=== PATIENT | male | born 1960 | race Caucasian/White ===

== ENCOUNTER → 2016-09-21 | Outpatient (CLI) | payer OTHER ==
[~2016-09-21] MED LIST: ALLO100T PO; ASPEC81 PO; CALC1CAP36 PO; CALC500C70 PO; CEPH500C PO; CHOL100027 PO; CHOL20009 PO; CLON0.2T PO; CMD4 PO; CTP1CL PO; FLV1 PO; FRS/40 PO; HYDR100T12 PO; LCTL45 PO; LDDP5 TD; LISI-725 PO; LSX40 PO; LYR100 PO; METO100T14 PO; MRLP17X PO; MULT-506 PO; OMEG-27 PO; OXY/15 PO; OXYC-57 PO; OXYC20TA50 PO; PLN/10 PO; PREG100C PO; RXC5 PO; SPR25 PO; WARF-246 PO; WARF5TAB90 PO
--- NOTE | 2016-09-21 10:28 | DIAGNOSTIC IMAGING REPORT ---
MRI OF THE ABDOMEN WITHOUT IV CONTRAST CLINICAL HISTORY: Renal cell carcinoma. COMPARISON STUDY: Abdominal CT dated 04/16/2016 an 07/26/2014. Abdominal MRI dated 09/10/2014. TECHNIQUE: MRI of the abdomen is performed transverse T1 and T2-weighted sequences in the axial and coronal planes. IV contrast was not administered for this examination. The examination is suboptimal without IV contrast for the reported clinical history. FINDINGS: Lower chest: The heart is markedly enlarged. A small pericardial effusion is noted. No pleural effusion is identified. Significant atelectasis is seen at the left lung base. There is a 5 mm nodule the left lung base seen on axial image #4 of the FIESTA series. Liver: The unenhanced liver is cirrhotic in morphology and markedly heterogeneous in signal intensity. There is nodularity of the surface contour. No intrahepatic biliary ductal dilatation is seen. No hepatic cysts are identified. Gallbladder: Numerous gallstones are identified. Nonspecific gallbladder wall thickening is unchanged and may be related to cirrhosis. Spleen: The spleen is enlarged, measuring 17.8 cm in length. The spleen is homogeneous in signal intensity. A 3.2 cm cystic lesion in the spleen has modestly increased in size from the 09/10/2014 examination. Pancreas: Normal as visualized. Adrenal glands: There is nodularity and thickening of the adrenal glands. These appear to demonstrate drop in signal on the opposed phase images suggesting adenomas. Kidneys: The kidneys are enlarged and demonstrate cortical atrophy. The right kidney measures at least 18 cm in length, and the left kidney measures at least 16 cm in length. The kidneys are infiltrated by too numerous to count cysts, and the appearance is consistent with autosomal dominant polycystic kidney disease. There is no hydronephrosis. Again seen is an indeterminant 3.6 x 4.0 x 2.8 cm lesion in the lower pole of the left kidney. This is best seen on axial T2 fat-saturated image #23 of 39. This appears modestly decreased in size as compared to 09/10/2014 examination. Abdominal aorta: Normal in course and caliber. Bowel: Visualized portions of the small bowel and colon show no evidence of obstruction. Moderate colonic fecal retention is observed. Peritoneum: There is no abdominal ascites. Lymphadenopathy: There is no upper abdominal or mesenteric lymphadenopathy. Mildly enlarged left periaortic lymph nodes measure up to 10 mm in short axis. Skeletal structures: There is no evidence of destructive bony lesion. IMPRESSION: 1. The kidneys are enlarged and infiltrated by too numerous to count cysts. The appearance is consistent with autosomal dominant polycystic kidney disease. 2. Again seen is an indeterminant 4.0 cm lesion in the lower pole of the left kidney. This is incompletely characterized without IV contrast but is not consistent with a simple cyst. This could represent a complex cyst or possibly a solid renal neoplasm. This appears modestly decreased in size as compared to the 09/10/2014 examination. 3. A mildly enlarged left periaortic lymph node is again identified and indeterminant. If the left renal lesion represents neoplasm then this is concerning for emeterio disease. 4. Cirrhotic liver morphology. Splenomegaly indicates portal hypertension. 5. Cholelithiasis. Mild gallbladder wall thickening is similar to previous and likely related to cirrhosis. 6. Marked cardiomegaly. 7. A 5 mm nodule is noted at the left lung base. 8. Additional changes as above. Electronically signed by: Angel Gil M.D. 09/21/2016 10:26 AM Dictated Date/Time: 09/21/2016 10:03 AM
== END | disposition home or self-care (01) ==
LOC: C.MRI 09:29
PROVIDERS: ATTEND Urology
DX: C64.2 Malignant neoplasm of left kidney, except renal pelvis (principal); N28.1 Cyst of kidney, acquired; R59.0 Localized enlarged lymph nodes; K74.60 Unspecified cirrhosis of liver; R16.1 Splenomegaly, not elsewhere classified; K80.20 Calculus of gallbladder without cholecystitis without obstruction; I51.7 Cardiomegaly; R91.1 Solitary pulmonary nodule

== ENCOUNTER 2016-12-24 16:36 | Emergency (ER) | payer OTHER ==
[~2016-12-24] VITALS: Ht 185.4 cm; Wt 133.5 kg
[~2016-12-24 16:36] MED LIST changes: -ALLO100T PO; -CALC1CAP36 PO; -CALC500C70 PO; -CEPH500C PO; -CHOL20009 PO; -CMD4 PO; -CTP1CL PO; -FLV1 PO; -HYDR100T12 PO; -LCTL45 PO; -LDDP5 TD; -LSX40 PO; -LYR100 PO; -METO100T14 PO; -MRLP17X PO; -MULT-506 PO; -OXY/15 PO; -OXYC20TA50 PO; -PLN/10 PO; -PREG100C PO; -RXC5 PO; -SPR25 PO; -WARF5TAB90 PO
[2016-12-24 16:45] VITALS: TEMP 36.9; Ht 185.4 cm; Wt 133.5 kg
[2016-12-24] MEDS ORDERED: LYR100 PO (16:47)
[2016-12-24] MEDS ORDERED: WARF5TAB90 PO (18:51)
[2016-12-24] MEDS ORDERED: OXY/15 PO (18:51)
[2016-12-24 19:13] LABS: INR 2.7 (0.9-1.1); PROTHROMBIN TIME (PATIENT) 30.3 SECONDS (9.0-12.0)
[2016-12-24 19:38] LABS: CALCIUM 9.4 mg/dl (8.5-10.1); CREATININE 3.7 mg/dl (0.60-1.40)
--- NOTE | 2016-12-24 19:40 | DIAGNOSTIC IMAGING REPORT ---
LEFT LOWER EXTREMITY VENOUS DOPPLER CLINICAL HISTORY: Left lower extremity swelling. COMPARISON STUDY: Bilateral lower extremity venous Doppler October 08, 2014. TECHNIQUE: Sonography of the deep venous system of the left lower extremity was performed. Compression and augmentation were evaluated. FINDINGS: The common femoral, superficial femoral and popliteal veins were compressible. Augmentation was normal. Flow was shown within the deep calf vessels. IMPRESSION: No evidence of deep venous thrombus within the left lower extremity. Electronically signed by: Geremias Boss M.D. 12/24/2016 7:39 PM Dictated Date/Time: 12/24/2016 7:38 PM
[2016-12-24 19:43] LABS: POTASSIUM 4.2 mmol/L (3.5-5.1)
[2016-12-24 19:57] LABS: BASO % 0.3 %; BASO ABS # 0.03 K/uL (0-0.2); COMPLETE YES; EOS % 1.3 %; HEMATOCRIT 35.7 % (42-52); IG% 0.1 %; LYMPH % 13.4 %; LYMPH ABS # 1.16 K/uL (1.2-3.4); MEAN CELL VOLUME 93.5 fL (80-100); MEAN CORPUSCULAR HEMOGLOBIN 29.3 pg (25-34); MEAN CORPUSCULAR HGB CONC 31.4 g/dl (32-36); MEAN PLATELET VOLUME 10.3 fL (7.4-10.4); MONO % 8.3 %; NEUT % 76.6 %; PLATELET COUNT 118 K/uL (130-400); RED BLOOD COUNT 3.82 M/uL (4.7-6.1); WHITE BLOOD COUNT 8.68 K/uL (4.8-10.8)
--- NOTE | 2016-12-24 20:10 | DIAGNOSTIC IMAGING REPORT ---
LEFT FIRST TOE RADIOGRAPHS CLINICAL HISTORY: Ulcer. COMPARISON: Left foot radiographs March 08, 2014. FINDINGS: There is evidence for amputation of the first toe at the level the mid shaft of the proximal phalanx. There is subtle indistinctness of the cortex at the level of the amputation. There is no definite evidence for osteomyelitis. Apparent erosion of the distal phalanx of the left second toe is chronic. This was shown on prior exam. Soft tissue swelling of the left first toe is present. IMPRESSION: Status post amputation of the left first toe at the level the mid shaft of the proximal phalanx. Possible indistinctness of the cortex at the level of the amputation. This is probably chronic. No definite evidence for osteomyelitis although an MRI could be obtained. Soft tissue swelling of the left first toe. Electronically signed by: Geremias Boss M.D. 12/24/2016 8:09 PM Dictated Date/Time: 12/24/2016 8:04 PM
[2016-12-24] MEDS ORDERED: CEPH500C PO (20:59)
[2016-12-24] MEDS ORDERED: CEPHALEXIN MONOHYDRATE 250 MG CAP PO ONE (21:00)
[2016-12-24 21:20] VITALS: BP 136/73; PULSE 72; O2SAT 94
--- NOTE | 2016-12-25 00:04 | EMERGENCY ROOM VISIT NOTE ---
History Report prepared by Ja: Jennifer Avina Under the Supervision of: Dr. Billy Chaudhary D.O. 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 The patient states that his infection on his left toe started about 3 months ago with the appearance of an ulcer on the right big toe. The patient states that about 1 week ago the skin on the ulcer on his left foot peeled off. He states that he was worried that the same thing would happen to his right toe. The patient states that skin around his right toe ulcer was starting to get soft which is what occurred to his left toe. The patient states that he had part of his left big toe amputated in the past due to an infection. The patient states that he sees a map compiler regularly but has not seen them for the last 3 weeks. The patient states that he does not have a history of diabetes but states he does take Coumadin for atrial fibrillation. He states his INR was last tested to be 2.2 about 3 weeks ago. The patient states he does not have very good feeling on his legs or feet due to shots for a Hepatitis C infection he had in the past. He also states that due to the current infection on his toes that his left leg does have some increased swelling. The patient denies any recent shortness of breath, surrounding redness or streaking up his legs. The patient does state that he has a lump on his left knee which he states is tender to touch. 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 Patient denies redness or streaking up the legs. Review of Systems See above for pertinent positives & negatives. A total of 10 systems reviewed and were otherwise negative. Past Medical & Surgical Medical Problems: (1) ANTICOAGULANTS,LT,CURRENT USE (2) ATRIAL FIBRILLATION (3) Talley's cyst of knee (4) Chronic diastolic CHF (congestive heart failure) (5) CKD (chronic kidney disease) (6) Depression (7) DM type 2 (diabetes mellitus, type 2) (8) Edema (9) Fatty liver (10) GERD (gastroesophageal reflux disease) (11) Hepatitis C, chronic (12) History of alcohol abuse (13) History of DVT (deep vein thrombosis) (14) History of hematuria (15) HYPERLIPIDEMIA NEC/NOS (16) HYPERTENSION NOS (17) LVH (left ventricular hypertrophy) (18) Polycystic kidney disease (19) Renal mass, left (20) SOB (shortness of breath) (21) Status post amputation of toe of left foot Surgical Problems: (1) H/O colonoscopy (2) H/O endoscopy (3) H/O partial nephrectomy (4) Hx of appendectomy (5) pelvic fracture repair Family History Hypertension FATHER LUNG DISORDER FATHER Social History Smoking Status: Never Smoker Alcohol Use: none Drug Use: none Marital Status: single Housing Status: lives alone Occupation Status: disabled Current/Historical Medications Scheduled Allopurinol (Zyloprim), 100 MG PO BID Calcitriol (Calcitriol), 0.25 MCG PO DAILY Calcium/Vitamin D (Os-Delvis 500 Plus D), 1 TAB PO DAILY Cephalexin Monohydrate (Keflex), 500 MG PO TID Cholecalciferol (Vitamin D), 2,000 INTER.UNIT PO DAILY Clonidine Hcl (Catapres), 0.1 MG PO BID Felodipine (Felodipine ER), 10 MG PO DAILY Folic Acid (Folic Acid), 1 MG PO BID Furosemide (Furosemide), 40 MG PO BID Hydralazine Hcl (Apresoline), 100 MG PO BID Metoprolol Tartrate (Lopressor) (Lopressor), 100 MG PO BID Multivitamin (Multivitamin), 1 TAB PO DAILY Oxycodone Hcl (Oxycodone Hcl), 15 MG PO QID Pregabalin (Lyrica), 100 MG PO BID Warfarin Sodium (Coumadin), 5 MG PO Q2D Warfarin Sodium (Coumadin), 7.5 MG PO Q2D Scheduled PRN Spironolactone (Spironolactone), 50 MG PO QAM PRN for Fluid Retention/Edema Allergies Coded Allergies: Piperacillin (Verified Adverse Reaction, Severe, "makes me goofy", ) Tazobactam (Verified Adverse Reaction, Severe, "makes me goofy", 07/21/16) Physical Exam Vital Signs Date Time Temp Pulse Resp B/P Pulse Ox O2 Delivery O2 Flow Rate FiO2 12/24/16 21:20 72 16 136/73 94 12/24/16 18:35 78 15 145/72 93 Room Air 12/24/16 16:45 36.9 78 18 143/77 92 Room Air Physical Exam GENERAL: Sitting up in bed, alert, well appearing, well nourished, no distress, non-toxic EYE EXAM: normal conjunctiva OROPHARYNX: no exudate, no erythema, lips, buccal mucosa, and tongue normal and mucous membranes are moist NECK: supple, no nuchal rigidity, no adenopathy, non-tender LUNGS: Clear to auscultation. Normal chest wall mechanics HEART: no murmurs, S1 normal and S2 normal ABDOMEN: abdomen soft, non-tender, normo-active bowel sounds, no masses, no rebound or guarding. BACK: Back is symmetrical on inspection and there is no deformity, no midline tenderness, no CVA tenderness. SKIN: no rashes and no bruising UPPER EXTREMITIES: upper extremities are grossly normal. LOWER EXTREMITIES: Left lower extremity larger than right with faint pitting edema. Left first toe ulcer amputation of about an inch of the distal toe. Ulcer on dorsal aspect 2.5cm x 1 cm with no prevalent discharge. Layer of skin has been removed. Right lower extremity 0.5 cm x 1 cm ulcer on first toe, no surrounding erythema or induration. NEURO EXAM: Normal sensorium, cranial nerves II-XII intact, normal speech, no weakness of arms, no weakness of legs. Medical Decision & Procedures ER Provider Diagnostic Interpretation: Radiology results as stated below per my review and the radiologist's interpretation: US scan: Radiology provided the following report: LEFT LOWER EXTREMITY VENOUS DOPPLER CLINICAL HISTORY: Left lower extremity swelling. COMPARISON STUDY: Bilateral lower extremity venous Doppler October 08, 2014. TECHNIQUE: Sonography of the deep venous system of the left lower extremity was performed. Compression and augmentation were evaluated. FINDINGS: The common femoral, superficial femoral and popliteal veins were compressible. Augmentation was normal. Flow was shown within the deep calf vessels. IMPRESSION: No evidence of deep venous thrombus within the left lower extremity. Electronically signed by: Geremias Boss M.D. 12/24/2016 7:39 PM Dictated Date/Time: 12/24/2016 7:38 PM Radiology results as stated below per my review and the radiologist's interpretation: LEFT FIRST TOE RADIOGRAPHS CLINICAL HISTORY: Ulcer. COMPARISON: Left foot radiographs March 08, 2014. FINDINGS: There is evidence for amputation of the first toe at the level the mid shaft of the proximal phalanx. There is subtle indistinctness of the cortex at the level of the amputation. There is no definite evidence for osteomyelitis. Apparent erosion of the distal phalanx of the left second toe is chronic. This was shown on prior exam. Soft tissue swelling of the left first toe is present. IMPRESSION: Status post amputation of the left first toe at the level the mid shaft of the proximal phalanx. Possible indistinctness of the cortex at the level of the amputation. This is probably chronic. No definite evidence for osteomyelitis although an MRI could be obtained. Soft tissue swelling of the left first toe. Electronically signed by: Geremias Boss M.D. 12/24/2016 8:09 PM Dictated Date/Time: 12/24/2016 8:04 PM Laboratory Results 12/24/16 19:50 Red Blood Count 3.82, Mean Corpuscular Volume 93.5, Mean Corpuscular Hemoglobin 29.3, Mean Corpuscular Hemoglobin Concent 31.4, Mean Platelet Volume 10.3, Neutrophils (%) (Auto) 76.6, Lymphocytes (%) (Auto) 13.4, Monocytes (%) (Auto) 8.3, Eosinophils (%) (Auto) 1.3, Basophils (%) (Auto) 0.3, Neutrophils # (Auto) 6.65, Lymphocytes # (Auto) 1.16, Monocytes # (Auto) 0.72, Eosinophils # (Auto) 0.11, Basophils # (Auto) 0.03 12/24/16 18:45 Test 12/24/16 18:45 12/24/16 19:50 Prothrombin Time 30.3 SECONDS (9.0-12.0) Prothromb Time International Ratio 2.7 (0.9-1.1) Anion Gap 8.0 mmol/L (3-11) Est Creatinine Clear Calc Drug Dose 32.0 ml/min Estimated GFR () 20.0 Estimated GFR (Non- 17.2 BUN/Creatinine Ratio 14.0 (10-20) Calcium Level 9.4 mg/dl (8.5-10.1) White Blood Count 8.68 K/uL (4.8-10.8) Red Blood Count 3.82 M/uL (4.7-6.1) Hemoglobin 11.2 g/dL (14.0-18.0) Hematocrit 35.7 % (42-52) Mean Corpuscular Volume 93.5 fL (80-100) Mean Corpuscular Hemoglobin 29.3 pg (25-34) Mean Corpuscular Hemoglobin Concent 31.4 g/dl (32-36) Platelet Count 118 K/uL (130-400) Mean Platelet Volume 10.3 fL (7.4-10.4) Neutrophils (%) (Auto) 76.6 % Lymphocytes (%) (Auto) 13.4 % Monocytes (%) (Auto) 8.3 % Eosinophils (%) (Auto) 1.3 % Basophils (%) (Auto) 0.3 % Neutrophils # (Auto) 6.65 K/uL (1.4-6.5) Lymphocytes # (Auto) 1.16 K/uL (1.2-3.4) Monocytes # (Auto) 0.72 K/uL (0.11-0.59) Eosinophils # (Auto) 0.11 K/uL (0-0.5) Basophils # (Auto) 0.03 K/uL (0-0.2) RDW Standard Deviation 50.3 fL (36.4-46.3) RDW Coefficient of Variation 14.8 % (11.5-14.5) Immature Granulocyte % (Auto) 0.1 % Immature Granulocyte # (Auto) 0.01 K/uL (0.00-0.02) Laboratory results per my review. Medications Administered Medications (Trade) Dose Ordered Sig/Efrain Route Start Time Stop Time Status Last Admin Dose Admin Cephalexin Monohydrate (Keflex Cap) 500 mg NOW ONCE PO 12/24/16 21:00 12/24/16 21:01 DC 12/24/16 21:06 500 MG ED Course ED COURSE: Vital signs were reviewed and showed normal The patients medical record was reviewed The above diagnostic studies were performed and reviewed. ED treatments and interventions as stated above. 1815: The patient was evaluated in room A10. A complete history and physical examination was performed. 1910: I revaluated the patient and he was sleeping and resting comfortably. 2053: Upon reevaluation, the patient is resting comfortably.I discussed my findings with the patient and he understands and agrees with the treatment plan. The patient states that he would rather follow up with wound clinic in [place] than the [facility] wound clinic. I discussed this with the protective services case worker on getting in a follow up appointment with [place]'s wound clinic. The patient also states that his kidney function is always elevated to 3.5-3.7 recently. Based on the patients age, coexisting illnesses, exam and lab findings the decision to treat as an outpatient was made.The patient remained stable while under my care.The patient appeared well at the time of discharge. 2100: Ordered Keflex Cap 500 mg. Medical Decision Differential diagnosis includes etiologies such as cellulitis, abscess, MRSA infection, DVT, necrotizing fasciitis, dermatitis, drug eruption, as well as others were entertained. Patient is a 56-year-old male who presents the ER for to toe ulcers without any purulent discharge. Labs show no significant leukocytosis or anemia. BMP shows creatinine 3.7 and upon review his previous creatinines appear to fluctuate between 2.9-3.4. Patient does note that his creatinine recently due to his PCOS has been 2.5-3.7 pretty consistently. INR was therapeutic at 2.7. Duplex of the left lower extremity was negative. X-rays showed no obvious osteomyelitis. Recommended wound care but he preferred not to drive to our wound care but rather the one in [place]. Discussed with care management and they will attempt to set him up. I did place multiple Keflex instructed to follow up with PCP and wound care. Discussed with Pt concerning signs and symptoms to watch out for. Pt was instructed to follow up with their PCP and discussed with the patient their option to return to the ED at anytime for persistent or worsening symptoms. The appropriate anticipatory guidance and out- patient management, including indications for return to the emergency department , were explained at length to the patient and understood. Impression Primary Impression: Toe ulcer Additional Impressions: Chronic kidney disease Anemia Scribe Attestation The scribe's documentation has been prepared under my direction and personally reviewed by me in its entirety. I confirm that the note above accurately reflects all work, treatment, procedures, and medical decision making performed by me. Departure Information Dispostion Home / Self-Care Prescriptions Cephalexin Monohydrate (Keflex) 500 Mg Cap 500 MG PO TID for 10 Days, #30 CAP Prov: Billy Chaudhary, DO 12/24/16 Referrals Rene Azar III, CRNP (PCP) Forms HOME CARE DOCUMENTATION FORM, IMPORTANT VISIT INFORMATION, WORK / SCHOOL INSTRUCTIONS Patient Instructions [facility] Additional Instructions Please follow up with your primary care doctor with in the next 24 hours. Any worsening of your symptoms, please return to the ED immediately. This includes fevers, worsening the ulcer, dark/necrotic tissue present, purulent discharge, or any other concerning signs or symptoms from your standpoint. Please follow up with the wound clinic as set up by care management. Please take the antibiotics as prescribed. Your kidney function today was 3.7. Your INR was 2.7. Problem Qualifiers Primary Impression: Toe ulcer Laterality: unspecified laterality Non-pressure ulcer stage: limited to breakdown of skin Qualified Codes: L97.501 - Non-pressure chronic ulcer of other part of unspecified foot limited to breakdown of skin Additional Impressions: Chronic kidney disease Chronic kidney disease stage: unspecified stage Qualified Codes: N18.9 - Chronic kidney disease, unspecified Anemia Other causes of anemia: other cause, not classified
[2017-02-26] MEDS ORDERED: OXYC20TA50 PO (10:43)
[2017-02-26] MEDS ORDERED: MRLP17X PO (10:43)
[2017-02-26] MEDS ORDERED: LDDP5 TD (10:43)
[2017-02-26] MEDS ORDERED: RXC5 PO ×2 (11:08→20:21)
[2017-02-26] MEDS ORDERED: PREG100C PO (16:08)
[2017-04-27] MEDS ORDERED: CALC500C70 PO (07:05)
[2017-04-27] MEDS ORDERED: ALLO100T PO (07:29)
[2017-04-27] MEDS ORDERED: MULT-506 PO (11:30)
[2017-04-27] MEDS ORDERED: FLV1 PO (16:47)
[2017-04-27] MEDS ORDERED: METO100T14 PO (17:10)
[2017-05-03] MEDS ORDERED: RXC5 PO (16:31)
[2017-05-03] MEDS ORDERED: CMD4 PO (16:31)
[2017-05-03] MEDS ORDERED: LSX40 PO (16:31)
[2017-05-03] MEDS ORDERED: LCTL45 PO (16:31)
[2017-07-13] MEDS ORDERED: PREG100C PO (12:21)
[2017-07-13] MEDS ORDERED: MULT-513 PO (12:21)
[2017-07-13] MEDS ORDERED: CALC-51 PO (12:21)
[2017-07-13] MEDS ORDERED: ALLO100T PO (12:21)
[2017-07-13] MEDS ORDERED: CTP/1 PO (12:21)
[2017-07-13] MEDS ORDERED: CHOL100010 PO (12:21)
[2017-07-13] MEDS ORDERED: METO-596 PO (12:21)
[2017-07-13] MEDS ORDERED: OXYC20TA32 PO (12:21)
[2017-07-13] MEDS ORDERED: SENN-61 PO (12:21)
[2017-07-13] MEDS ORDERED: WARF5TAB7 PO (12:21)
[2017-07-13] MEDS ORDERED: FRS/40 PO (12:21)
[2017-07-13] MEDS ORDERED: CALC0.2510 PO (12:21)
[2017-07-13] MEDS ORDERED: FOLI1TAB7 PO (12:21)
== END 2016-12-24 21:22 | disposition home or self-care (01) ==
LOC: C.EDB 16:39 → C.EDA 21:22
DX: L97.519 Non-pressure chronic ulcer of other part of right foot with unspecified severity (principal); N18.9 Chronic kidney disease, unspecified; D64.9 Anemia, unspecified; E11.621 Type 2 diabetes mellitus with foot ulcer; I48.91 Unspecified atrial fibrillation; M71.20 Synovial cyst of popliteal space [Baker], unspecified knee; I50.9 Heart failure, unspecified; I12.9 Hypertensive chronic kidney disease with stage 1 through stage 4 chronic kidney disease, or unspecified chronic kidney disease; E11.22 Type 2 diabetes mellitus with diabetic chronic kidney disease; F32.9 Major depressive disorder, single episode, unspecified; K21.9 Gastro-esophageal reflux disease without esophagitis; B18.2 Chronic viral hepatitis C; E78.5 Hyperlipidemia, unspecified; Q61.3 Polycystic kidney, unspecified; I51.7 Cardiomegaly; F10.21 Alcohol dependence, in remission; N28.89 Other specified disorders of kidney and ureter; Z79.01 Long term (current) use of anticoagulants; Z89.422 Acquired absence of other left toe(s); Z86.718 Personal history of other venous thrombosis and embolism

== ENCOUNTER 2017-02-21 11:13 | Inpatient (IN) | payer OTHER ==
[~2017-02-21] VITALS: Ht 185.4 cm; Wt 127.2 kg
[~2017-02-21 11:13] MED LIST changes: -ASPEC81 PO; -CHOL100027 PO; -CLON0.2T PO; -FRS/40 PO; -LISI-725 PO; +LYR100 PO; -OMEG-27 PO; +OXY/15 PO; -OXYC-57 PO; -WARF-246 PO; +WARF5TAB90 PO
[2017-02-21] MEDS ORDERED: MoRPHine SULFATE 10 MG/ML CARP/VIAL IM STA (11:47)
[2017-02-21] MEDS ORDERED: FRS/40 PO (12:41)
--- NOTE | 2017-02-21 12:41 | DIAGNOSTIC IMAGING REPORT ---
LUMBAR SPINE CT CT DOSE: 4894.00 mGy.cm HISTORY: Pain lumbar radiculopathy, hx cancer TECHNIQUE: Multiaxial CT images of the lumbar spine were performed and reformatted in the sagittal and coronal plane without the use of contrast. COMPARISON: None. FINDINGS: Normal alignment of the vertebral bodies. Vertebral body stature is unremarkable. Moderate degenerative disc change L5-S1. Mild broad-based disc bulge L4-L5 and L5-S1. No major compromise of the spinal canal or neural foramina. Moderate narrowing of the neuroforamina on an osteophytic bases bilaterally at L5-S1. IMPRESSION: Mild degenerative change. Mild broad-based disc bulge L4-L5 and L5-S1. Electronically signed by: El Josue M.D. 02/21/2017 12:39 PM Dictated Date/Time: 02/21/2017 12:36 PM
[2017-02-21] MEDS ORDERED: OXYC20TA50 PO (12:43)
--- NOTE | 2017-02-21 12:52 | DIAGNOSTIC IMAGING REPORT ---
CT SCAN OF THE PELVIS WITHOUT IV CONTRAST CLINICAL HISTORY: Right leg pain and bruising. COMPARISON STUDY: Pelvic CT dated 04/16/2016. TECHNIQUE: CT scan of the bony pelvis is performed from the pelvic inlet to the proximal femora. Images are reviewed in the axial, sagittal, and coronal planes. IV contrast was not administered for this examination. FINDINGS: The skeletal structures are osteopenic. No fracture is identified in the hips or bony pelvis. Chronic deformity and widening at the pubic symphysis with postoperative change is similar to previous. No lytic or blastic lesions are seen. Lumbosacral spondylosis is partially imaged and there is degenerative change with vacuum phenomenon seen at the sacroiliac joints. There is a complex hyperdense collection identified within the right gluteus medius muscle which appears expanded. The collection measures approximately 10 x 9 x 6 cm as seen on axial image #134. The appearance is most consistent with intramuscular hematoma. No additional intramuscular hemorrhage is identified. There is no pelvic sidewall or inguinal lymphadenopathy. There is advanced atherosclerotic calcification of the distal abdominal aorta and iliac vessels. The kidneys appear enlarged and multicystic. A complex lesion is again seen in the lower pole of left kidney. There is likely adjacent postoperative change. Nonspecific perinephric stranding is observed. The visualized bowel loops are normal in caliber. Fecal retention is noted in the right colon. There is median lobe hypertrophy hypertrophy of the prostate gland. The bladder wall appears thickened and trabeculated suggesting chronic outlet obstruction. IMPRESSION: 1. No acute bony abnormality seen in the hips or pelvis. 2. A large intramuscular hematoma is seen within the right gluteus medius muscle. Clinical follow-up to resolution is recommended. 3. Enlarged multicystic kidneys are partially imaged. 4. Additional findings as above. Electronically signed by: Angel Gil M.D. 02/21/2017 12:51 PM Dictated Date/Time: 02/21/2017 12:39 PM
[2017-02-21 12:56] LABS: BASO % 0.4 %; BASO ABS # 0.03 K/uL (0-0.2); COMPLETE YES; EOS % 1.8 %; IG% 0.1 %; LYMPH ABS # 0.84 K/uL (1.2-3.4); MEAN CELL VOLUME 89.6 fL (80-100); MEAN CORPUSCULAR HEMOGLOBIN 28.6 pg (25-34); MEAN CORPUSCULAR HGB CONC 31.9 g/dl (32-36); MEAN PLATELET VOLUME 10.5 fL (7.4-10.4); NEUT % 76.7 %; PLATELET COUNT 140 K/uL (130-400); RED BLOOD COUNT 3.57 M/uL (4.7-6.1); WHITE BLOOD COUNT 7.61 K/uL (4.8-10.8)
[2017-02-21 13:14] LABS: BUN/CREATININE RATIO 18.5 (10-20); CALCIUM 9.5 mg/dl (8.5-10.1); CREATININE 3.4 mg/dl (0.60-1.40); POTASSIUM 3.5 mmol/L (3.5-5.1)
[2017-02-21 13:28] LABS: PROTHROMBIN TIME (PATIENT) > 100.0 SECONDS (9.0-12.0)
[2017-02-21 13:48] LABS: PARTIAL THROMBOPLASTIN RATIO > 11.0
[2017-02-21 13:49] LABS: INR > 8.0 (0.9-1.1)
[2017-02-21] MEDS ORDERED: PHYTONADIONE 5 MG TAB PO STA (14:03)
--- NOTE | 2017-02-21 15:00 | EMERGENCY ROOM VISIT NOTE ---
History First contact with patient: 11:26 Chief Complaint: LEG PAIN,LEG INJURY Stated Complaint: FOOT, LEG AND HIP PAIN History of Present Illness The patient is a 57 year old male who presents to the Emergency Room with complaints of pain radiating from the right buttock down the right leg. He states he has had intermittent pain for the past one week which worsened this morning. He states that after getting up to walk to the bathroom, his pain became constant and severe. He rates the current discomfort a 10/10. He denies any history of similar symptoms. The patient does have chronic pain in his feet due to neuropathy and in his knees and hips due to arthritis and takes oxycodone for the pain. He states that he took oxycodone this morning for relief of this pain with no relief. He denies any numbness or weakness in the leg. He denies any specific injury to the leg. He states that he has a history of polycystic kidney disease and hypertension. He also reports a history of atrial fibrillation and takes Coumadin. Review of Systems A complete 10 point review of systems was reviewed with the patient with pertinent positives and negatives as per history of present illness. All else were negative. Past Medical/Surgical History Medical Problems: (1) ANTICOAGULANTS,LT,CURRENT USE (2) ATRIAL FIBRILLATION (3) Talley's cyst of knee (4) Chronic diastolic CHF (congestive heart failure) (5) CKD (chronic kidney disease) (6) Depression (7) DM type 2 (diabetes mellitus, type 2) (8) Edema (9) Fatty liver (10) GERD (gastroesophageal reflux disease) (11) Hepatitis C, chronic (12) History of alcohol abuse (13) History of DVT (deep vein thrombosis) (14) History of hematuria (15) HYPERLIPIDEMIA NEC/NOS (16) HYPERTENSION NOS (17) LVH (left ventricular hypertrophy) (18) Polycystic kidney disease (19) Renal mass, left (20) SOB (shortness of breath) (21) Status post amputation of toe of left foot Surgical Problems: (1) H/O colonoscopy (2) H/O endoscopy (3) H/O partial nephrectomy (4) Hx of appendectomy (5) pelvic fracture repair Family History Hypertension FATHER LUNG DISORDER FATHER Social History Smoking Status: Never Smoker Alcohol Use: none Drug Use: none Marital Status: single Housing Status: lives alone Occupation Status: disabled Current/Historical Medications Scheduled Allopurinol (Zyloprim), 100 MG PO BID Calcitriol (Calcitriol), 0.25 MCG PO DAILY Calcium/Vitamin D (Os-Delvis 500 Plus D), 1 TAB PO DAILY Cholecalciferol (Vitamin D), 2,000 INTER.UNIT PO DAILY Clonidine Hcl (Catapres), 0.1 MG PO BID Felodipine (Felodipine ER), 10 MG PO QPM Folic Acid (Folic Acid), 1 MG PO BID Furosemide (Furosemide), 40 MG PO DAILY Furosemide (Lasix), 80 MG PO QPM Hydralazine Hcl (Apresoline), 100 MG PO BID Metoprolol Tartrate (Lopressor) (Lopressor), 100 MG PO BID Multivitamin (Multivitamin), 1 TAB PO DAILY Pregabalin (Lyrica), 100 MG PO BID Warfarin Sodium (Coumadin), 5 MG PO Q2D Warfarin Sodium (Coumadin), 7.5 MG PO Q2D Scheduled PRN Oxycodone Hcl (Oxycontin), 20 MG PO Q4 PRN for Pain Spironolactone (Spironolactone), 50 MG PO QAM PRN for Fluid Retention/Edema Allergies Coded Allergies: Piperacillin (Verified Adverse Reaction, Severe, "makes me goofy", 02/21/17 ) Tazobactam (Verified Adverse Reaction, Severe, "makes me goofy", 02/21/17) Physical Exam Vital Signs Date Time Temp Pulse Resp B/P (MAP) Pulse Ox O2 Delivery O2 Flow Rate FiO2 02/21/17 15:36 97 Room Air 02/21/17 14:21 66 18 129/64 97 Room Air 02/21/17 12:52 66 20 116/60 96 Room Air 02/21/17 11:39 66 18 108/57 98 Room Air 02/21/17 11:18 36.7 65 18 90/50 98 Room Air Physical Exam VITALS: Vitals are noted on the nurse's note and reviewed by myself. Vital signs stable. GENERAL: This is a 57-year-old male, in no acute distress, nondiaphoretic, well- developed well-nourished. HEART: Regular rate and rhythm, no murmurs gallops or rubs. LUNGS: Clear to auscultation bilaterally without wheezes, rales or rhonchi. No retractions or accessory muscle use. MUSCULOSKELETAL: There is a large area of ecchymosis over the right buttock and lateral right hip. There is tenderness to palpation over the buttock and hip. Dorsalis pedis pulses 2+ bilaterally. NEURO: Patient was alert and oriented to person place and time. Medical Decision & Procedures Laboratory Results 02/21/17 12:40 Red Blood Count 3.57, Mean Corpuscular Volume 89.6, Mean Corpuscular Hemoglobin 28.6, Mean Corpuscular Hemoglobin Concent 31.9, Mean Platelet Volume 10.5, Neutrophils (%) (Auto) 76.7, Lymphocytes (%) (Auto) 11.0, Monocytes (%) (Auto) 10.0, Eosinophils (%) (Auto) 1.8, Basophils (%) (Auto) 0.4, Neutrophils # (Auto ) 5.83, Lymphocytes # (Auto) 0.84, Monocytes # (Auto) 0.76, Eosinophils # (Auto ) 0.14, Basophils # (Auto) 0.03 02/21/17 12:40 Test 02/21/17 12:40 White Blood Count 7.61 K/uL (4.8-10.8) Red Blood Count 3.57 M/uL (4.7-6.1) Hemoglobin 10.2 g/dL (14.0-18.0) Hematocrit 32.0 % (42-52) Mean Corpuscular Volume 89.6 fL (80-100) Mean Corpuscular Hemoglobin 28.6 pg (25-34) Mean Corpuscular Hemoglobin Concent 31.9 g/dl (32-36) Platelet Count 140 K/uL (130-400) Mean Platelet Volume 10.5 fL (7.4-10.4) Neutrophils (%) (Auto) 76.7 % Lymphocytes (%) (Auto) 11.0 % Monocytes (%) (Auto) 10.0 % Eosinophils (%) (Auto) 1.8 % Basophils (%) (Auto) 0.4 % Neutrophils # (Auto) 5.83 K/uL (1.4-6.5) Lymphocytes # (Auto) 0.84 K/uL (1.2-3.4) Monocytes # (Auto) 0.76 K/uL (0.11-0.59) Eosinophils # (Auto) 0.14 K/uL (0-0.5) Basophils # (Auto) 0.03 K/uL (0-0.2) RDW Standard Deviation 49.8 fL (36.4-46.3) RDW Coefficient of Variation 15.3 % (11.5-14.5) Immature Granulocyte % (Auto) 0.1 % Immature Granulocyte # (Auto) 0.01 K/uL (0.00-0.02) Prothrombin Time > 100.0 SECONDS Prothromb Time International Ratio > 8.0 (0.9-1.1) Activated Partial Thromboplast Time > 300.0 SECONDS Partial Thromboplastin Ratio > 11.0 Anion Gap 12.0 mmol/L (3-11) Est Creatinine Clear Calc Drug Dose 33.5 ml/min Estimated GFR () 22.0 Estimated GFR (Non- 18.9 BUN/Creatinine Ratio 18.5 (10-20) Calcium Level 9.5 mg/dl (8.5-10.1) Medications Administered Medications (Trade) Dose Ordered Sig/Efrain Route Start Time Stop Time Status Last Admin Dose Admin Morphine Sulfate (MoRPHine SULFATE INJ) 6 mg NOW STAT IM 02/21/17 11:47 02/21/17 11:48 DC 02/21/17 11:58 6 MG Phytonadione (Mephyton Tab) 5 mg NOW STAT PO 02/21/17 14:03 02/21/17 14:04 DC 02/21/17 14:13 5 MG Acetaminophen (Tylenol Tab) 650 mg Q4H PRN PO 02/21/17 15:30 03/23/17 15:29 02/21/17 18:57 650 MG Hydromorphone HCl (Dilaudid Inj) 1 mg Q4H PRN IV 02/21/17 15:30 03/07/17 15:29 02/21/17 15:58 1 MG Oxycodone HCl (Roxicodone Immediate Rel Tab) 20 mg Q6H PRN PO 02/21/17 15:30 03/07/17 15:29 02/21/17 17:03 20 MG ED Course The patient was evaluated as above. Labs were drawn and IV access was obtained. Patient was medicated with 6 mg morphine IM. Patient was medicated with 5 mg vitamin K. Patient was reevaluated and findings were discussed. I initially had planned on discharging the patient, but he does not feel that he can safely be discharged home. He is concerned about walking, as he lives by himself. The patient will be admitted for further evaluation. [facility] They agreed to evaluate the patient for admission. Medical Decision Differential diagnosis includes sciatica, intramuscular hematoma, malignancy, infection, among others. The patient is a 57-year-old male who presents today complaining of right hip and leg pain. Patient has a large area of ecchymosis over the right buttock. A CT scan of the pelvis shows a large intramuscular hematoma. Patient's INR was found to be supratherapeutic at greater than 8. He was initially treated with oral vitamin K. I did feel that the patient could be discharged home with close follow-up, however the patient is uncomfortable with this as he lives by himself and does not feel that he will be able to walk around to take care of himself until this is improved. [facility] The patient was independently evaluated by Dr. Chaudhary, ED attending physician, who agreed with my assessment and treatment plan. Blood pressure screening: Patient was found to have normal blood pressure on screening and does not require follow-up. Medication reconciliation: I attest that I have personally reviewed the patient 's current medication list. Impression Primary Impression: Intramuscular hematoma Additional Impressions: Supratherapeutic INR Ambulatory dysfunction Departure Information Dispostion Admitted as an inpatient Condition GOOD Referrals Justen Everett D.O. (PCP) Patient Instructions My [facility] Health Problem Qualifiers
[2017-02-21] MEDS ORDERED: ONDANSETRON INJ 2 MG/ML 2 ML VIAL IV PRN (15:30)
[2017-02-21] MEDS ORDERED: POLYETHYLENE (MIRALAX) 17 GM PACK PO PRN (15:30)
[2017-02-21] MEDS ORDERED: SPIRONOLACTONE 25 MG TAB PO PRN (15:30)
[2017-02-21 15:36] VITALS: O2SAT 97; Ht 185.4 cm; Wt 127.2 kg
[2017-02-21] MEDS: HYDROmorphone INJ 1 MG/ML SYR IV PRN ×2 (15:58→20:52)
--- NOTE | 2017-02-21 16:12 | History and Physical ---
History & Physical Date & Time of Service: Feb 21, 2017 at 15:40 Chief Complaint: Foot, Leg And Hip Pain Primary Care Physician: Justen Everett D.O. History of Present Illness This is a 57 yo M with PMHx of afib on coumadin, HTN, hyperlipidemia, stage IV, diastolic CHF, polycystic kidney disease, RAVI, PVD, history of an STEMI in March 2016, vit D deficiency, chronic hepatitis C, renal carcinoma with mass of the left kidney who presents today with excruciating pain in the lower back and right buttocks which began this morning. He reports he normally has chronic pain in his lower back and neuropathy in both feet which is unchanged, he reports worsening ability to walk due to the pain. His Coumadin regimen is alternating 7.5 and 5 mg, last dose was yesterday. He previously was using Pegasys injections for chronic hep C. which he reports caused his neuropathy. He denies any radiating pain into the abdomen or into the groin. He typically walks without an any assistance but has been requiring a wheelchair due to his pain. The patient does take narcotics on a daily basis for lower back pain, but he is unable to provide details of his outpatient pain management regimen. Here in the ER patient was found to have an INR greater than 8. CT had the pelvis shows a large intramuscular hematoma within the right gluteus medius. And also with enlarged multicystic kidneys. Hemoglobin stable at 10.2. His creatinine is 3.4. Platelets are 140. Past Medical/Surgical History Medical Problems: (1) ANTICOAGULANTS,LT,CURRENT USE Status: Resolved (2) ATRIAL FIBRILLATION Permanent Comment: on coumadin Status: Chronic (3) Talley's cyst of knee Status: Chronic (4) Chronic diastolic CHF (congestive heart failure) Status: Chronic (5) CKD (chronic kidney disease) Permanent Comment: Stage III Status: Chronic (6) Depression Status: Chronic (7) DM type 2 (diabetes mellitus, type 2) Status: Chronic (8) Edema Status: Chronic (9) Fatty liver Status: Chronic (10) GERD (gastroesophageal reflux disease) Status: Chronic (11) Hepatitis C, chronic Status: Chronic (12) History of alcohol abuse Status: Chronic (13) History of DVT (deep vein thrombosis) Permanent Comment: R femoral vein 05/2014 Status: Chronic (14) History of hematuria Status: Chronic (15) HYPERLIPIDEMIA NEC/NOS Status: Chronic (16) HYPERTENSION NOS Status: Chronic (17) LVH (left ventricular hypertrophy) Status: Chronic (18) Polycystic kidney disease Status: Chronic (19) Renal mass, left Status: Chronic (20) Status post amputation of toe of left foot Permanent Comment: Left great and second toe Status: Chronic Surgical Problems: (1) H/O colonoscopy Status: Chronic (2) H/O endoscopy Status: Chronic (3) H/O partial nephrectomy Permanent Comment: 09/16/2015 NEPHRECTOMY PARTIAL performed by Ann-Marie Miller MD at [facility] Status: Chronic (4) Hx of appendectomy Status: Chronic (5) pelvic fracture repair Status: Chronic Family History Hypertension FATHER LUNG DISORDER FATHER Social History Smoking Status: Never Smoker Smokeless Tobacco Use: No Drug Use: none Marital Status: single Housing status: lives alone, lives with family Occupational Status: disabled Immunizations History of Influenza Vaccine: No History of Tetanus Vaccine?: Yes History of Pneumococcal: No History of Hepatitis B Vaccine: Yes Allergies Coded Allergies: Piperacillin (Verified Adverse Reaction, Severe, "makes me goofy", 02/21/17 ) Tazobactam (Verified Adverse Reaction, Severe, "makes me goofy", 02/21/17) Home Medications Scheduled Allopurinol (Zyloprim), 100 MG PO BID Calcitriol (Calcitriol), 0.25 MCG PO DAILY Calcium/Vitamin D (Os-Delvis 500 Plus D), 1 TAB PO DAILY Cholecalciferol (Vitamin D), 2,000 INTER.UNIT PO DAILY Clonidine Hcl (Catapres), 0.1 MG PO BID Felodipine (Felodipine ER), 10 MG PO QPM Folic Acid (Folic Acid), 1 MG PO BID Furosemide (Furosemide), 40 MG PO DAILY Furosemide (Lasix), 80 MG PO QPM Hydralazine Hcl (Apresoline), 100 MG PO BID Metoprolol Tartrate (Lopressor) (Lopressor), 100 MG PO BID Multivitamin (Multivitamin), 1 TAB PO DAILY Pregabalin (Lyrica), 100 MG PO BID Warfarin Sodium (Coumadin), 5 MG PO Q2D Warfarin Sodium (Coumadin), 7.5 MG PO Q2D Scheduled PRN Oxycodone Hcl (Oxycontin), 20 MG PO Q4 PRN for Pain Spironolactone (Spironolactone), 50 MG PO QAM PRN for Fluid Retention/Edema Review of Systems Constitutional: No fever, sweats or chills Eyes: No diplopia, no worsening or blurred vision ENT: normal hearing, no trouble swallowing Respiratory: No cough, sputum, dyspnea at rest or on exertion Cardiovascular: No chest pain, tightness or palpitations Abdomen: No pain, nausea, vomiting, diarrhea or constipation Back: Patient reports excruciating pain in the low back, right buttock Musculoskeletal: Denies calf pain, swelling Neurologic: + peripheral neuropathy in bilateral lower extremities, no balance problems or weakness Psychiatric: No anxiety or depression Skin: Bruising on the right buttocks and extending up the r flank, does not extend down the leg or around abdomen Physical Exam Vital Signs Date Time Temp Pulse Resp B/P (MAP) Pulse Ox O2 Delivery O2 Flow Rate FiO2 02/21/17 14:21 66 18 129/64 97 Room Air 02/21/17 12:52 66 20 116/60 96 Room Air 02/21/17 11:39 66 18 108/57 98 Room Air 02/21/17 11:18 36.7 65 18 90/50 98 Room Air General: awake, alert, + moderate distress, sitting up in wheelchair at bedside Head: Normocephalic, atraumatic ENT: PERRL, EOMI, no pharyngeal exudate, mucous membranes moist Chest: Clear to auscultation, on room air, no adventitious breath sounds Cardiac: Regular rate and rhythm, no murmur, no JVD, normal peripheral pulses, good capillary refill Abdominal: NABS x 4 quadrants, soft, nontender to palpation, no rebound, guarding or tenderness Back: Ecchymosis over the right flank area extending down to the right buttocks , overlying right hip area, does not extend past the midline, laterally, or down to the leg. Extremities: Normal inspection, 2+ pitting edema BLE, + erythema of BLE, nonblanching. calfs nontender to palpation Psych: Normal mood and affect Neuro: AAO x 3, strength intact bilaterally and related 5/5, no motor deficits, speech is clear, no peripheral sensory deficits. Diagnostics Laboratory Results Results Past 24 Hours Test 02/21/17 12:40 Range/Units White Blood Count 7.61 4.8-10.8 K/uL Red Blood Count 3.57 4.7-6.1 M/uL Hemoglobin 10.2 14.0-18.0 g/dL Hematocrit 32.0 42-52 % Mean Corpuscular Volume 89.6 80-100 fL Mean Corpuscular Hemoglobin 28.6 25-34 pg Mean Corpuscular Hemoglobin Concent 31.9 32-36 g/dl Platelet Count 140 130-400 K/uL Mean Platelet Volume 10.5 7.4-10.4 fL Neutrophils (%) (Auto) 76.7 % Lymphocytes (%) (Auto) 11.0 % Monocytes (%) (Auto) 10.0 % Eosinophils (%) (Auto) 1.8 % Basophils (%) (Auto) 0.4 % Neutrophils # (Auto) 5.83 1.4-6.5 K/uL Lymphocytes # (Auto) 0.84 1.2-3.4 K/uL Monocytes # (Auto) 0.76 0.11-0.59 K/uL Eosinophils # (Auto) 0.14 0-0.5 K/uL Basophils # (Auto) 0.03 0-0.2 K/uL RDW Standard Deviation 49.8 36.4-46.3 fL RDW Coefficient of Variation 15.3 11.5-14.5 % Immature Granulocyte % (Auto) 0.1 % Immature Granulocyte # (Auto) 0.01 0.00-0.02 K/uL Prothrombin Time > 100.0 9.0-12.0 SECONDS Prothromb Time International Ratio > 8.0 0.9-1.1 Activated Partial Thromboplast Time > 300.0 21.0-31.0 SECONDS Partial Thromboplastin Ratio > 11.0 Sodium Level 137 136-145 mmol/L Potassium Level 3.5 3.5-5.1 mmol/L Chloride Level 102 98-107 mmol/L Carbon Dioxide Level 23 21-32 mmol/L Anion Gap 12.0 3-11 mmol/L Blood Urea Nitrogen 63 7-18 mg/dl Creatinine 3.40 0.60-1.40 mg/dl Est Creatinine Clear Calc Drug Dose 33.5 ml/min Estimated GFR () 22.0 Estimated GFR (Non- 18.9 BUN/Creatinine Ratio 18.5 10-20 Random Glucose 125 70-99 mg/dl Calcium Level 9.5 8.5-10.1 mg/dl Diagnostic Radiology CT SCAN OF THE PELVIS WITHOUT IV CONTRAST CLINICAL HISTORY: Right leg pain and bruising. COMPARISON STUDY: Pelvic CT dated 04/16/2016. TECHNIQUE: CT scan of the bony pelvis is performed from the pelvic inlet to the proximal femora. Images are reviewed in the axial, sagittal, and coronal planes. IV contrast was not administered for this examination. FINDINGS: The skeletal structures are osteopenic. No fracture is identified in the hips or bony pelvis. Chronic deformity and widening at the pubic symphysis with postoperative change is similar to previous. No lytic or blastic lesions are seen. Lumbosacral spondylosis is partially imaged and there is degenerative change with vacuum phenomenon seen at the sacroiliac joints. There is a complex hyperdense collection identified within the right gluteus medius muscle which appears expanded. The collection measures approximately 10 x 9 x 6 cm as seen on axial image #134. The appearance is most consistent with intramuscular hematoma. No additional intramuscular hemorrhage is identified. There is no pelvic sidewall or inguinal lymphadenopathy. There is advanced atherosclerotic calcification of the distal abdominal aorta and iliac vessels. The kidneys appear enlarged and multicystic. A complex lesion is again seen in the lower pole of left kidney. There is likely adjacent postoperative change. Nonspecific perinephric stranding is observed. The visualized bowel loops are normal in caliber. Fecal retention is noted in the right colon. There is median lobe hypertrophy hypertrophy of the prostate gland. The bladder wall appears thickened and trabeculated suggesting chronic outlet obstruction. IMPRESSION: 1. No acute bony abnormality seen in the hips or pelvis. 2. A large intramuscular hematoma is seen within the right gluteus medius muscle. Clinical follow-up to resolution is recommended. 3. Enlarged multicystic kidneys are partially imaged. 4. Additional findings as above. Electronically signed by: Angel Gil M.D. 02/21/2017 12:51 PM Dictated Date/Time: 02/21/2017 12:39 PM The status of this report is Signed. LUMBAR SPINE CT CT DOSE: 4894.00 mGy.cm HISTORY: Pain lumbar radiculopathy, hx cancer TECHNIQUE: Multiaxial CT images of the lumbar spine were performed and reformatted in the sagittal and coronal plane without the use of contrast. COMPARISON: None. FINDINGS: Normal alignment of the vertebral bodies. Vertebral body stature is unremarkable. Moderate degenerative disc change L5-S1. Mild broad-based disc bulge L4-L5 and L5-S1. No major compromise of the spinal canal or neural foramina. Moderate narrowing of the neuroforamina on an osteophytic bases bilaterally at L5-S1. IMPRESSION: Mild degenerative change. Mild broad-based disc bulge L4-L5 and L5-S1. Electronically signed by: El Josue M.D. 02/21/2017 12:39 PM Dictated Date/Time: 02/21/2017 12:36 PM The status of this report is Signed. Impression Assessment and Plan This is a 57 yo M with PMHx of afib on coumadin, HTN, hyperlipidemia, stage IV, diastolic CHF, polycystic kidney disease, RAVI, PVD, history of an STEMI in March 2016, vit D deficiency, chronic hepatitis C, renal carcinoma with mass of the left kidney who presents today with excruciating pain in the lower back and right buttocks which began this morning. He reports he normally has chronic pain in his lower back and neuropathy in both feet which is unchanged, he reports worsening ability to walk due to the pain. Supratherapeutic INR with right gluteus medius hematoma - Patient received 5 mg by mouth vitamin K in the ER, will recheck INR in the morning with a.m. labs - INR = >8.0 - Hold Coumadin outpatient regimen of 7.5 and 5 mg alternating. - Hemoglobin currently stable at 10.2 - CT pelvis was reviewed showing hematoma - Analgesia with oxycodone 20 mg every 6 hours as outpatient regimen along with Dilaudid 1 mg Q4H for breakthrough pain Atrial fibrillation - Holding Coumadin - Follow daily INR - Follows with Dr. Calix as an outpatient, was last seen in the office on 12/27. Polycystic kidney disease CKG stage IV History of renal carcinoma status post resection - Creatinine equal to 3.4 currently around his baseline. - We'll hold nephrotoxins. - Follow morning PRP HTN - BP currently stable - Continue outpatient regimen including clonidine 0.1 g AQM, furosemide 80 mg QPM and 40 mg QAM, hydralazine 100 mg BID, metoprolol tartrate 100 mg BID, spironolactone 50 mg QAM, Chronic gout -Continue allopurinol 100 mg BID Hyperlipidemia - Will check lipid panel with morning labs Chronic back pain - Patient uses oxycodone 20 mg every 6 hours, last prescribed by Rene Azar MD, patient was looked up in the [place] drug monitoring [place]. This dosage was recently increased from 15 mg last month. DVT prophylaxis: Teds, SCDs cortical anticoagulation with hematoma supratherapeutic INR CODE STATUS: Full code Disposition patient from home, lives at home with you. Level of Care Med/Surg Resuscitation Status FULL RESUSCITATION VTE Prophylaxis VTE Risk Assessment Done? Y/N: Yes Risk Level: Very Low Given or contraindicated: T.ERejiDReji Stockings, SCD's Reviewed: Pt Seen/Exam by Me History Pt with ongoing pain control issues. States he has been taking his coumadin as directed, alternating 5/7.5mg dosing. Has had much decreased PO intake due to ambulation issues and parker is out of town with her grandchildren. Has not eaten much at all over the last several days. Denies trauma. No SOB or chest pain. Agree with HPI/ROS as noted. General Appearance: WD/WN, no apparent distress Eye Exam: bilateral eye normal inspection Respiratory: normal breath sounds, no respiratory distress Cardiovascular: normal peripheral pulses, regular rate, rhythm Gastrointestinal: non tender, soft Extremities: non-tender, no pedal edema Neurologic/Psychiatric: alert, oriented x 3 Skin Characteristics: warm/dry, other (bruising as noted) Assessment/Plan Agree with plan as outlined above R buttock hematoma with INR markedly elevated No other s/sx of bleeding Vit K 5mg PO and recheck in AM Pain control Cr is elevated at 3.4, but this appears to be baseline for pt Monitor
[2017-02-21 16:53] VITALS: BP 134/62; PULSE 65; TEMP 36.4; O2SAT 98
[2017-02-21] MEDS: OXYCODONE HCL IR 5 MG TAB (IMMEDIATE RELEASE) PO PRN (17:03)
[2017-02-21] MEDS ORDERED: HYDROmorphone INJ 1 MG/ML SYR IV SCH (18:00)
[2017-02-21] MEDS ORDERED: NURSING VERBAL MED ORDER ONE (18:00)
[2017-02-21] MEDS: ACETAMINOPHEN 325 MG TAB PO PRN (18:57)
[2017-02-21 20:43] VITALS: BP 160/77; PULSE 74
[2017-02-21] MEDS: METOPROLOL TARTRATE 100 MG TAB PO SCH (20:45)
[2017-02-21] MEDS: CLONIDINE HCL 0.1 MG TAB PO SCH (20:47)
[2017-02-21] MEDS: FUROSEMIDE 80 MG TAB PO SCH (20:47)
[2017-02-21] MEDS: FELODIPINE 5 MG TABCR PO SCH (20:48)
[2017-02-21] MEDS: ALLOPURINOL 100 MG TAB PO SCH (20:49)
[2017-02-21] MEDS: PREGABALIN 100 MG CAP PO SCH (20:51)
[2017-02-21 23:09] VITALS: BP 118/53; PULSE 62; TEMP 36.6; O2SAT 96
[2017-02-22] MEDS: OXYCODONE HCL IR 5 MG TAB (IMMEDIATE RELEASE) PO PRN ×4 (00:18→17:05)
[2017-02-22] MEDS: HYDROmorphone INJ 1 MG/ML SYR IV PRN (04:02)
[2017-02-22] MEDS: ACETAMINOPHEN 325 MG TAB PO PRN (04:35)
[2017-02-22 06:54] LABS: BASO % 0.3 %; BASO ABS # 0.02 K/uL (0-0.2); COMPLETE YES; EOS % 2.1 %; HEMATOCRIT 32.1 % (42-52); IG% 0.1 %; LYMPH % 10.4 %; MEAN CELL VOLUME 89.4 fL (80-100); MEAN CORPUSCULAR HGB CONC 30.2 g/dl (32-36); MEAN PLATELET VOLUME 10.9 fL (7.4-10.4); MONO % 12.2 %; NEUT % 74.9 %; PLATELET COUNT 159 K/uL (130-400); RED BLOOD COUNT 3.59 M/uL (4.7-6.1); WHITE BLOOD COUNT 7.72 K/uL (4.8-10.8)
[2017-02-22 07:16] LABS: PROTHROMBIN TIME (PATIENT) > 100.0 SECONDS (9.0-12.0)
[2017-02-22 07:33] LABS: BUN/CREATININE RATIO 18.5 (10-20); CREATININE 3.6 mg/dl (0.60-1.40); POTASSIUM 3.3 mmol/L (3.5-5.1)
[2017-02-22 07:47] LABS: INR > 8.0 (0.9-1.1)
[2017-02-22 08:00] VITALS: O2SAT 98
[2017-02-22 08:02] VITALS: BP 132/64; PULSE 69; TEMP 36.8; O2SAT 95
[2017-02-22] MEDS: FUROSEMIDE 40 MG TAB PO SCH (08:37)
[2017-02-22] MEDS: CALCITRIOL 0.25 MCG CAP PO SCH (08:37)
[2017-02-22] MEDS: PREGABALIN 100 MG CAP PO SCH ×2 (08:37→20:10)
[2017-02-22] MEDS: METOPROLOL TARTRATE 100 MG TAB PO SCH ×2 (08:38→20:12)
[2017-02-22] MEDS: CLONIDINE HCL 0.1 MG TAB PO SCH ×2 (08:38→20:10)
[2017-02-22] MEDS: MULTIVITAMIN TAB PO SCH (08:39)
[2017-02-22] MEDS: CALCIUM 600MG + VIT D 400 IU TAB PO SCH (08:39)
[2017-02-22] MEDS: ALLOPURINOL 100 MG TAB PO SCH ×2 (08:39→20:10)
[2017-02-22] MEDS: CHOLECALCIFEROL 1000 INTER.UNIT TAB PO SCH (08:40)
--- NOTE | 2017-02-22 08:45 | Clinical Documentation Query ---
CLINICAL DOCUMENTATION QUERY 57 year old male who presents to the Emergency Room with complaints of pain radiating from the right buttock down the right leg. Documentation includes, "R buttock hematoma with INR markedly elevated." A professional cyber intel planner cannot assume relationship between laboratory value and medications. In your clinical opinion is this patient being managed for: ( X ) Warfarin therapy induced right buttock hematoma treated with vitamin K and holding of Warfarin. ( ) Other explanation of clinical findings (Please Explain) ( ) Unable to determine (Please Define) ( ) Need to Discuss ( ) Not Agree The medical record reflects the following clinical findings, treatment, and risk factors. Clinical Indicators: As above. Pelvic CT showed a large intramuscular hematoma is seen within the right gluteus medius muscle. INR >8.0, Hgb 9.7, Hct 32.1, Treatment:PO Vitamin K, daily CBC's, Risk Factors: Warfarin therapy Please clarify and document your clinical opinion in the progress notes and discharge summary. Terms such as "probable", "suspected", "likely", "questionable", "possible", or "still to be ruled out" are acceptable. IF IN AGREEMENT, YOU MUST DOCUMENT ABOVE DIAGNOSTIC STATEMENT IN DAILY PROGRESS NOTES AND DISCHARGE SUMMARY. This document is not part of the patient's record. Thank You, Ge Duque, JARVIS [phone]
[2017-02-22] MEDS ORDERED: POTASSIUM CHLORIDE 10 MEQ TABCR PO STA (09:13)
[2017-02-22] MEDS: HYDROmorphone INJ 2 MG/ML SYR/VIAL IV PRN ×3 (10:16→22:52)
[2017-02-22] MEDS ORDERED: HYDROmorphone INJ 2 MG/ML SYR/VIAL IV PRN (11:30)
[2017-02-22 13:05] LABS: CALCIUM 9.4 mg/dl (8.5-10.1)
[2017-02-22 15:28] VITALS: BP 145/68; PULSE 74; TEMP 37.2; O2SAT 97
--- NOTE | 2017-02-22 16:35 | Progress Note ---
Subjective Date of Service: Feb 22, 2017. Subjective Pt evaluation today including: conversation w/ patient, physical exam, chart review, lab review, review of studies, review of inpatient medication list Pt reports buttocks pain worsening No nausea vomiting No hematuria, hematochezia Problem List Medical Problems: (1) Ambulatory dysfunction Status: Acute (2) Foot ulcer Status: Acute (3) Heart failure Status: Acute (4) Intramuscular hematoma Status: Acute (5) Non-ST elevation [place] (NSTEMI) Status: Acute (6) Renal failure (ARF), acute on chronic Status: Acute (7) Supratherapeutic INR Status: Acute Review of Systems Constitutional: No fever, No chills, No sweats, No weight loss, No weakness Eyes: No worsening of vision, No eye pain, No redness, No discharge Respiratory: No cough, No sputum, No wheezing, No shortness of breath, No dyspnea on exertion Cardiac: No chest pain, No orthopnea, No PND, No edema Abdomen: No pain, No nausea, No vomiting, No diarrhea, No constipation Musculoskeletal: No joint pain, No muscle pain Male : No dysuria, No urinary frequency, No incontinence, No slowing stream Neurologic: No memory loss, No paralysis, No weakness, No numbness/tingling Psychiatric: No depression symptoms, No anhedonism, No anxiety, No insomnia Objective Vital Signs Date Time Temp Pulse Resp B/P (MAP) Pulse Ox O2 Delivery O2 Flow Rate FiO2 02/22/17 15:28 37.2 74 18 145/68 (93) 97 Room Air 02/22/17 08:02 36.8 69 20 132/64 (86) 95 Room Air 02/22/17 08:00 98 Room Air 02/21/17 23:45 Room Air 02/21/17 23:09 36.6 62 18 118/53 (74) 96 Room Air 02/21/17 21:00 Room Air 02/21/17 20:43 74 160/77 (104) 02/21/17 16:53 36.4 65 18 134/62 (86) 98 Room Air 02/21/17 16:53 Room Air Physical Exam General Appearance: WD/WN, + mild distress Eyes: normal inspection, PERRL, EOMI, sclerae normal Neck: supple, no adenopathy, thyroid normal, no JVD Respiratory/Chest: chest non-tender, lungs clear, normal breath sounds, no respiratory distress Cardiovascular: regular rate, rhythm, no edema, no gallop, no JVD Abdomen: normal bowel sounds, non tender, soft, no organomegaly Neurologic/Psychiatric: alert, normal mood/affect, oriented x 3 Laboratory Results Last 24 Hours Test 02/22/17 06:16 White Blood Count 7.72 K/uL Red Blood Count 3.59 M/uL Hemoglobin 9.7 g/dL Hematocrit 32.1 % Mean Corpuscular Volume 89.4 fL Mean Corpuscular Hemoglobin 27.0 pg Mean Corpuscular Hemoglobin Concent 30.2 g/dl Platelet Count 159 K/uL Mean Platelet Volume 10.9 fL Neutrophils (%) (Auto) 74.9 % Lymphocytes (%) (Auto) 10.4 % Monocytes (%) (Auto) 12.2 % Eosinophils (%) (Auto) 2.1 % Basophils (%) (Auto) 0.3 % Neutrophils # (Auto) 5.79 K/uL Lymphocytes # (Auto) 0.80 K/uL Monocytes # (Auto) 0.94 K/uL Eosinophils # (Auto) 0.16 K/uL Basophils # (Auto) 0.02 K/uL RDW Standard Deviation 50.3 fL RDW Coefficient of Variation 15.4 % Immature Granulocyte % (Auto) 0.1 % Immature Granulocyte # (Auto) 0.01 K/uL Prothrombin Time > 100.0 SECONDS Prothromb Time International Ratio > 8.0 Sodium Level 137 mmol/L Potassium Level 3.3 mmol/L Chloride Level 101 mmol/L Carbon Dioxide Level 25 mmol/L Anion Gap 11.0 mmol/L Blood Urea Nitrogen 67 mg/dl Creatinine 3.60 mg/dl Est Creatinine Clear Calc Drug Dose 31.6 ml/min Estimated GFR () 20.5 Estimated GFR (Non- 17.7 BUN/Creatinine Ratio 18.5 Random Glucose 127 mg/dl Calcium Level 9.4 mg/dl Assessment and Plan This is a 57 yo M with PMHx of afib on coumadin, HTN, hyperlipidemia, stage IV, diastolic CHF, polycystic kidney disease, RAVI, PVD, history of an STEMI in March 2016, vit D deficiency, chronic hepatitis C, renal carcinoma with mass of the left kidney who presents with excruciating pain in the lower back and right buttocks Warfarin therapy induced right buttock hematoma treated with vitamin K and holding of Warfarin. Supratherapeutic INR with right gluteus medius hematoma, INR>8 - Patient received 5 mg by mouth vitamin K in the ER, repreat INR in AM still>8 - Hold Coumadin outpatient regimen of 7.5 and 5 mg alternating. - Hemoglobin currently stable - CT pelvis was reviewed showing hematoma - Changed analgesia with oxycodone 20 mg every 4 hours as outpatient regimen along with Dilaudid 2 mg Q4H for breakthrough pain Atrial fibrillation - Holding Coumadin, rate controlled - SUpratherapeutic INR - Follows with Dr. Calix as an outpatient, was last seen in the office on 12/27. Polycystic kidney disease CKG stage IV History of renal carcinoma status post resection - Creatinine equal to 3.4 currently around his baseline. - We'll hold nephrotoxins. - Follow morning PRP HTN - BP currently stable - Continue outpatient regimen including clonidine 0.1 g AQM, furosemide 80 mg QPM and 40 mg QAM, hydralazine 100 mg BID, metoprolol tartrate 100 mg BID, spironolactone 50 mg QAM, Chronic gout -Continue allopurinol 100 mg BID Hyperlipidemia - Will check lipid panel with morning labs Chronic back pain - Patient uses oxycodone 20 mg every 4 hours, last prescribed by Rene Azar MD, patient was looked up in the [place] drug monitoring portal. This dosage was recently increased from 15 mg last month. DVT prophylaxis: Teds, SCDs cortical anticoagulation with hematoma supratherapeutic INR CODE STATUS: Full code
[2017-02-22] MEDS: FUROSEMIDE 80 MG TAB PO SCH (17:01)
[2017-02-22 20:07] VITALS: BP 153/83
[2017-02-22 21:05] VITALS: BP 158/83
[2017-02-22] MEDS: FELODIPINE 5 MG TABCR PO SCH (21:06)
[2017-02-23] MEDS ORDERED: SODIUM CHLORIDE 0.65% NA SOLN 45 ML (OCEAN) ONE (00:49)
[2017-02-23] MEDS: OXYCODONE HCL IR 5 MG TAB (IMMEDIATE RELEASE) PO PRN ×4 (00:52→17:02)
[2017-02-23] MEDS ORDERED: COUGH DROP (SUGAR FREE) LOZ 24 LOZ/1 BOX ONE (00:54)
[2017-02-23] MEDS: HYDROmorphone INJ 2 MG/ML SYR/VIAL IV PRN ×5 (02:51→23:34)
[2017-02-23 06:46] LABS: BASO % 0.2 %; BASO ABS # 0.02 K/uL (0-0.2); COMPLETE YES; EOS % 0.3 %; HEMATOCRIT 30.1 % (42-52); IG% 0.2 %; LYMPH % 7.8 %; LYMPH ABS # 0.78 K/uL (1.2-3.4); MEAN CELL VOLUME 89.6 fL (80-100); MEAN CORPUSCULAR HGB CONC 31.2 g/dl (32-36); MEAN PLATELET VOLUME 11.1 fL (7.4-10.4); MONO % 9.6 %; NEUT % 81.9 %; PLATELET COUNT 147 K/uL (130-400); RED BLOOD COUNT 3.36 M/uL (4.7-6.1); WHITE BLOOD COUNT 10.01 K/uL (4.8-10.8)
[2017-02-23 06:57] VITALS: BP 160/67; PULSE 73; TEMP 37.2; O2SAT 97
[2017-02-23 07:02] LABS: PROTHROMBIN TIME (PATIENT) > 100.0 SECONDS (9.0-12.0)
[2017-02-23 07:09] LABS: INR > 8.0 (0.9-1.1)
[2017-02-23 07:11] LABS: BUN/CREATININE RATIO 18.5 (10-20); CALCIUM 9.4 mg/dl (8.5-10.1); CREATININE 3.6 mg/dl (0.60-1.40); POTASSIUM 3.5 mmol/L (3.5-5.1)
[2017-02-23] MEDS ORDERED: PHYTONADIONE 5 MG TAB PO STA (07:32)
[2017-02-23] MEDS: FUROSEMIDE 40 MG TAB PO SCH (07:34)
[2017-02-23] MEDS: MULTIVITAMIN TAB PO SCH (07:34)
[2017-02-23] MEDS: METOPROLOL TARTRATE 100 MG TAB PO SCH ×2 (07:34→20:06)
[2017-02-23] MEDS: ALLOPURINOL 100 MG TAB PO SCH ×2 (07:35→20:05)
[2017-02-23] MEDS: CALCITRIOL 0.25 MCG CAP PO SCH (07:35)
[2017-02-23] MEDS: CLONIDINE HCL 0.1 MG TAB PO SCH ×2 (07:35→20:05)
[2017-02-23] MEDS: CALCIUM 600MG + VIT D 400 IU TAB PO SCH (07:35)
[2017-02-23] MEDS: CHOLECALCIFEROL 1000 INTER.UNIT TAB PO SCH (07:36)
[2017-02-23] MEDS: PREGABALIN 100 MG CAP PO SCH ×2 (07:37→20:07)
[2017-02-23 08:00] VITALS: O2SAT 98
[2017-02-23] MEDS ORDERED: NURSING VERBAL MED ORDER ONE (10:45)
[2017-02-23] MEDS ORDERED: PHYTONADIONE 5 MG TAB PO ONE (11:00)
[2017-02-23 15:35] VITALS: BP 135/61; PULSE 74; TEMP 37.2; O2SAT 97
--- NOTE | 2017-02-23 16:53 | Progress Note ---
Subjective Date of Service: Feb 23, 2017. Subjective Pt evaluation today including: conversation w/ patient, physical exam, chart review, lab review, review of studies, review of inpatient medication list Pt resting comfortably in bed Reports worsening pain in lower back/buttocks area Spoke to mother on phone regarding hospital course as well Problem List Medical Problems: (1) Ambulatory dysfunction Status: Acute (2) Foot ulcer Status: Acute (3) Heart failure Status: Acute (4) Intramuscular hematoma Status: Acute (5) Non-ST elevation [place] (NSTEMI) Status: Acute (6) Renal failure (ARF), acute on chronic Status: Acute (7) Supratherapeutic INR Status: Acute Review of Systems Constitutional: No fever, No chills, No sweats, No weight loss, No weakness Eyes: No worsening of vision, No eye pain, No redness, No discharge Respiratory: No cough, No sputum, No wheezing, No shortness of breath, No dyspnea on exertion Cardiac: No chest pain, No orthopnea, No PND, No edema Abdomen: No pain, No nausea, No vomiting, No diarrhea, No constipation Musculoskeletal: + muscle pain, No joint pain, No swelling, No calf pain Male : No dysuria, No urinary frequency, No incontinence, No slowing stream Neurologic: No memory loss, No paralysis, No weakness, No numbness/tingling Psychiatric: No depression symptoms, No anhedonism, No anxiety, No insomnia Endo: No fatigue, No excessive thirst Skin: No rash, No itch Objective Vital Signs Date Time Temp Pulse Resp B/P (MAP) Pulse Ox O2 Delivery O2 Flow Rate FiO2 02/23/17 15:35 37.2 74 18 135/61 (85) 97 Nasal Cannula 2.0 02/23/17 08:00 98 Room Air 02/23/17 06:57 37.2 73 20 160/67 (98) 97 Room Air 02/23/17 00:00 Room Air 02/22/17 21:05 158/83 (108) 02/22/17 20:07 153/83 (106) Physical Exam General Appearance: WD/WN, + mild distress Eyes: normal inspection, PERRL, EOMI, sclerae normal ENT: normal ENT inspection, hearing grossly normal, TMs normal, pharynx normal Neck: supple, no adenopathy, thyroid normal, no JVD Respiratory/Chest: chest non-tender, lungs clear, normal breath sounds, no respiratory distress Cardiovascular: regular rate, rhythm, no edema, no gallop, no JVD Abdomen: normal bowel sounds, non tender, soft, no organomegaly Neurologic/Psychiatric: no motor/sensory deficits, alert, normal mood/affect, oriented x 3 Laboratory Results Last 24 Hours Test 02/23/17 06:10 White Blood Count 10.01 K/uL Red Blood Count 3.36 M/uL Hemoglobin 9.4 g/dL Hematocrit 30.1 % Mean Corpuscular Volume 89.6 fL Mean Corpuscular Hemoglobin 28.0 pg Mean Corpuscular Hemoglobin Concent 31.2 g/dl Platelet Count 147 K/uL Mean Platelet Volume 11.1 fL Neutrophils (%) (Auto) 81.9 % Lymphocytes (%) (Auto) 7.8 % Monocytes (%) (Auto) 9.6 % Eosinophils (%) (Auto) 0.3 % Basophils (%) (Auto) 0.2 % Neutrophils # (Auto) 8.20 K/uL Lymphocytes # (Auto) 0.78 K/uL Monocytes # (Auto) 0.96 K/uL Eosinophils # (Auto) 0.03 K/uL Basophils # (Auto) 0.02 K/uL RDW Standard Deviation 50.2 fL RDW Coefficient of Variation 15.5 % Immature Granulocyte % (Auto) 0.2 % Immature Granulocyte # (Auto) 0.02 K/uL Prothrombin Time > 100.0 SECONDS Prothromb Time International Ratio > 8.0 Sodium Level 135 mmol/L Potassium Level 3.5 mmol/L Chloride Level 100 mmol/L Carbon Dioxide Level 24 mmol/L Anion Gap 11.0 mmol/L Blood Urea Nitrogen 67 mg/dl Creatinine 3.60 mg/dl Est Creatinine Clear Calc Drug Dose 31.7 ml/min Estimated GFR () 20.5 Estimated GFR (Non- 17.7 BUN/Creatinine Ratio 18.5 Random Glucose 107 mg/dl Calcium Level 9.4 mg/dl Assessment and Plan This is a 57 yo M with PMHx of afib on coumadin, HTN, hyperlipidemia, stage IV, diastolic CHF, polycystic kidney disease, RAVI, PVD, history of an STEMI in March 2016, vit D deficiency, chronic hepatitis C, renal carcinoma with mass of the left kidney who presents with excruciating pain in the lower back and right buttocks Warfarin therapy induced right buttock hematoma treated with vitamin K and holding of Warfarin. Supratherapeutic INR with right gluteus medius hematoma, INR>8 on 02/23 - Patient received 5 mg by mouth vitamin K in the ER - Administered coumadin 10mg dose on 02/23, repeat INR in AM - Hold Coumadin outpatient regimen of 7.5 and 5 mg alternating. - Hemoglobin currently stable - CT pelvis was reviewed showing hematoma - Changed analgesia with oxycodone 20 mg every 4 hrs as outpatient regimen along with Dilaudid 2 mg Q3hr for breakthrough pain Atrial fibrillation stable - Holding Coumadin, rate controlled - Supratherapeutic INR>8 on 02/23 - Follows with Dr. Calix as an outpatient, was last seen in the office on 12/27. Polycystic kidney disease CKG stage IV History of renal carcinoma status post resection - Creatinine equal to 3.4 currently around his baseline. - We'll hold nephrotoxins. - Follow morning PRP HTN - BP currently stable - Continue outpatient regimen including clonidine 0.1 g AQM, furosemide 80 mg QPM and 40 mg QAM, hydralazine 100 mg BID, metoprolol tartrate 100 mg BID, spironolactone 50 mg QAM, Chronic gout -Continue allopurinol 100 mg BID Hyperlipidemia - Will check lipid panel with morning labs Chronic back pain - Patient uses oxycodone 20 mg every 4 hours, last prescribed by Rene Azar MD, patient was looked up in the [place] drug monitoring portal. This dosage was recently increased from 15 mg last month. DVT prophylaxis: Teds, SCDs cortical anticoagulation with hematoma supratherapeutic INR CODE STATUS: Full code
[2017-02-23] MEDS: FUROSEMIDE 80 MG TAB PO SCH (17:01)
[2017-02-23 20:04] VITALS: BP 147/65; PULSE 75
[2017-02-23] MEDS: FELODIPINE 5 MG TABCR PO SCH (20:41)
[2017-02-23 23:54] VITALS: BP 147/67; PULSE 72; TEMP 36.8; O2SAT 98
[2017-02-24] MEDS: OXYCODONE HCL IR 5 MG TAB (IMMEDIATE RELEASE) PO PRN ×5 (01:00→23:57)
[2017-02-24] MEDS: HYDROmorphone INJ 2 MG/ML SYR/VIAL IV PRN ×4 (05:09→19:58)
[2017-02-24 07:21] LABS: BASO % 0.4 %; BASO ABS # 0.04 K/uL (0-0.2); COMPLETE YES; EOS % 1.6 %; HEMATOCRIT 29.1 % (42-52); IG% 0.4 %; LYMPH % 10.9 %; LYMPH ABS # 1.12 K/uL (1.2-3.4); MEAN CELL VOLUME 90.4 fL (80-100); MEAN CORPUSCULAR HEMOGLOBIN 28.9 pg (25-34); MEAN PLATELET VOLUME 10.8 fL (7.4-10.4); NEUT % 74.7 %; PLATELET COUNT 158 K/uL (130-400); RED BLOOD COUNT 3.22 M/uL (4.7-6.1); WHITE BLOOD COUNT 10.29 K/uL (4.8-10.8)
[2017-02-24 07:31] LABS: INR 3.4 (0.9-1.1); PROTHROMBIN TIME (PATIENT) 38.1 SECONDS (9.0-12.0)
[2017-02-24 07:48] VITALS: BP 139/64; PULSE 83; TEMP 36.8; O2SAT 96
[2017-02-24] MEDS: FUROSEMIDE 40 MG TAB PO SCH (07:50)
[2017-02-24] MEDS: MULTIVITAMIN TAB PO SCH (07:51)
[2017-02-24] MEDS: CHOLECALCIFEROL 1000 INTER.UNIT TAB PO SCH (07:51)
[2017-02-24] MEDS: CALCIUM 600MG + VIT D 400 IU TAB PO SCH (07:51)
[2017-02-24] MEDS: CALCITRIOL 0.25 MCG CAP PO SCH (07:51)
[2017-02-24] MEDS: ALLOPURINOL 100 MG TAB PO SCH ×2 (07:52→20:01)
[2017-02-24] MEDS: METOPROLOL TARTRATE 100 MG TAB PO SCH ×2 (07:52→20:01)
[2017-02-24] MEDS: CLONIDINE HCL 0.1 MG TAB PO SCH ×2 (07:52→20:01)
[2017-02-24] MEDS: PREGABALIN 100 MG CAP PO SCH ×2 (07:55→19:57)
[2017-02-24] MEDS ORDERED: KETOROLAC TROMETHAMINE 30 MG/ML VIAL IV PRN (10:15)
[2017-02-24] MEDS ORDERED: LIDODERM (LIDOCAINE) PATCH 5% TD ONE (11:00)
[2017-02-24 15:22] VITALS: BP 131/65; PULSE 69; TEMP 36.7; O2SAT 96
--- NOTE | 2017-02-24 15:45 | Progress Note ---
Subjective Date of Service: Feb 24, 2017. Subjective Pt evaluation today including: conversation w/ patient, physical exam, chart review, lab review, review of studies, review of inpatient medication list Pt reports pain in buttocks and down leg worsened No nausea or vomiting Reports no bleeding Problem List Medical Problems: (1) Ambulatory dysfunction Status: Acute (2) Foot ulcer Status: Acute (3) Heart failure Status: Acute (4) Intramuscular hematoma Status: Acute (5) Non-ST elevation [place] (NSTEMI) Status: Acute (6) Renal failure (ARF), acute on chronic Status: Acute (7) Supratherapeutic INR Status: Acute Review of Systems Constitutional: No fever, No chills, No sweats, No weakness Eyes: No worsening of vision, No eye pain, No redness, No discharge ENT: No hearing loss, No unusual epistaxis, No nasal symptoms, No sore throat Respiratory: No cough, No sputum, No wheezing, No shortness of breath, No dyspnea on exertion Cardiac: No chest pain, No orthopnea, No PND, No edema, No claudication Abdomen: No pain, No nausea, No vomiting, No diarrhea, No constipation Musculoskeletal: + joint pain, + muscle pain, No swelling, No calf pain Male : No dysuria, No urinary frequency, No incontinence, No nocturia more than once/night Neurologic: No memory loss, No paralysis, No weakness, No numbness/tingling Psychiatric: No depression symptoms, No anhedonism, No anxiety, No insomnia Objective Vital Signs Date Time Temp Pulse Resp B/P (MAP) Pulse Ox O2 Delivery O2 Flow Rate FiO2 02/24/17 15:22 36.7 69 16 131/65 (87) 96 Room Air 02/24/17 07:50 Nasal Cannula 2.0 02/24/17 07:48 36.8 83 18 139/64 (89) 96 Nasal Cannula 2.0 02/24/17 00:00 Room Air 02/23/17 23:54 36.8 72 18 147/67 (93) 98 Nasal Cannula 2.0 02/23/17 20:04 75 147/65 (92) 02/23/17 16:00 Nasal Cannula 2.0 02/23/17 15:35 37.2 74 18 135/61 (85) 97 Nasal Cannula 2.0 Physical Exam General Appearance: WD/WN, no apparent distress Eyes: normal inspection, PERRL, EOMI, sclerae normal Neck: supple, no adenopathy, thyroid normal, no JVD Respiratory/Chest: chest non-tender, lungs clear, normal breath sounds, no respiratory distress Cardiovascular: regular rate, rhythm, no edema, no gallop, no JVD Abdomen: normal bowel sounds, non tender, soft, no organomegaly Extremities: normal inspection, no calf tenderness, + pertinent finding ( tenderness over buttocks and down right leg ) Neurologic/Psychiatric: no motor/sensory deficits, alert, normal mood/affect, oriented x 3 Skin: warm/dry, no rash Lymphatic: no adenopathy Laboratory Results Last 24 Hours Test 02/24/17 07:01 White Blood Count 10.29 K/uL Red Blood Count 3.22 M/uL Hemoglobin 9.3 g/dL Hematocrit 29.1 % Mean Corpuscular Volume 90.4 fL Mean Corpuscular Hemoglobin 28.9 pg Mean Corpuscular Hemoglobin Concent 32.0 g/dl Platelet Count 158 K/uL Mean Platelet Volume 10.8 fL Neutrophils (%) (Auto) 74.7 % Lymphocytes (%) (Auto) 10.9 % Monocytes (%) (Auto) 12.0 % Eosinophils (%) (Auto) 1.6 % Basophils (%) (Auto) 0.4 % Neutrophils # (Auto) 7.70 K/uL Lymphocytes # (Auto) 1.12 K/uL Monocytes # (Auto) 1.23 K/uL Eosinophils # (Auto) 0.16 K/uL Basophils # (Auto) 0.04 K/uL RDW Standard Deviation 51.1 fL RDW Coefficient of Variation 15.6 % Immature Granulocyte % (Auto) 0.4 % Immature Granulocyte # (Auto) 0.04 K/uL Prothrombin Time 38.1 SECONDS Prothromb Time International Ratio 3.4 Assessment and Plan This is a 57 yo M with PMHx of afib on coumadin, HTN, hyperlipidemia, stage IV, diastolic CHF, polycystic kidney disease, RAVI, PVD, history of an STEMI in March 2016, vit D deficiency, chronic hepatitis C, renal carcinoma with mass of the left kidney who presents with excruciating pain in the lower back and right buttocks Warfarin therapy induced right buttock hematoma treated with vitamin K and holding of Warfarin. Supratherapeutic INR with right gluteus medius hematoma, INR>8 on 6/28 - Patient received 5 mg by mouth vitamin K in the ER - Administered coumadin 10mg dose on 02/23, repeat INR in AM - INR 02/24 3.4, continue to hold couadin - Added toradol 30 mg IV q 6 hrs PRN pain in addition to lidoderm patch 5% apply daily and oxycodone 20 mg every 4 hrs as outpatient regimen along with Dilaudid 2 mg Q3hr for breakthrough pain - Hemoglobin currently stable - CT pelvis was reviewed showing hematoma Atrial fibrillation stable - Holding coumadin, rate controlled - Supratherapeutic INR>8 on 02/23, now 3.4 - Follows with Dr. Calix as an outpatient, was last seen in the office on 12/27. Polycystic kidney disease CKG stage IV History of renal carcinoma status post resection - Creatinine currently around his baseline. - We'll hold nephrotoxins. - Follow morning PRP HTN - BP currently stable - Continue outpatient regimen including clonidine 0.1 g AQM, furosemide 80 mg QPM and 40 mg QAM, hydralazine 100 mg BID, metoprolol tartrate 100 mg BID, spironolactone 50 mg QAM, Chronic gout -Continue allopurinol 100 mg BID Hyperlipidemia - Will check lipid panel with morning labs Chronic back pain - Patient uses oxycodone 20 mg every 4 hours, last prescribed by Rene Azar MD, patient was looked up in the [place] drug monitoring portal. This dosage was recently increased from 15 mg last month. DVT prophylaxis: Teds, SCDs cortical anticoagulation with hematoma supratherapeutic INR CODE STATUS: Full code
[2017-02-24] MEDS: FUROSEMIDE 80 MG TAB PO SCH (16:45)
[2017-02-24 19:52] VITALS: BP 155/78; PULSE 87
[2017-02-24 20:53] VITALS: BP 157/71
[2017-02-24] MEDS: FELODIPINE 5 MG TABCR PO SCH (20:54)
[2017-02-25] VITALS (7 sets, daily range): BP systolic 136–189; BP diastolic 70–84; PULSE 80–92; TEMP 36.4–37.3; O2SAT 93–99
[2017-02-25] MEDS: OXYCODONE HCL IR 5 MG TAB (IMMEDIATE RELEASE) PO PRN ×5 (05:35→21:45)
[2017-02-25] MEDS: LIDODERM (LIDOCAINE) PATCH 5% TD SCH (07:34)
[2017-02-25] MEDS: PREGABALIN 100 MG CAP PO SCH ×2 (07:37→20:47)
[2017-02-25] MEDS: METOPROLOL TARTRATE 100 MG TAB PO SCH ×2 (08:47→20:39)
[2017-02-25] MEDS: CHOLECALCIFEROL 1000 INTER.UNIT TAB PO SCH (08:48)
[2017-02-25] MEDS: MULTIVITAMIN TAB PO SCH (08:48)
[2017-02-25] MEDS: CALCITRIOL 0.25 MCG CAP PO SCH (08:48)
[2017-02-25] MEDS: CALCIUM 600MG + VIT D 400 IU TAB PO SCH (08:49)
[2017-02-25] MEDS: CLONIDINE HCL 0.1 MG TAB PO SCH ×2 (08:49→20:38)
[2017-02-25] MEDS: FUROSEMIDE 40 MG TAB PO SCH (08:49)
[2017-02-25] MEDS: ALLOPURINOL 100 MG TAB PO SCH ×2 (08:49→20:40)
[2017-02-25 10:26] LABS: INR 1.5 (0.9-1.1); PROTHROMBIN TIME (PATIENT) 16.4 SECONDS (9.0-12.0)
--- NOTE | 2017-02-25 12:18 | Progress Note ---
Subjective Date of Service: Feb 25, 2017. Subjective Pt evaluation today including: conversation w/ patient, physical exam, chart review, lab review, review of studies, review of inpatient medication list States lidoderm helps with pain relief Resting in mild distress, has chronic pain OK with DC to [facility] tomorrow Problem List Medical Problems: (1) Ambulatory dysfunction Status: Acute (2) Foot ulcer Status: Acute (3) Heart failure Status: Acute (4) Intramuscular hematoma Status: Acute (5) Non-ST elevation [place] (NSTEMI) Status: Acute (6) Renal failure (ARF), acute on chronic Status: Acute (7) Supratherapeutic INR Status: Acute Review of Systems Constitutional: No fever, No chills, No sweats, No weight loss Eyes: No worsening of vision, No eye pain, No redness, No discharge Respiratory: No cough, No sputum, No wheezing, No shortness of breath, No dyspnea on exertion Cardiac: No chest pain, No orthopnea, No PND, No edema, No claudication Abdomen: No pain, No nausea, No vomiting, No diarrhea, No constipation Musculoskeletal: + joint pain, + muscle pain, No swelling, No calf pain Male : No dysuria, No urinary frequency, No incontinence Neurologic: No memory loss, No paralysis, No weakness, No numbness/tingling Psychiatric: No depression symptoms, No anhedonism, No anxiety, No insomnia Skin: No rash, No itch Objective Vital Signs Date Time Temp Pulse Resp B/P (MAP) Pulse Ox O2 Delivery O2 Flow Rate FiO2 02/25/17 09:45 Nasal Cannula 2.0 02/25/17 09:35 36.4 89 22 136/75 (95) 94 Room Air 02/25/17 07:12 36.5 88 18 189/84 (119) 98 Room Air 02/25/17 00:08 37.1 84 18 152/82 (105) 95 Room Air 02/25/17 00:00 95 Room Air 2.0 Nasal Cannula 02/24/17 20:53 157/71 (99) 02/24/17 19:52 87 155/78 (103) 02/24/17 16:00 Room Air 02/24/17 15:22 36.7 69 16 131/65 (87) 96 Room Air Physical Exam General Appearance: WD/WN, + mild distress ENT: normal ENT inspection, hearing grossly normal, TMs normal, pharynx normal Neck: supple, no adenopathy, thyroid normal, no JVD Respiratory/Chest: chest non-tender, lungs clear, normal breath sounds, no respiratory distress Cardiovascular: regular rate, rhythm, no edema, no gallop, no JVD Abdomen: normal bowel sounds, non tender, soft, no organomegaly Extremities: normal range of motion, non-tender, normal inspection, no pedal edema Neurologic/Psychiatric: no motor/sensory deficits, alert, normal mood/affect, oriented x 3 Laboratory Results Last 24 Hours Test 02/25/17 07:34 02/25/17 10:04 Bedside Glucose 127 mg/dl Prothrombin Time 16.4 SECONDS Prothromb Time International Ratio 1.5 Assessment and Plan This is a 57 yo M with PMHx of afib on coumadin, HTN, hyperlipidemia, stage IV, diastolic CHF, polycystic kidney disease, RAVI, PVD, history of an STEMI in March 2016, vit D deficiency, chronic hepatitis C, renal carcinoma with mass of the left kidney who presents with excruciating pain in the lower back and right buttocks Warfarin therapy induced right buttock hematoma treated with vitamin K and holding of Warfarin. Supratherapeutic INR with right gluteus medius hematoma, INR>8 on 02/23 - Patient received 5 mg by mouth vitamin K in the ER - Administered vitamin K 10mg dose on 02/23 - INR 3.4-->1.4 on 02/25, continue to hold coumadin - Added toradol 30 mg IV q 6 hrs PRN pain in addition to lidoderm patch 5% apply daily and oxycodone 20 mg every 4 hrs as outpatient regimen along with Dilaudid 2 mg Q3hr for breakthrough pain -DC to [facility] on 02/25, will need follow up with PCP for continuation of coumadin once hematoma resolves - Hemoglobin currently stable at 9.3, no need for surgical evacuation - CT pelvis was reviewed showing hematoma Atrial fibrillation stable - Holding coumadin, rate controlled - Supratherapeutic INR>8 on 02/23, now 1.4 - Follows with Dr. Calix as an outpatient, was last seen in the office on 12/27. Polycystic kidney disease CKG stage IV History of renal carcinoma status post resection - Creatinine currently around his baseline. - We'll hold nephrotoxins. - Follow morning PRP HTN - BP currently stable - Continue outpatient regimen including clonidine 0.1 g AQM, furosemide 80 mg QPM and 40 mg QAM, hydralazine 100 mg BID, metoprolol tartrate 100 mg BID, spironolactone 50 mg QAM, Chronic gout -Continue allopurinol 100 mg BID Hyperlipidemia - Will check lipid panel with morning labs Chronic back pain - Patient uses oxycodone 20 mg every 4 hours, last prescribed by Rene Azar MD, patient was looked up in the [place] drug monitoring portal. This dosage was recently increased from 15 mg last month. DVT prophylaxis: Teds, SCDs cortical anticoagulation with hematoma supratherapeutic INR CODE STATUS: Full code
[2017-02-25] MEDS: FUROSEMIDE 80 MG TAB PO SCH (16:48)
[2017-02-25] MEDS ORDERED: NURSING VERBAL MED ORDER ONE (17:15)
[2017-02-25] MEDS ORDERED: BISACODYL 5 MG TABEC PO PRN (17:30)
[2017-02-25] MEDS ORDERED: SENNA 8.6 MG TAB PO ONE (17:30)
[2017-02-25] MEDS ORDERED: SENNA 8.6 MG TAB PO PRN (17:30)
[2017-02-25] MEDS ORDERED: BISACODYL 5 MG TABEC PO ONE (17:30)
[2017-02-25] MEDS: FELODIPINE 5 MG TABCR PO SCH (20:39)
[2017-02-26] MEDS: OXYCODONE HCL IR 5 MG TAB (IMMEDIATE RELEASE) PO PRN ×3 (01:58→11:18)
[2017-02-26] MEDS ORDERED: MILK AND MOLASSES ENEMA PR ONE (07:30)
[2017-02-26 07:34] VITALS: BP 139/61; PULSE 76; TEMP 37; O2SAT 96
[2017-02-26 08:38] LABS: BASO % 0.3 %; BASO ABS # 0.02 K/uL (0-0.2); COMPLETE YES; HEMATOCRIT 29.3 % (42-52); IG% 0.5 %; LYMPH % 12.9 %; MEAN CORPUSCULAR HEMOGLOBIN 27.6 pg (25-34); MEAN CORPUSCULAR HGB CONC 31.4 g/dl (32-36); MEAN PLATELET VOLUME 10.4 fL (7.4-10.4); MONO % 9.1 %; NEUT % 76.2 %; PLATELET COUNT 177 K/uL (130-400); RED BLOOD COUNT 3.33 M/uL (4.7-6.1); WHITE BLOOD COUNT 7.78 K/uL (4.8-10.8)
[2017-02-26 08:58] LABS: BUN/CREATININE RATIO 24.5 (10-20); CALCIUM 9.6 mg/dl (8.5-10.1); CREATININE 3.7 mg/dl (0.60-1.40); POTASSIUM 3.5 mmol/L (3.5-5.1)
[2017-02-26] MEDS: LIDODERM (LIDOCAINE) PATCH 5% TD SCH (09:35)
[2017-02-26] MEDS: CALCIUM 600MG + VIT D 400 IU TAB PO SCH (09:35)
[2017-02-26] MEDS: MULTIVITAMIN TAB PO SCH (09:35)
[2017-02-26] MEDS: CHOLECALCIFEROL 1000 INTER.UNIT TAB PO SCH (09:36)
[2017-02-26] MEDS: FUROSEMIDE 40 MG TAB PO SCH (09:36)
[2017-02-26] MEDS: ALLOPURINOL 100 MG TAB PO SCH (09:37)
[2017-02-26] MEDS: CALCITRIOL 0.25 MCG CAP PO SCH (09:37)
[2017-02-26] MEDS: CLONIDINE HCL 0.1 MG TAB PO SCH (09:38)
[2017-02-26] MEDS: METOPROLOL TARTRATE 100 MG TAB PO SCH (09:38)
[2017-02-26] MEDS: PREGABALIN 100 MG CAP PO SCH (09:45)
[2017-02-26] MEDS ORDERED: OXYC20TA50 PO (10:43)
[2017-02-26] MEDS ORDERED: MRLP17X PO (10:43)
[2017-02-26] MEDS ORDERED: LDDP5 TD (10:43)
--- NOTE | 2017-02-26 10:46 | Discharge Instructions ---
Discharge Instructions Date of Service Feb 26, 2017. Admission Reason for Admission: Intramuscular Hematoma, Supratherapeutic Inr Discharge Discharge Diagnosis / Problem: Hematoma, suprtherapeutic INR Discharge Goals Goal(s): Decrease discomfort, Improve function, Increase independence, Improve disease control, Diagnostic testing, Therapeutic intervention Activity Recommendations Activity Limitations: resume your previous activity Exercise/Sports Limitations: none Shower/Bathe: no limitations . Instructions / Follow-Up Instructions / Follow-Up Patient to be discharged to [facility] Please continue to hold coumadin Will need repeat CT abd/pelvis in 1-2 weeks to reassess hematoma Can resume coumadin once hematoma resolves Prescriptions sent to [facility] for lidocaine patch and oxycontin, please take as directed If worsening pain, swelling, fevers, or chill please report to ER Current Hospital Diet Patient's current hospital diet: AHA Diet (Heart Healthy) Discharge Diet Recommended Diet: AHA Diet (Heart Healthy) Pending Studies Studies pending at discharge: no Medical Emergencies . Who to Call and When: Medical Emergencies: If at any time you feel your situation is an emergency, please call 911 immediately. . Non-Emergent Contact Non-Emergency issues call your: Primary Care Provider Call Non-Emergent contact if: your pain is worsening . . "Provider Documentation" section prepared by Osvaldo Alvarez. . VTE Core Measure Inpt VTE Proph given/why not?: Vicki Salazar, SCD's
[2017-02-26] MEDS ORDERED: RXC5 PO ×2 (11:08→20:21)
--- NOTE | 2017-02-26 12:59 | Discharge Summary ---
Discharge Summary Date of Service Feb 26, 2017. Discharge Summary Admission Date: Feb 21, 2017 at 15:40 Discharge Date: Feb 26, 2017 Discharge Disposition: Rehab ([facility]) Principal Diagnosis: Hematoma, supratherapeutic INR Immunizations: Have You Had Influenza Vaccine: No History of Tetanus Vaccine?: Yes History of Pneumococcal: No History of Hepatitis B Vaccine: Yes Medication Reconciliation New Medications: Lidocaine (Lidocaine) 1 Patch Tdsy 1 PATCH TD QAM for 30 Days, #30 PATCH Oxycodone HCl (Oxycodone HCl) 5 Mg Tab 20 MG PO Q4H PRN for Pain, #30 TAB Polyethylene (Miralax) 17 Gm Pow 17 GM PO DAILY PRN for Constipation, #30 CAP Continued Medications: Allopurinol (Zyloprim) 100 Mg Tab 100 MG PO BID, TAB Calcitriol (Calcitriol) 0.25 Mcg Cap 0.25 MCG PO DAILY Calcium/Vitamin D (Os-Delvis 500 Plus D) Tab 1 TAB PO DAILY, TAB Cholecalciferol (Vitamin D) 2,000 Unit Tab 2000 INTER.UNIT PO DAILY Clonidine Hcl (Catapres) 0.1 Mg Tab 0.1 MG PO BID Felodipine (Felodipine ER) 10 Mg Tabcr 10 MG PO QPM Folic Acid (Folic Acid) 1 Mg Tab 1 MG PO BID Furosemide (Furosemide) 40 Mg Tab 40 MG PO DAILY Furosemide (Lasix) 40 Mg Tab 80 MG PO QPM, TAB Hydralazine Hcl (Apresoline) 100 Mg Tab 100 MG PO BID Metoprolol Tartrate (Lopressor) (Lopressor) 100 Mg Tab 100 MG PO BID, TAB Multivitamin (Multivitamin) Tab 1 TAB PO DAILY, TAB Pregabalin (Lyrica) 100 Mg Cap 100 MG PO BID Spironolactone (Spironolactone) 25 Mg Tab 50 MG PO QAM PRN for Fluid Retention/Edema Discontinued Medications: Warfarin Sodium (Coumadin) 5 Mg Tab 5 MG PO Q2D, TAB TAKE 5 MG EVERY OTHER DAY OR OTHERWISE DIRECTED TO TAKE BY ANTICOAGULATION CLINIC/MD Warfarin Sodium (Coumadin) 5 Mg Tab 7.5 MG PO Q2D, TAB TAKE 7.5 MG EVERY OTHER DAY OR OTHERWISE DIRECTED TO TAKE BY ANTICOAGULATION CLINIC/MD Discharge Exam Review of Systems: Constitutional: No fever, No weight loss, No weakness ENT: No hearing loss, No unusual epistaxis, No nasal symptoms, No sore throat, No tinnitus Respiratory: No cough, No sputum, No wheezing, No shortness of breath, No dyspnea on exertion Cardiovascular: No chest pain, No orthopnea, No PND, No edema Abdomen: No pain, No nausea, No vomiting, No diarrhea Musculoskeletal: + joint pain, + muscle pain, No swelling, No calf pain Genitourinary - Male: No hematuria, No dysuria, No urinary frequency, No urinary urgency Neurologic: No memory loss, No paralysis, No weakness, No numbness/tingling Psychiatric: No depression symptoms, No anhedonism, No anxiety, No insomnia Physical Exam: General Appearance: WD/WN, no apparent distress Eyes: normal inspection, PERRL, EOMI, sclerae normal ENT: normal ENT inspection, hearing grossly normal, TMs normal, pharynx normal Neck: supple, no adenopathy, thyroid normal, no JVD Respiratory/Chest: chest non-tender, lungs clear, normal breath sounds, no respiratory distress Cardiovascular: regular rate, rhythm, no edema, no gallop, no JVD Abdomen / GI: normal bowel sounds, non tender, soft, no organomegaly Neurologic/Psychiatric: alert, normal mood/affect, normal reflexes, oriented x 3 Skin: normal color, warm/dry, no rash Lymphatic: no adenopathy Hospital Course This is a 57 yo M with PMHx of afib on coumadin, HTN, hyperlipidemia, stage IV, diastolic CHF, polycystic kidney disease, RAVI, PVD, history of an STEMI in March 2016, vit D deficiency, chronic hepatitis C, renal carcinoma with mass of the left kidney who presents with excruciating pain in the lower back and right buttocks Warfarin therapy induced right buttock hematoma treated with vitamin K and holding of Warfarin. Supratherapeutic INR with right gluteus medius hematoma, INR>8 on 02/23 - Patient received 5 mg by mouth vitamin K in the ER - Administered vitamin K 10mg dose on 02/23 - INR 3.4-->1.4 on 02/25, continue to hold coumadin - Added toradol 30 mg IV q 6 hrs PRN pain in addition to lidoderm patch 5% apply daily and oxycodone 20 mg every 4 hrs as outpatient regimen along with Dilaudid 2 mg Q3hr for breakthrough pain -Pt recently filled script for oxycodone in january, so will not provide script on discharge -DC to [facility] on 02/26, will need follow up with PCP for continuation of coumadin once hematoma resolves - Hemoglobin currently stable at 9.2, no need for surgical evacuation - CT pelvis was reviewed showing hematoma Atrial fibrillation stable - Holding coumadin, rate controlled - Supratherapeutic INR>8 on 02/23, now 1.4 on 02/25 - Follows with Dr. Calix as an outpatient, was last seen in the office on 12/27. Polycystic kidney disease CKG stage IV History of renal carcinoma status post resection - Creatinine currently around his baseline. - We'll hold nephrotoxins. - Follow morning PRP HTN - BP currently stable - Continue outpatient regimen including clonidine 0.1 g AQM, furosemide 80 mg QPM and 40 mg QAM, hydralazine 100 mg BID, metoprolol tartrate 100 mg BID, spironolactone 50 mg QAM, Chronic gout -Continue allopurinol 100 mg BID Hyperlipidemia - Will check lipid panel with morning labs Chronic back pain - Patient uses oxycodone 20 mg every 4 hours, last prescribed by Rene Azar MD, patient was looked up in the [place] drug monitoring portal. This dosage was recently increased from 15 mg last month. DVT prophylaxis: Teds, SCDs cortical anticoagulation with hematoma supratherapeutic INR CODE STATUS: Full code Total Time Spent: Greater than 30 minutes This includes examination of the patient, discharge planning, medication reconciliation, and communication with other providers. Discharge Instructions Please refer to the electronic Patient Visit Report (Discharge Instructions) for additional information. Additional Copies To Justen Everett D.O.
[2017-02-26 13:32] VITALS: BP 140/68; PULSE 80; TEMP 36.8; O2SAT 95
[2017-02-26] MEDS ORDERED: PREG100C PO (16:08)
[2017-04-27] MEDS ORDERED: CALC500C70 PO (07:05)
[2017-04-27] MEDS ORDERED: ALLO100T PO (07:29)
[2017-04-27] MEDS ORDERED: MULT-506 PO (11:30)
[2017-04-27] MEDS ORDERED: FLV1 PO (16:47)
[2017-04-27] MEDS ORDERED: METO100T14 PO (17:10)
[2017-05-03] MEDS ORDERED: CMD4 PO (16:31)
[2017-05-03] MEDS ORDERED: LCTL45 PO (16:31)
[2017-05-03] MEDS ORDERED: RXC5 PO (16:31)
[2017-05-03] MEDS ORDERED: LSX40 PO (16:31)
== END 2017-02-26 14:49 | DRG 813 ==
LOC: C.EDB 11:15 → C.MS4W 15:40 → ENRESERV 15:58
PROVIDERS: ADMIT Family Medicine; ATTEND Hospitalist
DX: D68.32 Hemorrhagic disorder due to extrinsic circulating anticoagulants (principal); N18.4 Chronic kidney disease, stage 4 (severe); I50.30 Unspecified diastolic (congestive) heart failure; I13.0 Hypertensive heart and chronic kidney disease with heart failure and stage 1 through stage 4 chronic kidney disease, or unspecified chronic kidney disease; Q61.3 Polycystic kidney, unspecified; M79.81 Nontraumatic hematoma of soft tissue; I48.91 Unspecified atrial fibrillation; E11.22 Type 2 diabetes mellitus with diabetic chronic kidney disease; K21.9 Gastro-esophageal reflux disease without esophagitis; E78.5 Hyperlipidemia, unspecified; I25.2 Old myocardial infarction; M10.9 Gout, unspecified; Z79.01 Long term (current) use of anticoagulants; Z79.899 Other long term (current) drug therapy; T45.515A Adverse effect of anticoagulants, initial encounter

== ENCOUNTER → 2017-04-11 | Outpatient (CLI) | payer OTHER ==
[~2017-04-11] MED LIST changes: +ALLO100T PO; +CALC1CAP36 PO; +CALC500C70 PO; +CHOL20009 PO; +CMD4 PO; +CTP1CL PO; +FLV1 PO; +FRS/40 PO; +HYDR100T12 PO; +LCTL45 PO; +LDDP5 TD; +LSX40 PO; -LYR100 PO; +METO100T14 PO; +MRLP17X PO; +MULT-506 PO; -OXY/15 PO; +PLN/10 PO; +PREG100C PO; +RXC5 PO; +SPR25 PO; -WARF5TAB90 PO
--- NOTE | 2017-04-11 13:19 | DIAGNOSTIC IMAGING REPORT ---
PELVIS NO IV/ORAL CONT (CT) CLINICAL HISTORY: HEMATOMA trauma TECHNIQUE: Transaxial acquisition. Multi axial reformatted images. COMPARISON STUDY: 02/21/2017 FINDINGS: Considerable improvement in the appearance of the posterior gluteal musculature. Moderate residual edema of the right gluteal musculature compared to the left. This, however is considerably improved as compared to the prior study. The intramuscular hematoma shown considerable decrease in volume with only mild residual edematous change. Findings of a multicystic/polycystic kidneys with several nonobstructing calcifications are again noted. Moderate bladder wall thickening and trabeculation. Stable postoperative changes to the symphysis pubis and pubic rings. Degenerative change of the sacroiliac joints as well as lumbar spine all of which are stable. Bowel pattern is nonobstructive. IMPRESSION: 1. Considerable improvement of the right gluteal hematoma with minimal residual edematous change of the associated musculature. 2. No major residual component specifically of the hematoma is present. 3. No new or additional findings. 4. Chronic degenerative and postoperative changes to the bony structures are stable. 5. Multicystic/polycystic kidneys with several nonobstructing calcifications unchanged. The above report was generated using voice recognition software. It may contain grammatical, syntax or spelling errors. Electronically signed by: El Josue M.D. 04/11/2017 1:18 PM Dictated Date/Time: 04/11/2017 1:11 PM
== END | disposition home or self-care (01) ==
LOC: C.CTS 12:20
PROVIDERS: ATTEND Family Medicine
DX: M79.81 Nontraumatic hematoma of soft tissue (principal); Q61.3 Polycystic kidney, unspecified; N20.0 Calculus of kidney

== ENCOUNTER 2017-04-27 17:43 | Inpatient (IN) | payer OTHER ==
[~2017-04-27] VITALS: Ht 185.4 cm; Wt 119.6 kg
[~2017-04-27 17:43] MED LIST changes: -CALC1CAP36 PO; -CHOL20009 PO; -CMD4 PO; -CTP1CL PO; -HYDR100T12 PO; -LCTL45 PO; -LSX40 PO; -PLN/10 PO; -SPR25 PO
[2017-04-27] MEDS ORDERED: CTP1CL PO (18:51)
[2017-04-27] MEDS ORDERED: CALC1CAP36 PO (18:51)
[2017-04-27] MEDS ORDERED: CHOL20009 PO (18:51)
[2017-04-27] MEDS ORDERED: HYDR100T12 PO (18:51)
[2017-04-27] MEDS ORDERED: SPR25 PO (18:51)
[2017-04-27] MEDS ORDERED: LSX40 PO (18:51)
[2017-04-27] MEDS ORDERED: PLN/10 PO (18:51)
--- NOTE | 2017-04-27 19:25 | EMERGENCY ROOM VISIT NOTE ---
History First contact with patient: 19:13 Chief Complaint: DIZZY Stated Complaint: DIZZY, SHAKY Nursing Triage Summary: Pt reports, "I've had the shakes, memory disorder, disoriented, dizzy and trouble breathing. I feel like I'm not in control of myself. I always have pain , but there isn't anything different." Sx began 1.5 wks ago, worsening. Denies n/v/d. History of Present Illness The patient is a 57 year old male who presents to the Emergency Room with complaints of progressively worse shaking in hands, dizziness, memory not right , just doesn't feel normal. PCP can't see till next Tuesday so came to the Emergency room. 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 He has several other co-morbidities as listed below. He was recently hospitalized from Feb 21 - February 26 for supratherapeutic INR and hematoma. Since that time he has been doing well until 1.5 weeks previous he has had slow progressive decline in his mental status. He denies any fever, chills, vision loss, one sided weakness or loss of sensation. Review of Systems Constitutional: No fever, No chills Respiratory: No cough, No sputum, No wheezing, No shortness of breath Cardiovascular: + edema, No chest pain Abdomen: No pain, No nausea, No vomiting, No diarrhea, No constipation, No GI bleeding Genitourinary - Male: No hematuria, No dysuria, No urinary frequency, No urinary urgency Neurologic: + memory loss Integumentary: No rash, No itch Past Medical/Surgical History Medical Problems: (1) Anemia (2) ANTICOAGULANTS,LT,CURRENT USE (3) ATRIAL FIBRILLATION (4) Talley's cyst of knee (5) Chronic diastolic CHF (congestive heart failure) (6) CKD (chronic kidney disease) (7) Depression (8) DM type 2 (diabetes mellitus, type 2) (9) Edema (10) Fatty liver (11) GERD (gastroesophageal reflux disease) (12) Hepatitis C, chronic (13) History of alcohol abuse (14) History of DVT (deep vein thrombosis) (15) History of hematuria (16) HYPERLIPIDEMIA NEC/NOS (17) HYPERTENSION NOS (18) LVH (left ventricular hypertrophy) (19) Obstructive sleep apnea (20) Polycystic kidney disease (21) Renal mass, left (22) SOB (shortness of breath) (23) Status post amputation of toe of left foot (24) Toe ulcer Surgical Problems: (1) H/O colonoscopy (2) H/O endoscopy (3) H/O partial nephrectomy (4) Hx of appendectomy (5) pelvic fracture repair Family History Hypertension FATHER LUNG DISORDER FATHER Social History Smoking Status: Never Smoker Alcohol Use: none Drug Use: none Marital Status: single Housing Status: lives alone Occupation Status: disabled Current/Historical Medications Scheduled Allopurinol (Zyloprim), 100 MG PO BID Calcitriol (Calcitriol), 0.25 MCG PO DAILY Calcium/Vitamin D (Os-Delvis 500 Plus D), 1 TAB PO DAILY Cholecalciferol (Vitamin D), 2,000 INTER.UNIT PO DAILY Clonidine Hcl (Catapres), 0.1 MG PO BID Felodipine (Felodipine ER), 10 MG PO QPM Folic Acid (Folic Acid), 1 MG PO BID Furosemide (Furosemide), 40 MG PO QPM Furosemide (Lasix), 80 MG PO QAM Hydralazine Hcl (Apresoline), 100 MG PO BID Metoprolol Tartrate (Lopressor) (Lopressor), 100 MG PO BID Multivitamin (Multivitamin), 1 TAB PO DAILY Pregabalin (Lyrica), 1 CAP PO BID Scheduled PRN Oxycodone HCl (Oxycodone HCl), 20 MG PO Q8H PRN for Pain Spironolactone (Spironolactone), 25 MG PO QAM PRN for Fluid Retention/Edema Physical Exam Vital Signs Date Time Temp Pulse Resp B/P (MAP) Pulse Ox O2 Delivery O2 Flow Rate FiO2 04/27/17 21:31 120/83 04/27/17 21:30 61 13 04/27/17 21:00 62 14 95 04/27/17 20:31 127/67 04/27/17 20:30 66 18 94 04/27/17 20:27 67 04/27/17 20:23 70 15 136/65 93 Room Air 04/27/17 17:49 36.5 82 18 144/65 94 Room Air Physical Exam General Appearance: no apparent distress, + obese Head: normocephalic, atraumatic Eyes: normal inspection, PERRL, EOMI (bilateral nystagmus), + pertinent finding (bilateral nsytagmus) ENT: normal ENT inspection, hearing grossly normal, pharynx normal Neck: supple, trachea midline Respiratory/Chest: chest non-tender, no respiratory distress, no accessory muscle use, + crackles (bibasal crackles) Cardiovascular: no murmur, + irregularly irregular Abdomen / GI: normal bowel sounds, non tender, soft Back: no CVA tenderness Extremities: no calf tenderness, normal capillary refill, no pedal edema Neurologic/Psych: inclusion manager II-XII nml as tested, no motor/sensory deficits, alert (but appears confused), oriented x 3, + pertinent finding (asterixis and postural tremor noted) Medical Decision & Procedures ER Provider Diagnostic Interpretation: CHEST ONE VIEW PORTABLE CLINICAL HISTORY: 57 years-old Male presenting with altered mental state. TECHNIQUE: Portable upright AP view of the chest was obtained. COMPARISON: 04/21/2016. FINDINGS: Persistent enlargement of cardiac silhouette. Enlargement of main pulmonary artery. Atherosclerosis of the aortic arch. Prominence of pulmonary vasculature not significantly changed from prior. Lungs and pleural spaces clear. Osseous structures normal. Upper abdomen normal. IMPRESSION: 1. Cardiomegaly. Pulmonary vascular prominence suggest volume overload. No avis pulmonary edema. This is not significantly changed since the prior exam. Electronically signed by: Scottie Judge M.D. 04/27/2017 7:57 PM Dictated Date/Time: 04/27/2017 7:56 PM HEAD WITHOUT CONTRAST (CT) CLINICAL HISTORY: 57 years-old Male presenting with altered mental state. TECHNIQUE: Multidetector CT imaging of the head was performed without the use of intravenous contrast. IV contrast: None. A dose lowering technique was used consistent with the principles of ALARA (as low as reasonably achievable). COMPARISON: 10/04/2014. CT DOSE (mGy.cm): The estimated cumulative dose is 537.48 mGy.cm. FINDINGS: Labor Relations Officer topogram: Unremarkable. Ventricles and sulci normal in size. Brain parenchyma normal in appearance with preserved barrios-white differentiation. No mass effect or midline shift. No hemorrhage or acute territorial infarct. No extra-axial fluid collection. Paranasal sinuses and mastoid air cells clear. Calvarium intact. IMPRESSION: 1. No acute intracranial pathology. Electronically signed by: Scottie Judge M.D. 04/27/2017 10:20 PM Dictated Date/Time: 04/27/2017 10:19 PM Laboratory Results 04/27/17 20:41 Red Blood Count 3.50, Mean Corpuscular Volume 93.7, Mean Corpuscular Hemoglobin 28.0, Mean Corpuscular Hemoglobin Concent 29.9, Mean Platelet Volume 12.3, Neutrophils (%) (Auto) 78.1, Lymphocytes (%) (Auto) 12.6, Monocytes (%) (Auto) 6.3, Eosinophils (%) (Auto) 2.3, Basophils (%) (Auto) 0.5, Neutrophils # (Auto) 4.69, Lymphocytes # (Auto) 0.76, Monocytes # (Auto) 0.38, Eosinophils # (Auto) 0.14, Basophils # (Auto) 0.03 04/27/17 20:41 Test 04/27/17 20:41 04/27/17 20:42 04/27/17 21:50 White Blood Count 6.01 K/uL (4.8-10.8) Red Blood Count 3.50 M/uL (4.7-6.1) Hemoglobin 9.8 g/dL (14.0-18.0) Hematocrit 32.8 % (42-52) Mean Corpuscular Volume 93.7 fL (80-100) Mean Corpuscular Hemoglobin 28.0 pg (25-34) Mean Corpuscular Hemoglobin Concent 29.9 g/dl (32-36) Platelet Count 122 K/uL (130-400) Mean Platelet Volume 12.3 fL (7.4-10.4) Neutrophils (%) (Auto) 78.1 % Lymphocytes (%) (Auto) 12.6 % Monocytes (%) (Auto) 6.3 % Eosinophils (%) (Auto) 2.3 % Basophils (%) (Auto) 0.5 % Neutrophils # (Auto) 4.69 K/uL (1.4-6.5) Lymphocytes # (Auto) 0.76 K/uL (1.2-3.4) Monocytes # (Auto) 0.38 K/uL (0.11-0.59) Eosinophils # (Auto) 0.14 K/uL (0-0.5) Basophils # (Auto) 0.03 K/uL (0-0.2) RDW Standard Deviation 54.2 fL (36.4-46.3) RDW Coefficient of Variation 16.0 % (11.5-14.5) Immature Granulocyte % (Auto) 0.2 % Immature Granulocyte # (Auto) 0.01 K/uL (0.00-0.02) Platelet Estimate DECREASED Anion Gap 10.0 mmol/L (3-11) Est Creatinine Clear Calc Drug Dose 15.2 ml/min Estimated GFR () 8.6 Estimated GFR (Non- 7.4 BUN/Creatinine Ratio 12.6 (10-20) Calcium Level 9.6 mg/dl (8.5-10.1) Magnesium Level 2.4 mg/dl (1.8-2.4) Total Bilirubin 0.7 mg/dl (0.2-1) Direct Bilirubin 0.4 mg/dl (0-0.2) Aspartate Amino Transf (AST/SGOT) 13 U/L (15-37) Alanine Aminotransferase (ALT/SGPT) 19 U/L (12-78) Alkaline Phosphatase 67 U/L (45-117) Ammonia 36.0 umol/L (11-32) Total Protein 7.7 gm/dl (6.4-8.2) Albumin 3.4 gm/dl (3.4-5.0) Prothrombin Time 15.0 SECONDS (9.0-12.0) Prothromb Time International Ratio 1.4 (0.9-1.1) Activated Partial Thromboplast Time 46.3 SECONDS (21.0-31.0) Partial Thromboplastin Ratio 1.8 Urine Color YELLOW Urine Appearance CLEAR (CLEAR) Urine pH 5.0 (4.5-7.5) Urine Specific [place] 1.017 (1.000-1.030) Urine Protein NEG (NEG) Urine Glucose (UA) NEG (NEG) Urine Ketones NEG (NEG) Urine Occult Blood NEG (NEG) Urine Nitrite NEG (NEG) Urine Bilirubin NEG (NEG) Urine Urobilinogen NEG (NEG) Urine Leukocyte Esterase NEG (NEG) Urine WBC (Auto) 1-5 /hpf (0-5) Urine RBC (Auto) 0-4 /hpf (0-4) Urine Hyaline Casts (Auto) 1-5 /lpf (0-5) Urine Epithelial Cells (Auto) 0-5 /lpf (0-5) Urine Bacteria (Auto) NEG (NEG) Urine Opiates Screen POS (NEG) Urine Methadone, Qualitative NEG (NEG) Urine Barbiturates NEG (NEG) Urine Phencyclidine (PCP) Level NEG (NEG) Ur Amphetamine/Methamphetamine NEG (NEG) MDMA (Ecstasy) Screen NEG (NEG) Urine Benzodiazepines Screen NEG (NEG) Urine Cocaine Metabolite NEG (NEG) Urine Marijuana (THC) NEG (NEG) ECG Indication: altered mental status Rhythm: atrial fibrillation ED Course 19:15 History and physical was performed by myself 19:52 Patient was discussed with Dr Saeed who separately performed history and examination 21:55 Patient was reassessed. Mentioned fall [address] head stat ordered. Medical Decision Prior records/ancillary studies reviewed and summarized above. Nursing notes reviewed. Additional history obtained from patient. The patient's history was concerning for altered mental status. Differential diagnosis: Etiologies such as metabolic, infection, hypoglycemia, electrolyte abnormalities , cardiac sources, intracerebral event, toxicologic, neurologic, as well as others were entertained. Physical examination: As above. Asterixis. Patient was generally confused. ER treatment provided: IV Lock IVF were not given due to concerns for fluid overload Diagnostics interpretation by me: ECG: Atrial fibrillation 65 bpm, no ischemic change The labs revealed elevated BUN although it appears stable from his last result before the onset of these symptoms 1 month ago. His Cr has significant increased at 7.4 from his previous 3.7. His potassium and bicarb are within normal limits therefore no urgent dialysis is warranted. Imaging studies: CXR shows stable pulmonary edema, CT head - no acute intracranial pathology Given the above diagnostic work-up and treatment, this episode appears to be consistent with CORNELIO and metabolic encephalopathy. I am concerned his persistently raised urea +/- opiate use with CORNELIO is responsible for his generalized encephalopathy. Further treatment will be required. Consultation: A consultation was placed with the [facility] hospitalist. The case was discussed and diagnostics were reviewed with Dr Mcneal. The patient was evaluated in the ER for further treatment. Medication Reconcilliation Current Medication List: was personally reviewed by me Consults Time Called: 21:45 Consulting Physician: Dr Mcneal ([facility] Hospitalist) Returned Call: 21:45 Impression Primary Impression: Metabolic encephalopathy Additional Impression: CORNELIO (acute kidney injury) Departure Information Dispostion Being Evaluated By Hospitalist Condition FAIR Referrals Justen Everett D.O. (PCP) Patient Instructions My [facility] Resident Tracking Resident Involvement: Resident Care Provided Care Provided: Adult ED Problem Qualifiers
--- NOTE | 2017-04-27 19:58 | DIAGNOSTIC IMAGING REPORT ---
CHEST ONE VIEW PORTABLE CLINICAL HISTORY: 57 years-old Male presenting with altered mental state. TECHNIQUE: Portable upright AP view of the chest was obtained. COMPARISON: 04/21/2016. FINDINGS: Persistent enlargement of cardiac silhouette. Enlargement of main pulmonary artery. Atherosclerosis of the aortic arch. Prominence of pulmonary vasculature not significantly changed from prior. Lungs and pleural spaces clear. Osseous structures normal. Upper abdomen normal. IMPRESSION: 1. Cardiomegaly. Pulmonary vascular prominence suggest volume overload. No avis pulmonary edema. This is not significantly changed since the prior exam. Electronically signed by: Scottie Judge M.D. 04/27/2017 7:57 PM Dictated Date/Time: 04/27/2017 7:56 PM
[2017-04-27 21:21] LABS: BASO % 0.5 %; BASO ABS # 0.03 K/uL (0-0.2); COMPLETE YES; EOS % 2.3 %; HEMATOCRIT 32.8 % (42-52); IG% 0.2 %; LYMPH % 12.6 %; LYMPH ABS # 0.76 K/uL (1.2-3.4); MEAN CELL VOLUME 93.7 fL (80-100); MEAN CORPUSCULAR HGB CONC 29.9 g/dl (32-36); MEAN PLATELET VOLUME 12.3 fL (7.4-10.4); MONO % 6.3 %; NEUT % 78.1 %; PLATELET COUNT 122 K/uL (130-400); PLT ESTIMATE DECREASED; WHITE BLOOD COUNT 6.01 K/uL (4.8-10.8)
[2017-04-27 21:31] LABS: BUN/CREATININE RATIO 12.6 (10-20); CALCIUM 9.6 mg/dl (8.5-10.1); CREATININE 7.4 mg/dl (0.60-1.40)
[2017-04-27 22:07] LABS: URINE APPEARANCE CLEAR (CLEAR); URINE BILIRUBIN NEG (NEG); URINE COLOR YELLOW; URINE EPITHELIAL CELL AUTO 0-5 /lpf (0-5); URINE NITRITE NEG (NEG); URINE SPECIFIC GRAVITY 1.017 (1.000-1.030); UROBILINOGEN NEG (NEG); ZZUR CULT IF INDIC CLEAN CATCH NO
[2017-04-27 22:08] LABS: MANUAL MICROSCOPIC REQUIRED? NO; REVIEW REQ? NO
--- NOTE | 2017-04-27 22:22 | DIAGNOSTIC IMAGING REPORT ---
HEAD WITHOUT CONTRAST (CT) CLINICAL HISTORY: 57 years-old Male presenting with altered mental state. TECHNIQUE: Multidetector CT imaging of the head was performed without the use of intravenous contrast. IV contrast: None. A dose lowering technique was used consistent with the principles of ALARA (as low as reasonably achievable). COMPARISON: 10/04/2014. CT DOSE (mGy.cm): The estimated cumulative dose is 537.48 mGy.cm. FINDINGS: Director Of Oncology topogram: Unremarkable. Ventricles and sulci normal in size. Brain parenchyma normal in appearance with preserved barrios-white differentiation. No mass effect or midline shift. No hemorrhage or acute territorial infarct. No extra-axial fluid collection. Paranasal sinuses and mastoid air cells clear. Calvarium intact. IMPRESSION: 1. No acute intracranial pathology. Electronically signed by: Scottie Judge M.D. 04/27/2017 10:20 PM Dictated Date/Time: 04/27/2017 10:19 PM
[2017-04-27 22:35] LABS: BENZODIAZEPINE, URINE NEG (NEG); COCAINE,URINE NEG (NEG); PHENCYCLIDINE, URINE NEG (NEG)
[2017-04-27 22:45] LABS: INR 1.4 (0.9-1.1); PARTIAL THROMBOPLASTIN RATIO 1.8
[2017-04-27 23:12] LABS: MAGNESIUM 2.4 mg/dl (1.8-2.4)
[2017-04-27] MEDS ORDERED: ACETAMINOPHEN 325 MG TAB PO PRN (23:15)
[2017-04-27] MEDS ORDERED: ONDANSETRON INJ 2 MG/ML 2 ML VIAL IV PRN (23:15)
--- NOTE | 2017-04-27 23:18 | EMERGENCY ROOM VISIT NOTE ---
History Report prepared by Ja: Pedro Luis Coleman Under the Supervision of: Dr. Braulio Pink D.O. First contact with patient: 19:13 Chief Complaint: DIZZY Stated Complaint: DIZZY, SHAKY Nursing Triage Summary: Pt reports, "I've had the shakes, memory disorder, disoriented, dizzy and trouble breathing. I feel like I'm not in control of myself. I always have pain , but there isn't anything different." Sx began 1.5 wks ago, worsening. Denies n/v/d. History of Present Illness The patient is a 57 year old male who presents to the Emergency Room with complaints of weakness that began 1.5 weeks ago. At this time, the patient began to experiencing shaking in his bilateral hands. He also states that he has been dizzy and disoriented. He has also had a vision disruption which he describes as being "not right." He denies any chest pain, shortness of breath, abdominal pain, nausea, vomiting, or diarrhea. He notes that he has a memory disorder as well. The patient current denies any abnormal pain. He has a past medical history of atrial fibrillation, HTN, HLD, CKD stage 3, diastolic CHF, polycystic kidney disease, a past STEMI, sleep apnea, cured Hep C , and a previous renal cell carcinoma. Source of History: patient Onset: 1.5 weeks ago Position: other (global) Symptom Intensity: moderate Quality: other (Weakness) Timing: worsening Associated Symptoms: No chest pain, No SOB, No nausea, No vomiting, No abdominal pain, No diarrhea Note: He is experiencing dizziness, disorientation, and shaking to the bilateral hands. He notes vision disruption. Review of Systems See HPI for pertinent positives & negatives. A total of 10 systems reviewed and were otherwise negative. Past Medical & Surgical Medical Problems: (1) Acute on chronic renal failure (2) Anemia (3) ANTICOAGULANTS,LT,CURRENT USE (4) ATRIAL FIBRILLATION (5) Talley's cyst of knee (6) Chronic diastolic CHF (congestive heart failure) (7) CKD (chronic kidney disease) (8) Depression (9) DM type 2 (diabetes mellitus, type 2) (10) Edema (11) Fatty liver (12) GERD (gastroesophageal reflux disease) (13) Hepatitis C, chronic (14) History of alcohol abuse (15) History of DVT (deep vein thrombosis) (16) History of hematuria (17) HYPERLIPIDEMIA NEC/NOS (18) HYPERTENSION NOS (19) LVH (left ventricular hypertrophy) (20) Obstructive sleep apnea (21) Polycystic kidney disease (22) Renal mass, left (23) SOB (shortness of breath) (24) Status post amputation of toe of left foot (25) Toe ulcer Surgical Problems: (1) H/O colonoscopy (2) H/O endoscopy (3) H/O partial nephrectomy (4) Hx of appendectomy (5) pelvic fracture repair Family History Hypertension FATHER LUNG DISORDER FATHER Social History Smoking Status: Never Smoker Alcohol Use: none Drug Use: none Marital Status: single Housing Status: lives alone Occupation Status: disabled Current/Historical Medications Scheduled Allopurinol (Zyloprim), 100 MG PO BID Calcitriol (Calcitriol), 0.25 MCG PO DAILY Calcium/Vitamin D (Os-Delvis 500 Plus D), 1 TAB PO DAILY Cholecalciferol (Vitamin D), 2,000 INTER.UNIT PO DAILY Clonidine Hcl (Catapres), 0.1 MG PO BID Felodipine (Felodipine ER), 10 MG PO QPM Folic Acid (Folic Acid), 1 MG PO BID Furosemide (Furosemide), 40 MG PO QPM Furosemide (Lasix), 80 MG PO QAM Hydralazine Hcl (Apresoline), 100 MG PO BID Metoprolol Tartrate (Lopressor) (Lopressor), 100 MG PO BID Multivitamin (Multivitamin), 1 TAB PO DAILY Pregabalin (Lyrica), 1 CAP PO BID Scheduled PRN Oxycodone HCl (Oxycodone HCl), 20 MG PO Q8H PRN for Pain Spironolactone (Spironolactone), 25 MG PO QAM PRN for Fluid Retention/Edema Allergies Coded Allergies: Piperacillin (Verified Adverse Reaction, Severe, "makes me goofy", 02/21/17 ) Tazobactam (Verified Adverse Reaction, Severe, "makes me goofy", 02/21/17) Physical Exam Vital Signs Date Time Temp Pulse Resp B/P (MAP) Pulse Ox O2 Delivery O2 Flow Rate FiO2 04/27/17 21:31 120/83 04/27/17 21:30 61 13 04/27/17 21:00 62 14 95 04/27/17 20:31 127/67 04/27/17 20:30 66 18 94 04/27/17 20:27 67 04/27/17 20:23 70 15 136/65 93 Room Air 04/27/17 17:49 36.5 82 18 144/65 94 Room Air Physical Exam CONSTITUTIONAL/VITAL SIGNS: Reviewed / noted above. GENERAL: Non-toxic in appearance. INTEGUMENTARY: Warm, dry, and [place]. HEAD: Normocephalic. EYES: without scleral icterus or trauma. ENT/OROPHARYNX: clear and moist. LYMPHADENOPATHY/NECK: Is supple without lymphadenopathy or meningismus. RESPIRATORY: Lungs clear and equal. CARDIOVASCULAR: Regular rate and rhythm. GI/ABDOMEN: Soft and nontender. No organomegaly or pulsatile mass. No rebound or guarding. Normal bowel sounds. EXTREMITIES: Warm and well perfused. BACK: No CVA tenderness. NEUROLOGICAL: Intact without focal deficits. PSYCHIATRIC: normal affect. MUSCULOSKELETAL: Normally developed with good muscle tone. Medical Decision & Procedures ER Provider Diagnostic Interpretation: Radiology results as stated below per my review and radiologist interpretation: CHEST ONE VIEW PORTABLE CLINICAL HISTORY: 57 years-old Male presenting with altered mental state. TECHNIQUE: Portable upright AP view of the chest was obtained. COMPARISON: 04/21/2016. FINDINGS: Persistent enlargement of cardiac silhouette. Enlargement of main pulmonary artery. Atherosclerosis of the aortic arch. Prominence of pulmonary vasculature not significantly changed from prior. Lungs and pleural spaces clear. Osseous structures normal. Upper abdomen normal. IMPRESSION: 1. Cardiomegaly. Pulmonary vascular prominence suggest volume overload. No avis pulmonary edema. This is not significantly changed since the prior exam. Electronically signed by: Scottie Judge M.D. 04/27/2017 7:57 PM Dictated Date/Time: 04/27/2017 7:56 PM HEAD WITHOUT CONTRAST (CT) CLINICAL HISTORY: 57 years-old Male presenting with altered mental state. TECHNIQUE: Multidetector CT imaging of the head was performed without the use of intravenous contrast. IV contrast: None. A dose lowering technique was used consistent with the principles of ALARA (as low as reasonably achievable). COMPARISON: 10/04/2014. CT DOSE (mGy.cm): The estimated cumulative dose is 537.48 mGy.cm. FINDINGS: Cotton Inspector topogram: Unremarkable. Ventricles and sulci normal in size. Brain parenchyma normal in appearance with preserved barrios-white differentiation. No mass effect or midline shift. No hemorrhage or acute territorial infarct. No extra-axial fluid collection. Paranasal sinuses and mastoid air cells clear. Calvarium intact. IMPRESSION: 1. No acute intracranial pathology. Electronically signed by: Scottie Judge M.D. 04/27/2017 10:20 PM Dictated Date/Time: 04/27/2017 10:19 PM Laboratory Results 04/27/17 20:41 Red Blood Count 3.50, Mean Corpuscular Volume 93.7, Mean Corpuscular Hemoglobin 28.0, Mean Corpuscular Hemoglobin Concent 29.9, Mean Platelet Volume 12.3, Neutrophils (%) (Auto) 78.1, Lymphocytes (%) (Auto) 12.6, Monocytes (%) (Auto) 6.3, Eosinophils (%) (Auto) 2.3, Basophils (%) (Auto) 0.5, Neutrophils # (Auto) 4.69, Lymphocytes # (Auto) 0.76, Monocytes # (Auto) 0.38, Eosinophils # (Auto) 0.14, Basophils # (Auto) 0.03 04/27/17 20:41 Test 04/27/17 20:41 04/27/17 20:42 04/27/17 21:50 White Blood Count 6.01 K/uL (4.8-10.8) Red Blood Count 3.50 M/uL (4.7-6.1) Hemoglobin 9.8 g/dL (14.0-18.0) Hematocrit 32.8 % (42-52) Mean Corpuscular Volume 93.7 fL (80-100) Mean Corpuscular Hemoglobin 28.0 pg (25-34) Mean Corpuscular Hemoglobin Concent 29.9 g/dl (32-36) Platelet Count 122 K/uL (130-400) Mean Platelet Volume 12.3 fL (7.4-10.4) Neutrophils (%) (Auto) 78.1 % Lymphocytes (%) (Auto) 12.6 % Monocytes (%) (Auto) 6.3 % Eosinophils (%) (Auto) 2.3 % Basophils (%) (Auto) 0.5 % Neutrophils # (Auto) 4.69 K/uL (1.4-6.5) Lymphocytes # (Auto) 0.76 K/uL (1.2-3.4) Monocytes # (Auto) 0.38 K/uL (0.11-0.59) Eosinophils # (Auto) 0.14 K/uL (0-0.5) Basophils # (Auto) 0.03 K/uL (0-0.2) RDW Standard Deviation 54.2 fL (36.4-46.3) RDW Coefficient of Variation 16.0 % (11.5-14.5) Immature Granulocyte % (Auto) 0.2 % Immature Granulocyte # (Auto) 0.01 K/uL (0.00-0.02) Platelet Estimate DECREASED Anion Gap 10.0 mmol/L (3-11) Est Creatinine Clear Calc Drug Dose 15.2 ml/min Estimated GFR () 8.6 Estimated GFR (Non- 7.4 BUN/Creatinine Ratio 12.6 (10-20) Calcium Level 9.6 mg/dl (8.5-10.1) Magnesium Level 2.4 mg/dl (1.8-2.4) Total Bilirubin 0.7 mg/dl (0.2-1) Direct Bilirubin 0.4 mg/dl (0-0.2) Aspartate Amino Transf (AST/SGOT) 13 U/L (15-37) Alanine Aminotransferase (ALT/SGPT) 19 U/L (12-78) Alkaline Phosphatase 67 U/L (45-117) Ammonia 36.0 umol/L (11-32) Total Protein 7.7 gm/dl (6.4-8.2) Albumin 3.4 gm/dl (3.4-5.0) Prothrombin Time 15.0 SECONDS (9.0-12.0) Prothromb Time International Ratio 1.4 (0.9-1.1) Activated Partial Thromboplast Time 46.3 SECONDS (21.0-31.0) Partial Thromboplastin Ratio 1.8 Urine Color YELLOW Urine Appearance CLEAR (CLEAR) Urine pH 5.0 (4.5-7.5) Urine Specific [place] 1.017 (1.000-1.030) Urine Protein NEG (NEG) Urine Glucose (UA) NEG (NEG) Urine Ketones NEG (NEG) Urine Occult Blood NEG (NEG) Urine Nitrite NEG (NEG) Urine Bilirubin NEG (NEG) Urine Urobilinogen NEG (NEG) Urine Leukocyte Esterase NEG (NEG) Urine WBC (Auto) 1-5 /hpf (0-5) Urine RBC (Auto) 0-4 /hpf (0-4) Urine Hyaline Casts (Auto) 1-5 /lpf (0-5) Urine Epithelial Cells (Auto) 0-5 /lpf (0-5) Urine Bacteria (Auto) NEG (NEG) Urine Opiates Screen POS (NEG) Urine Methadone, Qualitative NEG (NEG) Urine Barbiturates NEG (NEG) Urine Phencyclidine (PCP) Level NEG (NEG) Ur Amphetamine/Methamphetamine NEG (NEG) MDMA (Ecstasy) Screen NEG (NEG) Urine Benzodiazepines Screen NEG (NEG) Urine Cocaine Metabolite NEG (NEG) Urine Marijuana (THC) NEG (NEG) Laboratory results as stated above per my review. ECG Indication: weakness Rate (beats per minute): 65 Rhythm: atrial fibrillation Findings: no acute ischemic change, no ectopy ED Course 1912: Previous medical records were reviewed. The patient was evaluated in room B9. A complete history and physical examination was performed. 2309: On reevaluation, the patient is resting. I discussed the results and findings with him. He verbalized agreement of the treatment plan. I spoke with Dr. Pires of the [place] [facility]. The patient will be evaluated for further management and care. Medical Decision Differential includes acute coronary syndrome, myocardial infarction, CVA, TIA, anemia, infection, pneumonia, UTI, pyelonephritis, poor nutrition, dehydration, electrolyte disturbance,hypoglycemia. This is a 57-year-old male who presents to the ED with a chief complaint of increased weakness, shakiness and visual changes. This patient was seen in conjunction with the resident. The patient's physical exam was relatively benign other than some tremors. Blood work revealed uremia and worsening acute renal failure. Tox screen is positive for opiates. CAT scan of the head was negative for acute disease. Chest x-ray reveals some pulmonary fluid overload. The patient will be seen by the hospitalist service for further inpatient evaluation and care. Medication Reconcilliation Current Medication List: was personally reviewed by me Blood Pressure Screening Patient's blood pressure: Normal blood pressure Blood pressure disposition: Did not require urgent referral Consults Time Called: [id number] Consulting Physician: Dr. Pires - [facility] [place] Returned Call: [phone] Discussed the patient's case. The patient will be evaluated for further treatment and disposition. Impression Primary Impression: Acute on chronic renal failure Additional Impressions: CORNELIO (acute kidney injury) Uremia Scribe Attestation The scribe's documentation has been prepared under my direction and personally reviewed by me in its entirety. I confirm that the note above accurately reflects all work, treatment, procedures, and medical decision making performed by me. Departure Information Dispostion Being Evaluated By Hospitalist Referrals Justen Everett D.O. (PCP) Patient Instructions My [facility] Problem Qualifiers
--- NOTE | 2017-04-27 23:43 | History and Physical ---
History & Physical Date & Time of Service: Apr 27, 2017 at 23:42 Chief Complaint: Dizzy, Shaky Primary Care Physician: Justen Everett D.O. History of Present Illness Source: patient, spouse 57-year-old male with a past medical history of atrial fibrillation, hypertension, chronic kidney disease, renal cell cancer status post partial left sided nephrectomy, chronic hepatitis C, peripheral vascular disease, obstructive sleep apnea presented to the ER with complaints of worsening shaking of his hands and jerking which started about 2 weeks ago. States that his symptoms were bad enough that he could not hold anything without dropping it. There was also concern of some periods of confusion and progressive decline in his mental status. He however answers questions appropriately. Denies any fevers or chills, nausea or vomiting, abdominal pain or diarrhea. Denies any headaches, motor weakness, loss of sensation, blurry vision. He was recently admitted from February 21 through February 26 for supra therapeutic INR and hematoma in his left buttock. Patient stated that he had a fall about 2 weeks ago. Past Medical/Surgical History Medical Problems: (1) Anemia Status: Chronic (2) ATRIAL FIBRILLATION Permanent Comment: stopped warfarin secondary to large hematoma January 2017 Status: Chronic (3) Talley's cyst of knee Status: Chronic (4) Chronic diastolic CHF (congestive heart failure) Status: Chronic (5) CKD (chronic kidney disease) Permanent Comment: Stage IV Status: Chronic (6) Depression Status: Chronic (7) DM type 2 (diabetes mellitus, type 2) Permanent Comment: diet controlled Status: Chronic (8) Edema Status: Chronic (9) Fatty liver Status: Chronic (10) GERD (gastroesophageal reflux disease) Status: Chronic (11) Hepatitis C, chronic Permanent Comment: treated in 2006 with ribavirin and Pegasys Status: Chronic (12) History of alcohol abuse Status: Chronic (13) History of DVT (deep vein thrombosis) Permanent Comment: R femoral vein 05/2014 Status: Chronic (14) History of hematuria Status: Chronic (15) HYPERLIPIDEMIA NEC/NOS Status: Chronic (16) HYPERTENSION NOS Status: Chronic (17) LVH (left ventricular hypertrophy) Status: Chronic (18) Polycystic kidney disease Status: Chronic (19) Renal mass, left Permanent Comment: 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 Status: Chronic (20) Status post amputation of toe of left foot Permanent Comment: Left great and second toe Status: Chronic (21) Toe ulcer Status: Chronic Surgical Problems: (1) H/O colonoscopy Status: Chronic (2) H/O endoscopy Status: Chronic (3) H/O partial nephrectomy Permanent Comment: 09/16/2015 NEPHRECTOMY PARTIAL performed by Ann-Marie Miller MD at OR [facility] [place] Status: Chronic (4) Hx of appendectomy Status: Chronic (5) pelvic fracture repair Status: Chronic Family History Hypertension FATHER LUNG DISORDER FATHER Social History Smoking Status: Never Smoker Drug Use: none Marital Status: single Housing status: lives alone, lives with family Occupational Status: disabled Immunizations History of Influenza Vaccine: No History of Tetanus Vaccine?: Yes History of Pneumococcal: No History of Hepatitis B Vaccine: Yes Allergies Coded Allergies: Piperacillin (Verified Adverse Reaction, Severe, "makes me goofy", 02/21/17 ) Tazobactam (Verified Adverse Reaction, Severe, "makes me goofy", 02/21/17) Home Medications Scheduled Allopurinol (Zyloprim), 100 MG PO BID Calcitriol (Calcitriol), 0.25 MCG PO DAILY Calcium/Vitamin D (Os-Delvis 500 Plus D), 1 TAB PO DAILY Cholecalciferol (Vitamin D), 2,000 INTER.UNIT PO DAILY Clonidine Hcl (Catapres), 0.1 MG PO BID Felodipine (Felodipine ER), 10 MG PO QPM Folic Acid (Folic Acid), 1 MG PO BID Furosemide (Furosemide), 40 MG PO QPM Furosemide (Lasix), 80 MG PO QAM Hydralazine Hcl (Apresoline), 100 MG PO BID Metoprolol Tartrate (Lopressor) (Lopressor), 100 MG PO BID Multivitamin (Multivitamin), 1 TAB PO DAILY Pregabalin (Lyrica), 1 CAP PO BID Scheduled PRN Oxycodone HCl (Oxycodone HCl), 20 MG PO Q8H PRN for Pain Spironolactone (Spironolactone), 25 MG PO QAM PRN for Fluid Retention/Edema Review of Systems Constitutional: No fever, No chills Eyes: No worsening of vision ENT: No hearing loss Respiratory: No cough, No sputum, No shortness of breath Cardiovascular: No chest pain Abdomen: No pain, No nausea, No vomiting Musculoskeletal: No joint pain Genitourinary - Male: No hematuria, No dysuria Neurologic: + problem reported (shaking, jerks), No memory loss Endocrine: No fatigue Hematologic / Lymphatic: No abnormal bleeding/bruising Physical Exam Vital Signs Date Time Temp Pulse Resp B/P (MAP) Pulse Ox O2 Delivery O2 Flow Rate FiO2 04/27/17 21:31 120/83 04/27/17 21:30 61 13 04/27/17 21:00 62 14 95 04/27/17 20:31 127/67 04/27/17 20:30 66 18 94 04/27/17 20:27 67 04/27/17 20:23 70 15 136/65 93 Room Air 04/27/17 17:49 36.5 82 18 144/65 94 Room Air General Appearance: WD/WN, no apparent distress Head: normocephalic Eyes: normal inspection ENT: normal ENT inspection, hearing grossly normal Neck: supple Respiratory/Chest: chest non-tender, + crackles (at bases) Cardiovascular: + irregularly irregular Abdomen/GI: normal bowel sounds, non tender, soft Back: normal range of motion Extremities/Musculoskelatal: + pedal edema, + pertinent finding (ulcer at ball of great toe on left foot , partial amputation of 1st and 2nd toes and a scabbed over wound right great toe) Neurologic/Psych: 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 II-XII nml as tested, alert (with periods of confusion), oriented x 3, + pertinent finding (asterixis and tremor) Skin: no rash Diagnostics Laboratory Results Results Past 24 Hours Test 04/27/17 20:41 04/27/17 20:42 04/27/17 21:50 Range/Units White Blood Count 6.01 4.8-10.8 K/uL Red Blood Count 3.50 4.7-6.1 M/uL Hemoglobin 9.8 14.0-18.0 g/dL Hematocrit 32.8 42-52 % Mean Corpuscular Volume 93.7 80-100 fL Mean Corpuscular Hemoglobin 28.0 25-34 pg Mean Corpuscular Hemoglobin Concent 29.9 32-36 g/dl Platelet Count 122 130-400 K/uL Mean Platelet Volume 12.3 7.4-10.4 fL Neutrophils (%) (Auto) 78.1 % Lymphocytes (%) (Auto) 12.6 % Monocytes (%) (Auto) 6.3 % Eosinophils (%) (Auto) 2.3 % Basophils (%) (Auto) 0.5 % Neutrophils # (Auto) 4.69 1.4-6.5 K/uL Lymphocytes # (Auto) 0.76 1.2-3.4 K/uL Monocytes # (Auto) 0.38 0.11-0.59 K/uL Eosinophils # (Auto) 0.14 0-0.5 K/uL Basophils # (Auto) 0.03 0-0.2 K/uL RDW Standard Deviation 54.2 36.4-46.3 fL RDW Coefficient of Variation 16.0 11.5-14.5 % Immature Granulocyte % (Auto) 0.2 % Immature Granulocyte # (Auto) 0.01 0.00-0.02 K/uL Platelet Estimate DECREASED Sodium Level 140 136-145 mmol/L Potassium Level 4.0 3.5-5.1 mmol/L Chloride Level 106 98-107 mmol/L Carbon Dioxide Level 24 21-32 mmol/L Anion Gap 10.0 3-11 mmol/L Blood Urea Nitrogen 93 7-18 mg/dl Creatinine 7.40 0.60-1.40 mg/dl Est Creatinine Clear Calc Drug Dose 15.2 ml/min Estimated GFR () 8.6 Estimated GFR (Non- 7.4 BUN/Creatinine Ratio 12.6 10-20 Random Glucose 102 70-99 mg/dl Calcium Level 9.6 8.5-10.1 mg/dl Magnesium Level 2.4 1.8-2.4 mg/dl Total Bilirubin 0.7 0.2-1 mg/dl Direct Bilirubin 0.4 0-0.2 mg/dl Aspartate Amino Transf (AST/SGOT) 13 15-37 U/L Alanine Aminotransferase (ALT/SGPT) 19 12-78 U/L Alkaline Phosphatase 67 45-117 U/L Ammonia 36.0 11-32 umol/L Total Protein 7.7 6.4-8.2 gm/dl Albumin 3.4 3.4-5.0 gm/dl Prothrombin Time 15.0 9.0-12.0 SECONDS Prothromb Time International Ratio 1.4 0.9-1.1 Activated Partial Thromboplast Time 46.3 21.0-31.0 SECONDS Partial Thromboplastin Ratio 1.8 Urine Color YELLOW Urine Appearance CLEAR CLEAR Urine pH 5.0 4.5-7.5 Urine Specific Bowie 1.017 1.000-1.030 Urine Protein NEG NEG Urine Glucose (UA) NEG NEG Urine Ketones NEG NEG Urine Occult Blood NEG NEG Urine Nitrite NEG NEG Urine Bilirubin NEG NEG Urine Urobilinogen NEG NEG Urine Leukocyte Esterase NEG NEG Urine WBC (Auto) 1-5 0-5 /hpf Urine RBC (Auto) 0-4 0-4 /hpf Urine Hyaline Casts (Auto) 1-5 0-5 /lpf Urine Epithelial Cells (Auto) 0-5 0-5 /lpf Urine Bacteria (Auto) NEG NEG Urine Opiates Screen POS NEG Urine Methadone, Qualitative NEG NEG Urine Barbiturates NEG NEG Urine Phencyclidine (PCP) Level NEG NEG Ur Amphetamine/Methamphetamine NEG NEG MDMA (Ecstasy) Screen NEG NEG Urine Benzodiazepines Screen NEG NEG Urine Cocaine Metabolite NEG NEG Urine Marijuana (THC) NEG NEG Diagnostic Radiology CHEST ONE VIEW PORTABLE CLINICAL HISTORY: 57 years-old Male presenting with altered mental state. TECHNIQUE: Portable upright AP view of the chest was obtained. COMPARISON: 04/21/2016. FINDINGS: Persistent enlargement of cardiac silhouette. Enlargement of main pulmonary artery. Atherosclerosis of the aortic arch. Prominence of pulmonary vasculature not significantly changed from prior. Lungs and pleural spaces clear. Osseous structures normal. Upper abdomen normal. IMPRESSION: 1. Cardiomegaly. Pulmonary vascular prominence suggest volume overload. No avis pulmonary edema. This is not significantly changed since the prior exam. Electronically signed by: Scottie Judge M.D. 04/27/2017 7:57 PM Dictated Date/Time: 04/27/2017 7:56 PM HEAD WITHOUT CONTRAST (CT) CLINICAL HISTORY: 57 years-old Male presenting with altered mental state. TECHNIQUE: Multidetector CT imaging of the head was performed without the use of intravenous contrast. IV contrast: None. A dose lowering technique was used consistent with the principles of ALARA (as low as reasonably achievable). COMPARISON: 10/04/2014. CT DOSE (mGy.cm): The estimated cumulative dose is 537.48 mGy.cm. FINDINGS: Senior Genetic Counselor topogram: Unremarkable. Ventricles and sulci normal in size. Brain parenchyma normal in appearance with preserved barrios-white differentiation. No mass effect or midline shift. No hemorrhage or acute territorial infarct. No extra-axial fluid collection. Paranasal sinuses and mastoid air cells clear. Calvarium intact. IMPRESSION: 1. No acute intracranial pathology. Electronically signed by: Scottie Judge M.D. 04/27/2017 10:20 PM Impression Assessment and Plan 57-year-old male with a past medical history of atrial fibrillation, hypertension, autosomal dominant polycystic kidney disease, chronic kidney disease, renal cell cancer status post partial left sided nephrectomy, chronic hepatitis C, peripheral vascular disease, obstructive sleep apnea presented to the ER with complaints of worsening shaking of his hands and jerking which started about 2 weeks ago. Metabolic encephalopathy - Likely secondary to uremia versus hepatic encephalopathy( the ammonia is a 36 , history of cirrhosis) - Head CT was negative for any acute bleeding - Ammonia at 36, Monitor ammonia level - UA negative - Urine drug screen positive for opiates - Hold medications which are likely to exacerbate encephalopathy - ? HD tomorrow Acute on chronic kidney injury: -Creatinine at 7.4, creatinine in February was 3.7 - Gentle hydration as chest x-ray appears to be congestive - Nephrology consult- fistula in place - History of partial nephrectomy of left kidney secondary to renal cell cancer- consider imaging to rule out ureteric compression Atrial fibrillation: -Rate control with metoprolol - Patient was earlier on anticoagulation with Coumadin which does not appear in his current medication list. The patient insists that he continues to use Coumadin every day but his is not sure, INR today is 1.4, will need to verify with PCPs office. Hypertension: - Continue hydralazine, clonidine, felodipine - Spironolactone currently held Chronic bilateral lower extremity swelling: - Uses Lasix at home which is currently being held - Last echo in 2016. EF of 55 to 60% Chronic peripheral neuropathy: - Secondary to Pegasys for hep C - Lyrica currently held due to metabolic encephalopathy Cirrhosis /Chronic hep C: - Treated with Pegasys ADPCKD/Left sided renal cell cancer: Status post partial nephrectomy -Likely stable Bilateral foot ulcers: - Wound care consult Anemia: Appears to be chronic - Hemoglobin at 9.8 DVT prophylaxis: SCDs Full code Disposition: Admitted to telemetry Resident Physician Supervision Note: I was present with Dr. Macias during the history and exam. I discussed the case with the resident and agree with the findings and plan as documented in the note. Any exceptions or clarifications are listed here: 57 y/o M Hx CHF, AF, PKD with CKD - presenting with upper ext tremors - initial labs reveal acute on chronic RF OE AAO x 3 S1,2 R CTAB Nt - firm - BS+ B/L asterixis present Multiple shalllow foot wounds P: This pt will likely need to commence dialysis - we will provide IVF and consult nephrology Uremia is likely cause of his asterixis although cirrhosis is reported in chart We will consult wound care Cont B simón for rate control - did not tolerate anticoagulation Reg CHF - he is slightly overloaded - willl hold Lasix pending renal eval Documented By: Cesar Pires - Level of Care Telemetry Resuscitation Status FULL RESUSCITATION VTE Prophylaxis VTE Risk Assessment Done? Y/N: Yes Risk Level: Moderate Given or contraindicated: SCD's Resident Tracking Resident Involvement: Resident Care Provided Care Provided: Adult Hospital Medicine
[2017-04-28] VITALS (12 sets, daily range): BP systolic 125–149; BP diastolic 61–75; PULSE 66–99; TEMP 36.5–37; O2SAT 94–99; Ht 185.4 cm; Wt 119.6 kg
[2017-04-28 00:43] LABS: PHOSPHORUS 8.2 mg/dl (2.5-4.9)
[2017-04-28 06:15] LABS: BASO % 0.8 %; BASO ABS # 0.04 K/uL (0-0.2); COMPLETE YES; EOS % 3.7 %; HEMATOCRIT 30.8 % (42-52); IG% 0.4 %; LYMPH % 21.6 %; LYMPH ABS # 1.12 K/uL (1.2-3.4); MEAN CELL VOLUME 92.2 fL (80-100); MEAN CORPUSCULAR HEMOGLOBIN 28.4 pg (25-34); MEAN CORPUSCULAR HGB CONC 30.8 g/dl (32-36); MEAN PLATELET VOLUME 11.5 fL (7.4-10.4); MONO % 8.7 %; NEUT % 64.8 %; PLATELET COUNT 111 K/uL (130-400); RED BLOOD COUNT 3.34 M/uL (4.7-6.1); WHITE BLOOD COUNT 5.18 K/uL (4.8-10.8)
[2017-04-28 07:05] LABS: ALB/GLOB RATIO 0.8 (0.9-2); BUN/CREATININE RATIO 12.9 (10-20); CALCIUM 8.6 mg/dl (8.5-10.1); CREATININE 7.4 mg/dl (0.60-1.40); MAGNESIUM 2.4 mg/dl (1.8-2.4); POTASSIUM 3.7 mmol/L (3.5-5.1)
[2017-04-28] MEDS: MULTIVITAMIN TAB PO SCH (09:35)
[2017-04-28] MEDS: METOPROLOL TARTRATE 100 MG TAB PO SCH ×2 (09:35→21:31)
[2017-04-28] MEDS: CLONIDINE HCL 0.1 MG TAB PO SCH ×2 (09:36→21:30)
[2017-04-28 11:18] LABS: FERRITIN 112.7 ng/ml (8.0-388.0)
[2017-04-28 11:49] LABS: HEPATITIS B AB NEG
--- NOTE | 2017-04-28 12:07 | Nephrology Consultation ---
Nephrology Consultation Date & Providers Date of Consultation: Apr 28, 2017. Primary Care Provider: Justen Everett D.O. Referring Provider: Reason for Consultation Evaluation and management for end-stage renal disease. History of Present Illness Raul is a 57-year-old gentlemen with past medical history significant for hypertension, history of diastolic dysfunction, stage 5 CKD is secondary to polycystic kidney disease admitted to the hospital with acute kidney injury with history of advanced chronic kidney disease. Nephrology consult was requested for further management of avg end-stage renal disease and evaluation for need for hemodialysis. Electronic medical records including labs and imaging are reviewed in detail during patient's visit. Keshawn has stage 4/5 chronic kidney disease secondary to polycystic kidney disease , he has been following with Dr. Coy in [place] however according to Dr. Rich johnson patient has been pretty noncompliant, he was seen last time in December and he was scheduled to be seen in February / March but he did not go for follow- up. His baseline creatinine has been staying from 3-4 over last few months. No history of proteinuria or hematuria. Has history of left partial nephrectomy in 2015 for renal cell carcinoma, he is to follow up with [facility] with initially did the nephrectomy however he told me that he recently switched to [facility] and he has an upcoming appointment with Urology. He had a right radiocephalic AV fistula placed in August 2015 which is currently matured and ready to be used. He has been having generalized weakness, occasional dizziness and lightheadedness and shaking of his bilateral upper extremity over last 2-3 weeks which has been worsening and reached to the point when he was not able to hold anything without dropping and presented to the emergency room for further evaluation yesterday. On admission his creatinine was 7.4 which remained stable this morning. His electrolyte is acceptable. He reports normal p.o. intake and urine output. He has been on Lasix 80 in a.m. and 40 in the afternoon. Denies chronic NSAID use. Lasix was on hold since admission. His blood pressure has been stable he has been non-oliguric. He has well-formed preserved ejection fraction but moderate concentric LVH. Has history of AFib, on anticoagulation with Coumadin. no history of coronary artery disease or diabetes. Patient denies any family history of chronic kidney disease or end- stage renal disease Currently he denies any shortness of breath or chest pain however overall feels poorly. Allergies Coded Allergies: Piperacillin (Verified Adverse Reaction, Severe, "makes me goofy", 02/21/17 ) Tazobactam (Verified Adverse Reaction, Severe, "makes me goofy", 02/21/17) Inpatient Medications Current Inpatient Medications Medications (Trade) Dose Ordered Sig/Efrain Route Start Time Stop Time Status Last Admin Dose Admin Acetaminophen (Tylenol Tab) 650 mg Q4H PRN PO 04/27/17 23:15 05/27/17 23:14 Al Hydrox/Mg Hydrox/Simethicone (Maalox Max Susp) 15 ml Q4H PRN PO 04/27/17 23:15 05/27/17 23:14 Ondansetron HCl (Zofran Inj) 4 mg Q6H PRN IV 04/27/17 23:15 05/27/17 23:14 Clonidine HCl (Catapres Tab) 0.1 mg BID PO 04/28/17 09:00 05/28/17 08:59 04/28/17 09:36 0.1 MG Hydralazine HCl (Apresoline Tab) 100 mg BID PO 04/28/17 09:00 05/28/17 08:59 04/28/17 09:35 100 MG Metoprolol Tartrate (Lopressor Tab) 100 mg BID PO 04/28/17 09:00 05/28/17 08:59 04/28/17 09:35 100 MG Multivitamins (Multivitamin Tab) 1 tab DAILY PO 04/28/17 09:00 05/28/17 08:59 04/28/17 09:35 1 TAB Felodipine (Plendil Tabcr) 10 mg QPM PO 04/28/17 21:00 05/28/17 20:59 Calcium Carbonate (Tums Chew Tab) 500 mg AC PO 04/28/17 11:00 05/28/17 10:59 Iron Sucrose 200 mg/Syringe 10 ml @ 0 mls/min UD IV 04/28/17 11:45 05/28/17 11:44 UNV Epoetin Luis Daniel (Procrit Inj) 10,000 units UD IV 04/28/17 11:45 05/28/17 11:44 UNV Family History Hypertension FATHER LUNG DISORDER FATHER Social History Smoking Status: Never Smoker Drug Use: none Marital Status: single Housing Status: lives alone, lives with family Occupation: disabled Review of Systems A complete review of systems was performed. Pertinent positives are noted above. All other systems are negative. Physical Exam Date Time Temp Pulse Resp B/P (MAP) Pulse Ox O2 Delivery O2 Flow Rate FiO2 04/28/17 08:00 94 Room Air 04/28/17 07:28 36.5 69 18 145/73 (97) 96 2.0 04/28/17 04:37 37.0 66 16 134/68 (90) 95 2.0 04/28/17 04:00 94 Room Air 04/28/17 01:06 36.5 69 20 137/72 94 Room Air 04/28/17 00:47 63 15 120/74 94 04/28/17 00:19 68 04/28/17 00:01 139/76 04/27/17 23:47 129/60 04/27/17 21:36 64 12 95 04/27/17 21:31 120/83 04/27/17 21:30 61 13 04/27/17 21:00 62 14 95 04/27/17 20:31 127/67 04/27/17 20:30 66 18 94 04/27/17 20:27 67 04/27/17 20:23 70 15 136/65 93 Room Air 04/27/17 17:49 36.5 82 18 144/65 94 Room Air GENERAL: middle aged male, AAA x 3, not in any distress. HEENT: Atraumatic, normocephalic. NECK: Supple, no JVD, no carotid bruit appreciated. ENT: No sinus tenderness MOUTH and THROAT: Moist oral mucosa, no oral ulcer or pharyngeal erythema RESPIRATORY: Normal breathing efforts, no accessory muscle use, clear to auscultation bilaterally, no wheezes or rales. CARDIOVASCULAR: S1, S2 normal, rate controlled, rhythm irregular. ABDOMEN: Soft, nontender, positive bowel sound. MUSCULOSKELETAL: No CVA tenderness. No joint swelling, erythema or tenderness. Normal range of motion. SKIN: No skin rash EXTREMITY: 2 + B/L lower extremity edema, right radiocephalic AV fistula with good thrill and bruit. NEURO: No gross focal neurological deficit, speech fluent. PSYCHIATRY: Normal mood and judgment Laboratory Results Last 24 Hours Test 04/27/17 20:41 04/27/17 20:42 8/30/17 21:50 04/28/17 05:54 White Blood Count 6.01 K/uL 5.18 K/uL Red Blood Count 3.50 M/uL 3.34 M/uL Hemoglobin 9.8 g/dL 9.5 g/dL Hematocrit 32.8 % 30.8 % Mean Corpuscular Volume 93.7 fL 92.2 fL Mean Corpuscular Hemoglobin 28.0 pg 28.4 pg Mean Corpuscular Hemoglobin Concent 29.9 g/dl 30.8 g/dl Platelet Count 122 K/uL 111 K/uL Mean Platelet Volume 12.3 fL 11.5 fL Neutrophils (%) (Auto) 78.1 % 64.8 % Lymphocytes (%) (Auto) 12.6 % 21.6 % Monocytes (%) (Auto) 6.3 % 8.7 % Eosinophils (%) (Auto) 2.3 % 3.7 % Basophils (%) (Auto) 0.5 % 0.8 % Neutrophils # (Auto) 4.69 K/uL 3.36 K/uL Lymphocytes # (Auto) 0.76 K/uL 1.12 K/uL Monocytes # (Auto) 0.38 K/uL 0.45 K/uL Eosinophils # (Auto) 0.14 K/uL 0.19 K/uL Basophils # (Auto) 0.03 K/uL 0.04 K/uL RDW Standard Deviation 54.2 fL 54.3 fL RDW Coefficient of Variation 16.0 % 16.1 % Immature Granulocyte % (Auto) 0.2 % 0.4 % Immature Granulocyte # (Auto) 0.01 K/uL 0.02 K/uL Platelet Estimate DECREASED Sodium Level 140 mmol/L 139 mmol/L Potassium Level 4.0 mmol/L 3.7 mmol/L Chloride Level 106 mmol/L 106 mmol/L Carbon Dioxide Level 24 mmol/L 25 mmol/L Anion Gap 10.0 mmol/L 8.0 mmol/L Blood Urea Nitrogen 93 mg/dl 96 mg/dl Creatinine 7.40 mg/dl 7.40 mg/dl Est Creatinine Clear Calc Drug Dose 15.2 ml/min 15.3 ml/min Estimated GFR () 8.6 8.6 Estimated GFR (Non- 7.4 7.4 BUN/Creatinine Ratio 12.6 12.9 Random Glucose 102 mg/dl 104 mg/dl Calcium Level 9.6 mg/dl 8.6 mg/dl Phosphorus Level 8.2 mg/dl Magnesium Level 2.4 mg/dl 2.4 mg/dl Total Bilirubin 0.7 mg/dl 0.7 mg/dl Direct Bilirubin 0.4 mg/dl Aspartate Amino Transf (AST/SGOT) 13 U/L 9 U/L Alanine Aminotransferase (ALT/SGPT) 19 U/L 18 U/L Alkaline Phosphatase 67 U/L 59 U/L Ammonia 36.0 umol/L Total Protein 7.7 gm/dl 7.3 gm/dl Albumin 3.4 gm/dl 3.2 gm/dl Prothrombin Time 15.0 SECONDS Prothromb Time International Ratio 1.4 Activated Partial Thromboplast Time 46.3 SECONDS Partial Thromboplastin Ratio 1.8 Urine Color YELLOW Urine Appearance CLEAR Urine pH 5.0 Urine Specific [place] 1.017 Urine Protein NEG Urine Glucose (UA) NEG Urine Ketones NEG Urine Occult Blood NEG Urine Nitrite NEG Urine Bilirubin NEG Urine Urobilinogen NEG Urine Leukocyte Esterase NEG Urine WBC (Auto) 1-5 /hpf Urine RBC (Auto) 0-4 /hpf Urine Hyaline Casts (Auto) 1-5 /lpf Urine Epithelial Cells (Auto) 0-5 /lpf Urine Bacteria (Auto) NEG Urine Opiates Screen POS Urine Methadone, Qualitative NEG Urine Barbiturates NEG Urine Phencyclidine (PCP) Level NEG Ur Amphetamine/Methamphetamine NEG MDMA (Ecstasy) Screen NEG Urine Benzodiazepines Screen NEG Urine Cocaine Metabolite NEG Urine Marijuana (THC) NEG Globulin 4.1 gm/dl Albumin/Globulin Ratio 0.8 Test 04/28/17 05:58 04/28/17 07:46 04/28/17 09:55 04/28/17 10:34 Ammonia 59.0 umol/L Bedside Glucose 80 mg/dl Iron Level 48 mcg/dl Total Iron Binding Capacity 290 mcg/dl Transferrin 216 mg/dl Transferrin % Saturation 16 % Ferritin 112.7 ng/ml 25-Hydroxy Vitamin D Total 36.0 ng/ml Impression (1) ESRD needing dialysis (2) Secondary hyperparathyroidism of renal origin (3) Hypertension (4) Edema (5) Anemia (6) Metabolic encephalopathy Keshawn has ESRD secondary to polycystic kidney disease, he has been following with Dr. Coy in [place]. His baseline creatinine has been staying from 3- 4 but seems to be worsening over last few months. On admission cr was 7.4 which remain stable. No history of proteinuria or hematuria. Has anemia with mild iron deficiency, hyperphosphatemia and secondary hyperparathyroidism. He has chronic lower extremity edema requiring high dose of diuretics and baseline. Has history of left partial nephrectomy in 2016 for renal cell carcinoma, he is to follow up with [facility] with initially did the nephrectomy however recently switched to [facility] and he has an upcoming appointment with Urology. He had a right radiocephalic AV fistula placed in August 2015 which is currently matured and ready to be used. He presented to the emergency room yesterday with 2 weeks history of generalized weakness, occasional dizziness, lightheadedness and shaking of his bilateral upper extremity. His blood pressure remain acceptable. Past medical history significant for hypertension, AFib, diastolic dysfunction. Recommendations --currently there is no emergency need for dialysis, however discussed in detail with the patient that he most likely reached end stage renal disease and will need to be started on dialysis. Patient wanted a 2nd opinion and discussed with Dr. Ferrell over telephone as per patient request and Dr. Deal also strongly recommended to start patient on dialysis -- will plan on starting on dialysis tomorrow for 1 hour with low blood flow and minimum UF and then 2nd treatment on Tuesday -- consult social service to schedule for outpatient dialysis at [place] [facility] with Dr. Coy --start on Venofer and Epogen 03516 units IV --Tums 1 tablet with each meal as phosphate binder, calcitriol 0.5 mcg 3 times weekly with dialysis -- hold Lyrica for now and then consider starting on lower dose in next few days Thank you for allowing me to participate in your patient's care. It was a pleasure to see Raul This chart was completed utilizing [employer] Speech and voice recognition software. Grammatical errors, random word insertions, pronoun errors and incomplete sentences are occasional consequences of this system. Any questions or concerns about the content, text or information contained within the body of this dictation should be addressed directly to the physician for clarification.
[2017-04-28] MEDS ORDERED: LACTULOSE SYRUP 30 GM/45 ML UDP PO ONE (12:16)
[2017-04-28] MEDS: CALCIUM CARBONATE 500 MG CHEWABLE PO SCH ×2 (13:00→16:04)
[2017-04-28 13:53] LABS: ESTIMATED AVERAGE GLUCOSE 117 mg/dl; HA1C FLAG Normal (Normal)
--- NOTE | 2017-04-28 15:04 | Gastrointestinal Consultation ---
Gastrointestinal Consultation Date of Consultation: Apr 28, 2017 History of Present Illness Patient is a 57 year old male whom I'm asked to see for a clinical diagnosis cirrhosis. He is a 57-year-old gentleman, with history of polycystic for kidney disease, renal cell carcinoma status post partial nephrectomy, who apparently had hep C was treated in either [facility]/or [facility] in 2006. He apparently had been an alcohol user but has not drank any alcohol in the last 4- 5 years. He tells me he's apparently never underwent a liver biopsy or been told that he has chronic liver disease. He does have imaging dated back to at least 2014 that showed a cirrhotic morphology of his liver., However he denies any evidence of decompensating features such as GI bleeding or acute onset of ascites however he does have a protuberant abdomen. He's had no recent imaging here, and review of his labs does show a low platelet level consistent or suspicious for cirrhosis. He was admitted and brought to the hospital for persistent shaking at rest, and found to be in worsening renal failure and was admitted for further care. He does have a history of polycystic kidney disease and has been CK D stage IV as an outpatient following with nephrology in the [facility]. He has had no imaging of his abdomen on this admission. Past Medical/Surgical History Medical Problems: (1) CORNELIO (acute kidney injury) Status: Acute (2) Ambulatory dysfunction Status: Acute (3) Foot ulcer Status: Acute (4) Heart failure Status: Acute (5) Intramuscular hematoma Status: Acute (6) Metabolic encephalopathy Status: Acute (7) Non-ST elevation TN (NSTEMI) Status: Acute (8) Renal failure (ARF), acute on chronic Status: Acute (9) Renal mass, left Permanent Comment: 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 Status: Chronic (10) Supratherapeutic INR Status: Acute (11) Uremia Status: Acute Family History Hypertension FATHER LUNG DISORDER FATHER Social History Smoking Status: Never Smoker Alcohol Use: none Drug Use: none Marital Status: single Housing Status: lives alone Occupation Status: disabled Allergies Coded Allergies: Piperacillin (Verified Adverse Reaction, Severe, "makes me goofy", 02/21/17 ) Tazobactam (Verified Adverse Reaction, Severe, "makes me goofy", 02/21/17) Current Medications Home Meds and Scripts Medications Dose Route/Sig Max Daily Dose Days Date Category Oxycodone HCl 5 Mg Tab 20 Mg PO Q8H PRN 02/26/17 Rx Lyrica (Pregabalin) 100 Mg Cap 1 Cap PO BID 30 02/26/17 Rx Lasix (Furosemide) 40 Mg Tab 80 Mg PO QAM 02/21/17 Reported Felodipine ER (Felodipine) 10 Mg Tabcr 10 Mg PO QPM 12/24/16 Reported Vitamin D (Cholecalciferol) 2,000 Unit Tab 2,000 Inter.unit PO DAILY 12/24/16 Reported Catapres (Clonidine Hcl) 0.1 Mg Tab 0.1 Mg PO BID 12/24/16 Reported Spironolactone 25 Mg Tab 25 Mg PO QAM PRN 12/24/16 Reported Apresoline (Hydralazine Hcl) 100 Mg Tab 100 Mg PO BID 12/24/16 Reported Calcitriol 0.25 Mcg Cap 0.25 Mcg PO DAILY 12/24/16 Reported Furosemide 40 Mg Tab 40 Mg PO QPM 12/24/16 Reported Os-Delvis 500 Plus D (Calcium/Vitamin D) Tab 1 Tab PO DAILY 07/21/16 Reported Lopressor (Metoprolol Tartrate) 100 Mg Tab 100 Mg PO BID 04/16/16 Reported Multivitamin (Multivitamins) Tab 1 Tab PO DAILY 01/21/15 Reported Folic Acid 1 Mg Tab 1 Mg PO BID 07/26/14 Reported Zyloprim (Allopurinol) 100 Mg Tab 100 Mg PO BID 10/23/12 Reported Review of Systems Constitutional: + see HPI, No fever, No chills, No sweats, No weight loss, No weakness, No fatigue, No problem reported Eyes: No see HPI, No worsening of vision, No eye pain, No redness, No discharge , No diplopia, No problem reported ENT: No see HPI, No hearing loss, No unusual epistaxis, No nasal symptoms, No sore throat, No tinnitus, No dental problems, No trouble swallowing, No pain on swallowing, No problem reported Respiratory: No see HPI, No cough, No sputum, No wheezing, No shortness of breath, No dyspnea on exertion, No dyspnea at rest, No hemoptysis, No problem reported Cardiac: No see HPI, No chest pain, No orthopnea, No PND, No edema, No claudication, No palpitations, No problem reported Abdomen: No see HPI, No pain, No nausea, No vomiting, No diarrhea, No constipation, No GI bleeding, No dysphagia, No odynophagia, No acolic stools, No jaundice, No dark urine, No problem reported Musculoskeletal: No see HPI, No joint pain, No muscle pain, No swelling, No calf pain, No problem reported Physical Exam Date Time Temp Pulse Resp B/P (MAP) Pulse Ox O2 Delivery O2 Flow Rate FiO2 04/28/17 12:06 37.0 69 18 146/66 (92) 96 2.0 04/28/17 12:00 94 Room Air 04/28/17 08:00 94 Room Air 04/28/17 07:28 36.5 69 18 145/73 (97) 96 2.0 04/28/17 04:37 37.0 66 16 134/68 (90) 95 2.0 04/28/17 04:00 94 Room Air 04/28/17 01:06 36.5 69 20 137/72 94 Room Air 04/28/17 00:47 63 15 120/74 94 04/28/17 00:19 68 04/28/17 00:01 139/76 04/27/17 23:47 129/60 04/27/17 21:36 64 12 95 04/27/17 21:31 120/83 04/27/17 21:30 61 13 04/27/17 21:00 62 14 95 04/27/17 20:31 127/67 04/27/17 20:30 66 18 94 04/27/17 20:27 67 04/27/17 20:23 70 15 136/65 93 Room Air 04/27/17 17:49 36.5 82 18 144/65 94 Room Air General Appearance: + obese Neck: supple, no adenopathy Respiratory/Chest: chest non-tender, lungs clear Cardiovascular: + systolic murmur Abdomen: normal bowel sounds, non tender, soft, + pertinent finding ( protbuerant ) Extremities: + pertinent finding (3+ edema) Neurologic/Psych: boiler erector II-XII nml as tested, + pertinent finding (Resting tremor , no asterixis) Laboratory Results Last 24 Hours Test 04/27/17 20:41 04/27/17 20:42 04/27/17 21:50 8/31/17 05:54 White Blood Count 6.01 K/uL 5.18 K/uL Red Blood Count 3.50 M/uL 3.34 M/uL Hemoglobin 9.8 g/dL 9.5 g/dL Hematocrit 32.8 % 30.8 % Mean Corpuscular Volume 93.7 fL 92.2 fL Mean Corpuscular Hemoglobin 28.0 pg 28.4 pg Mean Corpuscular Hemoglobin Concent 29.9 g/dl 30.8 g/dl Platelet Count 122 K/uL 111 K/uL Mean Platelet Volume 12.3 fL 11.5 fL Neutrophils (%) (Auto) 78.1 % 64.8 % Lymphocytes (%) (Auto) 12.6 % 21.6 % Monocytes (%) (Auto) 6.3 % 8.7 % Eosinophils (%) (Auto) 2.3 % 3.7 % Basophils (%) (Auto) 0.5 % 0.8 % Neutrophils # (Auto) 4.69 K/uL 3.36 K/uL Lymphocytes # (Auto) 0.76 K/uL 1.12 K/uL Monocytes # (Auto) 0.38 K/uL 0.45 K/uL Eosinophils # (Auto) 0.14 K/uL 0.19 K/uL Basophils # (Auto) 0.03 K/uL 0.04 K/uL RDW Standard Deviation 54.2 fL 54.3 fL RDW Coefficient of Variation 16.0 % 16.1 % Immature Granulocyte % (Auto) 0.2 % 0.4 % Immature Granulocyte # (Auto) 0.01 K/uL 0.02 K/uL Platelet Estimate DECREASED Sodium Level 140 mmol/L 139 mmol/L Potassium Level 4.0 mmol/L 3.7 mmol/L Chloride Level 106 mmol/L 106 mmol/L Carbon Dioxide Level 24 mmol/L 25 mmol/L Anion Gap 10.0 mmol/L 8.0 mmol/L Blood Urea Nitrogen 93 mg/dl 96 mg/dl Creatinine 7.40 mg/dl 7.40 mg/dl Est Creatinine Clear Calc Drug Dose 15.2 ml/min 15.3 ml/min Estimated GFR () 8.6 8.6 Estimated GFR (Non- 7.4 7.4 BUN/Creatinine Ratio 12.6 12.9 Random Glucose 102 mg/dl 104 mg/dl Calcium Level 9.6 mg/dl 8.6 mg/dl Phosphorus Level 8.2 mg/dl Magnesium Level 2.4 mg/dl 2.4 mg/dl Total Bilirubin 0.7 mg/dl 0.7 mg/dl Direct Bilirubin 0.4 mg/dl Aspartate Amino Transf (AST/SGOT) 13 U/L 9 U/L Alanine Aminotransferase (ALT/SGPT) 19 U/L 18 U/L Alkaline Phosphatase 67 U/L 59 U/L Ammonia 36.0 umol/L Total Protein 7.7 gm/dl 7.3 gm/dl Albumin 3.4 gm/dl 3.2 gm/dl Prothrombin Time 15.0 SECONDS Prothromb Time International Ratio 1.4 Activated Partial Thromboplast Time 46.3 SECONDS Partial Thromboplastin Ratio 1.8 Urine Color YELLOW Urine Appearance CLEAR Urine pH 5.0 Urine Specific [place] 1.017 Urine Protein NEG Urine Glucose (UA) NEG Urine Ketones NEG Urine Occult Blood NEG Urine Nitrite NEG Urine Bilirubin NEG Urine Urobilinogen NEG Urine Leukocyte Esterase NEG Urine WBC (Auto) 1-5 /hpf Urine RBC (Auto) 0-4 /hpf Urine Hyaline Casts (Auto) 1-5 /lpf Urine Epithelial Cells (Auto) 0-5 /lpf Urine Bacteria (Auto) NEG Urine Opiates Screen POS Urine Methadone, Qualitative NEG Urine Barbiturates NEG Urine Phencyclidine (PCP) Level NEG Ur Amphetamine/Methamphetamine NEG MDMA (Ecstasy) Screen NEG Urine Benzodiazepines Screen NEG Urine Cocaine Metabolite NEG Urine Marijuana (THC) NEG Globulin 4.1 gm/dl Albumin/Globulin Ratio 0.8 Test 04/28/17 05:58 04/28/17 07:46 04/28/17 10:34 04/28/17 11:48 Ammonia 59.0 umol/L Bedside Glucose 80 mg/dl 249 mg/dl Iron Level 48 mcg/dl Total Iron Binding Capacity 290 mcg/dl Transferrin 216 mg/dl Transferrin % Saturation 16 % Ferritin 112.7 ng/ml 25-Hydroxy Vitamin D Total 36.0 ng/ml Hepatitis B Surface Antigen NEG Hepatitis B Surface Antibody NEG Test 04/28/17 12:49 Estimated Average Glucose 117 mg/dl Hemoglobin A1c 5.7 % Parathyroid Hormone (Intact) 219.1 pg/mL Impression Patient is a 57 year old male with chronic medical conditions such a chronic kidney disease, likely clinical cirrhosis. Plan No overt obvious decompensated features at this time. He does have a high meld based upon his chronic kidney disease because bilirubin 0.4, and his albumin was actually 3.2. INR is mildly elevated but here there is some question about his recent Coumadin use. Recommendations 1. Right upper quadrant ultrasound 2. Aspiration of ascites for evaluation if present on US 3. Hep C viral load 4. Can start some lactulose at 30 mg TID to see if helps with tremors, but during my interview does not exhibit avis hepatic encephalopathy.
[2017-04-28] MEDS ORDERED: DEXTROSE 50% 50 ML SYR IV PRN (17:30)
[2017-04-28] MEDS ORDERED: GLUCAGON FOR INJ 1 MG VIAL SQ PRN (17:30)
[2017-04-28] MEDS ORDERED: GLUCOSE 40% GEL 15 GM TUBE PO PRN (17:30)
[2017-04-28] MEDS ORDERED: GLUCOSE 10 TABS/TUBE PO PRN (17:30)
[2017-04-28] MEDS ORDERED: NURSING VERBAL MED ORDER ONE (18:45)
[2017-04-28] MEDS ORDERED: INSULIN ASPART 100 UNITS/ML 3 ML PEN SC ONE (19:00)
[2017-04-28] MEDS: INSULIN ASPART 100 UNITS/ML 3 ML PEN SC SCH (21:00)
--- NOTE | 2017-04-28 21:10 | Family Medicine Progress Note ---
Progress Note Date of Service Apr 28, 2017. Subjective Pt evaluation today including: conversation w/ patient, physical exam, chart review, lab review Pain: Denied PO Intake: regular Voiding: no voiding problems This morning Mr. Ramirez reports continued shaking of hands and jerking. He also reported periods of confusion described as trouble remembering. He denied having any cp, sob, abd pn, n/v/d/c. He also revealed that he has been taking Coumadin 5mg every day and his last dose was yesterday. He is aware of his concerning previous colonoscopy in 2012 and the need to follow up with a repeat colonoscopy soon. Constitutional: No fever Respiratory: No shortness of breath Cardiovascular: No chest pain Abdomen: No nausea, No vomiting, No diarrhea, No constipation Male : No dysuria Medications Current Inpatient Medications Medications (Trade) Dose Ordered Sig/Efrain Route Start Time Stop Time Status Last Admin Dose Admin Acetaminophen (Tylenol Tab) 650 mg Q4H PRN PO 04/27/17 23:15 05/27/17 23:14 Al Hydrox/Mg Hydrox/Simethicone (Maalox Max Susp) 15 ml Q4H PRN PO 04/27/17 23:15 05/27/17 23:14 Ondansetron HCl (Zofran Inj) 4 mg Q6H PRN IV 04/27/17 23:15 05/27/17 23:14 Clonidine HCl (Catapres Tab) 0.1 mg BID PO 04/28/17 09:00 05/28/17 08:59 04/28/17 09:36 0.1 MG Hydralazine HCl (Apresoline Tab) 100 mg BID PO 04/28/17 09:00 05/28/17 08:59 04/28/17 09:35 100 MG Metoprolol Tartrate (Lopressor Tab) 100 mg BID PO 04/28/17 09:00 05/28/17 08:59 04/28/17 09:35 100 MG Multivitamins (Multivitamin Tab) 1 tab DAILY PO 04/28/17 09:00 05/28/17 08:59 04/28/17 09:35 1 TAB Felodipine (Plendil Tabcr) 10 mg QPM PO 04/28/17 21:00 05/28/17 20:59 Calcium Carbonate (Tums Chew Tab) 500 mg AC PO 04/28/17 11:00 05/28/17 10:59 04/28/17 13:00 500 MG Iron Sucrose 200 mg/Syringe 10 ml @ 0 mls/min Q2D@1000 IV 04/29/17 10:00 05/07/17 10:01 Epoetin Luis Daniel (Procrit Inj) 10,000 units MoWeFr@1000 IV 04/29/17 10:00 05/29/17 09:59 Calcitriol (Rocaltrol Cap) 0.5 mcg MoWeFr@0900 PO 04/29/17 09:00 05/29/17 08:59 Lactulose (Chronulac Syrup) 30 gm BID PO 04/28/17 21:00 05/28/17 20:59 Insulin Aspart (novoLOG ASPART) SLIDING SCALE If C... ACHS SC 04/28/17 21:00 05/28/17 20:59 Glucose (Glucose 40% Gel) 15-30 GRAMS 15 GRAMS... UD PRN PO 04/28/17 17:30 05/28/17 17:29 Glucose (Glucose Chew Tab) 4-8 Tablets 4 Tabl... UD PRN PO 04/28/17 17:30 05/28/17 17:29 Dextrose (Dextrose 50% 50ML Syringe) 25-50ML OF 50% DW IV FOR... UD PRN IV 04/28/17 17:30 05/28/17 17:29 Glucagon (Glucagon Inj) 1 mg UD PRN SQ 04/28/17 17:30 05/28/17 17:29 Objective Vital Signs Date Time Temp Pulse Resp B/P (MAP) Pulse Ox O2 Delivery O2 Flow Rate FiO2 04/28/17 19:36 36.7 76 16 141/75 (97) 94 Nasal Cannula 2.0 04/28/17 16:20 Nasal Cannula 2.0 04/28/17 15:56 36.8 67 18 127/69 (88) 99 2.0 04/28/17 12:06 37.0 69 18 146/66 (92) 96 2.0 04/28/17 12:00 94 Room Air 04/28/17 08:00 94 Room Air 04/28/17 07:28 36.5 69 18 145/73 (97) 96 2.0 04/28/17 04:37 37.0 66 16 134/68 (90) 95 2.0 04/28/17 04:00 94 Room Air 04/28/17 01:06 36.5 69 20 137/72 94 Room Air 04/28/17 00:47 63 15 120/74 94 04/28/17 00:19 68 04/28/17 00:01 139/76 04/27/17 23:47 129/60 04/27/17 21:36 64 12 95 04/27/17 21:31 120/83 04/27/17 21:30 61 13 Physical Exam General Appearance: no apparent distress Eyes: normal inspection Respiratory/Chest: lungs clear, normal breath sounds, no respiratory distress Cardiovascular: + irregularly irregular, + pertinent finding (telemetry: Afib rate: 60s-70s this AM, 48 at one point ) Abdomen: normal bowel sounds, non tender, soft Extremities: + pedal edema (2+), + pertinent finding (ulcer ball of L 1st digit , amputated tip of L 1st and 2nd digits, scab R great toe) Neurologic/Psychiatric: alert, oriented x 3 Skin: + pertinent finding (ulcers L 1st great toe and scab R 1st digit) Laboratory Results 04/28/17 05:54 Red Blood Count 3.34, Mean Corpuscular Volume 92.2, Mean Corpuscular Hemoglobin 28.4, Mean Corpuscular Hemoglobin Concent 30.8, Mean Platelet Volume 11.5, Neutrophils (%) (Auto) 64.8, Lymphocytes (%) (Auto) 21.6, Monocytes (%) (Auto) 8.7, Eosinophils (%) (Auto) 3.7, Basophils (%) (Auto) 0.8, Neutrophils # (Auto) 3.36, Lymphocytes # (Auto) 1.12, Monocytes # (Auto) 0.45, Eosinophils # (Auto) 0.19, Basophils # (Auto) 0.04 04/28/17 05:54 Test 04/27/17 21:50 04/28/17 05:54 04/28/17 05:58 04/28/17 10:34 Urine Color YELLOW Urine Appearance CLEAR (CLEAR) Urine pH 5.0 (4.5-7.5) Urine Specific [place] 1.017 (1.000-1.030) Urine Protein NEG (NEG) Urine Glucose (UA) NEG (NEG) Urine Ketones NEG (NEG) Urine Occult Blood NEG (NEG) Urine Nitrite NEG (NEG) Urine Bilirubin NEG (NEG) Urine Urobilinogen NEG (NEG) Urine Leukocyte Esterase NEG (NEG) Urine WBC (Auto) 1-5 /hpf (0-5) Urine RBC (Auto) 0-4 /hpf (0-4) Urine Hyaline Casts (Auto) 1-5 /lpf (0-5) Urine Epithelial Cells (Auto) 0-5 /lpf (0-5) Urine Bacteria (Auto) NEG (NEG) Urine Opiates Screen POS (NEG) Urine Methadone, Qualitative NEG (NEG) Urine Barbiturates NEG (NEG) Urine Phencyclidine (PCP) Level NEG (NEG) Ur Amphetamine/Methamphetamine NEG (NEG) MDMA (Ecstasy) Screen NEG (NEG) Urine Benzodiazepines Screen NEG (NEG) Urine Cocaine Metabolite NEG (NEG) Urine Marijuana (THC) NEG (NEG) White Blood Count 5.18 K/uL (4.8-10.8) Red Blood Count 3.34 M/uL (4.7-6.1) Hemoglobin 9.5 g/dL (14.0-18.0) Hematocrit 30.8 % (42-52) Mean Corpuscular Volume 92.2 fL (80-100) Mean Corpuscular Hemoglobin 28.4 pg (25-34) Mean Corpuscular Hemoglobin Concent 30.8 g/dl (32-36) Platelet Count 111 K/uL (130-400) Mean Platelet Volume 11.5 fL (7.4-10.4) Neutrophils (%) (Auto) 64.8 % Lymphocytes (%) (Auto) 21.6 % Monocytes (%) (Auto) 8.7 % Eosinophils (%) (Auto) 3.7 % Basophils (%) (Auto) 0.8 % Neutrophils # (Auto) 3.36 K/uL (1.4-6.5) Lymphocytes # (Auto) 1.12 K/uL (1.2-3.4) Monocytes # (Auto) 0.45 K/uL (0.11-0.59) Eosinophils # (Auto) 0.19 K/uL (0-0.5) Basophils # (Auto) 0.04 K/uL (0-0.2) RDW Standard Deviation 54.3 fL (36.4-46.3) RDW Coefficient of Variation 16.1 % (11.5-14.5) Immature Granulocyte % (Auto) 0.4 % Immature Granulocyte # (Auto) 0.02 K/uL (0.00-0.02) Anion Gap 8.0 mmol/L (3-11) Est Creatinine Clear Calc Drug Dose 15.3 ml/min Estimated GFR () 8.6 Estimated GFR (Non- 7.4 BUN/Creatinine Ratio 12.9 (10-20) Calcium Level 8.6 mg/dl (8.5-10.1) Magnesium Level 2.4 mg/dl (1.8-2.4) Total Bilirubin 0.7 mg/dl (0.2-1) Aspartate Amino Transf (AST/SGOT) 9 U/L (15-37) Alanine Aminotransferase (ALT/SGPT) 18 U/L (12-78) Alkaline Phosphatase 59 U/L (45-117) Total Protein 7.3 gm/dl (6.4-8.2) Albumin 3.2 gm/dl (3.4-5.0) Globulin 4.1 gm/dl (2.5-4.0) Albumin/Globulin Ratio 0.8 (0.9-2) Ammonia 59.0 umol/L (11-32) Iron Level 48 mcg/dl (35-175) Total Iron Binding Capacity 290 mcg/dl (250-450) Transferrin 216 mg/dl (200-360) Transferrin % Saturation 16 % (20-50) Ferritin 112.7 ng/ml (8.0-388.0) 25-Hydroxy Vitamin D Total 36.0 ng/ml (30-100) Hepatitis B Surface Antigen NEG (NEG) Hepatitis B Surface Antibody NEG Test 04/28/17 12:49 04/28/17 15:34 04/28/17 19:28 Estimated Average Glucose 117 mg/dl Hemoglobin A1c 5.7 % (4.5-5.6) Parathyroid Hormone (Intact) 219.1 pg/mL (11.1-79.5) Bedside Glucose 118 mg/dl (70-99) Assessment and Plan 57-year-old male with history of atrial fibrillation, diastolic CHF, hypertension, peripheral vascular disease, autosomal dominant polycystic kidney disease, chronic kidney disease, renal cell cancer s/p partial left sided nephrectomy, chronic hepatitis C, cirrhosis, obstructive sleep apnea, anemia, depression, diabetes mellitus type 2, GERD, hx of DVT, presented to the ER with complaints of worsening shaking of his hands and jerking which started about 2 weeks ago and increased confusion (trouble with memory). Metabolic encephalopathy Possibly secondary to both uremia and hepatic encephalopathy (history of cirrhosis) with elevated ammonia. - Ammonia 36 (04/27) --> 59 this AM - Head CT - neg for any acute bleeding - UA negative - Urine drug screen positive for opiates - Monitor ammonia level - Holding medications likely to exacerbate encephalopathy Acute on chronic kidney injury History of partial nephrectomy of left kidney secondary to renal cell cancer and autosomal dominant polycystic kidney disease. Has ESRD secondary to polycystic kidney disease, followed by Dr. Coy in [place]. Baseline Cr 3- 4 but worsening over last few months. No history of proteinuria or hematuria. Anemia with mild iron deficiency, hyperphosphatemia. Had a right radiocephalic AV fistula placed in August 2015, currently matured and ready to be used. Most likely reached end stage renal disease and will need to be started on dialysis. Patient wanted a 2nd opinion, talked to Dr. Coy over the phone who also strongly recommended dialysis. Dialysis 9 for 1 hour with low blood flow and minimum UF. 2nd treatment on Tuesday. Consulted social service to schedule for outpatient dialysis at [place] [facility] with Dr. Coy - Creatinine at 7.4 today, in February 3.7 - Gentle hydration as chest x-ray appears to be congestive - Nephrology consult- fistula in place - HD scheduled for tomorrow and sat - Outpatient dialysis at [place] [facility] unit with Dr. Coy - start on Venofer and Epogen 97482 units IV - Tums 1 tablet with each meal as phosphate binder, calcitriol 0.5 mcg 3 times weekly with dialysis - hold Lyrica for now and then consider starting on lower dose in next few days - Check Hep B status - Renal artery duplex - Au in place to avoid post obstructive renal failure Cirrhosis /Chronic hep C/Splenomegaly Per GI, no overt decompensated features or avis hepatic encephalopathy as of ; high meld based on chronic kidney disease but bilirubin 0.4, and albumin 3.2. INR mildly elevated but questionable recent Coumadin use. Start lactulose at 30 mg TID to see if helps with tremors. - Treated with Pegasys - Ammonia 59 - Lactulose 30mg PO BID - Meld score = 23, 19.6% 3 month mortality - Abdominal US, RUQ - look for ascites - Aspirate ascites if present on US - Hep C viral load check - GI consult Atrial fibrillation Patient reports taking 5mg of Coumadin which we will hold for now given hematoma and possible coagulopathy. - Rate control with metoprolol - Hold coumadin - coagulopathy possible given liver function and hematoma - INR today 1.4 Hypertension - Continue hydralazine, clonidine, felodipine - Hold Spironolactone Diastolic CHF, Chronic bilateral lower extremity swelling - Hold Lasix - Last Echo in 2016 - EF of 55 to 60% Chronic peripheral neuropathy - Secondary to Pegasys for hep C - Hold Lyrica ADPCKD/Left sided renal cell cancer Status post partial nephrectomy -Likely stable -Renal consult Bilateral foot ulcers - Wound care consult Anemia: Appears to be chronic - Hemoglobin at 9.5 DVT prophylaxis SCDs Full code Disposition: Admitted to telemetry Resident Involvement: Resident Care Provided Care Provided: Adult Hospital Medicine Reviewed: Pt Seen/Exam by Me History Resident Physician Supervision Note: I interviewed and examined the patient. Discussed with Dr. Kowalski and agree with findings and plan as documented in the note. Any exceptions or clarifications are listed here: Patient eating lunch and feeling okay. Still having tremor or twitching in his upper body and hands. Is reluctant to start dialysis but says he will if he has to. I discussed the case with nephrology today. Patient states he was never told that he had cirrhosis. He does admit to a 20 pound weight gain in the last 2 weeks and has noticed increased abdominal girth as well as leg swelling. His ammonia levels increased this morning but he did just have a bowel movement. Vitals reviewed, telemetry with A. fib in the 60s to 70s with a drop to the 40s overnight. 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 -Nephrology to start dialysis tomorrow-discussed with patient -Start lactulose and follow ammonia levels -Appreciate GI consult for cirrhosis and future management -Check renal duplex ultrasound -Check abdominal ultrasound for ascites and performed thoracentesis if present -Hypervolemia to be managed with dialysis -Holding Coumadin for now due to possible coagulopathy from cirrhosis, will restart if possible -Follow LFTs and platelets and INR-also was off Coumadin recently for a large gluteal hematoma and excessive anticoagulation -Check hemoglobin A1c and follow glucose Documented By: Lorraine Sandhu
[2017-04-28] MEDS: LACTULOSE SYRUP 30 GM/45 ML UDP PO SCH (21:32)
[2017-04-28] MEDS: FELODIPINE 5 MG TABCR PO SCH (21:32)
[2017-04-28 22:51] LABS: BASO % 0.5 %; BASO ABS # 0.03 K/uL (0-0.2); COMPLETE YES; EOS % 3.6 %; HEMATOCRIT 33.1 % (42-52); IG% 0.2 %; LYMPH % 12.4 %; LYMPH ABS # 0.68 K/uL (1.2-3.4); MEAN CELL VOLUME 93.2 fL (80-100); MEAN CORPUSCULAR HEMOGLOBIN 28.7 pg (25-34); MEAN CORPUSCULAR HGB CONC 30.8 g/dl (32-36); MEAN PLATELET VOLUME 12.2 fL (7.4-10.4); MONO % 7.8 %; NEUT % 75.5 %; PLATELET COUNT 123 K/uL (130-400); PLT ESTIMATE DECREASED; RED BLOOD COUNT 3.55 M/uL (4.7-6.1); VACUOLIZATION OCCASIONAL
--- NOTE | 2017-04-28 23:44 | DIAGNOSTIC IMAGING REPORT ---
ABDOMEN LIMITED (US), ASCITES-ABDOMEN LIMITED HISTORY: 57 years-old Male Clinical cirrhosis, evaluate liver for HCC and ascites COMPARISON: CT abdomen and pelvis 04/16/2016 TECHNIQUE: Multiple real-time sonographic images of the abdominal right upper quadrant were obtained assessing grayscale appearance and color flow. Ultrasound assessing for ascites was also obtained within all quadrants of the abdomen. FINDINGS: Pancreas is partially scared by bowel gas. Imaged portions of the pancreas are unremarkable. Coarsened echogenicity of the liver is noted with cirrhosis liver disease morphology. No focal hepatic mass lesions are identified. Distended sludge and stone filled gallbladder is noted with wall and upper limits of normal, 0.3 cm. No pericholecystic fluid collections. A positive sonographic Figueroa's sign was not reported. Common bile duct is mildly dilated, 0.7 cm without focal obstructing stone identified. Large polycystic right kidney is noted. No ascites is seen within the abdomen. IMPRESSION: 1. Cirrhotic liver disease without evidence of ascites. 2. Distended stone and sludge filled gallbladder with gallbladder wall measuring within the upper limits of normal at 0.3 cm. Correlate clinically to exclude developing acute cholecystitis. 3. Polycystic kidney disease The above report was generated using voice recognition software. It may contain grammatical, syntax or spelling errors. Electronically signed by: Dany Nunn M.D. 04/28/2017 11:43 PM Dictated Date/Time: 04/28/2017 11:38 PM
--- NOTE | 2017-04-28 23:51 | DIAGNOSTIC IMAGING REPORT ---
DUPLEX RENAL ARTERY HISTORY: 57 years-old Male acute renal failure, h/o PCKD COMPARISON: CT abdomen and pelvis 10/09/2014 TECHNIQUE: Multiple real-time sonographic images of the kidneys were obtained assessing grayscale appearance, color and spectral flow analysis FINDINGS: Right kidney measures up to 19.7 cm in length. Polycystic kidney disease noted. Resistive index measures 0.6. The highest velocity measured at 95 cm/s. Phasic and patent renal vein noted. Left kidney measures up to 17.8 cm in length. Polycystic kidney disease redemonstrated. Resistive index measured at 0.7. The highest velocity is measured at 88 cm/s. Phasic and patent renal vein noted. IMPRESSION: 1. Polycystic kidney disease with resistive index on the left at 0.7, upper limits of normal likely secondary to the background medical renal disease. 2. No elevated peak systolic velocities are identified. The above report was generated using voice recognition software. It may contain grammatical, syntax or spelling errors. Electronically signed by: Dany Nunn M.D. 04/28/2017 11:49 PM Dictated Date/Time: 04/28/2017 11:44 PM
[2017-04-29] VITALS (16 sets, daily range): BP systolic 115–146; BP diastolic 62–78; PULSE 55–83; TEMP 36.7–37.2; O2SAT 94–100
[2017-04-29 07:47] LABS: INR 1.5 (0.9-1.1); PROTHROMBIN TIME (PATIENT) 15.8 SECONDS (9.0-12.0)
[2017-04-29 08:01] LABS: HEMATOCRIT 30.2 % (42-52); MEAN CELL VOLUME 92.1 fL (80-100); MEAN CORPUSCULAR HEMOGLOBIN 28.7 pg (25-34); MEAN CORPUSCULAR HGB CONC 31.1 g/dl (32-36); MEAN PLATELET VOLUME 12.1 fL (7.4-10.4); PLATELET COUNT 99 K/uL (130-400); RED BLOOD COUNT 3.28 M/uL (4.7-6.1); WHITE BLOOD COUNT 4.39 K/uL (4.8-10.8)
[2017-04-29 08:10] LABS: ALB/GLOB RATIO 0.8 (0.9-2); CALCIUM 9.3 mg/dl (8.5-10.1); CREATININE 6.7 mg/dl (0.60-1.40); POTASSIUM 3.9 mmol/L (3.5-5.1)
[2017-04-29] MEDS: INSULIN ASPART 100 UNITS/ML 3 ML PEN SC SCH ×4 (08:29→20:36)
[2017-04-29 08:33] LABS: BASO % 0.5 %; BASO ABS # 0.02 K/uL (0-0.2); COMPLETE YES; GIANT PLATELETS 1+; LYMPH % 18.9 %; LYMPH ABS # 0.83 K/uL (1.2-3.4); MONO % 7.1 %; NEUT % 70.5 %
[2017-04-29] MEDS: CALCIUM CARBONATE 500 MG CHEWABLE PO SCH ×3 (09:40→18:26)
[2017-04-29] MEDS: CALCITRIOL 0.25 MCG CAP PO SCH (09:40)
[2017-04-29] MEDS: CLONIDINE HCL 0.1 MG TAB PO SCH ×2 (09:41→20:32)
[2017-04-29] MEDS: LACTULOSE SYRUP 30 GM/45 ML UDP PO SCH ×2 (09:41→20:32)
[2017-04-29] MEDS: METOPROLOL TARTRATE 100 MG TAB PO SCH ×2 (09:41→20:32)
[2017-04-29] MEDS: MULTIVITAMIN TAB PO SCH (09:42)
[2017-04-29] MEDS ORDERED: IRON SUCROSE INJ 200 MG in SYRINGE 0 ML IV SCH (10:00)
--- NOTE | 2017-04-29 10:14 | Family Medicine Progress Note ---
Progress Note Date of Service Apr 29, 2017. Subjective Pt evaluation today including: conversation w/ patient, physical exam, chart review, lab review Pain: denies pain PO Intake: tolerating PO Voiding: no voiding problems This AM Mr. Ramirez reports feeling better in regards to shaking and confusion/ dizziness. He denies any cp, sob, GANT/Dizziness, n/v, d/c. Constitutional: No fever Respiratory: No shortness of breath Cardiovascular: No chest pain Abdomen: No pain, No nausea, No vomiting, No diarrhea, No constipation Male : No dysuria Neurologic: + problem reported (shaking, tremor, confusion) Medications Current Inpatient Medications Medications (Trade) Dose Ordered Sig/Efrain Route Start Time Stop Time Status Last Admin Dose Admin Acetaminophen (Tylenol Tab) 650 mg Q4H PRN PO 04/27/17 23:15 05/27/17 23:14 Al Hydrox/Mg Hydrox/Simethicone (Maalox Max Susp) 15 ml Q4H PRN PO 04/27/17 23:15 05/27/17 23:14 Ondansetron HCl (Zofran Inj) 4 mg Q6H PRN IV 04/27/17 23:15 05/27/17 23:14 Clonidine HCl (Catapres Tab) 0.1 mg BID PO 04/28/17 09:00 05/28/17 08:59 04/29/17 09:41 0.1 MG Hydralazine HCl (Apresoline Tab) 100 mg BID PO 04/28/17 09:00 05/28/17 08:59 04/29/17 09:40 100 MG Metoprolol Tartrate (Lopressor Tab) 100 mg BID PO 04/28/17 09:00 05/28/17 08:59 04/29/17 09:41 100 MG Multivitamins (Multivitamin Tab) 1 tab DAILY PO 04/28/17 09:00 05/28/17 08:59 04/29/17 09:42 1 TAB Felodipine (Plendil Tabcr) 10 mg QPM PO 04/28/17 21:00 05/28/17 20:59 04/28/17 21:32 10 MG Calcium Carbonate (Tums Chew Tab) 500 mg AC PO 04/28/17 11:00 05/28/17 10:59 04/29/17 09:40 500 MG Iron Sucrose 200 mg/Syringe 10 ml @ 0 mls/min Q2D@1000 IV 04/29/17 10:00 05/07/17 10:01 Epoetin Luis Daniel (Procrit Inj) 10,000 units MoWeFr@1000 IV 04/29/17 10:00 05/29/17 09:59 Calcitriol (Rocaltrol Cap) 0.5 mcg MoWeFr@0900 PO 04/29/17 09:00 05/29/17 08:59 04/29/17 09:40 0.5 MCG Lactulose (Chronulac Syrup) 30 gm BID PO 04/28/17 21:00 05/28/17 20:59 04/29/17 09:41 30 GM Insulin Aspart (novoLOG ASPART) SLIDING SCALE If C... ACHS SC 04/28/17 21:00 05/28/17 20:59 Glucose (Glucose 40% Gel) 15-30 GRAMS 15 GRAMS... UD PRN PO 04/28/17 17:30 05/28/17 17:29 Glucose (Glucose Chew Tab) 4-8 Tablets 4 Tabl... UD PRN PO 04/28/17 17:30 05/28/17 17:29 Dextrose (Dextrose 50% 50ML Syringe) 25-50ML OF 50% DW IV FOR... UD PRN IV 04/28/17 17:30 05/28/17 17:29 Glucagon (Glucagon Inj) 1 mg UD PRN SQ 04/28/17 17:30 05/28/17 17:29 Objective Vital Signs Date Time Temp Pulse Resp B/P (MAP) Pulse Ox O2 Delivery O2 Flow Rate FiO2 04/29/17 08:40 95 Room Air 04/29/17 07:35 37.2 74 18 128/62 (84) 99 3.0 04/29/17 04:44 36.8 68 16 115/64 (81) 94 2.0 04/29/17 04:00 95 Room Air 04/29/17 00:00 95 Room Air 04/28/17 23:31 36.9 69 16 125/61 (82) 97 Room Air 04/28/17 21:27 99 149/74 (99) 04/28/17 20:00 95 Room Air 04/28/17 19:36 36.7 76 16 141/75 (97) 94 Nasal Cannula 2.0 04/28/17 16:20 Nasal Cannula 2.0 04/28/17 15:56 36.8 67 18 127/69 (88) 99 2.0 04/28/17 12:06 37.0 69 18 146/66 (92) 96 2.0 04/28/17 12:00 94 Room Air Physical Exam General Appearance: no apparent distress Eyes: normal inspection Respiratory/Chest: lungs clear, normal breath sounds, no respiratory distress Cardiovascular: + irregularly irregular Abdomen: normal bowel sounds, non tender, soft Extremities: non-tender, + pedal edema (2+), + pertinent finding (renal - fistula intact R wrist) Neurologic/Psychiatric: + pertinent finding (tremor and twiching of hands and upper body) Skin: + pertinent finding (venous stasis skin changes - b/l LE, ulcer L 1st digit toe ball, amputated head of 1st and 2nd L digits, scab - 1st digit R - wrapped by wound care and not allowing to visualize) Laboratory Results 04/29/17 07:23 Red Blood Count 3.28, Mean Corpuscular Volume 92.1, Mean Corpuscular Hemoglobin 28.7, Mean Corpuscular Hemoglobin Concent 31.1, Mean Platelet Volume 12.1, Neutrophils (%) (Auto) 70.5, Lymphocytes (%) (Auto) 18.9, Monocytes (%) (Auto) 7.1, Eosinophils (%) (Auto) 3.0, Basophils (%) (Auto) 0.5, Neutrophils # (Auto) 3.10, Lymphocytes # (Auto) 0.83, Monocytes # (Auto) 0.31, Eosinophils # (Auto) 0.13, Basophils # (Auto) 0.02 04/29/17 07:23 Test 04/28/17 10:34 04/28/17 12:49 04/28/17 15:34 04/28/17 22:12 Iron Level 48 mcg/dl (35-175) Total Iron Binding Capacity 290 mcg/dl (250-450) Transferrin 216 mg/dl (200-360) Transferrin % Saturation 16 % (20-50) Ferritin 112.7 ng/ml (8.0-388.0) 25-Hydroxy Vitamin D Total 36.0 ng/ml (30-100) Hepatitis B Surface Antigen NEG (NEG) Hepatitis B Surface Antibody NEG Hepatitis B Core Total Antibody NON-REACTIVE (NON-REACTIVE) Estimated Average Glucose 117 mg/dl Hemoglobin A1c 5.7 % (4.5-5.6) Parathyroid Hormone (Intact) 219.1 pg/mL (11.1-79.5) Toxic Vacuolation OCCASIONAL Platelet Estimate DECREASED Test 04/29/17 07:23 04/29/17 07:30 White Blood Count 4.39 K/uL (4.8-10.8) Red Blood Count 3.28 M/uL (4.7-6.1) Hemoglobin 9.4 g/dL (14.0-18.0) Hematocrit 30.2 % (42-52) Mean Corpuscular Volume 92.1 fL (80-100) Mean Corpuscular Hemoglobin 28.7 pg (25-34) Mean Corpuscular Hemoglobin Concent 31.1 g/dl (32-36) Platelet Count 99 K/uL (130-400) Mean Platelet Volume 12.1 fL (7.4-10.4) Neutrophils (%) (Auto) 70.5 % Lymphocytes (%) (Auto) 18.9 % Monocytes (%) (Auto) 7.1 % Eosinophils (%) (Auto) 3.0 % Basophils (%) (Auto) 0.5 % Neutrophils # (Auto) 3.10 K/uL (1.4-6.5) Lymphocytes # (Auto) 0.83 K/uL (1.2-3.4) Monocytes # (Auto) 0.31 K/uL (0.11-0.59) Eosinophils # (Auto) 0.13 K/uL (0-0.5) Basophils # (Auto) 0.02 K/uL (0-0.2) RDW Standard Deviation 53.9 fL (36.4-46.3) RDW Coefficient of Variation 15.9 % (11.5-14.5) Immature Granulocyte % (Auto) 0.0 % Immature Granulocyte # (Auto) 0.00 K/uL (0.00-0.02) Giant Platelets 1+ Prothrombin Time 15.8 SECONDS (9.0-12.0) Prothromb Time International Ratio 1.5 (0.9-1.1) Anion Gap 8.0 mmol/L (3-11) Est Creatinine Clear Calc Drug Dose 16.8 ml/min Estimated GFR () 9.7 Estimated GFR (Non- 8.3 BUN/Creatinine Ratio 14.0 (10-20) Calcium Level 9.3 mg/dl (8.5-10.1) Total Bilirubin 0.5 mg/dl (0.2-1) Aspartate Amino Transf (AST/SGOT) 10 U/L (15-37) Alanine Aminotransferase (ALT/SGPT) 16 U/L (12-78) Alkaline Phosphatase 52 U/L (45-117) Ammonia 59.0 umol/L (11-32) Total Protein 7.0 gm/dl (6.4-8.2) Albumin 3.1 gm/dl (3.4-5.0) Globulin 3.9 gm/dl (2.5-4.0) Albumin/Globulin Ratio 0.8 (0.9-2) Bedside Glucose 83 mg/dl (70-99) Assessment and Plan 57-year-old male with history of atrial fibrillation, diastolic CHF, hypertension, peripheral vascular disease, autosomal dominant polycystic kidney disease, chronic kidney disease, renal cell cancer s/p partial left sided nephrectomy, chronic hepatitis C, cirrhosis, obstructive sleep apnea, anemia, depression, diabetes mellitus type 2, GERD, hx of DVT, presented to the ER with complaints of worsening shaking of his hands and jerking which started about 2 weeks ago and increased confusion (trouble with memory). Metabolic encephalopathy Secondary to uremia vs hepatic encephalopathy (history of cirrhosis). Per GI, despite elevated ammonia at 59, no evidence of ascites or decompensated cirrhosis thus encephalopathy likely from uremia caused by CKD. - Ammonia 36, and 59 (04/27) --> 59 this AM - Head CT - neg for any acute bleeding - UA negative - Urine drug screen positive for opiates - Monitor ammonia level - Holding medications likely to exacerbate encephalopathy Acute on chronic kidney injury stage 4-5 History of partial nephrectomy of left kidney secondary to renal cell cancer and autosomal dominant polycystic kidney disease. Urology consulted given lack of follow up despite nephrectomy and concerning findings on Aug 2016 abdominal MRI but did not see the need for acute follow up inpatient. Urology will follow up outpatient in 2 months. Has ESRD secondary to polycystic kidney disease, followed by Dr. Coy in [place]. Baseline Cr 3-4 but worsening over last few months. No history of proteinuria or hematuria. Anemia with mild iron deficiency, hyperphosphatemia. Had a right radiocephalic AV fistula placed in August 2015, currently matured and ready to be used. Most likely reached end stage renal disease and will need to be started on dialysis. Patient wanted a 2nd opinion, talked to Dr. Coy over the phone who also strongly recommended dialysis. Dialysis 04/29 for 1 hour with low blood flow and minimum UF. 2nd treatment on Tuesday. Consulted social service to schedule for outpatient dialysis at [facility] with Dr. Coy - Creatinine at 7.4 --> 6.7 this AM. In February 28. - Nephrology consult- fistula in place - Hep B antibody and antigen neg, core antibody non-reactive - Renal artery duplex - PCOS (L resistive index 0.7 upper limit of normal, otherwise no elevated peak systolic velocities) - HD scheduled for tomorrow and sat - Continue Venofer and Epogen 02771 units IV - Continue Tums 1 tablet with each meal as phosphate binder - Calcitriol 0.5 mcg 3 times weekly with dialysis - hold Lyrica for now and then consider starting on lower dose in next few days - Outpatient dialysis at [facility] with Dr. Coy Cirrhosis /Chronic hep C/Splenomegaly Per GI, no ascites, overt decompensated features or avis hepatic encephalopathy as of 04/28; high meld based on chronic kidney disease but bilirubin 0.4, and albumin 3.2. INR mildly elevated but questionable recent Coumadin use. Start lactulose at 30 mg TID to see if helps with tremors. Abdominal US consistent with cirrhosis, no ascites, and distended gallbladder with sludge and stone, wall relatively thick 0.3cm. Given lack of symptoms and lab abnormalities GI not concerned about acute cholecystitis as of 04/29 and did not recommend HIDA, or ERCP. - Treated with Pegasys 2006 - Ammonia 59 - Lactulose 30mg PO BID (titrate as needed based on BMs) - Meld score = 24, 19.6% 3 month mortality - Abdominal US - cirrhosis no ascite, gallbladder distended with sludge and stone, wall relatively thick 0.3cm - Hep C viral load check - pending - GI consulted Atrial fibrillation Patient reports taking 5mg of Coumadin which we will hold for now given hematoma and possible coagulopathy. - Rate control with metoprolol - Hold coumadin - coagulopathy possible given liver function and hematoma - INR today 1.5 Hypertension - Continue hydralazine, clonidine, felodipine - Hold Spironolactone possibly d/c Diastolic CHF, Chronic bilateral lower extremity swelling, CAD s/p CO 2016 - Resume Lasix per nephrology - Last Echo in 2015 - EF of 55 to 60% Pre-diabetes with elevated BSs - Sliding scale Novolog - Goal: 140-180; CF: 25; CHO 1:20 Opioid withdrawal - On oxycodone 20mg Q8H at home for chronic pain - Ordered Oxycodone 5mg PO Q4H PRN as needed for pain/withdrawal symptoms - Monitor for signs of opioid withdrawal Chronic peripheral neuropathy - Secondary to Pegasys for hep C - Hold Lyrica - can resume on a small dose in a few days ADPCKD/Left sided renal cell cancer Status post partial nephrectomy -Likely stable -Renal consult Bilateral foot ulcers - Wound care consult Anemia: Appears to be chronic - Iron studies: decreased transferrin sat 16, transferrin 216. TIBC 290 and Iron 48 - Hemoglobin at 9.4 DVT prophylaxis SCDs Full code Disposition: pending clinical improvement Social Work: referral to outpatient dialysis at [facility] with Dr. Coy Resident Involvement: Resident Care Provided Care Provided: Adult [facility]
--- NOTE | 2017-04-29 10:31 | Gastroenterology Progress Note ---
Progress Note Date of Service: Apr 29, 2017 Subjective Pt evaluation today including: conversation w/ patient, physical exam, chart review, lab review, review of inpatient medication list Pt sitting up in bed, currently discussing care w Supervisor [employer] (Dr. Grewal). He is feeling well, no complaints. Yesterday u/s showed cirrhotic liver, no ascites. LFTs normal, HCV RNA pending. Review of Systems Constitutional: No fever, No chills Respiratory: No shortness of breath Cardiac: No chest pain Abdomen: No pain, No nausea, No vomiting Medications Current Inpatient Medications Medications (Trade) Dose Ordered Sig/Efrain Route Start Time Stop Time Status Last Admin Dose Admin Acetaminophen (Tylenol Tab) 650 mg Q4H PRN PO 04/27/17 23:15 05/27/17 23:14 Al Hydrox/Mg Hydrox/Simethicone (Maalox Max Susp) 15 ml Q4H PRN PO 04/27/17 23:15 05/27/17 23:14 Ondansetron HCl (Zofran Inj) 4 mg Q6H PRN IV 04/27/17 23:15 05/27/17 23:14 Clonidine HCl (Catapres Tab) 0.1 mg BID PO 04/28/17 09:00 05/28/17 08:59 04/29/17 09:41 0.1 MG Hydralazine HCl (Apresoline Tab) 100 mg BID PO 04/28/17 09:00 05/28/17 08:59 04/29/17 09:40 100 MG Metoprolol Tartrate (Lopressor Tab) 100 mg BID PO 04/28/17 09:00 05/28/17 08:59 04/29/17 09:41 100 MG Multivitamins (Multivitamin Tab) 1 tab DAILY PO 04/28/17 09:00 05/28/17 08:59 04/29/17 09:42 1 TAB Felodipine (Plendil Tabcr) 10 mg QPM PO 04/28/17 21:00 05/28/17 20:59 04/28/17 21:32 10 MG Calcium Carbonate (Tums Chew Tab) 500 mg AC PO 04/28/17 11:00 05/28/17 10:59 04/29/17 09:40 500 MG Iron Sucrose 200 mg/Syringe 10 ml @ 0 mls/min Q2D@1000 IV 04/29/17 10:00 05/07/17 10:01 Epoetin Luis Daniel (Procrit Inj) 10,000 units MoWeFr@1000 IV 04/29/17 10:00 05/29/17 09:59 Calcitriol (Rocaltrol Cap) 0.5 mcg MoWeFr@0900 PO 04/29/17 09:00 05/29/17 08:59 04/29/17 09:40 0.5 MCG Lactulose (Chronulac Syrup) 30 gm BID PO 04/28/17 21:00 05/28/17 20:59 04/29/17 09:41 30 GM Insulin Aspart (novoLOG ASPART) SLIDING SCALE If C... ACHS SC 04/28/17 21:00 05/28/17 20:59 Glucose (Glucose 40% Gel) 15-30 GRAMS 15 GRAMS... UD PRN PO 04/28/17 17:30 05/28/17 17:29 Glucose (Glucose Chew Tab) 4-8 Tablets 4 Tabl... UD PRN PO 04/28/17 17:30 05/28/17 17:29 Dextrose (Dextrose 50% 50ML Syringe) 25-50ML OF 50% DW IV FOR... UD PRN IV 04/28/17 17:30 05/28/17 17:29 Glucagon (Glucagon Inj) 1 mg UD PRN SQ 04/28/17 17:30 05/28/17 17:29 Objective Vital Signs Date Time Temp Pulse Resp B/P (MAP) Pulse Ox O2 Delivery O2 Flow Rate FiO2 04/29/17 08:40 95 Room Air 04/29/17 07:35 37.2 74 18 128/62 (84) 99 3.0 04/29/17 04:44 36.8 68 16 115/64 (81) 94 2.0 04/29/17 04:00 95 Room Air 04/29/17 00:00 95 Room Air 04/28/17 23:31 36.9 69 16 125/61 (82) 97 Room Air 04/28/17 21:27 99 149/74 (99) 04/28/17 20:00 95 Room Air 04/28/17 19:36 36.7 76 16 141/75 (97) 94 Nasal Cannula 2.0 04/28/17 16:20 Nasal Cannula 2.0 04/28/17 15:56 36.8 67 18 127/69 (88) 99 2.0 04/28/17 12:06 37.0 69 18 146/66 (92) 96 2.0 04/28/17 12:00 94 Room Air Physical Exam General Appearance: WD/WN, no apparent distress Eyes: EOMI Neck: supple, no JVD, trachea midline Respiratory/Chest: no respiratory distress, no accessory muscle use Abdomen: non tender, soft Neurologic/Psych: alert, normal mood/affect, oriented x 3 Skin: normal color, no jaundice, no rash Laboratory Results Last 24 Hours Test 04/28/17 10:34 04/28/17 11:48 04/28/17 12:49 04/28/17 15:34 Iron Level 48 mcg/dl Total Iron Binding Capacity 290 mcg/dl Transferrin 216 mg/dl Transferrin % Saturation 16 % Ferritin 112.7 ng/ml 25-Hydroxy Vitamin D Total 36.0 ng/ml Hepatitis B Surface Antigen NEG Hepatitis B Surface Antibody NEG Hepatitis B Core Total Antibody NON-REACTIVE Bedside Glucose 249 mg/dl Estimated Average Glucose 117 mg/dl Hemoglobin A1c 5.7 % Parathyroid Hormone (Intact) 219.1 pg/mL Test 04/28/17 16:36 04/28/17 19:28 04/28/17 22:12 04/29/17 07:23 Bedside Glucose 327 mg/dl 118 mg/dl White Blood Count 5.50 K/uL 4.39 K/uL Red Blood Count 3.55 M/uL 3.28 M/uL Hemoglobin 10.2 g/dL 9.4 g/dL Hematocrit 33.1 % 30.2 % Mean Corpuscular Volume 93.2 fL 92.1 fL Mean Corpuscular Hemoglobin 28.7 pg 28.7 pg Mean Corpuscular Hemoglobin Concent 30.8 g/dl 31.1 g/dl Platelet Count 123 K/uL 99 K/uL Mean Platelet Volume 12.2 fL 12.1 fL Neutrophils (%) (Auto) 75.5 % 70.5 % Lymphocytes (%) (Auto) 12.4 % 18.9 % Monocytes (%) (Auto) 7.8 % 7.1 % Eosinophils (%) (Auto) 3.6 % 3.0 % Basophils (%) (Auto) 0.5 % 0.5 % Neutrophils # (Auto) 4.15 K/uL 3.10 K/uL Lymphocytes # (Auto) 0.68 K/uL 0.83 K/uL Monocytes # (Auto) 0.43 K/uL 0.31 K/uL Eosinophils # (Auto) 0.20 K/uL 0.13 K/uL Basophils # (Auto) 0.03 K/uL 0.02 K/uL RDW Standard Deviation 55.2 fL 53.9 fL RDW Coefficient of Variation 15.9 % 15.9 % Immature Granulocyte % (Auto) 0.2 % 0.0 % Immature Granulocyte # (Auto) 0.01 K/uL 0.00 K/uL Toxic Vacuolation OCCASIONAL Platelet Estimate DECREASED Giant Platelets 1+ Prothrombin Time 15.8 SECONDS Prothromb Time International Ratio 1.5 Sodium Level 140 mmol/L Potassium Level 3.9 mmol/L Chloride Level 105 mmol/L Carbon Dioxide Level 27 mmol/L Anion Gap 8.0 mmol/L Blood Urea Nitrogen 95 mg/dl Creatinine 6.70 mg/dl Est Creatinine Clear Calc Drug Dose 16.8 ml/min Estimated GFR () 9.7 Estimated GFR (Non- 8.3 BUN/Creatinine Ratio 14.0 Random Glucose 93 mg/dl Calcium Level 9.3 mg/dl Total Bilirubin 0.5 mg/dl Aspartate Amino Transf (AST/SGOT) 10 U/L Alanine Aminotransferase (ALT/SGPT) 16 U/L Alkaline Phosphatase 52 U/L Ammonia 59.0 umol/L Total Protein 7.0 gm/dl Albumin 3.1 gm/dl Globulin 3.9 gm/dl Albumin/Globulin Ratio 0.8 Test 04/29/17 07:30 Bedside Glucose 83 mg/dl Assessment and Plan Patient is a 57 year old male with chronic medical conditions such a chronic kidney disease, polycystic kidney disease, likely clinical cirrhosis. Hx of Hep C treated in 2006. MELD 24 but driven by Cr. Will start HD today. No s/s of decompensated cirrhosis. RUQ u/s no ascites, NH3 mildly elevated 59 but no signs of hepatic encephalopathy, or asterixis. Likely has uremic tremors. - Continue Lactulose 30g TID. - Agree w HD start today - F/U HCV viral load. - Will sign off; upon his DC will help arrange GI f/u. I have seen, examined, and agree with the plan as outlined above by Ms. Phyllis Galo, [employer]. -No signs of decompensation-clinically no ascites, does not have encephalopathy on exam. LFTs are normal. -Viral load of Hep C pending -Outpatient follow up
--- NOTE | 2017-04-29 11:33 | Medical Student: [facility] ---
Med Student Progress Note Date of Service Apr 29, 2017. Subjective Pt evaluation today including: conversation w/ patient, chart review, lab review, review of studies, review of inpatient medication list Voiding: no voiding problems, no incontinence Patient states he feels better than yesterday. He is still experiencing the twitching/jerking sensations, but he rates their intensity 5 of 10 with 10 being the worst he has experienced over the last several weeks. He did use oxygen overnight but denies SOB, states it was more related to the stuffiness of the room. Denies SOB, new pain/change in numbness/tingling, NV Discussed recommendation for dialysis today - patient states he would like to know his lab values prior to agreeing for today Review of Systems Eyes: No problem reported ENT: No problem reported Respiratory: No shortness of breath, No problem reported Cardiac: No chest pain, No problem reported Abdomen: No pain, No nausea, No vomiting, No diarrhea, No constipation Musculoskeletal: No problem reported Male : No problem reported Neurologic: No problem reported Objective Vital Signs Date Time Temp Pulse Resp B/P (MAP) Pulse Ox O2 Delivery O2 Flow Rate FiO2 04/29/17 07:35 37.2 74 18 128/62 (84) 99 3.0 04/29/17 04:44 36.8 68 16 115/64 (81) 94 2.0 04/29/17 04:00 95 Room Air 04/29/17 00:00 95 Room Air 04/28/17 23:31 36.9 69 16 125/61 (82) 97 Room Air 04/28/17 21:27 99 149/74 (99) 04/28/17 20:00 95 Room Air 04/28/17 19:36 36.7 76 16 141/75 (97) 94 Nasal Cannula 2.0 04/28/17 16:20 Nasal Cannula 2.0 04/28/17 15:56 36.8 67 18 127/69 (88) 99 2.0 04/28/17 12:06 37.0 69 18 146/66 (92) 96 2.0 04/28/17 12:00 94 Room Air Physical Exam General Appearance: WD/WN, no apparent distress Respiratory/Chest: chest non-tender, lungs clear, normal breath sounds, no respiratory distress, no accessory muscle use Cardiovascular: no gallop, no JVD, no murmur, + irregularly irregular Neurologic/Psychiatric: alert, oriented x 3 Skin: normal color, warm/dry, no rash Comments: Exam truncated at patient's request Laboratory Results Last 24 Hours Test 04/28/17 10:34 04/28/17 11:48 04/28/17 12:49 04/28/17 15:34 Iron Level 48 mcg/dl Total Iron Binding Capacity 290 mcg/dl Transferrin 216 mg/dl Transferrin % Saturation 16 % Ferritin 112.7 ng/ml 25-Hydroxy Vitamin D Total 36.0 ng/ml Hepatitis B Surface Antigen NEG Hepatitis B Surface Antibody NEG Bedside Glucose 249 mg/dl Estimated Average Glucose 117 mg/dl Hemoglobin A1c 5.7 % Parathyroid Hormone (Intact) 219.1 pg/mL Test 04/28/17 16:36 04/28/17 19:28 04/28/17 22:12 04/29/17 07:23 Bedside Glucose 327 mg/dl 118 mg/dl White Blood Count 5.50 K/uL 4.39 K/uL Red Blood Count 3.55 M/uL 3.28 M/uL Hemoglobin 10.2 g/dL 9.4 g/dL Hematocrit 33.1 % 30.2 % Mean Corpuscular Volume 93.2 fL 92.1 fL Mean Corpuscular Hemoglobin 28.7 pg 28.7 pg Mean Corpuscular Hemoglobin Concent 30.8 g/dl 31.1 g/dl Platelet Count 123 K/uL 99 K/uL Mean Platelet Volume 12.2 fL 12.1 fL Neutrophils (%) (Auto) 75.5 % Lymphocytes (%) (Auto) 12.4 % Monocytes (%) (Auto) 7.8 % Eosinophils (%) (Auto) 3.6 % Basophils (%) (Auto) 0.5 % Neutrophils # (Auto) 4.15 K/uL Lymphocytes # (Auto) 0.68 K/uL Monocytes # (Auto) 0.43 K/uL Eosinophils # (Auto) 0.20 K/uL Basophils # (Auto) 0.03 K/uL RDW Standard Deviation 55.2 fL 53.9 fL RDW Coefficient of Variation 15.9 % 15.9 % Immature Granulocyte % (Auto) 0.2 % Immature Granulocyte # (Auto) 0.01 K/uL Toxic Vacuolation OCCASIONAL Platelet Estimate DECREASED Prothrombin Time 15.8 SECONDS Prothromb Time International Ratio 1.5 Sodium Level 140 mmol/L Potassium Level 3.9 mmol/L Chloride Level 105 mmol/L Carbon Dioxide Level 27 mmol/L Anion Gap 8.0 mmol/L Blood Urea Nitrogen 95 mg/dl Creatinine 6.70 mg/dl Est Creatinine Clear Calc Drug Dose 16.8 ml/min Estimated GFR () 9.7 Estimated GFR (Non- 8.3 BUN/Creatinine Ratio 14.0 Random Glucose 93 mg/dl Calcium Level 9.3 mg/dl Total Bilirubin 0.5 mg/dl Aspartate Amino Transf (AST/SGOT) 10 U/L Alanine Aminotransferase (ALT/SGPT) 16 U/L Alkaline Phosphatase 52 U/L Ammonia 59.0 umol/L Total Protein 7.0 gm/dl Albumin 3.1 gm/dl Globulin 3.9 gm/dl Albumin/Globulin Ratio 0.8 Test 04/29/17 07:30 Bedside Glucose 83 mg/dl Medications Current Inpatient Medications Medications (Trade) Dose Ordered Sig/Efrain Route Start Time Stop Time Status Last Admin Dose Admin Acetaminophen (Tylenol Tab) 650 mg Q4H PRN PO 04/27/17 23:15 05/27/17 23:14 Al Hydrox/Mg Hydrox/Simethicone (Maalox Max Susp) 15 ml Q4H PRN PO 04/27/17 23:15 05/27/17 23:14 Ondansetron HCl (Zofran Inj) 4 mg Q6H PRN IV 04/27/17 23:15 05/27/17 23:14 Clonidine HCl (Catapres Tab) 0.1 mg BID PO 04/28/17 09:00 05/28/17 08:59 04/28/17 21:30 0.1 MG Hydralazine HCl (Apresoline Tab) 100 mg BID PO 04/28/17 09:00 05/28/17 08:59 04/28/17 21:31 100 MG Metoprolol Tartrate (Lopressor Tab) 100 mg BID PO 04/28/17 09:00 05/28/17 08:59 04/28/17 21:31 100 MG Multivitamins (Multivitamin Tab) 1 tab DAILY PO 04/28/17 09:00 05/28/17 08:59 04/28/17 09:35 1 TAB Felodipine (Plendil Tabcr) 10 mg QPM PO 04/28/17 21:00 05/28/17 20:59 04/28/17 21:32 10 MG Calcium Carbonate (Tums Chew Tab) 500 mg AC PO 04/28/17 11:00 05/28/17 10:59 04/28/17 13:00 500 MG Iron Sucrose 200 mg/Syringe 10 ml @ 0 mls/min Q2D@1000 IV 04/29/17 10:00 05/07/17 10:01 Epoetin Luis Daniel (Procrit Inj) 10,000 units MoWeFr@1000 IV 04/29/17 10:00 05/29/17 09:59 Calcitriol (Rocaltrol Cap) 0.5 mcg MoWeFr@0900 PO 04/29/17 09:00 05/29/17 08:59 Lactulose (Chronulac Syrup) 30 gm BID PO 04/28/17 21:00 05/28/17 20:59 04/28/17 21:32 30 GM Insulin Aspart (novoLOG ASPART) SLIDING SCALE If C... ACHS SC 04/28/17 21:00 05/28/17 20:59 Glucose (Glucose 40% Gel) 15-30 GRAMS 15 GRAMS... UD PRN PO 04/28/17 17:30 05/28/17 17:29 Glucose (Glucose Chew Tab) 4-8 Tablets 4 Tabl... UD PRN PO 04/28/17 17:30 05/28/17 17:29 Dextrose (Dextrose 50% 50ML Syringe) 25-50ML OF 50% DW IV FOR... UD PRN IV 04/28/17 17:30 05/28/17 17:29 Glucagon (Glucagon Inj) 1 mg UD PRN SQ 04/28/17 17:30 05/28/17 17:29 Assessment and Plan Assessment and Plan: Metabolic encephalopathy: Ammonia 59 * Secondary to uremia vs hepatic encephalopathy (history of cirrhosis). * GI consult - no evidence of ascites or decompensated * Head CT neg for any acute bleeding, UA negative * Continue to monitor ammonia level * Holding medications likely to exacerbate encephalopathy Acute on chronic kidney injury History of partial nephrectomy of left kidney secondary to renal cell cancer and autosomal dominant polycystic kidney disease. Has ESRD secondary to polycystic kidney disease, followed by Dr. Coy in [place]. Baseline Cr 3- 4 but worsening over last few months. No history of proteinuria or hematuria. Anemia with mild iron deficiency, hyperphosphatemia. Had a right radiocephalic AV fistula placed in August 2015, currently matured and ready to be used. Most likely reached end stage renal disease and will need to be started on dialysis. Patient wanted a 2nd opinion, talked to Dr. Coy over the phone who also strongly recommended dialysis. Dialysis 9/ for 1 hour with low blood flow and minimum UF. 2nd treatment on Tuesday. Consulted social service to schedule for outpatient dialysis at [place] [facility] with Dr. Coy - Creatinine at 7.4 today, in February 28.7 - Gentle hydration as chest x-ray appears to be congestive - Nephrology consult- fistula in place - HD scheduled for tomorrow and sat - Outpatient dialysis at [place] [facility] unit with Dr. Coy - start on Venofer and Epogen 60666 units IV - Tums 1 tablet with each meal as phosphate binder, calcitriol 0.5 mcg 3 times weekly with dialysis - hold Lyrica for now and then consider starting on lower dose in next few days - Check Hep B status - Renal artery duplex - Au in place to avoid post obstructive renal failure Cirrhosis /Chronic hep C/Splenomegaly Per GI, no overt decompensated features or avis hepatic encephalopathy as of ; high meld based on chronic kidney disease but bilirubin 0.4, and albumin 3.2. INR mildly elevated but questionable recent Coumadin use. Start lactulose at 30 mg TID to see if helps with tremors. - Treated with Pegasys - Ammonia 59 - Lactulose 30mg PO BID - Meld score = 23, 19.6% 3 month mortality - Abdominal US, RUQ - look for ascites - Aspirate ascites if present on US - Hep C viral load check - GI consult Atrial fibrillation Patient reports taking 5mg of Coumadin which we will hold for now given hematoma and possible coagulopathy. - Rate control with metoprolol - Hold coumadin - coagulopathy possible given liver function and hematoma - INR today 1.4 Hypertension - Continue hydralazine, clonidine, felodipine - Hold Spironolactone Diastolic CHF, Chronic bilateral lower extremity swelling - Hold Lasix - Last Echo in 2015 - EF of 55 to 60% Chronic peripheral neuropathy - Secondary to Pegasys for hep C - Hold Lyrica ADPCKD/Left sided renal cell cancer Status post partial nephrectomy -Likely stable -Renal consult Bilateral foot ulcers - Wound care consult Anemia: Appears to be chronic - Hemoglobin at 9.5 DVT prophylaxis SCDs
--- NOTE | 2017-04-29 12:10 | Nephrology Progress Note ---
Nephrology Progress Note Date of Service Apr 29, 2017. Chief Complaint F/U for end-stage renal disease. Saira Carter was seen and examined in his room this am. He denies any symptoms but continues to have some shaking in his hands. BP stable. Renal function stable without much improvement, electrolyte stable. Review of Systems A complete review of systems was performed. Pertinent positives are noted above. All other systems are negative. Vital Signs Last 8 Hrs Date Time Temp Pulse Resp B/P (MAP) Pulse Ox O2 Delivery O2 Flow Rate FiO2 04/29/17 08:40 95 Room Air 04/29/17 07:35 37.2 74 18 128/62 (84) 99 3.0 04/29/17 04:44 36.8 68 16 115/64 (81) 94 2.0 Last Recorded Weight Weight (Kilograms): 123.700 Family History Hypertension FATHER LUNG DISORDER FATHER Social History Smoking Status: Never smoker Drug Use: none Marital Status: single Housing Status: lives alone, lives with family Occupation: disabled Laboratory Results Past 24 Hours 04/28/17 22:12 Red Blood Count 3.55, Mean Corpuscular Volume 93.2, Mean Corpuscular Hemoglobin 28.7, Mean Corpuscular Hemoglobin Concent 30.8, Mean Platelet Volume 12.2, Neutrophils (%) (Auto) 75.5, Lymphocytes (%) (Auto) 12.4, Monocytes (%) (Auto) 7.8, Eosinophils (%) (Auto) 3.6, Basophils (%) (Auto) 0.5, Neutrophils # (Auto) 4.15, Lymphocytes # (Auto) 0.68, Monocytes # (Auto) 0.43, Eosinophils # (Auto) 0.20, Basophils # (Auto) 0.03 04/29/17 07:23 Red Blood Count 3.28, Mean Corpuscular Volume 92.1, Mean Corpuscular Hemoglobin 28.7, Mean Corpuscular Hemoglobin Concent 31.1, Mean Platelet Volume 12.1, Neutrophils (%) (Auto) 70.5, Lymphocytes (%) (Auto) 18.9, Monocytes (%) (Auto) 7.1, Eosinophils (%) (Auto) 3.0, Basophils (%) (Auto) 0.5, Neutrophils # (Auto) 3.10, Lymphocytes # (Auto) 0.83, Monocytes # (Auto) 0.31, Eosinophils # (Auto) 0.13, Basophils # (Auto) 0.02 04/29/17 07:23 Test 04/28/17 12:49 04/28/17 15:34 04/28/17 16:36 04/28/17 19:28 Estimated Average Glucose 117 mg/dl Hemoglobin A1c 5.7 % (4.5-5.6) Parathyroid Hormone (Intact) 219.1 pg/mL (11.1-79.5) Bedside Glucose 327 mg/dl (70-99) 118 mg/dl (70-99) Test 04/28/17 22:12 04/29/17 07:23 04/29/17 07:30 04/29/17 11:55 White Blood Count 5.50 K/uL (4.8-10.8) 4.39 K/uL (4.8-10.8) Red Blood Count 3.55 M/uL (4.7-6.1) 3.28 M/uL (4.7-6.1) Hemoglobin 10.2 g/dL (14.0-18.0) 9.4 g/dL (14.0-18.0) Hematocrit 33.1 % (42-52) 30.2 % (42-52) Mean Corpuscular Volume 93.2 fL (80-100) 92.1 fL (80-100) Mean Corpuscular Hemoglobin 28.7 pg (25-34) 28.7 pg (25-34) Mean Corpuscular Hemoglobin Concent 30.8 g/dl (32-36) 31.1 g/dl (32-36) Platelet Count 123 K/uL (130-400) 99 K/uL (130-400) Mean Platelet Volume 12.2 fL (7.4-10.4) 12.1 fL (7.4-10.4) Neutrophils (%) (Auto) 75.5 % 70.5 % Lymphocytes (%) (Auto) 12.4 % 18.9 % Monocytes (%) (Auto) 7.8 % 7.1 % Eosinophils (%) (Auto) 3.6 % 3.0 % Basophils (%) (Auto) 0.5 % 0.5 % Neutrophils # (Auto) 4.15 K/uL (1.4-6.5) 3.10 K/uL (1.4-6.5) Lymphocytes # (Auto) 0.68 K/uL (1.2-3.4) 0.83 K/uL (1.2-3.4) Monocytes # (Auto) 0.43 K/uL (0.11-0.59) 0.31 K/uL (0.11-0.59) Eosinophils # (Auto) 0.20 K/uL (0-0.5) 0.13 K/uL (0-0.5) Basophils # (Auto) 0.03 K/uL (0-0.2) 0.02 K/uL (0-0.2) RDW Standard Deviation 55.2 fL (36.4-46.3) 53.9 fL (36.4-46.3) RDW Coefficient of Variation 15.9 % (11.5-14.5) 15.9 % (11.5-14.5) Immature Granulocyte % (Auto) 0.2 % 0.0 % Immature Granulocyte # (Auto) 0.01 K/uL (0.00-0.02) 0.00 K/uL (0.00-0.02) Toxic Vacuolation OCCASIONAL Platelet Estimate DECREASED Giant Platelets 1+ Prothrombin Time 15.8 SECONDS (9.0-12.0) Prothromb Time International Ratio 1.5 (0.9-1.1) Anion Gap 8.0 mmol/L (3-11) Est Creatinine Clear Calc Drug Dose 16.8 ml/min Estimated GFR () 9.7 Estimated GFR (Non- 8.3 BUN/Creatinine Ratio 14.0 (10-20) Calcium Level 9.3 mg/dl (8.5-10.1) Total Bilirubin 0.5 mg/dl (0.2-1) Aspartate Amino Transf (AST/SGOT) 10 U/L (15-37) Alanine Aminotransferase (ALT/SGPT) 16 U/L (12-78) Alkaline Phosphatase 52 U/L (45-117) Ammonia 59.0 umol/L (11-32) Total Protein 7.0 gm/dl (6.4-8.2) Albumin 3.1 gm/dl (3.4-5.0) Globulin 3.9 gm/dl (2.5-4.0) Albumin/Globulin Ratio 0.8 (0.9-2) Bedside Glucose 83 mg/dl (70-99) 123 mg/dl (70-99) Allergies Coded Allergies: Piperacillin (Verified Adverse Reaction, Severe, "makes me goofy", 02/21/17 ) Tazobactam (Verified Adverse Reaction, Severe, "makes me goofy", 02/21/17) Medications Current Inpatient Medications Medications (Trade) Dose Ordered Sig/Efrain Route Start Time Stop Time Status Last Admin Dose Admin Acetaminophen (Tylenol Tab) 650 mg Q4H PRN PO 04/27/17 23:15 05/27/17 23:14 Al Hydrox/Mg Hydrox/Simethicone (Maalox Max Susp) 15 ml Q4H PRN PO 04/27/17 23:15 05/27/17 23:14 Ondansetron HCl (Zofran Inj) 4 mg Q6H PRN IV 04/27/17 23:15 05/27/17 23:14 Clonidine HCl (Catapres Tab) 0.1 mg BID PO 04/28/17 09:00 05/28/17 08:59 04/29/17 09:41 0.1 MG Hydralazine HCl (Apresoline Tab) 100 mg BID PO 04/28/17 09:00 05/28/17 08:59 04/29/17 09:40 100 MG Metoprolol Tartrate (Lopressor Tab) 100 mg BID PO 04/28/17 09:00 05/28/17 08:59 04/29/17 09:41 100 MG Multivitamins (Multivitamin Tab) 1 tab DAILY PO 04/28/17 09:00 05/28/17 08:59 04/29/17 09:42 1 TAB Felodipine (Plendil Tabcr) 10 mg QPM PO 04/28/17 21:00 05/28/17 20:59 04/28/17 21:32 10 MG Calcium Carbonate (Tums Chew Tab) 500 mg AC PO 04/28/17 11:00 05/28/17 10:59 04/29/17 09:40 500 MG Iron Sucrose 200 mg/Syringe 10 ml @ 0 mls/min Q2D@1000 IV 04/29/17 10:00 05/07/17 10:01 Epoetin Luis Daniel (Procrit Inj) 10,000 units MoWeFr@1000 IV 04/29/17 10:00 05/29/17 09:59 Calcitriol (Rocaltrol Cap) 0.5 mcg MoWeFr@0900 PO 04/29/17 09:00 05/29/17 08:59 04/29/17 09:40 0.5 MCG Lactulose (Chronulac Syrup) 30 gm BID PO 04/28/17 21:00 05/28/17 20:59 04/29/17 09:41 30 GM Insulin Aspart (novoLOG ASPART) SLIDING SCALE If C... ACHS SC 04/28/17 21:00 05/28/17 20:59 Glucose (Glucose 40% Gel) 15-30 GRAMS 15 GRAMS... UD PRN PO 04/28/17 17:30 05/28/17 17:29 Glucose (Glucose Chew Tab) 4-8 Tablets 4 Tabl... UD PRN PO 04/28/17 17:30 05/28/17 17:29 Dextrose (Dextrose 50% 50ML Syringe) 25-50ML OF 50% DW IV FOR... UD PRN IV 04/28/17 17:30 05/28/17 17:29 Glucagon (Glucagon Inj) 1 mg UD PRN SQ 04/28/17 17:30 05/28/17 17:29 Oxycodone HCl (Oxycontin Tab) 5 mg Q4H PRN PO 04/29/17 12:00 05/13/17 11:59 UNV Impression (1) ESRD needing dialysis (2) Secondary hyperparathyroidism of renal origin (3) Hypertension (4) Edema (5) Anemia (6) Metabolic encephalopathy Keshawn has ESRD secondary to polycystic kidney disease, he has been following with Dr. Coy in [place]. His baseline creatinine has been staying from 3- 4 but seems to be worsening over last few months. On admission cr was 7.4 which remain stable. No history of proteinuria or hematuria. Has anemia with mild iron deficiency, hyperphosphatemia and secondary hyperparathyroidism. He has chronic lower extremity edema requiring high dose of diuretics and baseline. Has history of left partial nephrectomy in 2016 for renal cell carcinoma, he is to follow up with [facility] with initially did the nephrectomy however recently switched to [facility] and he has an upcoming appointment with Urology. Has questionable left renal mass which needs f/u He had a right radiocephalic AV fistula placed in August 2015 which is currently matured and ready to be used. He presented to the emergency room yesterday 2 weeks history of generalized weakness, occasional dizziness, lightheadedness and shaking of his bilateral upper extremity. His blood pressure remain acceptable. Past medical history significant for hypertension, AFib, diastolic dysfunction, Hep C unclear Rx status. Evaluated by GI and plan to f/u as out pt. No ascites on USG. Discussed in detail with the patient that he most likely reached end stage renal disease and will need to be started on dialysis. Patient wanted a 2nd opinion and discussed with Dr. Ferrell over telephone as per patient request and Dr. Deal also strongly recommended to start patient on dialysis. Social service consulted for IHD at [place]. Recommendations --first dialysis today for 1 hour with low blood flow and minimum UF and then 2nd treatment on Tuesday --social service to schedule for outpatient dialysis at [place] [facility] with Dr. Coy --continue on on Venofer and Epogen [id number] units IV --Tums 1 tablet with each meal as phosphate binder, calcitriol 0.5 mcg 3 times weekly with dialysis -- hold Lyrica for now and then consider starting on lower dose in next few days Will follow This chart was completed utilizing [employer] Speech and voice recognition software. Grammatical errors, random word insertions, pronoun errors and incomplete sentences are occasional consequences of this system. Any questions or concerns about the content, text or information contained within the body of this dictation should be addressed directly to the physician for clarification.
--- NOTE | 2017-04-29 12:56 | Clinical Documentation Query ---
CLINICAL DOCUMENTATION QUERY 57-year-old male with a past medical history of atrial fibrillation, hypertension, chronic kidney disease, renal cell cancer status post partial left sided nephrectomy, chronic hepatitis C, peripheral vascular disease, obstructive sleep apnea presented to the ER with complaints of worsening shaking of his hands and jerking which started about 2 weeks ago. In your clinical opinion is this patient being managed for: () Hepatorenal syndrome in the setting of Hepatitis C and ESRD; treated with lactulose and HD ( ) Not Agree (x) Other explanation of clinical findings (Please Explain) Patient has autosomal dominant polycystic disease with chronic kidney disease in addition to cirrhosis from Hep C. Kidney disease is independent of cirrhosis and it does not seem that cirrhosis has caused the uremia. ( ) Unable to determine (Please Define) ( ) Need to Discuss The medical record reflects the following clinical findings, treatment, and risk factors. Clinical Indicators: ESRD, ascites, cirrhosis/ chronic hep C, fatigue, elevated creat, ammonia levels Treatment: dialysis, lactulose syrup, nephrology/GI consults Risk Factors: malignant neoplasm left kidney, ESRD, as above Please clarify and document your clinical opinion in the progress notes and discharge summary. Terms such as "probable", "suspected", "likely", "questionable", "possible", or "still to be ruled out" are acceptable. IF IN AGREEMENT, YOU MUST DOCUMENT ABOVE DIAGNOSTIC STATEMENT IN DAILY PROGRESS NOTES AND DISCHARGE SUMMARY. This document is not part of the patient's record. Hepatorenal syndrome (HRS) is the development of renal failure (oliguria in the absence of proteinuria) in patients with advanced chronic liver disease and, occasionally, fulminant hepatitis, who have portal hypertension and ascites. Estimates indicate that at least 40% of patients with cirrhosis and ascites will develop HRS during the natural history of their disease. In HRS, the histological appearance of the kidneys is normal, and the kidneys often resume normal function following liver transplantation. Most individuals with cirrhosis who develop hepatorenal syndrome (HRS) have nonspecific symptoms, such as fatigue, malaise, or dysgeusia. Development of HRS is usually noticed when patients observe decreased urine output and when lab values show a decline in renal function. Thank You, Lupe Wilkerson RN [phone]
[2017-04-29] MEDS: FUROSEMIDE 40 MG TAB PO SCH (18:18)
[2017-04-29] MEDS: EPOETIN ALFA 10,000 UNITS/ML VIAL IV SCH (18:26)
[2017-04-29] MEDS ORDERED: WARFARIN SOD 2.5 MG TAB PO ONE (19:45)
[2017-04-29] MEDS: FELODIPINE 5 MG TABCR PO SCH (20:33)
[2017-04-30] VITALS (20 sets, daily range): BP systolic 118–147; BP diastolic 54–80; PULSE 61–71; TEMP 36.4–37.1; O2SAT 95–98
[2017-04-30 06:11] LABS: HEMATOCRIT 31.4 % (42-52); MEAN CELL VOLUME 92.4 fL (80-100); MEAN CORPUSCULAR HEMOGLOBIN 29.1 pg (25-34); MEAN CORPUSCULAR HGB CONC 31.5 g/dl (32-36); MEAN PLATELET VOLUME 12.4 fL (7.4-10.4); PLATELET COUNT 99 K/uL (130-400); WHITE BLOOD COUNT 4.97 K/uL (4.8-10.8)
[2017-04-30 06:19] LABS: INR 1.5 (0.9-1.1); PROTHROMBIN TIME (PATIENT) 16.3 SECONDS (9.0-12.0)
[2017-04-30] MEDS: CALCIUM CARBONATE 500 MG CHEWABLE PO SCH ×3 (06:29→16:46)
[2017-04-30] MEDS: INSULIN ASPART 100 UNITS/ML 3 ML PEN SC SCH ×4 (06:30→20:36)
[2017-04-30 06:52] LABS: ALB/GLOB RATIO 0.8 (0.9-2); CALCIUM 9.4 mg/dl (8.5-10.1); CREATININE 5.5 mg/dl (0.60-1.40); MAGNESIUM 2.2 mg/dl (1.8-2.4); PHOSPHORUS 5.5 mg/dl (2.5-4.9); POTASSIUM 3.8 mmol/L (3.5-5.1)
[2017-04-30 06:55] LABS: BASO % 0.8 %; BASO ABS # 0.04 K/uL (0-0.2); COMPLETE YES; EOS % 2.8 %; LYMPH % 16.9 %; LYMPH ABS # 0.84 K/uL (1.2-3.4); MONO % 9.7 %; NEUT % 69.8 %
[2017-04-30] MEDS: FUROSEMIDE 40 MG TAB PO SCH ×3 (08:50→16:47)
[2017-04-30] MEDS: CLONIDINE HCL 0.1 MG TAB PO SCH ×3 (08:50→20:35)
[2017-04-30] MEDS: LACTULOSE SYRUP 30 GM/45 ML UDP PO SCH ×2 (08:51→20:36)
[2017-04-30] MEDS: METOPROLOL TARTRATE 100 MG TAB PO SCH ×3 (08:51→20:36)
[2017-04-30] MEDS: MULTIVITAMIN TAB PO SCH (08:51)
--- NOTE | 2017-04-30 11:59 | Dialysis Progress Note ---
Hemodialysis Note Date of Service Apr 30, 2017. Chief Complaint ESRD requiring HD Subjective Mr. Ramirez was seen & examined during HD this morning. This is his second HD treatment. AVF has strong thrill & bruit but was difficult for administrative staff supervisor to access. HD administrative staff supervisor only able to obtain Qb 200 - 250 cc/min. Mr. Ramirez reports that his weakness and UE tremors are improved. He lives in [facility] and is trying to decide whether he will dialyze as an outpatient at the [facility] or [facility] dialysis unit Review of Systems Constitutional: No fever Cardiovascular: No chest pain Respiratory: No dyspnea at rest Abdomen: No pain, No nausea, No vomiting Extremities: No leg edema A complete review of systems was performed. Pertinent positives are noted above. All other systems are negative. Vital Signs Last 8 Hrs Date Time Temp Pulse Resp B/P (MAP) Pulse Ox O2 Delivery O2 Flow Rate FiO2 04/30/17 11:30 66 126/67 04/30/17 11:15 67 125/69 04/30/17 11:00 70 137/74 04/30/17 10:45 65 130/65 04/30/17 10:30 66 133/68 04/30/17 10:15 63 147/69 04/30/17 09:59 71 133/78 04/30/17 07:21 37.0 69 20 121/62 (81) 96 04/30/17 04:34 37.1 61 18 144/76 (98) 95 Room Air 04/30/17 04:30 Room Air Last Recorded Weight Weight (Kilograms): 123.100 Physical Exam General Appearance: no apparent distress Head: normocephalic Eyes: PERRL, EOMI Neck: no adenopathy Respiratory/Chest: lungs clear Cardiovascular: regular rate, rhythm Abdomen/GI: normal bowel sounds, non tender, soft Extremities/Musculoskelatal: no calf tenderness, no pedal edema Neurologic/Psych: alert, oriented x 3 Social History Smoking Status: Never smoker Drug Use: none Marital Status: single Housing Status: lives alone, lives with family Occupation: disabled Laboratory Results Past 24 Hours 04/30/17 05:45 Red Blood Count 3.40, Mean Corpuscular Volume 92.4, Mean Corpuscular Hemoglobin 29.1, Mean Corpuscular Hemoglobin Concent 31.5, Mean Platelet Volume 12.4, Neutrophils (%) (Auto) 69.8, Lymphocytes (%) (Auto) 16.9, Monocytes (%) (Auto) 9.7, Eosinophils (%) (Auto) 2.8, Basophils (%) (Auto) 0.8, Neutrophils # (Auto) 3.47, Lymphocytes # (Auto) 0.84, Monocytes # (Auto) 0.48, Eosinophils # (Auto) 0.14, Basophils # (Auto) 0.04 04/30/17 05:45 Test 04/29/17 11:55 04/29/17 16:46 04/29/17 18:10 04/29/17 20:08 Bedside Glucose 123 mg/dl (70-99) 128 mg/dl (70-99) 128 mg/dl (70-99) 269 mg/dl (70-99) Test 04/30/17 05:45 04/30/17 07:45 White Blood Count 4.97 K/uL (4.8-10.8) Red Blood Count 3.40 M/uL (4.7-6.1) Hemoglobin 9.9 g/dL (14.0-18.0) Hematocrit 31.4 % (42-52) Mean Corpuscular Volume 92.4 fL (80-100) Mean Corpuscular Hemoglobin 29.1 pg (25-34) Mean Corpuscular Hemoglobin Concent 31.5 g/dl (32-36) Platelet Count 99 K/uL (130-400) Mean Platelet Volume 12.4 fL (7.4-10.4) Neutrophils (%) (Auto) 69.8 % Lymphocytes (%) (Auto) 16.9 % Monocytes (%) (Auto) 9.7 % Eosinophils (%) (Auto) 2.8 % Basophils (%) (Auto) 0.8 % Neutrophils # (Auto) 3.47 K/uL (1.4-6.5) Lymphocytes # (Auto) 0.84 K/uL (1.2-3.4) Monocytes # (Auto) 0.48 K/uL (0.11-0.59) Eosinophils # (Auto) 0.14 K/uL (0-0.5) Basophils # (Auto) 0.04 K/uL (0-0.2) RDW Standard Deviation 54.4 fL (36.4-46.3) RDW Coefficient of Variation 15.9 % (11.5-14.5) Immature Granulocyte % (Auto) 0.0 % Immature Granulocyte # (Auto) 0.00 K/uL (0.00-0.02) Prothrombin Time 16.3 SECONDS (9.0-12.0) Prothromb Time International Ratio 1.5 (0.9-1.1) Anion Gap 9.0 mmol/L (3-11) Est Creatinine Clear Calc Drug Dose 20.4 ml/min Estimated GFR () 12.3 Estimated GFR (Non- 10.6 BUN/Creatinine Ratio 14.0 (10-20) Calcium Level 9.4 mg/dl (8.5-10.1) Phosphorus Level 5.5 mg/dl (2.5-4.9) Magnesium Level 2.2 mg/dl (1.8-2.4) Total Bilirubin 0.6 mg/dl (0.2-1) Direct Bilirubin 0.3 mg/dl (0-0.2) Aspartate Amino Transf (AST/SGOT) 13 U/L (15-37) Alanine Aminotransferase (ALT/SGPT) 17 U/L (12-78) Alkaline Phosphatase 56 U/L (45-117) Ammonia 42.0 umol/L (11-32) Total Protein 7.2 gm/dl (6.4-8.2) Albumin 3.2 gm/dl (3.4-5.0) Globulin 4.0 gm/dl (2.5-4.0) Albumin/Globulin Ratio 0.8 (0.9-2) Bedside Glucose 93 mg/dl (70-99) Allergies Coded Allergies: Piperacillin (Verified Adverse Reaction, Severe, "makes me goofy", 02/21/17 ) Tazobactam (Verified Adverse Reaction, Severe, "makes me goofy", 02/21/17) Medications Current Inpatient Medications Medications (Trade) Dose Ordered Sig/Efrain Route Start Time Stop Time Status Last Admin Dose Admin Acetaminophen (Tylenol Tab) 650 mg Q4H PRN PO 04/27/17 23:15 05/27/17 23:14 Al Hydrox/Mg Hydrox/Simethicone (Maalox Max Susp) 15 ml Q4H PRN PO 04/27/17 23:15 05/27/17 23:14 Ondansetron HCl (Zofran Inj) 4 mg Q6H PRN IV 04/27/17 23:15 05/27/17 23:14 Clonidine HCl (Catapres Tab) 0.1 mg BID PO 04/28/17 09:00 05/28/17 08:59 04/29/17 20:32 0.1 MG Hydralazine HCl (Apresoline Tab) 100 mg BID PO 04/28/17 09:00 05/28/17 08:59 04/29/17 20:32 100 MG Metoprolol Tartrate (Lopressor Tab) 100 mg BID PO 04/28/17 09:00 05/28/17 08:59 04/29/17 20:32 100 MG Multivitamins (Multivitamin Tab) 1 tab DAILY PO 04/28/17 09:00 05/28/17 08:59 04/30/17 08:51 1 TAB Felodipine (Plendil Tabcr) 10 mg QPM PO 04/28/17 21:00 05/28/17 20:59 04/29/17 20:33 10 MG Calcium Carbonate (Tums Chew Tab) 500 mg AC PO 04/28/17 11:00 05/28/17 10:59 04/30/17 06:29 500 MG Iron Sucrose 200 mg/Syringe 10 ml @ 0 mls/min Q2D@1000 IV 04/29/17 10:00 05/07/17 10:01 Epoetin Luis Daniel (Procrit Inj) 10,000 units MoWeFr@1000 IV 04/29/17 10:00 05/29/17 09:59 Calcitriol (Rocaltrol Cap) 0.5 mcg MoWeFr@0900 PO 04/29/17 09:00 05/29/17 08:59 04/29/17 09:40 0.5 MCG Lactulose (Chronulac Syrup) 30 gm BID PO 04/28/17 21:00 05/28/17 20:59 04/29/17 20:32 30 GM Insulin Aspart (novoLOG ASPART) SLIDING SCALE If C... ACHS SC 04/28/17 21:00 05/28/17 20:59 04/29/17 20:36 4 UNITS Glucose (Glucose 40% Gel) 15-30 GRAMS 15 GRAMS... UD PRN PO 04/28/17 17:30 05/28/17 17:29 Glucose (Glucose Chew Tab) 4-8 Tablets 4 Tabl... UD PRN PO 04/28/17 17:30 05/28/17 17:29 Dextrose (Dextrose 50% 50ML Syringe) 25-50ML OF 50% DW IV FOR... 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 He has been cared for by Dr. Coy in [place], [place]. AVF was created 09/13. His baseline creatinine had risen from 4.0 to 7.4 on admission. He presented to the emergency room yesterday 2 weeks history of generalized weakness, occasional dizziness, lightheadedness and shaking of his bilateral upper extremity. He has anemia with mild iron deficiency, hyperphosphatemia and secondary hyperparathyroidism. Mr. Ramirez required left partial nephrectomy 2015 for RCCA. Imaging has revealed a left renal lesion. He is to follow up with [facility] following discharge from the hospital Past medical history significant for hypertension, AFib, diastolic dysfunction, Hep C unclear Rx status. Evaluated by GI and plan to f/u as out pt. No ascites on USG. Recommendations END STAGE RENAL DISEASE: -- 2nd run HD today. -- Patient is medically stable on HD at this time. No change to current HD prescription -- central services tech is setting up outpatient HD [place] [facility] [place]/ Dr. Spencer -- HD administrative staff supervisor has had difficulty accessing AVF. Will order doppler to assess for stenosis or branch vessels ANEMIA: -- Continue IV iron and IVÁN w/ HD -- Monitor H&H ID: -- Await results of Hep C testing
--- NOTE | 2017-04-30 13:29 | Family Medicine Progress Note ---
Progress Note Date of Service Apr 30, 2017. Subjective Pt evaluation today including: conversation w/ patient, physical exam, chart review, lab review Pain: 5/10 neuropathic pain reported PO Intake: Tolerating PO intake Voiding: no voiding problems Mr. Ramirez reports that he feels much better after his first session of HD yesterday. He denies any more tremors or trouble with his memory. He states that his neuropathic pain is approximately a 5/10 in severity, but that he is able to cope with this pain. Generally, his pain is controlled to a 3/10 with the 20mg of oxycodone. He denies any abdominal pain, chest pain, shortness of breath, or headaches. Constitutional: No fever, No chills, No sweats Respiratory: No cough, No sputum, No wheezing, No shortness of breath Cardiovascular: + edema, No chest pain Abdomen: No pain, No nausea, No vomiting, No diarrhea All Other Systems: Reviewed and Negative Medications Current Inpatient Medications Medications (Trade) Dose Ordered Sig/Efrain Route Start Time Stop Time Status Last Admin Dose Admin Acetaminophen (Tylenol Tab) 650 mg Q4H PRN PO 04/27/17 23:15 05/27/17 23:14 Al Hydrox/Mg Hydrox/Simethicone (Maalox Max Susp) 15 ml Q4H PRN PO 04/27/17 23:15 05/27/17 23:14 Ondansetron HCl (Zofran Inj) 4 mg Q6H PRN IV 04/27/17 23:15 05/27/17 23:14 Clonidine HCl (Catapres Tab) 0.1 mg BID PO 04/28/17 09:00 05/28/17 08:59 04/30/17 13:02 0.1 MG Hydralazine HCl (Apresoline Tab) 100 mg BID PO 04/28/17 09:00 05/28/17 08:59 04/30/17 13:02 100 MG Metoprolol Tartrate (Lopressor Tab) 100 mg BID PO 04/28/17 09:00 05/28/17 08:59 04/30/17 13:03 100 MG Multivitamins (Multivitamin Tab) 1 tab DAILY PO 04/28/17 09:00 05/28/17 08:59 04/30/17 08:51 1 TAB Felodipine (Plendil Tabcr) 10 mg QPM PO 04/28/17 21:00 05/28/17 20:59 04/29/17 20:33 10 MG Calcium Carbonate (Tums Chew Tab) 500 mg AC PO 04/28/17 11:00 05/28/17 10:59 04/30/17 06:29 500 MG Iron Sucrose 200 mg/Syringe 10 ml @ 0 mls/min Q2D@1000 IV 04/29/17 10:00 05/07/17 10:01 Epoetin Luis Daniel (Procrit Inj) 10,000 units MoWeFr@1000 IV 04/29/17 10:00 05/29/17 09:59 Calcitriol (Rocaltrol Cap) 0.5 mcg MoWeFr@0900 PO 04/29/17 09:00 05/29/17 08:59 04/29/17 09:40 0.5 MCG Lactulose (Chronulac Syrup) 30 gm BID PO 04/28/17 21:00 05/28/17 20:59 04/29/17 20:32 30 GM Insulin Aspart (novoLOG ASPART) SLIDING SCALE If C... ACHS SC 04/28/17 21:00 05/28/17 20:59 04/29/17 20:36 4 UNITS Glucose (Glucose 40% Gel) 15-30 GRAMS 15 GRAMS... UD PRN PO 04/28/17 17:30 05/28/17 17:29 Glucose (Glucose Chew Tab) 4-8 Tablets 4 Tabl... UD PRN PO 04/28/17 17:30 05/28/17 17:29 Dextrose (Dextrose 50% 50ML Syringe) 25-50ML OF 50% DW IV FOR... UD PRN IV 04/28/17 17:30 05/28/17 17:29 Glucagon (Glucagon Inj) 1 mg UD PRN SQ 04/28/17 17:30 05/28/17 17:29 Oxycodone HCl (Roxicodone Immediate Rel Tab) 5 mg Q4H PRN PO 04/29/17 12:00 05/13/17 11:59 Furosemide (Lasix Tab) 40 mg BID17 PO 04/29/17 17:00 05/29/17 16:59 04/30/17 13:02 40 MG Warfarin Sodium (Coumadin Tab) 2.5 mg DAILY@16 PO 04/30/17 16:00 05/30/17 15:59 Objective Vital Signs Date Time Temp Pulse Resp B/P (MAP) Pulse Ox O2 Delivery O2 Flow Rate FiO2 04/30/17 12:59 36.5 67 20 140/66 (90) 95 Room Air 04/30/17 12:20 36.8 62 131/74 (93) 04/30/17 11:45 61 125/66 04/30/17 11:30 66 126/67 04/30/17 11:15 67 125/69 04/30/17 11:00 70 137/74 04/30/17 10:45 65 130/65 04/30/17 10:30 66 133/68 04/30/17 10:15 63 147/69 04/30/17 09:59 71 133/78 04/30/17 08:00 96 Nasal Cannula 2.0 04/30/17 07:21 37.0 69 20 121/62 (81) 96 04/30/17 04:34 37.1 61 18 144/76 (98) 95 Room Air 04/30/17 04:30 Room Air 04/30/17 00:00 Room Air 04/29/17 23:03 37.0 55 18 135/66 (89) 100 Room Air 04/29/17 20:00 Room Air 04/29/17 19:14 36.9 63 18 146/75 (98) 97 Room Air 04/29/17 17:55 36.8 66 138/72 (94) 04/29/17 17:15 68 134/72 04/29/17 17:00 66 146/78 04/29/17 16:45 74 137/70 04/29/17 16:30 76 144/72 04/29/17 15:54 36.7 74 117/72 (87) 04/29/17 15:50 Room Air 04/29/17 15:33 36.7 79 18 142/76 (98) 97 Room Air Physical Exam General Appearance: WD/WN, no apparent distress Respiratory/Chest: chest non-tender, lungs clear, normal breath sounds, no respiratory distress, no accessory muscle use Cardiovascular: no gallop, no JVD, no murmur, + irregularly irregular Abdomen: normal bowel sounds, non tender, soft Extremities: no calf tenderness, + pertinent finding (2+ pitting edema bilaterally, venous stasis changes of lower limbs bilaterally, both feet bandaged) Skin: + pertinent finding (radiocephalic fistula with bandage on top) Laboratory Results 04/30/17 05:45 Red Blood Count 3.40, Mean Corpuscular Volume 92.4, Mean Corpuscular Hemoglobin 29.1, Mean Corpuscular Hemoglobin Concent 31.5, Mean Platelet Volume 12.4, Neutrophils (%) (Auto) 69.8, Lymphocytes (%) (Auto) 16.9, Monocytes (%) (Auto) 9.7, Eosinophils (%) (Auto) 2.8, Basophils (%) (Auto) 0.8, Neutrophils # (Auto) 3.47, Lymphocytes # (Auto) 0.84, Monocytes # (Auto) 0.48, Eosinophils # (Auto) 0.14, Basophils # (Auto) 0.04 04/30/17 05:45 Test 04/30/17 05:45 04/30/17 07:45 White Blood Count 4.97 K/uL (4.8-10.8) Red Blood Count 3.40 M/uL (4.7-6.1) Hemoglobin 9.9 g/dL (14.0-18.0) Hematocrit 31.4 % (42-52) Mean Corpuscular Volume 92.4 fL (80-100) Mean Corpuscular Hemoglobin 29.1 pg (25-34) Mean Corpuscular Hemoglobin Concent 31.5 g/dl (32-36) Platelet Count 99 K/uL (130-400) Mean Platelet Volume 12.4 fL (7.4-10.4) Neutrophils (%) (Auto) 69.8 % Lymphocytes (%) (Auto) 16.9 % Monocytes (%) (Auto) 9.7 % Eosinophils (%) (Auto) 2.8 % Basophils (%) (Auto) 0.8 % Neutrophils # (Auto) 3.47 K/uL (1.4-6.5) Lymphocytes # (Auto) 0.84 K/uL (1.2-3.4) Monocytes # (Auto) 0.48 K/uL (0.11-0.59) Eosinophils # (Auto) 0.14 K/uL (0-0.5) Basophils # (Auto) 0.04 K/uL (0-0.2) RDW Standard Deviation 54.4 fL (36.4-46.3) RDW Coefficient of Variation 15.9 % (11.5-14.5) Immature Granulocyte % (Auto) 0.0 % Immature Granulocyte # (Auto) 0.00 K/uL (0.00-0.02) Prothrombin Time 16.3 SECONDS (9.0-12.0) Prothromb Time International Ratio 1.5 (0.9-1.1) Anion Gap 9.0 mmol/L (3-11) Est Creatinine Clear Calc Drug Dose 20.4 ml/min Estimated GFR () 12.3 Estimated GFR (Non- 10.6 BUN/Creatinine Ratio 14.0 (10-20) Calcium Level 9.4 mg/dl (8.5-10.1) Phosphorus Level 5.5 mg/dl (2.5-4.9) Magnesium Level 2.2 mg/dl (1.8-2.4) Total Bilirubin 0.6 mg/dl (0.2-1) Direct Bilirubin 0.3 mg/dl (0-0.2) Aspartate Amino Transf (AST/SGOT) 13 U/L (15-37) Alanine Aminotransferase (ALT/SGPT) 17 U/L (12-78) Alkaline Phosphatase 56 U/L (45-117) Ammonia 42.0 umol/L (11-32) Total Protein 7.2 gm/dl (6.4-8.2) Albumin 3.2 gm/dl (3.4-5.0) Globulin 4.0 gm/dl (2.5-4.0) Albumin/Globulin Ratio 0.8 (0.9-2) Bedside Glucose 93 mg/dl (70-99) Assessment and Plan 57-year-old male with history of atrial fibrillation, diastolic CHF, hypertension, PVD, 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 - Ammonia 42, decreased from 59 yesterday, will continue to monitor - BUN 77, decreased from 95 yesterday - Head CT - neg for any acute bleeding - UA negative - Holding medications likely to exacerbate encephalopathy Acute on chronic kidney injury stage 4-5 History of partial nephrectomy of left kidney secondary to renal cell cancer and autosomal dominant polycystic kidney disease. MRI Aug 2016 showed a mass on left kidney & retroperitoneal lymphadenopathy - he did not f/u with urology regarding these findings. Urology will follow up outpatient in 2 months. Has ESRD secondary to polycystic kidney disease, followed by Dr. Coy in [place]. Baseline Cr 3-4 but worsening over last few months. Had a right radiocephalic AV fistula placed in August 2015. - Dialysis 04/29 for 1 hour with low blood flow and minimum UF. 2nd treatment today - 2hrs. - difficulty obtaining access w/fistula -> scheduled for doppler to assess - Social service will schedule outpatient dialysis at [place] dialysis unit with Dr. Coy - Creatinine decreased to 5.5 from 6.7 - Nephrology will continue to follow - Continue Venofer and Epogen 91398 units IV - Continue Tums 1 tablet with each meal as phosphate binder - Calcitriol 0.5 mcg 3 times weekly with dialysis Cirrhosis /Chronic hep C/Splenomegaly - Treated with Pegasys 2006, unsure of resolution of HepC infection, awaiting HCV viral load - Ammonia 42 - Lactulose 30mg PO BID - although he has refused the last dose - Meld score = 24, 19.6% 3 month mortality - Abdominal US - cirrhosis, no ascites, gallbladder distended with sludge and stone, wall relatively thick 0.3cm - GI did not recommend HIDA/ERCP given asymptomatic and normal LFTs - GI signed off and will f/u in the outpatient setting Atrial fibrillation - running in 60s with rate controlled a-fib w/occasional PVCs - coumadin restarted - 2.5mg daily - INR today 1.5 Hypertension - Continue hydralazine, clonidine, felodipine - d/c held Spironolactone Diastolic CHF, Chronic bilateral lower extremity swelling, CAD s/p NV 2015 - Continue 40mg BID of Lasix - peripheral edema remains 2+ today, will likely resolve as HD continues to remove excess fluid - Last Echo in 2015 - EF of 55 to 60% Pre-diabetes with elevated BSs - Sliding scale Novolog - Goal: 140-180; CF: 25; CHO 1:20 - HbA1c 5.7 Opioid dependence - On oxycodone 20mg Q8H at home for chronic pain - Ordered Oxycodone 5mg PO Q4H PRN as needed for pain/withdrawal symptoms - Monitor for signs of opioid withdrawal Chronic peripheral neuropathy - Secondary to Pegasys for hep C - Hold Lyrica - states that this never improved his symptoms at home - states that he is able to manage with his 5/10 peripheral neuropathy pain ADPCKD/Left sided renal cell cancer Status post partial nephrectomy - New left sided renal mass - likely stable. Had previously missed his f/u urology appts regarding this - will f/u upon d/c Bilateral foot ulcers - Wound care continuing to follow Anemia - Appears to be chronic - Hemoglobin at 9.9 - increased from 9.4 yesterday, will monitor H&H - Continue Venofer and Epogen 61903 units IV DVT prophylaxis - on warfarin 2.5mg daily Full code Disposition: pending arrangement of outpatient dialysis, likely d/c home within the next couple of days Social Work: referral to outpatient dialysis at [place] dialysis unit with Dr. Coy Resident Tracking Resident Involvement: Resident Care Provided Care Provided: Adult Hospital Medicine Reviewed: Pt Seen/Exam by Me History Resident Physician Supervision Note: I interviewed and examined the patient. Discussed with Dr. Becker and agree with findings and plan as documented in the note. Any exceptions or clarifications are listed here: Feeling better overall. Tolerating HD but low flow in AVF today, pending US. Discussed case with Nephrology today Vitals reviewed, telemetry with Bela simpson in the 60s Obese, alert awake, oriented No acute distress Irregularly irregular, no murmurs gallops rubs Lungs clear to auscultation bilaterally Abdomen morbidly obese positive bowel sounds, soft, nontender Extremities 2+ pitting edema bilaterally Neuro-no further tremor 57-year-old female with complex medical history to include cirrhosis, previous hepatitis C treated with Pegasys, peripheral arterial disease, CKD stage 4-5, hypertension, paroxysmal atrial fibrillation, diabetes mellitus type 2, polycystic kidney disease with renal cell carcinoma and left partial nephrectomy , GERD, CAD status post NV in 2016, history of DVT, here with acute metabolic encephalopathy and tremor versus asterixis from hepatic encephalopathy and uremia as well as acute kidney injury on chronic kidney disease stage 4-5. -Nephrology started dialysis and tolerating--> check Doppler right wrist AVF in the AM -continue binders -Continue lactulose -Appreciate GI consult for cirrhosis and future management-follow up as an outpatient -Hypervolemia to be managed with dialysis -continue Coumadin -Follow LFTs and platelets and INR -Hemoglobin A1c is in the prediabetes range-will perform Accu-Cheks and sliding scale insulin Documented By: Lorraine Sandhu
[2017-04-30 14:42] LABS: COD UR NEGATIVE NG/ML (CUTOFF=50); HYDROCOD UR NEGATIVE NG/ML (CUTOFF=50); HYDROMOR UR NEGATIVE NG/ML (CUTOFF=50); MORPHINE UR NEGATIVE NG/ML (CUTOFF=50); NORHYDROCODONE CONF UR NEGATIVE NG/ML (CUTOFF=50); OXYMORPH UR 438 NG/ML (CUTOFF=50)
[2017-04-30] MEDS ORDERED: WARFARIN SOD 2.5 MG TAB PO SCH (16:00)
[2017-04-30] MEDS: FELODIPINE 5 MG TABCR PO SCH (20:35)
[2017-04-30] MEDS: ALUMINUM/MAGNESIUM/SIMETH (MAALOX MAX) 30 ML UDC PO PRN (23:00)
[2017-05-01] VITALS (10 sets, daily range): BP systolic 120–154; BP diastolic 64–72; PULSE 62–72; TEMP 36.5–37; O2SAT 94–98
[2017-05-01] MEDS: CALCIUM CARBONATE 500 MG CHEWABLE PO SCH ×3 (06:03→16:46)
[2017-05-01] MEDS: INSULIN ASPART 100 UNITS/ML 3 ML PEN SC SCH ×4 (06:30→21:00)
[2017-05-01 06:39] LABS: HEMATOCRIT 31.7 % (42-52); MEAN CELL VOLUME 92.2 fL (80-100); MEAN CORPUSCULAR HEMOGLOBIN 29.4 pg (25-34); MEAN CORPUSCULAR HGB CONC 31.9 g/dl (32-36); MEAN PLATELET VOLUME 12.5 fL (7.4-10.4); PLATELET COUNT 91 K/uL (130-400); RED BLOOD COUNT 3.44 M/uL (4.7-6.1); WHITE BLOOD COUNT 5.34 K/uL (4.8-10.8)
[2017-05-01 06:43] LABS: INR 1.4 (0.9-1.1); PROTHROMBIN TIME (PATIENT) 14.9 SECONDS (9.0-12.0)
[2017-05-01 07:32] LABS: CALCIUM 9.4 mg/dl (8.5-10.1); POTASSIUM 3.8 mmol/L (3.5-5.1)
[2017-05-01] MEDS: LACTULOSE SYRUP 30 GM/45 ML UDP PO SCH ×2 (08:34→23:35)
[2017-05-01] MEDS: CLONIDINE HCL 0.1 MG TAB PO SCH ×2 (08:34→21:01)
[2017-05-01] MEDS: METOPROLOL TARTRATE 100 MG TAB PO SCH ×2 (08:35→21:02)
[2017-05-01] MEDS: FUROSEMIDE 40 MG TAB PO SCH ×2 (08:35→16:44)
[2017-05-01] MEDS: MULTIVITAMIN TAB PO SCH (08:36)
--- NOTE | 2017-05-01 10:16 | Nephrology Progress Note ---
Nephrology Progress Note Date of Service May 01, 2017. Chief Complaint ESRD requiring HD Subjective Mr. Ramirez was seen & examined in his hospital room this morning. He was dialyzed yesterday for 2 hours. Dialysis was complicated by difficult needle placement in AVF. HD staffing program manager could only obtain a Qb of 155 cc/min. Mr. Ramirez is awaiting AVF doppler to assess for stenosis or accessory draining veins. Review of Systems Constitutional: No fever Cardiovascular: No chest pain Respiratory: No dyspnea at rest Abdomen: No pain, No nausea, No vomiting Extremities: No leg edema A complete review of systems was performed. Pertinent positives are noted above. All other systems are negative. Vital Signs Last 8 Hrs Date Time Temp Pulse Resp B/P (MAP) Pulse Ox O2 Delivery O2 Flow Rate FiO2 05/01/17 07:39 36.9 68 16 138/67 (90) 97 Room Air 05/01/17 04:00 36.9 69 20 123/68 (86) 96 Room Air 05/01/17 04:00 98 Room Air 2.0 Last Recorded Weight Weight (Kilograms): 121.400 Physical Exam General Appearance: no apparent distress Head: normocephalic, atraumatic Eyes: PERRL, EOMI Neck: no adenopathy Respiratory/Chest: lungs clear, no respiratory distress Cardiovascular: regular rate, rhythm Abdomen/GI: normal bowel sounds, non tender, soft Extremities/Musculoskelatal: no pedal edema, + pertinent finding (AVF + bruit) Neurologic/Psych: alert, oriented x 3 Family History Hypertension FATHER LUNG DISORDER FATHER Social History Smoking Status: Never smoker Drug Use: none Marital Status: single Housing Status: lives alone, lives with family Occupation: disabled Laboratory Results Past 24 Hours 05/01/17 06:24 05/01/17 06:24 Test 05/01/17 06:24 Red Blood Count 3.44 M/uL (4.7-6.1) Mean Corpuscular Volume 92.2 fL (80-100) Mean Corpuscular Hemoglobin 29.4 pg (25-34) Mean Corpuscular Hemoglobin Concent 31.9 g/dl (32-36) RDW Standard Deviation 53.7 fL (36.4-46.3) RDW Coefficient of Variation 15.9 % (11.5-14.5) Mean Platelet Volume 12.5 fL (7.4-10.4) Prothrombin Time 14.9 SECONDS (9.0-12.0) Prothromb Time International Ratio 1.4 (0.9-1.1) Anion Gap 9.0 mmol/L (3-11) Est Creatinine Clear Calc Drug Dose 22.2 ml/min Estimated GFR () 13.8 Estimated GFR (Non- 11.9 BUN/Creatinine Ratio 13.0 (10-20) Calcium Level 9.4 mg/dl (8.5-10.1) Ammonia 33.0 umol/L (11-32) Allergies Coded Allergies: Piperacillin (Verified Adverse Reaction, Severe, "makes me goofy", 02/21/17 ) Tazobactam (Verified Adverse Reaction, Severe, "makes me goofy", 02/21/17) Medications Current Inpatient Medications Medications (Trade) Dose Ordered Sig/Efrain Route Start Time Stop Time Status Last Admin Dose Admin Acetaminophen (Tylenol Tab) 650 mg Q4H PRN PO 04/27/17 23:15 05/27/17 23:14 Al Hydrox/Mg Hydrox/Simethicone (Maalox Max Susp) 15 ml Q4H PRN PO 04/27/17 23:15 05/27/17 23:14 04/30/17 23:00 15 ML Ondansetron HCl (Zofran Inj) 4 mg Q6H PRN IV 04/27/17 23:15 05/27/17 23:14 Clonidine HCl (Catapres Tab) 0.1 mg BID PO 04/28/17 09:00 05/28/17 08:59 05/01/17 08:34 0.1 MG Hydralazine HCl (Apresoline Tab) 100 mg BID PO 04/28/17 09:00 05/28/17 08:59 05/01/17 08:33 100 MG Metoprolol Tartrate (Lopressor Tab) 100 mg BID PO 04/28/17 09:00 05/28/17 08:59 05/01/17 08:35 100 MG Multivitamins (Multivitamin Tab) 1 tab DAILY PO 04/28/17 09:00 05/28/17 08:59 05/01/17 08:36 1 TAB Felodipine (Plendil Tabcr) 10 mg QPM PO 04/28/17 21:00 05/28/17 20:59 04/30/17 20:35 10 MG Calcium Carbonate (Tums Chew Tab) 500 mg AC PO 04/28/17 11:00 05/28/17 10:59 05/01/17 06:03 500 MG Iron Sucrose 200 mg/Syringe 10 ml @ 0 mls/min Q2D@1000 IV 04/29/17 10:00 Future Hold Epoetin Luis Daniel (Procrit Inj) 10,000 units MoWeFr@1000 IV 04/29/17 10:00 05/29/17 09:59 Calcitriol (Rocaltrol Cap) 0.5 mcg MoWeFr@0900 PO 04/29/17 09:00 05/29/17 08:59 04/29/17 09:40 0.5 MCG Lactulose (Chronulac Syrup) 30 gm BID PO 04/28/17 21:00 05/28/17 20:59 05/01/17 08:34 30 GM Insulin Aspart (novoLOG ASPART) SLIDING SCALE If C... ACHS SC 04/28/17 21:00 05/28/17 20:59 04/29/17 20:36 4 UNITS Glucose (Glucose 40% Gel) 15-30 GRAMS 15 GRAMS... UD PRN PO 04/28/17 17:30 05/28/17 17:29 Glucose (Glucose Chew Tab) 4-8 Tablets 4 Tabl... UD PRN PO 04/28/17 17:30 05/28/17 17:29 Dextrose (Dextrose 50% 50ML Syringe) 25-50ML OF 50% DW IV FOR... 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 He has been cared for by Dr. Coy in [place], [place]. AVF was created 09/13. His baseline creatinine had risen from 4.0 to 7.4 on admission. He presented to the emergency room yesterday 2 weeks history of generalized weakness, occasional dizziness, lightheadedness and shaking of his bilateral upper extremity. He has anemia with mild iron deficiency, hyperphosphatemia and secondary hyperparathyroidism. Mr. Ramirez required left partial nephrectomy 2015 for RCCA. Imaging has revealed a left renal lesion. He is to follow up with [facility] following discharge from the hospital Past medical history significant for hypertension, AFib, diastolic dysfunction, Hep C unclear Rx status. Evaluated by GI and plan to f/u as out pt. No ascites on USG. Recommendations END STAGE RENAL DISEASE: -- Patient completed his second dialysis treatment yesterday. Volume status and electrolyte balance are acceptable. No acute indication for HD today -- HD staffing program manager has had difficulty accessing AVF. Awaiting doppler to assess for stenosis or branch vessels -- deputy sheriff court services is setting up outpatient HD at [facility] w/ Dr. Spencer ANEMIA: -- Continue IV iron and IVÁN w/ HD -- Monitor H&H ID: -- Await results of Hep C testing (pending 05/01/17 am) OTHER: -- Consider wound care evaluation of L 1st toe
[2017-05-01] MEDS: IRON SUCROSE INJ 200 MG in SODIUM CHLORIDE 0.9% 100ML IV SCH (11:32)
[2017-05-01] MEDS ORDERED: NURSING VERBAL MED ORDER ONE (11:45)
[2017-05-01] MEDS ORDERED: LACTULOSE SYRUP 10 GM/15 ML BTL 473 ML PO ONE (12:00)
--- NOTE | 2017-05-01 12:59 | DIAGNOSTIC IMAGING REPORT ---
DUPLEX HEMODIALYSIS ACCESS CLINICAL HISTORY: Evaluate for accessory draining veins from AVF. Difficult access. COMPARISON STUDY: None. TECHNIQUE: Grayscale and color and duplex Doppler sonography of the right upper extremity AV fistula was performed. FINDINGS: The right upper extremity AV fistula was patent. Note was made of an elevated peak systolic velocity of 571 cm/s within the fistula. No adjacent hematoma was identified. Adjacent soft tissues were normal. IMPRESSION: Patent right upper extremity AV fistula. Focal elevated velocity of 571 cm/s within the fistula. This is not definitive but raises the possibility of an outflow stenosis. Electronically signed by: Geremias Boss M.D. 05/01/2017 12:58 PM Dictated Date/Time: 05/01/2017 12:51 PM
--- NOTE | 2017-05-01 16:23 | Family Medicine Progress Note ---
Progress Note Date of Service May 01, 2017. Subjective Pt evaluation today including: conversation w/ patient, physical exam, chart review, lab review, review of inpatient medication list Pain: 5/10 neuropathic pain reported PO Intake: Tolerating PO intake Voiding: no voiding problems Mr. Ramirez reports that he feels ok, but slightly tired as he did not sleep well last night. He denies tremors, rhinorrhea, abdo cramps, palpitations, chest pain , SOB or headaches. He states that his neuropathic pain fluctuates from a 3/10 to 7/10 but that he does not want to take the 5mg of oxycodone as he believes only the 20mg will help. Constitutional: No fever, No chills, No sweats Respiratory: No cough, No sputum, No wheezing, No shortness of breath Cardiovascular: + edema, No chest pain Abdomen: No pain, No nausea, No vomiting, No diarrhea, No constipation All Other Systems: Reviewed and Negative Medications Current Inpatient Medications Medications (Trade) Dose Ordered Sig/Efrain Route Start Time Stop Time Status Last Admin Dose Admin Acetaminophen (Tylenol Tab) 650 mg Q4H PRN PO 04/27/17 23:15 05/27/17 23:14 Al Hydrox/Mg Hydrox/Simethicone (Maalox Max Susp) 15 ml Q4H PRN PO 04/27/17 23:15 05/27/17 23:14 04/30/17 23:00 15 ML Ondansetron HCl (Zofran Inj) 4 mg Q6H PRN IV 04/27/17 23:15 05/27/17 23:14 Clonidine HCl (Catapres Tab) 0.1 mg BID PO 04/28/17 09:00 05/28/17 08:59 05/01/17 08:34 0.1 MG Hydralazine HCl (Apresoline Tab) 100 mg BID PO 04/28/17 09:00 05/28/17 08:59 05/01/17 08:33 100 MG Metoprolol Tartrate (Lopressor Tab) 100 mg BID PO 04/28/17 09:00 05/28/17 08:59 05/01/17 08:35 100 MG Multivitamins (Multivitamin Tab) 1 tab DAILY PO 04/28/17 09:00 05/28/17 08:59 05/01/17 08:36 1 TAB Felodipine (Plendil Tabcr) 10 mg QPM PO 04/28/17 21:00 05/28/17 20:59 04/30/17 20:35 10 MG Calcium Carbonate (Tums Chew Tab) 500 mg AC PO 04/28/17 11:00 05/28/17 10:59 05/01/17 11:32 500 MG Epoetin Luis Daniel (Procrit Inj) 10,000 units MoWeFr@1000 IV 04/29/17 10:00 05/29/17 09:59 Calcitriol (Rocaltrol Cap) 0.5 mcg MoWeFr@0900 PO 04/29/17 09:00 05/29/17 08:59 04/29/17 09:40 0.5 MCG Lactulose (Chronulac Syrup) 30 gm BID PO 04/28/17 21:00 05/28/17 20:59 05/01/17 08:34 30 GM Insulin Aspart (novoLOG ASPART) SLIDING SCALE If C... ACHS SC 04/28/17 21:00 05/28/17 20:59 04/29/17 20:36 4 UNITS Glucose (Glucose 40% Gel) 15-30 GRAMS 15 GRAMS... UD PRN PO 04/28/17 17:30 05/28/17 17:29 Glucose (Glucose Chew Tab) 4-8 Tablets 4 Tabl... UD PRN PO 04/28/17 17:30 05/28/17 17:29 Dextrose (Dextrose 50% 50ML Syringe) 25-50ML OF 50% DW IV FOR... UD PRN IV 04/28/17 17:30 05/28/17 17:29 Glucagon (Glucagon Inj) 1 mg UD PRN SQ 04/28/17 17:30 05/28/17 17:29 Oxycodone HCl (Roxicodone Immediate Rel Tab) 5 mg Q4H PRN PO 04/29/17 12:00 05/13/17 11:59 Furosemide (Lasix Tab) 40 mg BID17 PO 04/29/17 17:00 05/29/17 16:59 05/01/17 08:35 40 MG Iron Sucrose 200 mg/Sodium Chloride 110 ml @ 220 mls/hr DAILY@1100 IV 05/01/17 11:00 05/05/17 11:29 9/3/17 11:32 220 MLS/HR Warfarin Sodium (Coumadin Tab) 4 mg DAILY@16 PO 05/01/17 16:00 05/30/17 15:59 Objective Vital Signs Date Time Temp Pulse Resp B/P (MAP) Pulse Ox O2 Delivery O2 Flow Rate FiO2 05/01/17 15:36 36.7 62 14 129/64 (85) 96 Room Air 05/01/17 12:00 97 Room Air 05/01/17 11:29 37.0 72 16 137/72 (93) 97 Room Air 05/01/17 08:00 97 Room Air 05/01/17 07:39 36.9 68 16 138/67 (90) 97 Room Air 05/01/17 04:00 36.9 69 20 123/68 (86) 96 Room Air 05/01/17 04:00 98 Room Air 2.0 05/01/17 00:00 98 Room Air 2.0 04/30/17 23:05 36.4 66 16 134/54 (80) 97 Room Air 04/30/17 20:34 67 142/70 (94) 04/30/17 20:00 Room Air 04/30/17 19:41 36.6 64 18 143/76 (98) 97 Room Air Physical Exam General Appearance: WD/WN, no apparent distress Respiratory/Chest: chest non-tender, lungs clear, normal breath sounds, no respiratory distress, no accessory muscle use Cardiovascular: no gallop, no JVD, no murmur, + irregularly irregular, + pertinent finding (1+ pitting edema) Abdomen: normal bowel sounds, non tender, soft, no organomegaly, no pulsatile mass Extremities: + pertinent finding (bandage over fistula on right arm) Neurologic/Psychiatric: alert, normal mood/affect, oriented x 3 Skin: + pertinent finding (venous stasis changes over lower limbs bilaterally, feet bandaged by wound care) Laboratory Results Last 24 Hours Test 05/01/17 06:24 05/01/17 11:48 White Blood Count 5.34 K/uL Red Blood Count 3.44 M/uL Hemoglobin 10.1 g/dL Hematocrit 31.7 % Mean Corpuscular Volume 92.2 fL Mean Corpuscular Hemoglobin 29.4 pg Mean Corpuscular Hemoglobin Concent 31.9 g/dl RDW Standard Deviation 53.7 fL RDW Coefficient of Variation 15.9 % Platelet Count 91 K/uL Mean Platelet Volume 12.5 fL Prothrombin Time 14.9 SECONDS Prothromb Time International Ratio 1.4 Sodium Level 141 mmol/L Potassium Level 3.8 mmol/L Chloride Level 107 mmol/L Carbon Dioxide Level 25 mmol/L Anion Gap 9.0 mmol/L Blood Urea Nitrogen 66 mg/dl Creatinine 5.00 mg/dl Est Creatinine Clear Calc Drug Dose 22.2 ml/min Estimated GFR () 13.8 Estimated GFR (Non- 11.9 BUN/Creatinine Ratio 13.0 Random Glucose 84 mg/dl Calcium Level 9.4 mg/dl Ammonia 33.0 umol/L Bedside Glucose 140 mg/dl Assessment and Plan 57-year-old male with history of atrial fibrillation, diastolic CHF, hypertension, PVD, 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 - Ammonia decreased to 33 - can stop monitoring as it is almost normal - BUN 66, decreased from 77 yesterday - Head CT - neg for any acute bleeding - UA negative - Holding medications likely to exacerbate encephalopathy Acute on chronic kidney injury stage 4-5 History of partial nephrectomy of left kidney secondary to renal cell cancer and autosomal dominant polycystic kidney disease. MRI Aug 2016 showed a mass on left kidney & retroperitoneal lymphadenopathy - he did not f/u with urology regarding these findings. Urology will follow up outpatient in 2 months. Has ESRD secondary to polycystic kidney disease, followed by Dr. oCy in [place]. Baseline Cr 3-4 but worsening over last few months. Had a right radiocephalic AV fistula placed in August 2015. - Dialysis 04/29 for 1 hour with low blood flow and minimum UF. 2nd treatment 04/30 - 2hrs. - difficulty obtaining access w/fistula -> doppler showed focal elevated velocity of 571 cm/s within the fistula suggestive of an outflow stenosis - Dr. Boggs aware - will consult vas surgery tomorrow for Tuesday & hold off dialysis until Tuesday - Social service will schedule outpatient dialysis at [facility] with Dr. Coy - Creatinine decreased to 5 from 5.5 - Continue Venofer and Epogen 87054 units IV - Continue Tums 1 tablet with each meal as phosphate binder - Calcitriol 0.5 mcg 3 times weekly with dialysis Cirrhosis /Chronic hep C/Splenomegaly - Treated with Pegasys 2006, unsure of resolution of HepC infection, awaiting HCV viral load - Ammonia 33 - Lactulose can be d/c unless he requests it to help with BMs - Meld score = 24, 19.6% 3 month mortality - Abdominal US - cirrhosis, no ascites, gallbladder distended with sludge and stone, wall relatively thick 0.3cm - GI did not recommend HIDA/ERCP given asymptomatic and normal LFTs - GI signed off and will f/u in the outpatient setting Atrial fibrillation - running in 60-70s with rate controlled a-fib w/occasional PVCs - INR today 1.4 - subtherapeutic - will increase warfarin to 4mg daily and recheck INR in 2-3 days Hypertension - Continue hydralazine, clonidine, felodipine Diastolic CHF, Chronic bilateral lower extremity swelling, CAD s/p WI 2015 - Continue 40mg BID of Lasix - peripheral edema improving - 1+ today - Last Echo in 2015 - EF of 55 to 60% Pre-diabetes with elevated BSs - Sliding scale Novolog w/accu checks - Goal: 140-180; CF: 25; CHO 1:20 - HbA1c 5.7 Opioid dependence - On oxycodone 20mg Q8H at home for chronic pain - Oxycodone 5mg PO Q4H PRN as needed for pain/withdrawal symptoms - pt aware but has not requested as yet - Monitor for signs of opioid withdrawal Chronic peripheral neuropathy - Secondary to Pegasys for hep C - Hold Lyrica - states that this never improved his symptoms at home - states that he is able to manage with his peripheral neuropathy pain ADPCKD/Left sided renal cell cancer Status post partial nephrectomy - New left sided renal mass - likely stable. Had previously missed his f/u urology appts regarding this - will f/u upon d/c Bilateral foot ulcers - Wound care continuing to follow Chronic Anemia - Hemoglobin at 10.1 - increased from 9.9 yesterday, will monitor H&H - Continue Venofer and Epogen 90391 units IV DVT prophylaxis - on warfarin 4mg daily Full code Disposition: pending vascular surgery assessment & arrangement of outpatient dialysis Social Work: referral to outpatient dialysis at [facility] with Dr. Coy Resident Tracking Resident Involvement: Resident Care Provided Care Provided: Adult [facility] Medicine Reviewed: Pt Seen/Exam by Me History Resident Physician Supervision Note: I interviewed and examined the patient. Discussed with Dr. Becker and agree with findings and plan as documented in the note. Any exceptions or clarifications are listed here: Had cramping in right arm but reports [employer] checked his BP in his right arm above his AVF just before this happened. Otherwise having a lot of gas but no BM today. Feeling better overall. AVF US with possible outflow stenosis-discussed with pt and Nephrology Vitals reviewed, telemetry with A. fib in the 60s Obese, alert awake, oriented No acute distress Irregularly irregular, no murmurs gallops rubs Lungs clear to auscultation bilaterally Abdomen morbidly obese positive bowel sounds, soft, nontender Extremities 1+ pitting edema bilaterally which is improving, right wrist with AVF palpated with thrill Neuro-no further tremor 57-year-old female with complex medical history to include cirrhosis, previous hepatitis C treated with Pegasys, peripheral arterial disease, CKD stage 4-5, hypertension, paroxysmal atrial fibrillation, diabetes mellitus type 2, polycystic kidney disease with renal cell carcinoma and left partial nephrectomy , GERD, CAD status post WI in 2016, history of DVT, here with acute metabolic encephalopathy and tremor versus asterixis from hepatic encephalopathy and uremia as well as acute kidney injury on chronic kidney disease stage 4-5. Overall much improved clinically since starting HD -Appreciate Nephrology management of HD -Nephro will place Vascular consult for Tuesday for AVF outflow stenosis to see if needs intervention -continue binders -Continue lactulose -Appreciate GI consult for cirrhosis and future management-follow up as an outpatient -Hypervolemia to be managed with dialysis -continue Coumadin and increase dose, follow INR daily -Hemoglobin A1c is in the prediabetes range-pt does not want further Accu-Cheks and sliding scale insulin-will dc Documented By: Lorraine Sandhu
[2017-05-01] MEDS: WARFARIN SOD 4 MG TAB PO SCH (16:45)
[2017-05-01] MEDS: FELODIPINE 5 MG TABCR PO SCH (21:01)
[2017-05-02] VITALS (8 sets, daily range): BP systolic 126–146; BP diastolic 56–72; PULSE 52–82; TEMP 36.6–37; O2SAT 95–97
[2017-05-02] MEDS: CALCIUM CARBONATE 500 MG CHEWABLE PO SCH ×3 (06:18→16:40)
[2017-05-02 07:49] LABS: HEMATOCRIT 34.8 % (42-52); PLATELET COUNT 108 K/uL (130-400); RED BLOOD COUNT 3.74 M/uL (4.7-6.1); WHITE BLOOD COUNT 5.09 K/uL (4.8-10.8)
[2017-05-02] MEDS: INSULIN ASPART 100 UNITS/ML 3 ML PEN SC SCH ×4 (07:58→21:00)
[2017-05-02] MEDS: METOPROLOL TARTRATE 100 MG TAB PO SCH ×2 (08:00→21:09)
[2017-05-02] MEDS: MULTIVITAMIN TAB PO SCH (08:00)
[2017-05-02] MEDS: CALCITRIOL 0.25 MCG CAP PO SCH (08:01)
[2017-05-02] MEDS: CLONIDINE HCL 0.1 MG TAB PO SCH ×2 (08:01→21:09)
[2017-05-02] MEDS: LACTULOSE SYRUP 30 GM/45 ML UDP PO SCH ×2 (08:09→21:09)
[2017-05-02 08:26] LABS: BUN/CREATININE RATIO 13.8 (10-20); CALCIUM 9.7 mg/dl (8.5-10.1); CREATININE 4.8 mg/dl (0.60-1.40); PHOSPHORUS 4.7 mg/dl (2.5-4.9); POTASSIUM 3.5 mmol/L (3.5-5.1)
[2017-05-02] MEDS: FUROSEMIDE 40 MG TAB PO SCH ×2 (08:56→16:41)
[2017-05-02 09:26] LABS: HEPATITIS C VIRAL RNA BY PCR <15 NOT DETECTED IU/ML (<15); HEPATITIS C VIRAL RNA(LOG) PCR <1.18 NOT DETECTED LOG IU/ML (<1.18)
[2017-05-02 10:00] LABS: INR 1.4 (0.9-1.1); PROTHROMBIN TIME (PATIENT) 15.5 SECONDS (9.0-12.0)
[2017-05-02] MEDS: EPOETIN ALFA 10,000 UNITS/ML VIAL IV SCH (10:00)
--- NOTE | 2017-05-02 10:48 | Nephrology Progress Note ---
Nephrology Progress Note Date of Service May 02, 2017. Chief Complaint ESRD requiring HD Subjective Mr. Ramirez was seen & examined in his hospital room this morning. He reports that his weakness and upper extremity tremors have improved. He has had cramping in his right arm from use of the AVF. Doppler shows outflow stenosis. Review of Systems Constitutional: No fever Cardiovascular: No chest pain Respiratory: No dyspnea at rest Abdomen: No pain, No nausea, No vomiting Extremities: No leg edema A complete review of systems was performed. Pertinent positives are noted above. All other systems are negative. Vital Signs Last 8 Hrs Date Time Temp Pulse Resp B/P (MAP) Pulse Ox O2 Delivery O2 Flow Rate FiO2 05/02/17 07:52 97 Room Air 05/02/17 07:02 37.0 72 18 132/69 (90) 95 Room Air 05/02/17 04:00 Room Air 05/02/17 04:00 36.8 82 20 136/56 (82) 97 Room Air Last Recorded Weight Weight (Kilograms): 121.100 Physical Exam General Appearance: no apparent distress Head: normocephalic, atraumatic Eyes: PERRL, EOMI Neck: no adenopathy Respiratory/Chest: lungs clear, no respiratory distress Cardiovascular: regular rate, rhythm, no murmur Abdomen/GI: normal bowel sounds, non tender, soft Extremities/Musculoskelatal: no calf tenderness, no pedal edema Neurologic/Psych: alert, oriented x 3 Family History Hypertension FATHER LUNG DISORDER FATHER Social History Smoking Status: Never smoker Drug Use: none Marital Status: single Housing Status: lives alone, lives with family Occupation: disabled Laboratory Results Past 24 Hours 05/02/17 07:28 05/02/17 07:28 Test 05/01/17 11:48 05/01/17 16:48 05/01/17 20:07 05/02/17 07:28 Bedside Glucose 140 mg/dl (70-99) 104 mg/dl (70-99) 95 mg/dl (70-99) Red Blood Count 3.74 M/uL (4.7-6.1) Mean Corpuscular Volume 93.0 fL (80-100) Mean Corpuscular Hemoglobin 27.0 pg (25-34) Mean Corpuscular Hemoglobin Concent 29.0 g/dl (32-36) RDW Standard Deviation 53.8 fL (36.4-46.3) RDW Coefficient of Variation 15.7 % (11.5-14.5) Mean Platelet Volume 13.0 fL (7.4-10.4) Anion Gap 8.0 mmol/L (3-11) Est Creatinine Clear Calc Drug Dose 23.1 ml/min Estimated GFR () 14.5 Estimated GFR (Non- 12.5 BUN/Creatinine Ratio 13.8 (10-20) Calcium Level 9.7 mg/dl (8.5-10.1) Phosphorus Level 4.7 mg/dl (2.5-4.9) Test 05/02/17 09:33 Prothrombin Time 15.5 SECONDS (9.0-12.0) Prothromb Time International Ratio 1.4 (0.9-1.1) Ammonia 28.0 umol/L (11-32) Allergies Coded Allergies: Piperacillin (Verified Adverse Reaction, Severe, "makes me goofy", 02/21/17 ) Tazobactam (Verified Adverse Reaction, Severe, "makes me goofy", 02/21/17) Medications Current Inpatient Medications Medications (Trade) Dose Ordered Sig/Efrain Route Start Time Stop Time Status Last Admin Dose Admin Acetaminophen (Tylenol Tab) 650 mg Q4H PRN PO 04/27/17 23:15 05/27/17 23:14 Al Hydrox/Mg Hydrox/Simethicone (Maalox Max Susp) 15 ml Q4H PRN PO 04/27/17 23:15 05/27/17 23:14 04/30/17 23:00 15 ML Ondansetron HCl (Zofran Inj) 4 mg Q6H PRN IV 04/27/17 23:15 05/27/17 23:14 Clonidine HCl (Catapres Tab) 0.1 mg BID PO 04/28/17 09:00 05/28/17 08:59 05/02/17 08:01 0.1 MG Hydralazine HCl (Apresoline Tab) 100 mg BID PO 04/28/17 09:00 05/28/17 08:59 05/02/17 08:02 100 MG Metoprolol Tartrate (Lopressor Tab) 100 mg BID PO 04/28/17 09:00 05/28/17 08:59 05/02/17 08:00 100 MG Multivitamins (Multivitamin Tab) 1 tab DAILY PO 04/28/17 09:00 05/28/17 08:59 05/02/17 08:00 1 TAB Felodipine (Plendil Tabcr) 10 mg QPM PO 04/28/17 21:00 05/28/17 20:59 05/01/17 21:01 10 MG Calcium Carbonate (Tums Chew Tab) 500 mg AC PO 04/28/17 11:00 05/28/17 10:59 05/02/17 06:18 500 MG Epoetin Luis Daniel (Procrit Inj) 10,000 units MoWeFr@1000 IV 04/29/17 10:00 05/29/17 09:59 Calcitriol (Rocaltrol Cap) 0.5 mcg MoWeFr@0900 PO 04/29/17 09:00 05/29/17 08:59 05/02/17 08:01 0.5 MCG Lactulose (Chronulac Syrup) 30 gm BID PO 04/28/17 21:00 05/28/17 20:59 05/01/17 08:34 30 GM Insulin Aspart (novoLOG ASPART) SLIDING SCALE If C... ACHS SC 04/28/17 21:00 05/28/17 20:59 04/29/17 20:36 4 UNITS Glucose (Glucose 40% Gel) 15-30 GRAMS 15 GRAMS... UD PRN PO 04/28/17 17:30 05/28/17 17:29 Glucose (Glucose Chew Tab) 4-8 Tablets 4 Tabl... UD PRN PO 04/28/17 17:30 05/28/17 17:29 Dextrose (Dextrose 50% 50ML Syringe) 25-50ML OF 50% DW IV FOR... UD PRN IV 04/28/17 17:30 05/28/17 17:29 Glucagon (Glucagon Inj) 1 mg UD PRN SQ 04/28/17 17:30 05/28/17 17:29 Oxycodone HCl (Roxicodone Immediate Rel Tab) 5 mg Q4H PRN PO 04/29/17 12:00 05/13/17 11:59 Furosemide (Lasix Tab) 40 mg BID17 PO 04/29/17 17:00 05/29/17 16:59 05/02/17 08:56 40 MG Iron Sucrose 200 mg/Sodium Chloride 110 ml @ 220 mls/hr DAILY@1100 IV 05/01/17 11:00 05/05/17 11:29 05/01/17 11:32 220 MLS/HR Warfarin Sodium (Coumadin Tab) 4 mg DAILY@16 PO 05/01/17 16:00 05/30/17 15:59 05/01/17 16:45 4 MG Impression (1) ESRD needing dialysis (2) Secondary hyperparathyroidism of renal origin (3) Hypertension (4) Edema (5) Anemia (6) Metabolic encephalopathy 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 He has been cared for by Dr. Coy in [place], [place]. AVF was created 09/13. His baseline creatinine had risen from 4.0 to 7.4 on admission. He presented to the emergency room yesterday 2 weeks history of generalized weakness, occasional dizziness, lightheadedness and shaking of his bilateral upper extremity. He has anemia with mild iron deficiency, hyperphosphatemia and secondary hyperparathyroidism. Mr. Ramirez required left partial nephrectomy 2015 for RCCA. Imaging has revealed a left renal lesion. He is to follow up with [facility]rology following discharge from the hospital Past medical history significant for hypertension, AFib, diastolic dysfunction, Hep C testing was negative. Recommendations END STAGE RENAL DISEASE: -- AVF has been difficult to access. Doppler shows outflow stenosis -- I have spoken w/ Vascular Surgery this am. Will keep patient NPO after MN for fistulagram in am -- Volume status & electrolyte balance are currently acceptable. Will schedule HD following fistulagram tomorrow -- marketing services vice president is setting up outpatient HD at [facility] w/ Dr. Spencer RENAL CELL CA: -- Patient has h/o L partial nephrectomy 2015 due to RCCA. He will require outpatient evaluation w/ [facility] following discharge from the hospital ANEMIA: -- Continue IV iron and IVÁN w/ HD -- Monitor H&H GI: -- Patient has h/o cirrhosis and treated Hepatitis C -- Abdominal US confirmed cirrhotic liver. No hepatocellular CA reported -- Hepatitis C serologies were negative this hospitalization -- Patient will require GI follow up following discharge from the hospital OTHER: -- Consider wound care evaluation of L 1st toe
[2017-05-02] MEDS: IRON SUCROSE INJ 200 MG in SODIUM CHLORIDE 0.9% 100ML IV SCH (12:39)
[2017-05-02] MEDS: WARFARIN SOD 4 MG TAB PO SCH (16:40)
[2017-05-02] MEDS: OXYCODONE HCL IR 5 MG TAB (IMMEDIATE RELEASE) PO PRN ×2 (18:27→23:51)
--- NOTE | 2017-05-02 18:37 | Family Medicine Progress Note ---
Progress Note Date of Service May 02, 2017. Subjective Pt evaluation today including: conversation w/ patient, physical exam, chart review, lab review Pain: R arm cramping PO Intake: tolerating Voiding: no voiding problems This AM Mr. Ramirez reports improvement in jerking and shaking of hands/upper body. He reports cramping in R arm where fistula located. Otherwise denied abd pn, n/v, sob, cp, GANT/dizziness, calf pain. Constitutional: No fever Respiratory: No shortness of breath Cardiovascular: No chest pain Abdomen: + diarrhea, No pain, No nausea, No vomiting Male : No dysuria Neurologic: No problem reported Medications Current Inpatient Medications Medications (Trade) Dose Ordered Sig/Efrain Route Start Time Stop Time Status Last Admin Dose Admin Acetaminophen (Tylenol Tab) 650 mg Q4H PRN PO 04/27/17 23:15 05/27/17 23:14 Al Hydrox/Mg Hydrox/Simethicone (Maalox Max Susp) 15 ml Q4H PRN PO 04/27/17 23:15 05/27/17 23:14 04/30/17 23:00 15 ML Ondansetron HCl (Zofran Inj) 4 mg Q6H PRN IV 04/27/17 23:15 05/27/17 23:14 Clonidine HCl (Catapres Tab) 0.1 mg BID PO 04/28/17 09:00 05/28/17 08:59 05/02/17 08:01 0.1 MG Hydralazine HCl (Apresoline Tab) 100 mg BID PO 04/28/17 09:00 05/28/17 08:59 05/02/17 08:02 100 MG Metoprolol Tartrate (Lopressor Tab) 100 mg BID PO 04/28/17 09:00 05/28/17 08:59 05/02/17 08:00 100 MG Multivitamins (Multivitamin Tab) 1 tab DAILY PO 04/28/17 09:00 05/28/17 08:59 05/02/17 08:00 1 TAB Felodipine (Plendil Tabcr) 10 mg QPM PO 04/28/17 21:00 05/28/17 20:59 05/01/17 21:01 10 MG Calcium Carbonate (Tums Chew Tab) 500 mg AC PO 04/28/17 11:00 05/28/17 10:59 05/02/17 16:40 500 MG Epoetin Luis Daniel (Procrit Inj) 10,000 units MoWeFr@1000 IV 04/29/17 10:00 05/29/17 09:59 Calcitriol (Rocaltrol Cap) 0.5 mcg MoWeFr@0900 PO 04/29/17 09:00 05/29/17 08:59 05/02/17 08:01 0.5 MCG Lactulose (Chronulac Syrup) 30 gm BID PO 04/28/17 21:00 05/28/17 20:59 05/01/17 08:34 30 GM Insulin Aspart (novoLOG ASPART) SLIDING SCALE If C... ACHS SC 04/28/17 21:00 05/28/17 20:59 04/29/17 20:36 4 UNITS Glucose (Glucose 40% Gel) 15-30 GRAMS 15 GRAMS... UD PRN PO 04/28/17 17:30 05/28/17 17:29 Glucose (Glucose Chew Tab) 4-8 Tablets 4 Tabl... UD PRN PO 04/28/17 17:30 05/28/17 17:29 Dextrose (Dextrose 50% 50ML Syringe) 25-50ML OF 50% DW IV FOR... UD PRN IV 04/28/17 17:30 05/28/17 17:29 Glucagon (Glucagon Inj) 1 mg UD PRN SQ 04/28/17 17:30 05/28/17 17:29 Oxycodone HCl (Roxicodone Immediate Rel Tab) 5 mg Q4H PRN PO 04/29/17 12:00 05/13/17 11:59 05/02/17 18:27 5 MG Furosemide (Lasix Tab) 40 mg BID17 PO 04/29/17 17:00 05/29/17 16:59 05/02/17 16:41 40 MG Iron Sucrose 200 mg/Sodium Chloride 110 ml @ 220 mls/hr DAILY@1100 IV 05/01/17 11:00 05/05/17 11:29 05/02/17 12:39 220 MLS/HR Warfarin Sodium (Coumadin Tab) 4 mg DAILY@16 PO 05/01/17 16:00 05/30/17 15:59 05/02/17 16:40 4 MG Heparin Sodium (Porcine) (No Heparin In Dialysis) 1 ea ONE ONCE N/A 05/03/17 11:00 05/03/17 11:01 Epoetin Luis Daniel 7000 units/Syringe 0.35 ml @ 1 mls/min TODAY@1000 IV. 05/03/17 10:00 05/03/17 16:00 Objective Vital Signs Date Time Temp Pulse Resp B/P (MAP) Pulse Ox O2 Delivery O2 Flow Rate FiO2 05/02/17 16:42 36.8 65 18 135/70 (91) 97 Room Air 05/02/17 12:00 97 Room Air 05/02/17 07:52 97 Room Air 05/02/17 07:02 37.0 72 18 132/69 (90) 95 Room Air 05/02/17 04:00 Room Air 05/02/17 04:00 36.8 82 20 136/56 (82) 97 Room Air 05/02/17 00:00 Room Air 05/02/17 00:00 36.6 52 20 126/63 (84) 97 Room Air 05/01/17 20:57 62 154/70 (98) 05/01/17 20:00 Room Air 05/01/17 19:14 36.5 63 16 120/72 (88) 94 Physical Exam General Appearance: no apparent distress Eyes: normal inspection, sclerae normal Respiratory/Chest: lungs clear, normal breath sounds, no respiratory distress Cardiovascular: + irregularly irregular Abdomen: normal bowel sounds, non tender, soft Extremities: non-tender, + pedal edema (2+ L, 1+ R) Neurologic/Psychiatric: alert, oriented x 3 Laboratory Results 05/02/17 07:28 05/02/17 07:28 Test 05/01/17 20:07 05/02/17 07:28 05/02/17 09:33 Bedside Glucose 95 mg/dl (70-99) Red Blood Count 3.74 M/uL (4.7-6.1) Mean Corpuscular Volume 93.0 fL (80-100) Mean Corpuscular Hemoglobin 27.0 pg (25-34) Mean Corpuscular Hemoglobin Concent 29.0 g/dl (32-36) RDW Standard Deviation 53.8 fL (36.4-46.3) RDW Coefficient of Variation 15.7 % (11.5-14.5) Mean Platelet Volume 13.0 fL (7.4-10.4) Anion Gap 8.0 mmol/L (3-11) Est Creatinine Clear Calc Drug Dose 23.1 ml/min Estimated GFR () 14.5 Estimated GFR (Non- 12.5 BUN/Creatinine Ratio 13.8 (10-20) Calcium Level 9.7 mg/dl (8.5-10.1) Phosphorus Level 4.7 mg/dl (2.5-4.9) Prothrombin Time 15.5 SECONDS (9.0-12.0) Prothromb Time International Ratio 1.4 (0.9-1.1) Ammonia 28.0 umol/L (11-32) Assessment and Plan 57-year-old male with history of atrial fibrillation, diastolic CHF, hypertension, PVD, 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 This AM reports improvement in shakiness/jerky movements s/p HD sessions. Metabolic encephalopathy Likely secondary to uremia caused by CKD - Ammonia decreased to 28 - can stop monitoring - BUN 66, decreased from 77 04/30 - Head CT - neg for any acute bleeding - UA negative - Holding medications likely to exacerbate encephalopathy Acute on chronic kidney injury stage 4-5 History of partial nephrectomy of left kidney secondary to renal cell cancer and autosomal dominant polycystic kidney disease. MRI Aug 2016 showed a mass on left kidney & retroperitoneal lymphadenopathy - he did not f/u with urology regarding these findings. Urology will follow up outpatient in 2 months. Has ESRD secondary to polycystic kidney disease, followed by Dr. Coy in [place]. Baseline Cr 3-4 but worsening over last few months. Had a right radiocephalic AV fistula placed in August 2015. - Dialysis / for 1 hour with low blood flow and minimum UF. 2nd treatment / - 2hrs. - difficulty obtaining access w/fistula -> doppler showed focal elevated velocity of 571 cm/s within the fistula suggestive of an outflow stenosis - Dr. Boggs consulted [facility] surgery, NPO after midnight for fistulogram tomorrow with Vascular - HD after fistulogram tomorrow, electrolyte balance currently acceptable per renal - Social service scheduled outpatient dialysis at [facility] with Dr. Coy on tuesdays, and saturdays - Creatinine decreased to 4.8 today from 5 yesterday - Continue Venofer and Epogen 22906 units IV - Continue Tums 1 tablet with each meal as phosphate binder - Calcitriol 0.5 mcg 3 times weekly with dialysis Cirrhosis /Chronic hep C/Splenomegaly - Treated with Pegasys 2006, HCV serology neg - Ammonia 28 today - Lactulose dced for diarrhea, provide if needing help with BMs - Meld score = 24, 19.6% 3 month mortality - Abdominal US - cirrhosis, no ascites, gallbladder distended with sludge and stone, wall relatively thick 0.3cm - GI did not recommend HIDA/ERCP given asymptomatic and normal LFTs - GI signed off and will f/u in the outpatient setting Atrial fibrillation - running in 50-70s rate controlled a-fib w/occasional PVCs - Rate controlled with metoprolol - INR today 1.4 - subtherapeutic - continue warfarin 4mg daily and recheck INR tomorrow Hypertension - Continue hydralazine, clonidine, felodipine - Hold spironolactone Diastolic CHF, Chronic bilateral lower extremity swelling, CAD s/p [place] 2015 - Continue 40mg BID of Lasix - peripheral edema improving - 1+ today R, 2 + L without calf pain - Last Echo in 2015 - EF of 55 to 60% Pre-diabetes with elevated BSs - Stopped blood glucose checks given normal BG levels - HbA1c 5.7 Opioid dependence - On oxycodone 20mg Q8H at home for chronic pain - Oxycodone 5mg PO Q4H PRN as needed for pain/withdrawal symptoms - pt aware but has not requested as yet - Monitor for signs of opioid withdrawal Chronic peripheral neuropathy - Secondary to Pegasys for hep C - Hold Lyrica - states that this never improved his symptoms at home - states that he is able to manage with his peripheral neuropathy pain ADPCKD/Left sided renal cell cancer Status post partial nephrectomy - New left sided renal mass - likely stable. Had previously missed his f/u urology appts regarding this - will f/u upon d/c Bilateral foot ulcers - Wound care continuing to follow Chronic Anemia - Hemoglobin at 10.1 - stable - Continue Venofer and Epogen 21373 units IV DVT prophylaxis - on warfarin 4mg daily Full code Disposition: pending vascular surgery assessment and HD tomorrow Social Work: completed - referral to outpatient dialysis at [facility] with Dr. Coy Resident Physician Supervision Note: I interviewed and examined the patient. Discussed with Dr. Kowalski and agree with findings and plan as documented in the note. Any exceptions or clarifications are listed here: None Documented By: Billy Lucio feeling ok just tired. hopes to go home tomorrow. all other ROS otherwise negative except for as above vitals noted nad breathing unlabored no pallor or icterus ESRD - AMS appears to have been predominantly uremia related. improved. ongoing HD. fistulagram tomorrow, HD tomorrow. hopefully home late tomorrow then Resident Involvement: Resident Care Provided Care Provided: Adult Hospital Medicine
[2017-05-02] MEDS: ALUMINUM/MAGNESIUM/SIMETH (MAALOX MAX) 30 ML UDC PO PRN (18:38)
[2017-05-02] MEDS: FELODIPINE 5 MG TABCR PO SCH (21:09)
[2017-05-03] VITALS (14 sets, daily range): BP systolic 121–152; BP diastolic 56–80; PULSE 54–64; TEMP 36.6–36.9; O2SAT 90–98
[2017-05-03] MEDS: OXYCODONE HCL IR 5 MG TAB (IMMEDIATE RELEASE) PO PRN (03:59)
[2017-05-03] MEDS: CALCIUM CARBONATE 500 MG CHEWABLE PO SCH ×3 (06:35→17:24)
[2017-05-03 06:54] LABS: INR 1.7 (0.9-1.1); PROTHROMBIN TIME (PATIENT) 18.8 SECONDS (9.0-12.0)
[2017-05-03 07:30] LABS: BUN/CREATININE RATIO 14.3 (10-20); CALCIUM 9.6 mg/dl (8.5-10.1); CREATININE 5.1 mg/dl (0.60-1.40); POTASSIUM 3.6 mmol/L (3.5-5.1)
[2017-05-03] MEDS: INSULIN ASPART 100 UNITS/ML 3 ML PEN SC SCH ×3 (07:53→16:30)
[2017-05-03] MEDS ORDERED: CLINDAMYCIN 600 MG/54 ML D5W IV ONE ×2 (08:00→10:25)
[2017-05-03] MEDS: LACTULOSE SYRUP 30 GM/45 ML UDP PO SCH (08:30)
[2017-05-03] MEDS: FUROSEMIDE 40 MG TAB PO SCH ×2 (09:00→17:23)
--- NOTE | 2017-05-03 09:18 | Surgery Consultation ---
Consultation Date of Service May 03, 2017. (Jennifer Chin, JO-ANN) Chief Complaint malfunctioning R wrist AVF (Jennifer Chin, JO-ANN) History of Present Illness The patient is a 57 year old male with hx of renal ca s/p L partial nephrectomy , HTN, ESRD on HD, seen in consultation today for malfunctioning R wrist AVF. Pt underwent R wrist AVF creation in 06/2016, but did not require HD until recently. Per HD staff, it has been difficult to cannulate and has flow vol of only 150cc/sec, with elevated venous pressures. US indicates venous stenosis. Pt admits malaise and small wound to R toes. Denies GANT, fever, chills, chest pain, SOB, abd pain, N/V, rest pain, claudication, other complaints. (Jennifer Chin, JO-ANN) Vitals Vital Signs Past 12 Hours Date Time Temp Pulse Resp B/P (MAP) Pulse Ox O2 Delivery O2 Flow Rate FiO2 05/03/17 08:20 97 Room Air 05/03/17 07:16 36.9 64 17 132/66 (88) 90 05/03/17 00:00 Room Air (Jennifer Chin, JUAN JOSEC) Allergies Coded Allergies: Piperacillin (Verified Adverse Reaction, Severe, "makes me goofy", 02/21/17 ) Tazobactam (Verified Adverse Reaction, Severe, "makes me goofy", 02/21/17) Home Medications Scheduled Allopurinol (Zyloprim), 100 MG PO BID Calcitriol (Calcitriol), 0.25 MCG PO DAILY Calcium/Vitamin D (Os-Delvis 500 Plus D), 1 TAB PO DAILY Cholecalciferol (Vitamin D), 2,000 INTER.UNIT PO DAILY Clonidine Hcl (Catapres), 0.1 MG PO BID Felodipine (Felodipine ER), 10 MG PO QPM Folic Acid (Folic Acid), 1 MG PO BID Furosemide (Furosemide), 40 MG PO QPM Furosemide (Lasix), 80 MG PO QAM Hydralazine Hcl (Apresoline), 100 MG PO BID Metoprolol Tartrate (Lopressor) (Lopressor), 100 MG PO BID Multivitamin (Multivitamin), 1 TAB PO DAILY Pregabalin (Lyrica), 1 CAP PO BID Scheduled PRN Oxycodone HCl (Oxycodone HCl), 20 MG PO Q8H PRN for Pain Spironolactone (Spironolactone), 25 MG PO QAM PRN for Fluid Retention/Edema Problem List Medical Problems: (1) Acute on chronic renal failure (2) Anemia (3) ANTICOAGULANTS,LT,CURRENT USE (4) ATRIAL FIBRILLATION (5) Talley's cyst of knee (6) Chronic diastolic CHF (congestive heart failure) (7) CKD (chronic kidney disease) (8) Depression (9) DM type 2 (diabetes mellitus, type 2) (10) Edema (11) ESRD needing dialysis (12) Fatty liver (13) GERD (gastroesophageal reflux disease) (14) Hepatitis C, chronic (15) History of alcohol abuse (16) History of DVT (deep vein thrombosis) (17) History of hematuria (18) HYPERLIPIDEMIA NEC/NOS (19) Hypertension (20) HYPERTENSION NOS (21) LVH (left ventricular hypertrophy) (22) Obstructive sleep apnea (23) Polycystic kidney disease (24) Renal mass, left (25) Secondary hyperparathyroidism of renal origin (26) SOB (shortness of breath) (27) Status post amputation of toe of left foot (28) Toe ulcer Surgical Problems: (1) H/O colonoscopy (2) H/O endoscopy (3) H/O partial nephrectomy (4) Hx of appendectomy (5) pelvic fracture repair (Jennifer Chin PA-C) Surgical / Medical History Hx Cardiac Surgery: No Hx Cancer Surgery: Yes ( 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) Hx Thoracic Surgery: No Hx Orthopedic: No Hx Urinary Tract Surgery: No HX Other Surgery: No Past Medical/Surgical History: Hypertension, Kidney Disease, Liver Disease (Jennifer Chin PA-C) Family History Hypertension FATHER LUNG DISORDER FATHER (Jennifer Chin PA-C) Hypertension FATHER LUNG DISORDER FATHER (Gorge Hines M.D.) Social History Smoking Status: Never Smoker Hx Tobacco Use In Past Year?: Yes Hx Alcohol Use - Type & Amnt: No Hx Substance Use -Type & Amnt: No (Jennifer Chin, JUAN JOSEC) Review of Systems Constitutional: + malaise, No chills, No fever Skin: No change in color Eyes: No visual changes ENMT: No sore throat Respiratory: No cough, No hemoptysis, No short of breath Cardiovascular: No chest pain, No palpitations, No edema, No intermittent claudication Gastrointestinal: No abdominal pain, No vomiting, No anorexia Neurologic: No dizziness, No headache, No numbness, No tingling (Jennifer Chin, PA-C) Physical Exam Constitutional: General Apperance: well-nourished, well-developed, obese Level of Distress: NAD, chronically ill Psychiatric: Mental Status: active & alert, normal mood, normal affect Orientation: oriented except where noted, to time, to place, to person Memory: recent memory normal, remote memory normal Head: normocephalic, atraumatic Eyes: EOM: EOMI ENMT: normal ENT inspection, hearing grossly normal Neck: supple, trachea midline Lungs: Respiratory effort: no dyspnea Auscultation: no rales/crackles, no rhonchi Cardiovascular: Apical Impulse: not displaced Heart Auscultation: RRR, no rubs, no gallops Peripheral Pulses: Pulses: full and equal, in all extremities except if noted Bruits: none appreciated Carotid Pulse: normal on the left, normal on the right Brachial Pulses: normal on the left, normal on the right Radial Pulse: normal on the left, normal on the right, pertinent finding (R wrist AVF with excellent thrill/bruit to upper arm) Femoral Pulse: normal on the left, normal on the right Abdomen: Bowel Sounds: normal Inspection & Palpation: soft, non-distended Musculoskeletal: normal strength (5/5 throughout), normal tone Extremities: Upper Right: no cyanosis, no edema, no varicosities Upper Left: no cyanosis, no edema, no varicosities Lower Right: no cyanosis, no varicosities, edema, ulcers (dressing r toe) Lower Left: no cyanosis, no varicosities, edema, pertinent finding (L 1st and 2nd toe partial amputation) Neurologic: Cranial Nerves: grossly intact Sensation: grossly intact (Jennifer Chin, PA-C) Assessment and Plan ASSESSMENT and PLAN: ESRD on HD Malfunctioning AVF Pt for fistulagram with intervention by Dr Hines later this AM. Procedure, risks, benefits and alternatives discussed with pt, he expresses understanding and agreement. (Jennifer Chin, PA-C) Patient was seen, examined, and chart reviewed. Agree with exam and treatment plan of the Vascular PA. Patient with stenosis of his fistula. Will do fistulogram with possible intervention today I have discussed the risks options and benefits of the procedure with the patient. The patient understands the risks options and benefits and agrees to the procedure. (Gorge Hines M.D.)
--- NOTE | 2017-05-03 09:22 | Nephrology Progress Note ---
Nephrology Progress Note Date of Service May 03, 2017. Chief Complaint ESRD Subjective No acute events overnight. Tee was seen this morning while vascular surgery was at the bedside. He denies any pain. He had no questions or concerns this morning. Review of Systems A complete review of systems was performed. Pertinent positives are noted above. All other systems are negative. Vital Signs Last 8 Hrs Date Time Temp Pulse Resp B/P (MAP) Pulse Ox O2 Delivery O2 Flow Rate FiO2 05/03/17 08:20 97 Room Air 05/03/17 07:16 36.9 64 17 132/66 (88) 90 Last Recorded Weight Weight (Kilograms): 120.300 Physical Exam General Appearance: WD/WN, no apparent distress Head: normocephalic, atraumatic Eyes: normal inspection, sclerae normal ENT: normal ENT inspection, pharynx normal Neck: supple, + JVD Respiratory/Chest: lungs clear, no respiratory distress, no accessory muscle use Cardiovascular: regular rate, rhythm, + systolic murmur Abdomen/GI: non tender, soft Extremities/Musculoskelatal: normal inspection, + pedal edema Neurologic/Psych: alert, oriented x 3 Family History Hypertension FATHER LUNG DISORDER FATHER Social History Smoking Status: Never smoker Drug Use: none Marital Status: single Housing Status: lives alone, lives with family Occupation: disabled Laboratory Results Past 24 Hours 05/03/17 06:17 Test 05/02/17 09:33 05/03/17 06:17 Prothrombin Time 15.5 SECONDS (9.0-12.0) 18.8 SECONDS (9.0-12.0) Prothromb Time International Ratio 1.4 (0.9-1.1) 1.7 (0.9-1.1) Ammonia 28.0 umol/L (11-32) Anion Gap 8.0 mmol/L (3-11) Est Creatinine Clear Calc Drug Dose 21.7 ml/min Estimated GFR () 13.4 Estimated GFR (Non- 11.6 BUN/Creatinine Ratio 14.3 (10-20) Calcium Level 9.6 mg/dl (8.5-10.1) Allergies Coded Allergies: Piperacillin (Verified Adverse Reaction, Severe, "makes me goofy", 02/21/17 ) Tazobactam (Verified Adverse Reaction, Severe, "makes me goofy", 02/21/17) Medications Current Inpatient Medications Medications (Trade) Dose Ordered Sig/Efrain Route Start Time Stop Time Status Last Admin Dose Admin Acetaminophen (Tylenol Tab) 650 mg Q4H PRN PO 04/27/17 23:15 05/27/17 23:14 Al Hydrox/Mg Hydrox/Simethicone (Maalox Max Susp) 15 ml Q4H PRN PO 04/27/17 23:15 05/27/17 23:14 05/02/17 18:38 15 ML Ondansetron HCl (Zofran Inj) 4 mg Q6H PRN IV 04/27/17 23:15 05/27/17 23:14 Clonidine HCl (Catapres Tab) 0.1 mg BID PO 04/28/17 09:00 05/28/17 08:59 05/02/17 21:09 0.1 MG Hydralazine HCl (Apresoline Tab) 100 mg BID PO 04/28/17 09:00 05/28/17 08:59 05/02/17 21:09 100 MG Metoprolol Tartrate (Lopressor Tab) 100 mg BID PO 04/28/17 09:00 05/28/17 08:59 05/02/17 21:09 100 MG Multivitamins (Multivitamin Tab) 1 tab DAILY PO 04/28/17 09:00 05/28/17 08:59 05/02/17 08:00 1 TAB Felodipine (Plendil Tabcr) 10 mg QPM PO 04/28/17 21:00 05/28/17 20:59 05/02/17 21:09 10 MG Calcium Carbonate (Tums Chew Tab) 500 mg AC PO 04/28/17 11:00 05/28/17 10:59 05/03/17 06:35 500 MG Calcitriol (Rocaltrol Cap) 0.5 mcg MoWeFr@0900 PO 04/29/17 09:00 05/29/17 08:59 05/02/17 08:01 0.5 MCG Lactulose (Chronulac Syrup) 30 gm BID PO 04/28/17 21:00 05/28/17 20:59 05/02/17 21:09 30 GM Insulin Aspart (novoLOG ASPART) SLIDING SCALE If C... ACHS SC 04/28/17 21:00 05/28/17 20:59 04/29/17 20:36 4 UNITS Glucose (Glucose 40% Gel) 15-30 GRAMS 15 GRAMS... UD PRN PO 04/28/17 17:30 05/28/17 17:29 Glucose (Glucose Chew Tab) 4-8 Tablets 4 Tabl... UD PRN PO 04/28/17 17:30 05/28/17 17:29 Dextrose (Dextrose 50% 50ML Syringe) 25-50ML OF 50% DW IV FOR... UD PRN IV 04/28/17 17:30 05/28/17 17:29 Glucagon (Glucagon Inj) 1 mg UD PRN SQ 04/28/17 17:30 05/28/17 17:29 Oxycodone HCl (Roxicodone Immediate Rel Tab) 5 mg Q4H PRN PO 04/29/17 12:00 05/13/17 11:59 05/03/17 03:59 5 MG Furosemide (Lasix Tab) 40 mg BID17 PO 04/29/17 17:00 05/29/17 16:59 05/02/17 16:41 40 MG Iron Sucrose 200 mg/Sodium Chloride 110 ml @ 220 mls/hr DAILY@1100 IV 05/01/17 11:00 05/05/17 11:29 05/02/17 12:39 220 MLS/HR Warfarin Sodium (Coumadin Tab) 4 mg DAILY@16 PO 05/01/17 16:00 05/30/17 15:59 05/02/17 16:40 4 MG Heparin Sodium (Porcine) (No Heparin In Dialysis) 1 ea ONE ONCE N/A 05/03/17 11:00 05/03/17 11:01 Epoetin Luis Daniel 7000 units/Syringe 0.35 ml @ 1 mls/min TODAY@1000 IV. 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 He has been cared for by Dr. Coy in [place]. AVF was created 09/13. His baseline creatinine had risen from 4.0 to 7.4 on admission. He presented to [facility] with 2 weeks of generalized weakness , occasional dizziness, lightheadedness and shaking of his bilateral upper extremity. He completed his first hemodialysis treatment on April 30 and the second treatment on May 01. Hemodialysis was complicated by poor blood flow and high venous pressure. He has anemia with mild iron deficiency, hyperphosphatemia and secondary hyperparathyroidism. Mr. Ramirez required left partial nephrectomy 2015 for RCCA. Imaging has revealed a left renal lesion. He is to follow up with [facility] following discharge from the hospital Past medical history significant for hypertension, AFib, diastolic dysfunction, Hep C testing was negative. Recommendations END STAGE RENAL DISEASE: -- AVF has been difficult to access. Doppler shows outflow stenosis. -- I have spoken w/ Vascular Surgery this am. Patient is scheduled for fistulogram today -- Volume status & electrolyte balance are currently acceptable. HD is scheduled for today after fistulogram -- Orders for HD were discussed with the dialysis nurse this morning -- rn social services has arranged outpatient HD at [facility] on a TTS schedule w/ Dr. Spencer RENAL CELL CA: -- Patient has h/o L partial nephrectomy 2015 due to RCCA. He will require outpatient evaluation w/ [facility] following discharge from the hospital ANEMIA: -- Continue IV iron and IVÁN w/ HD -- Monitor H&H GI: -- Patient has h/o cirrhosis and treated Hepatitis C -- Abdominal US confirmed cirrhotic liver. No hepatocellular CA reported -- Hepatitis C serologies were negative this hospitalization -- Patient will require GI follow up following discharge from the hospital
[2017-05-03] MEDS ORDERED: EPOETIN ALFA INJ 7,000 UNITS in SYRINGE 0 ML IV. SCH (10:00)
[2017-05-03] MEDS ORDERED: FENTANYL CITRATE INJ 50 MCG/1 ML 2 ML VIAL ONE (10:19)
[2017-05-03] MEDS ORDERED: MIDAZOLAM HCL 1 MG/ML 2ML VIAL ONE (10:19)
--- NOTE | 2017-05-03 10:27 | Procedure Note ---
Pre-Mod Sedation Assessment General Date of Moderate Sedation: May 03, 2017. Vital Signs: Vital Signs Past 12 Hours Date Time Temp Pulse Resp B/P (MAP) Pulse Ox O2 Delivery O2 Flow Rate FiO2 05/03/17 08:20 97 Room Air 05/03/17 07:16 36.9 64 17 132/66 (88) 90 05/03/17 00:00 Room Air Review Cardiovascular: regular rate, rhythm, + systolic murmur Abdomen: non tender, soft Lungs: lungs clear, no respiratory distress, no accessory muscle use Pre-Sedation Airway Assessment Oral Cavity: Dentures Smoking Status: Never Smoker Mallampati Classification: Class I ASA Classification: Class III Notes The planned sedation has been discussed with the patient and consent obtained. I have identified the patient, determined the appropriateness of sedation and have assessed the patient immediately prior to the procedure. All medicine(s) and interventions are by my order.
--- NOTE | 2017-05-03 10:36 | Family Medicine Progress Note ---
Progress Note Date of Service May 03, 2017. Subjective Pt evaluation today including: conversation w/ patient, physical exam, chart review, lab review Pain: denied any discomfort this AM PO Intake: tolerating Voiding: no voiding problems This AM Mr. Ramirez denied any discomfort, abd pn, n/v, cp, sob, GANT/dizziness. He was anxious to go for his fistulogram this AM Constitutional: No fever Respiratory: No shortness of breath Cardiovascular: No chest pain Abdomen: No pain, No nausea, No vomiting Neurologic: No problem reported Medications Current Inpatient Medications Medications (Trade) Dose Ordered Sig/Efrain Route Start Time Stop Time Status Last Admin Dose Admin Acetaminophen (Tylenol Tab) 650 mg Q4H PRN PO 04/27/17 23:15 05/27/17 23:14 Al Hydrox/Mg Hydrox/Simethicone (Maalox Max Susp) 15 ml Q4H PRN PO 04/27/17 23:15 05/27/17 23:14 05/02/17 18:38 15 ML Ondansetron HCl (Zofran Inj) 4 mg Q6H PRN IV 04/27/17 23:15 05/27/17 23:14 Clonidine HCl (Catapres Tab) 0.1 mg BID PO 04/28/17 09:00 05/28/17 08:59 05/02/17 21:09 0.1 MG Hydralazine HCl (Apresoline Tab) 100 mg BID PO 04/28/17 09:00 05/28/17 08:59 05/02/17 21:09 100 MG Metoprolol Tartrate (Lopressor Tab) 100 mg BID PO 04/28/17 09:00 05/28/17 08:59 05/02/17 21:09 100 MG Multivitamins (Multivitamin Tab) 1 tab DAILY PO 04/28/17 09:00 05/28/17 08:59 05/02/17 08:00 1 TAB Felodipine (Plendil Tabcr) 10 mg QPM PO 04/28/17 21:00 05/28/17 20:59 05/02/17 21:09 10 MG Calcium Carbonate (Tums Chew Tab) 500 mg AC PO 04/28/17 11:00 05/28/17 10:59 05/03/17 06:35 500 MG Calcitriol (Rocaltrol Cap) 0.5 mcg MoWeFr@0900 PO 04/29/17 09:00 05/29/17 08:59 05/02/17 08:01 0.5 MCG Lactulose (Chronulac Syrup) 30 gm BID PO 04/28/17 21:00 05/28/17 20:59 05/02/17 21:09 30 GM Insulin Aspart (novoLOG ASPART) SLIDING SCALE If C... ACHS SC 04/28/17 21:00 05/28/17 20:59 04/29/17 20:36 4 UNITS Glucose (Glucose 40% Gel) 15-30 GRAMS 15 GRAMS... UD PRN PO 04/28/17 17:30 05/28/17 17:29 Glucose (Glucose Chew Tab) 4-8 Tablets 4 Tabl... UD PRN PO 04/28/17 17:30 05/28/17 17:29 Dextrose (Dextrose 50% 50ML Syringe) 25-50ML OF 50% DW IV FOR... UD PRN IV 04/28/17 17:30 05/28/17 17:29 Glucagon (Glucagon Inj) 1 mg UD PRN SQ 04/28/17 17:30 05/28/17 17:29 Oxycodone HCl (Roxicodone Immediate Rel Tab) 5 mg Q4H PRN PO 04/29/17 12:00 05/13/17 11:59 05/03/17 03:59 5 MG Furosemide (Lasix Tab) 40 mg BID17 PO 04/29/17 17:00 05/29/17 16:59 05/02/17 16:41 40 MG Iron Sucrose 200 mg/Sodium Chloride 110 ml @ 220 mls/hr DAILY@1100 IV 05/01/17 11:00 05/05/17 11:29 05/02/17 12:39 220 MLS/HR Warfarin Sodium (Coumadin Tab) 4 mg DAILY@16 PO 05/01/17 16:00 05/30/17 15:59 05/02/17 16:40 4 MG Heparin Sodium (Porcine) (No Heparin In Dialysis) 1 ea ONE ONCE N/A 05/03/17 11:00 05/03/17 11:01 Epoetin Luis Daniel 7000 units/Syringe 0.35 ml @ 1 mls/min TODAY@1000 IV. 05/03/17 10:00 05/03/17 16:00 Clindamycin Phosphate (Cleocin 600mg/ 54ml D5W) 600 mg TODAY@0800 ONCE IV 05/04/17 08:00 05/04/17 08:01 Objective Vital Signs Date Time Temp Pulse Resp B/P (MAP) Pulse Ox O2 Delivery O2 Flow Rate FiO2 05/03/17 08:20 97 Room Air 05/03/17 07:16 36.9 64 17 132/66 (88) 90 05/03/17 00:00 Room Air 05/02/17 21:06 76 146/72 (96) 05/02/17 16:42 36.8 65 18 135/70 (91) 97 Room Air 05/02/17 16:00 97 Room Air 05/02/17 12:00 97 Room Air Physical Exam General Appearance: no apparent distress Eyes: normal inspection, sclerae normal Respiratory/Chest: lungs clear, normal breath sounds, no respiratory distress Cardiovascular: + irregularly irregular Abdomen: normal bowel sounds, non tender, soft Extremities: non-tender, + pedal edema (2+ L pretibial and PE; 1+ R pretibil and PE) Neurologic/Psychiatric: alert, oriented x 3, + pertinent finding (improved shaking/jerking of hands/upper body) Laboratory Results 05/03/17 06:17 Test 05/03/17 06:17 Prothrombin Time 18.8 SECONDS (9.0-12.0) Prothromb Time International Ratio 1.7 (0.9-1.1) Anion Gap 8.0 mmol/L (3-11) Est Creatinine Clear Calc Drug Dose 21.7 ml/min Estimated GFR () 13.4 Estimated GFR (Non- 11.6 BUN/Creatinine Ratio 14.3 (10-20) Calcium Level 9.6 mg/dl (8.5-10.1) Assessment and Plan 57-year-old male with history of atrial fibrillation, diastolic CHF, hypertension, PVD, 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 This AM with improved shakiness/jerky movements s/p HD sessions. Scheduled for fistulogram this AM followed by HD. Metabolic encephalopathy Likely secondary to uremia caused by CKD - Ammonia decreased to 28 (05/02) - BUN 71 this AM - Head CT - neg for any acute bleeding - UA negative - Holding medications likely to exacerbate encephalopathy Acute on chronic kidney injury stage 4-5 History of partial nephrectomy of left kidney secondary to renal cell cancer and autosomal dominant polycystic kidney disease. MRI Aug 2016 showed a mass on left kidney & retroperitoneal lymphadenopathy - he did not f/u with urology regarding these findings. Urology will follow up outpatient in 2 months. Has ESRD secondary to polycystic kidney disease, followed by Dr. Coy in [place]. Baseline Cr 3-4 but worsening over last few months. Had a right radiocephalic AV fistula placed in August 2015. - Dialyized 04/29 for 1 hour with low blood flow and minimum UF. 2nd treatment 04/30 - 2hrs. 3rd treatment today - difficulty obtaining access w/fistula -> doppler showed focal elevated velocity of 571 cm/s within the fistula suggestive of an outflow stenosis - Dr. Boggs consulted vas surgery, NPO after midnight for fistulogram today with Dr. Adams - HD after fistulogram today, electrolyte balance currently acceptable per renal - Social service scheduled outpatient dialysis at [facility] dialysis unit with Dr. Coy on tuesdays, and saturdays at 11:30am - Creatinine increased 4.8 yest to 5.1 today - Continue Venofer and Epogen 24423 units IV - Continue Tums 1 tablet with each meal as phosphate binder - Calcitriol 0.5 mcg 3 times weekly with dialysis Cirrhosis /Chronic hep C/Splenomegaly - Treated with Pegasys 2006, HCV serology neg - Ammonia 28 (05/02) - Lactulose 30mg PO BID - Meld score = 26, 19.6% 3 month mortality - Abdominal US - cirrhosis, no ascites, gallbladder distended with sludge and stone, wall relatively thick 0.3cm - GI did not recommend HIDA/ERCP given asymptomatic and normal LFTs - GI signed off and will f/u in the outpatient setting Atrial fibrillation - Tele dced (pt refused to be attached to monitor leads): 50-70s rate controlled a-fib w/occasional PVCs as of 05/02 - Rate controlled with metoprolol 100mg BID - INR today 1.7 from 1.4 yesterday - subtherapeutic - continue warfarin 4mg daily and recheck INR tomorrow Hypertension - Continue hydralazine, clonidine, felodipine - Hold spironolactone Diastolic CHF, Chronic bilateral lower extremity swelling, CAD s/p NH 2015 - Continue 40mg BID of Lasix - peripheral edema improving - 1+ today R, 2 + L without calf pain - Last Echo in 2015 - EF of 55 to 60% Pre-diabetes with elevated BSs - Stopped blood glucose checks given normal BG levels and pt lack of compliance - HbA1c 5.7 Opioid dependence - On oxycodone 20mg Q8H at home for chronic pain - Oxycodone 5mg PO Q4H PRN as needed for pain/withdrawal symptoms - pt aware but has not requested as yet - Monitor for signs of opioid withdrawal Chronic peripheral neuropathy - Secondary to Pegasys for hep C - Hold Lyrica - states that this never improved his symptoms at home - states that he is able to manage his peripheral neuropathy pain ADPCKD/Left sided renal cell cancer Status post partial nephrectomy - Aug 2016 MRI: New left sided renal mass and retroperitoneal LAD - likely stable. Had missed f/u urology appts - urology will f/u in 2 months Bilateral foot ulcers - Wound care continuing to follow Chronic Anemia - Hemoglobin at 10.1 - stable - Continue Venofer and Epogen 78700 units IV DVT prophylaxis - on warfarin 4mg daily Full code Disposition: pending fistulogram and HD today Social Work: completed - referral to outpatient dialysis at [facility] unit with Dr. Coy Resident Involvement: Resident Care Provided Care Provided: Adult [facility] Medicine
[2017-05-03] MEDS ORDERED: EPOETIN ALFA 10,000 UNITS/ML VIAL IV. ONE (11:00)
[2017-05-03] MEDS ORDERED: LIDOCAINE HCL 1% 20 ML VIAL INJ ONE (11:05)
[2017-05-03] MEDS ORDERED: MIDAZOLAM HCL 1 MG/ML 2ML VIAL IV ONE (11:13)
[2017-05-03] MEDS ORDERED: FENTANYL CITRATE INJ 50 MCG/1 ML 2 ML VIAL IV ONE (11:13)
[2017-05-03] MEDS ORDERED: OPTIRAY 300 IV ONE (11:26)
--- NOTE | 2017-05-03 11:37 | Procedure Note ---
Post-Moderate Sedation Plan General Date of Moderate Sedation May 03, 2017. Vital Signs: Vital Signs Past 12 Hours Date Time Temp Pulse Resp B/P (MAP) Pulse Ox O2 Delivery O2 Flow Rate FiO2 05/03/17 11:32 54 18 121/74 98 Nasal Cannula 2 05/03/17 08:20 97 Room Air 05/03/17 07:16 36.9 64 17 132/66 (88) 90 05/03/17 00:00 Room Air Review - Discharge Plan Post Moderate Sedation Plan: On clinical assessment, the patient appears to have tolerated the conscious sedation without complications. Patient is recovering as anticipated. Patient will continue to be monitored by nursing and may be discharged when conscious sedation discharge criteria are met.
--- NOTE | 2017-05-03 11:39 | [facility] Operative Report ---
Operative Report Operative Date May 03, 2017. Pre-Operative Diagnosis Malfunctioning Fistula Post-Operative Diagnosis Same Procedure(s) Performed Fistulogram Percutaneous Translumial Angioplasty Venous Moderate Sedation from 1113 - [address] Hines [employer] Surgeon(s) None Estimated Blood Loss 5 Findings mild stenosis of prox fistula, two areas of duplication which are small veins, nicely dilated cephalic vein Specimens None Anesthesia Local with sedation Complication(s) None Disposition Indications This is a 77-year-old white male with a right wrist AV fistula. They had trouble placing needles in dialysis. A fistula ultrasound was performed which showed a stenosis of the cephalic vein in the upper forearm. A fistulogram was recommended with possible intervention. He understood the risks options and benefits and agreed to go ahead with this procedure. Description of Procedure The patient was taken to the angiogram suite and placed in the supine position. The right arm was then prepped and draped in a sterile manner. Local anesthetic was administered and a percutaneous puncture was then made of the proximal portion of the right forearm AV fistula using micropuncture technique. Micropuncture wire and sheath were then inserted. A fistulogram was then performed. A fistulogram showed a widely patent the fistula which was fairly large. There are 2 side branches that came off which were approximately 3 mm in size. They were more of a duplication of the cephalic vein and reentered fairly quickly. There was a slight narrowing in the proximal portion of the fistula ranging around 15 to 20%. We did dilate this area. After inserted an 035 wire we used a 7 x 4 balloon. Results showed no residual stenosis. The side branches were not embolized due to the fact that they were a duplication that reentered the cephalic vein a short distance upward. Coils placed in these veins are most likely to embolize. There is a good thrill at the after the balloon dilatation. The sheath was then pulled and pressure was applied. Adequate hemostasis was obtained. The patient left the angiogram suite in good condition and tolerated the procedure well. I attest to the content of the Intraoperative Record and any orders documented therein. Any exceptions are noted below.
--- NOTE | 2017-05-03 13:15 | Discharge Instructions ---
Discharge Instructions Date of Service May 03, 2017. Admission Reason for Admission: Acute On Chronic Renal Failure Discharge Discharge Diagnosis / Problem: ESRD and Metabolic encephalopathy Discharge Goals Goal(s): Diagnostic testing, Therapeutic intervention Activity Recommendations Activity Limitations: resume your previous activity . Instructions / Follow-Up Instructions / Follow-Up You presented with 2 weeks of worsening hand tremors and jerking along with confusion and memory difficulties to the ED. You were diagnosed with end stage renal disease requiring dialysis. You were dialyzed three times during your hospital stay after which your shakiness/jerky movements improved. Your fistula was blocked for which you had a fistulogram and it was opened up. -Dialysis Tuesdays, and Saturdays at 11:30 at [place] dialysis unit with Dr. Coy -Please check Coumadin labs (INR, PT) for which we gave you a script when you go on to get dialyzed -Follow up with urology for L kidney previous surgery for cancer and new mass found on 2016 MRI -Follow up with GI for liver cirrhosis Current Hospital Diet Patient's current hospital diet: Renal Diet Discharge Diet Recommended Diet: AHA Diet (Heart Healthy), Low Sodium Diet (2gm Na), Diabetes Type 2 Diet Procedures Procedures Performed: Fistulogram, Percutaneous Translumial Angioplasty Venous Pending Studies Studies pending at discharge: no Laboratory Results Hemoglobin A1c Test 04/28/17 12:49 Range/Units Estimated Average Glucose 117 mg/dl Hemoglobin A1c 5.7 H 4.5-5.6 % Medical Emergencies . Who to Call and When: Medical Emergencies: If at any time you feel your situation is an emergency, please call 911 immediately. . Non-Emergent Contact Non-Emergency issues call your: Primary Care Provider . . "Provider Documentation" section prepared by Ruma Kowalski. . VTE Core Measure Inpt VTE Proph given/why not?: Warfarin (Coumadin), SCD's
[2017-05-03] MEDS: MULTIVITAMIN TAB PO SCH (14:26)
[2017-05-03] MEDS: METOPROLOL TARTRATE 100 MG TAB PO SCH (14:26)
[2017-05-03] MEDS: CLONIDINE HCL 0.1 MG TAB PO SCH (14:27)
[2017-05-03] MEDS: IRON SUCROSE INJ 200 MG in SODIUM CHLORIDE 0.9% 100ML IV SCH (14:33)
[2017-05-03] MEDS: WARFARIN SOD 4 MG TAB PO SCH (15:51)
[2017-05-03] MEDS ORDERED: CMD4 PO (16:31)
[2017-05-03] MEDS ORDERED: RXC5 PO (16:31)
[2017-05-03] MEDS ORDERED: LSX40 PO (16:31)
[2017-05-03] MEDS ORDERED: LCTL45 PO (16:31)
[2017-05-04] MEDS ORDERED: CLINDAMYCIN 600 MG/54 ML D5W IV ONE (08:00)
--- NOTE | 2017-05-07 20:07 | Discharge Summary ---
Discharge Summary Date of Service May 03, 2017. (Ruma Kowalski M.D.) Discharge Summary Admission Date: Apr 27, 2017 at 23:27 Discharge Date: May 03, 2017 Discharge Disposition: Home Principal Diagnosis: encephalopathy, ESRD requiring dialysis Problems/Secondary Diagnoses: L renal mass Cirrhosis Hep C treated Splenomegaly HTN Afib pre-diabetes CAD w/t MS Diastolic CHF Hypothyroidism opioid dependence chronic anemia peripheral neuropathy AD-PCKD Immunizations: Have You Had Influenza Vaccine: No History of Tetanus Vaccine?: Yes History of Pneumococcal: No History of Hepatitis B Vaccine: Yes Procedures: Fistulogram: 05/01 FINDINGS: The right upper extremity AV fistula was patent. Note was made of an elevated peak systolic velocity of 571 cm/s within the fistula. No adjacent hematoma was identified. Adjacent soft tissues were normal. IMPRESSION: Patent right upper extremity AV fistula. Focal elevated velocity of 571 cm/s within the fistula. This is not definitive but raises the possibility of an outflow stenosis. ABDOMEN LIMITED (US), ASCITES-ABDOMEN LIMITED HISTORY: 57 years-old Male Clinical cirrhosis, evaluate liver for HCC and ascites COMPARISON: CT abdomen and pelvis 04/16/2016 TECHNIQUE: Multiple real-time sonographic images of the abdominal right upper quadrant were obtained assessing grayscale appearance and color flow. Ultrasound assessing for ascites was also obtained within all quadrants of the abdomen. FINDINGS: Pancreas is partially scared by bowel gas. Imaged portions of the pancreas are unremarkable. Coarsened echogenicity of the liver is noted with cirrhosis liver disease DUPLEX RENAL ARTERY HISTORY: 57 years-old Male acute renal failure, h/o PCKD COMPARISON: CT abdomen and pelvis 10/09/2014 TECHNIQUE: Multiple real-time sonographic images of the kidneys were obtained assessing grayscale appearance, color and spectral flow analysis FINDINGS: Right kidney measures up to 19.7 cm in length. Polycystic kidney disease noted. Resistive index measures 0.6. The highest velocity measured at 95 cm/s. Phasic and patent renal vein noted. Left kidney measures up to 17.8 cm in length. Polycystic kidney disease redemonstrated. Resistive index measured at 0.7. The highest velocity is measured at 88 cm/s. Phasic and patent renal vein noted. IMPRESSION: 1. Polycystic kidney disease with resistive index on the left at 0.7, upper limits of normal likely secondary to the background medical renal disease. 2. No elevated peak systolic velocities are identified. morphology. No focal hepatic mass lesions are identified. Distended sludge and stone filled gallbladder is noted with wall and upper limits of normal, 0.3 cm. No pericholecystic fluid collections. A positive sonographic Figueroa's sign was not reported. Common bile duct is mildly dilated, 0.7 cm without focal obstructing stone identified. Large polycystic right kidney is noted. No ascites is seen within the abdomen. IMPRESSION: 1. Cirrhotic liver disease without evidence of ascites. 2. Distended stone and sludge filled gallbladder with gallbladder wall measuring within the upper limits of normal at 0.3 cm. Correlate clinically to exclude developing acute cholecystitis. 3. Polycystic kidney disease HEAD WITHOUT CONTRAST (CT) CLINICAL HISTORY: 57 years-old Male presenting with altered mental state. TECHNIQUE: Multidetector CT imaging of the head was performed without the use of intravenous contrast. IV contrast: None. A dose lowering technique was used consistent with the principles of ALARA (as low as reasonably achievable). COMPARISON: 10/04/2014. CT DOSE (mGy.cm): The estimated cumulative dose is 537.48 mGy.cm. FINDINGS: Rn Unit Manager topogram: Unremarkable. Ventricles and sulci normal in size. Brain parenchyma normal in appearance with preserved barrios-white differentiation. No mass effect or midline shift. No hemorrhage or acute territorial infarct. No extra-axial fluid collection. Paranasal sinuses and mastoid air cells clear. Calvarium intact. IMPRESSION: 1. No acute intracranial pathology. CHEST ONE VIEW PORTABLE CLINICAL HISTORY: 57 years-old Male presenting with altered mental state. TECHNIQUE: Portable upright AP view of the chest was obtained. COMPARISON: 04/21/2016. FINDINGS: Persistent enlargement of cardiac silhouette. Enlargement of main pulmonary artery. Atherosclerosis of the aortic arch. Prominence of pulmonary vasculature not significantly changed from prior. Lungs and pleural spaces clear. Osseous structures normal. Upper abdomen normal. IMPRESSION: 1. Cardiomegaly. Pulmonary vascular prominence suggest volume overload. No avis pulmonary edema. This is not significantly changed since the prior exam. Consultations: Renal Vascular surgery GI Wound care Urology (Ruma Kowalski M.D.) Medication Reconciliation New Medications: Furosemide (Furosemide) 40 Mg Tab 40 MG PO BID17, #30 TAB Lactulose (Lactulose) 30 Gm/45 Ml Syrp 30 GM PO BID, #30 DOSE Warfarin Sod (Coumadin) 4 Mg Tab 4 MG PO DAILY@16, #30 TAB Continued Medications: Allopurinol (Zyloprim) 100 Mg Tab 100 MG PO BID, TAB Calcitriol (Calcitriol) 0.25 Mcg Cap 0.25 MCG PO DAILY Calcium/Vitamin D (Os-Delvis 500 Plus D) Tab 1 TAB PO DAILY, TAB Cholecalciferol (Vitamin D) 2,000 Unit Tab 2000 INTER.UNIT PO DAILY Clonidine Hcl (Catapres) 0.1 Mg Tab 0.1 MG PO BID Felodipine (Felodipine ER) 10 Mg Tabcr 10 MG PO QPM Folic Acid (Folic Acid) 1 Mg Tab 1 MG PO BID Hydralazine Hcl (Apresoline) 100 Mg Tab 100 MG PO BID Metoprolol Tartrate (Lopressor) (Lopressor) 100 Mg Tab 100 MG PO BID, TAB Multivitamin (Multivitamin) Tab 1 TAB PO DAILY, TAB Oxycodone HCl (Oxycodone HCl) 5 Mg Tab 5 MG PO Q8H PRN for Pain, #30 TAB Discontinued Medications: Furosemide (Furosemide) 40 Mg Tab 40 MG PO QPM Furosemide (Lasix) 40 Mg Tab 80 MG PO QAM, TAB Pregabalin (Lyrica) 100 Mg Cap 1 CAP PO BID for 30 Days, #60 CAP 2 Refills Spironolactone (Spironolactone) 25 Mg Tab 25 MG PO QAM PRN for Fluid Retention/Edema Discharge Exam Constitutional: No fever Respiratory: No shortness of breath Cardiovascular: No chest pain Abdomen: No pain, No nausea, No vomiting Neurologic: No problem reported Physical Exam General Appearance: no apparent distress Eyes: normal inspection, sclerae normal Respiratory/Chest: lungs clear, normal breath sounds, no respiratory distress Cardiovascular: + irregularly irregular Abdomen: normal bowel sounds, non tender, soft Extremities: non-tender, + pedal edema (2+ L pretibial and PE; 1+ R pretibil and PE) Neurologic/Psychiatric: alert, oriented x 3, + pertinent finding (improved shaking/jerking of hands/upper body) (Ruma Kowalski M.D.) Hospital Course 57-year-old male with history of atrial fibrillation, diastolic CHF, hypertension, PVD, 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 On discharge: shakiness/jerky movements improved s/p HD sessions and blocked AV fistula was opened for outpatient HD. Metabolic encephalopathy: shakiness/jerky movements of hands and upper body Likely secondary to uremia caused by CKD. Head CT did not show any acute bleeding. UA was also negative (ruling out UTI as a potential cause). Medications likely to exacerbate encephalopathy were held. Ammonia initially 59 decreased to 28 (05/02). BUN decreased from 93 to 71 (05/03). Encephalopathy improved s/p 3 HD sessions. Acute on chronic kidney injury stage 4-5 History of partial nephrectomy of left kidney secondary to renal cell cancer and autosomal dominant polycystic kidney disease. MRI Aug 2016 showed a mass on left kidney & retroperitoneal lymphadenopathy.Patient had not followed up with urology regarding these findings. Urology was consulted but did not deem it necessary to see pt on an acute basis but will follow up outpatient in 2 months. Diagnosed with ESRD secondary to polycystic kidney disease, followed by Dr. Coy in [place]. Baseline Cr was 3-4 but worsening over last few months.Had a right radiocephalic AV fistula placed in August 2015. Renal had difficulty obtaining access w/fistula and doppler showed focal elevated velocity of 571 cm/s within the fistula suggestive of an outflow stenosis. Dr. Boggs consulted [facility] surgery, fistulogram done on 05/[address] Adams and fistula was opened up. He was dialyzed three times: 04/29 for 1 hour with low blood flow and minimum UF, 2nd treatment 04/30 for 2hrs and 3rd treatment on day of discharge. Per renal, pt was on Venofer and Epogen 86736 units IV, Tums 1 tablet with each meal as phosphate binder, and Calcitriol 0.5 mcg 3 times weekly with dialysis. Electrolyte balance was acceptable per renal on day of discharge. Social service scheduled outpatient dialysis at [facility] with Dr. Coy on tuesdays, and saturdays at 11: 30am for patient. Pt was giving the following instructions: -Dialysis Tuesdays, and Saturdays at 11:30 at [facility] with [address]. Coy -Follow up with urology for L kidney previous surgery for cancer and new mass found on 2016 MRI Cirrhosis /Chronic hep C/Splenomegaly Hep C was treated with Pegasys in 2006 and repeated HCV serologies were negative. Ammonia was checked and went from 59 to 28 (05/02). Pt was on Lactulose 30mg PO BID. Meld scores were between 23-26, 19.6% 3 month mortality. Abdominal US revealed cirrhosis without ascites, and gallbladder distension with sludge, stone, and thick wall (relatively 0.3cm) but GI did not recommend HIDA/ERCP given asymptomatic and normal LFTs. Pt instructed to: -Follow up with GI for liver cirrhosis on an outpatient basis Atrial fibrillation Patient was on telemetry and had a rate in the 50-70s rate w/occasional PVCs but telemetry was dced as pt refused to be attached to monitor leads. Pt was rate controlled with metoprolol 100mg BID. On day of discharge, INR was 1.7 from 1.4 (05/02) but still subtherapeutic. Warfarin 4mg daily was continued and pt instructed to: -Check INR, PT on , 05/05 at dialysis center Hypertension Continued hydralazine, clonidine, felodipine. Held spironolactone for metabolic encephalopathy Diastolic CHF with chronic bilateral lower extremity swelling and CAD s/p MS 2016 Last Echo in 2015 - EF of 55 to 60%. Continued 40mg BID of Lasix. Peripheral edema improved s/p HD sessions. Pre-diabetes with elevated BSs HbA1c 5.7. Blood glucose checks wnl and given normal BG levels and pt lack of compliance stopped. Opioid dependence On oxycodone 20mg Q8H at home for chronic pain. Oxycodone 5mg PO Q4H PRN as needed for pain/withdrawal symptoms was ordered and patient was monitored for signs of opioid withdrawal Chronic peripheral neuropathy According to pt secondary to Pegasys for hep C. Lyrica was held and pt stated that it never improved his symptoms at home but his symptoms were manageable. ADPCKD/Left sided renal cell cancer Status post partial nephrectomy. Aug 2016 MRI: New left sided renal mass and retroperitoneal LAD which is likely stable. Had missed f/u urology appts. Urology will f/u in 2 months, was consulted but did not see need for acute inpatient visit. Patient instructed to: -Follow up with urology for L kidney previous surgery for cancer and new mass found on 2016 MRI Bilateral foot ulcers - L and R 1st toe Wound care was following patient. Chronic Anemia Hemoglobin was 10.1 and remained table. Pt was on Venofer and Epogen 82822 units IV DVT prophylaxis: with warfarin Total Time Spent: Greater than 30 minutes This includes examination of the patient, discharge planning, medication reconciliation, and communication with other providers. (Ruma Kowalski M.D.) Resident Physician Supervision Note: I interviewed and examined the patient. Discussed with Dr. Kowalski and agree with findings and plan as documented in the note. Any exceptions or clarifications are listed here: None Documented By: Billy Lucio feeling better wants to go home vitls noted nad breathing unlabored no pallor or icterus ESRD - home for ongoign HD otherwise as above stable for home (Billy Lucio, D.Gauri.) Discharge Instructions Please refer to the electronic Patient Visit Report (Discharge Instructions) for additional information. (Ruma Kowalski M.D.) Additional Copies To Justen Everett D.O.
== END 2017-05-03 19:07 | disposition home or self-care (01) | DRG 673 ==
LOC: C.EDB 17:44 → C.MED 23:27 → ENRESERV 04-28 00:31 → C.MED 04-30 05:58
PROVIDERS: ADMIT Family Medicine; ATTEND Family Medicine
PROC: 057D3ZZ Dilation of Right Cephalic Vein, Percutaneous Approach (ICD-10-PCS; principal; 2017-05-03 11:00)
DX: N17.9 Acute kidney failure, unspecified (principal); G93.41 Metabolic encephalopathy; I50.9 Heart failure, unspecified; E11.9 Type 2 diabetes mellitus without complications; G47.33 Obstructive sleep apnea (adult) (pediatric); K21.9 Gastro-esophageal reflux disease without esophagitis; B18.2 Chronic viral hepatitis C; E78.5 Hyperlipidemia, unspecified; F32.9 Major depressive disorder, single episode, unspecified; N18.6 End stage renal disease; I48.2 Chronic atrial fibrillation; K74.60 Unspecified cirrhosis of liver; Z79.01 Long term (current) use of anticoagulants

== ENCOUNTER 2017-09-18 16:00 | Emergency (ER) | payer OTHER ==
[~2017-09-18] VITALS: Ht 185.4 cm; Wt 117.9 kg
[~2017-09-18 16:00] MED LIST changes: +CALC-51 PO; +CALC0.2510 PO; -CALC500C70 PO; +CHOL100010 PO; +CTP/1 PO; -FLV1 PO; +FOLI1TAB8 PO; -LDDP5 TD; +METO-596 PO; -METO100T14 PO; -MRLP17X PO; -MULT-506 PO; +MULT-513 PO; +OXYC20TA32 PO; -RXC5 PO; +SENN-61 PO; +WARF5TAB7 PO
[2017-09-18 16:04] VITALS: TEMP 36.7; Ht 185.4 cm; Wt 117.9 kg
[2017-09-18] MEDS ORDERED: SODIUM CHLORIDE 0.9% 500ML 500 ML IV STA (16:26)
[2017-09-18] MEDS ORDERED: FURO80TA63 PO (16:43)
[2017-09-18] MEDS ORDERED: LSN40 PO (16:43)
[2017-09-18] MEDS ORDERED: CRG25 PO (16:43)
[2017-09-18] MEDS ORDERED: CHOL1TAB76 PO (16:43)
[2017-09-18] MEDS ORDERED: OXY/15 PO (16:43)
[2017-09-18] MEDS ORDERED: TRAM-10 PO (16:43)
[2017-09-18] MEDS ORDERED: PLN/10 PO (16:43)
[2017-09-18 16:47] LABS: BASO % 0.4 %; BASO ABS # 0.03 K/uL (0-0.2); EOS % 1.6 %; EOS ABS # 0.11 K/uL (0-0.5); HEMATOCRIT 33.8 % (42-52); HEMOGLOBIN 10.7 g/dL (14.0-18.0); IG# 0.01 K/uL (0.00-0.02); LYMPH % 12.7 %; MEAN CELL VOLUME 99.1 fL (80-100); MEAN CORPUSCULAR HEMOGLOBIN 31.4 pg (25-34); MEAN CORPUSCULAR HGB CONC 31.7 g/dl (32-36); MEAN PLATELET VOLUME 11.4 fL (7.4-10.4); MONO % 5.9 %; MONO ABS # 0.42 K/uL (0.11-0.59); NEUT % 79.3 %; NEUT ABS # 5.59 K/uL (1.4-6.5); PLATELET COUNT 94 K/uL (130-400); RED CELL DISTRIBUTION WIDTH CV 15.9 % (11.5-14.5); WHITE BLOOD COUNT 7.06 K/uL (4.8-10.8)
[2017-09-18 16:52] LABS: ALBUMIN 3.7 gm/dl (3.4-5.0); CALCIUM 9.2 mg/dl (8.5-10.1); POTASSIUM 3.8 mmol/L (3.5-5.1); TOTAL PROTEIN 7.9 gm/dl (6.4-8.2)
[2017-09-18 16:53] LABS: CREATININE 8.99 mg/dl (0.60-1.40)
--- NOTE | 2017-09-18 16:59 | DIAGNOSTIC IMAGING REPORT ---
CHEST ONE VIEW PORTABLE HISTORY: 57 years-old Male weak confusaed acute confusion COMPARISON: Chest radiograph 04/27/2017 TECHNIQUE: Portable AP view of the chest FINDINGS: Cardiac silhouette is again markedly enlarged. No pneumothorax or large pleural effusion. Pulmonary vascular congestion without overt pulmonary edema. No lobar airspace consolidation to suggest pneumonia. Bones of the chest appear grossly intact. Remote healed fracture of the posterior lateral left fourth rib. IMPRESSION: Cardiomegaly and pulmonary vascular congestion without overt pulmonary edema. The above report was generated using voice recognition software. It may contain grammatical, syntax or spelling errors. Electronically signed by: Dany Nunn M.D. 09/18/2017 4:57 PM Dictated Date/Time: 09/18/2017 4:56 PM
[2017-09-18] MEDS ORDERED: NiCARDipine IV 25 MG in SODIUM CHLORIDE 0.9% 250ML 240 ML IV STA (17:11)
[2017-09-18 17:22] LABS: INR 1.2 (0.9-1.1)
--- NOTE | 2017-09-18 17:29 | DIAGNOSTIC IMAGING REPORT ---
HEAD WITHOUT CONTRAST (CT) CLINICAL HISTORY: 57 years-old Male with fall ams on coumadin . Acute fall with altered mental status TECHNIQUE: Multiple axial CT images of the head were obtained without contrast. A dose lowering technique was utilized adhering to the principles of ALARA. CT DOSE: 2295.46 mGy.cm COMPARISON: CT head 04/27/2017. FINDINGS: There is a lobulated ovoid 1.4 x 2.0 x 2.3 cm focus which appears to be centered within the region of the trigone left lateral ventricle. There is extensive associated vasogenic edema within the left frontal parietal lobe and additionally there is dilation of the frontal horns measuring up to 4.0 cm transversely, previously 3.1 cm. Temporal horns, occipital lines and third and fourth fourth ventricles are also mildly dilated. No definite intracranial hemorrhage. There is 3 mm rightward midline shift. No territorial infarction identified. No additional intracranial or intraventricular mass is identified. No calvarial fracture. The mastoid air cells and middle ear cavities are clear. Mild mucosal thickening of the ethmoid air cells. Soft tissues are unremarkable. Orbits appear symmetric. IMPRESSION: 1. Lobulated ovoid hyperattenuating lesion within the trigone left lateral ventricle measuring up to 2.3 cm is noted in addition to extensive associated vasogenic edema within the left frontal and parietal lobes with 3 mm rightward midline shift. Additionally, there is moderate dilation of the lateral, third and fourth ventricles compatible with associated hydrocephalus. Differential considerations would include spontaneous intraventricular hemorrhage, hemorrhagic or cellular neoplasm. Further evaluation with MRI both with and without contrast recommended. 2. No territorial infarction or additional mass lesions identified. Findings were discussed with Dr. Chaudhary on 09/18/2017 at 5:25 PM The above report was generated using voice recognition software. It may contain grammatical, syntax or spelling errors. Electronically signed by: Dany Nunn M.D. 09/18/2017 5:27 PM Dictated Date/Time: 09/18/2017 5:11 PM
[2017-09-18] MEDS ORDERED: PHYTONADIONE INJ 10 MG in SODIUM CHLORIDE 0.9% 50ML 50 ML IV ONE (17:30)
[2017-09-18] MEDS ORDERED: DEXAMETHASONE INJ 10 MG in SYRINGE 0 ML IV STA (17:40)
[2017-09-18] MEDS ORDERED: PROTHROMBIN COMP CONC- KCENTRA 2,500 UNIT in SYRINGE 0 ML IV ONE (17:45)
--- NOTE | 2017-09-18 17:45 | DIAGNOSTIC IMAGING REPORT ---
ABDOMEN AND PELVIS CT WITHOUT CONTRAST HISTORY: Acute generalized abdominal pain. Altered mental status with nausea and vomiting. Recent fall. abd pain TECHNIQUE: Multiaxial CT images of the abdomen and pelvis were performed without contrast. A dose lowering technique was utilized adhering to the principles of ALARA. COMPARISON STUDY: CT pelvis 04/11/2017, CT abdomen and pelvis 10/09/2014. FINDINGS: Evaluation of the lung bases is limited secondary to respiratory motion. 11 mm pulmonary nodule is present within the posterior basal segment left lower lobe on image 95 series 5. Linear 1.5 cm nodular opacity suggests area of scarring/atelectasis abutting the pleura. There are patchy groundglass opacities of the bilateral lung bases. Study is limited secondary to lack of contrast in positioning of the patient's arms. There is no pneumatosis or pneumoperitoneum identified. Imaged cardiac chambers are extensively enlarged. Coronary arterial disease. Cirrhotic morphology of the liver redemonstrated. No intrahepatic biliary ductal dilation. Cholelithiasis with mild gallbladder distention. No CT evidence of acute cholecystitis. Indeterminate low attenuating 2.6 x 2.9 cm lesion involves the subcapsular mid spleen. Spleen is enlarged measuring 19 cm in length. Pancreas is unremarkable. Thickening of the bilateral adrenal glands suggests adrenal hyperplasia. Enlarged kidneys with innumerable bilateral renal cysts redemonstrated. Several of the cysts demonstrate partially calcified internal septations and demonstrate varying degrees of internal complexity. Calcifications of the left kidney also may reflect nephrolithiasis. No ureteral calculi or hydronephrosis. Ureters are normal in caliber. Partial collapse of the urinary bladder lumen with wall thickening and mild perivesicular stranding. Mild prostamegaly. Unchanged dilated vasculature of the left hemipelvis appears chronic dating back to multiple studies. There is dilation of the IVC and left common iliac vein. Moderate atherosclerosis of the aorta without aneurysm. There is no bowel obstruction identified. Mild colonic diverticulosis without diverticulitis. There is dilution of the previously noted right gluteal hematoma. Soft tissues are unremarkable. Bones appear moderately demineralized. Plate and screw fusion hardware with chronic fragmentation of the bilateral pubic bones. Multilevel degenerative changes of the spine. Remote bilateral rib fractures. IMPRESSION: 1. No acute intra-abdominal or intrapelvic abnormality identified. No evidence of bowel obstruction or focal bowel wall thickening. 2. Autosomal dominant polycystic kidney disease. Nephrolithiasis without ureteral calculi or obstructive uropathy. 3. Cholelithiasis without CT evidence of acute cholecystitis. 4. Cirrhotic morphology of the liver. 5. Splenomegaly with indeterminate low attenuating 2.9 cm lesion of the mid spleen. 6. Marked cardiomegaly. 7. 1.1 cm nodule of the left lower lobe. 8. Additional findings as above. Please refer to below summary of Fleischner criteria recommendations for follow-up of incidental CT nodules (Aguilar Keenan, Guidelines for management of small pulmonary nodules detected on CT scans: A statement from the Fleischner Society, Radiology 237: [phone].) SOLID NODULES Solitary nodule size: >8 mm * either low or high risk patients - consider follow-up CT at 3 months, and/or CT-PET, and/or biopsy Note: newly detected indeterminate nodule in persons 35 years of age or older. * Low risk patients: minimal or absent history of smoking and/or other known risk factors * high risk patients: history of smoking or of other known risk factors (e.g. first degree relative with lung cancer, or exposure to asbestos, radon, uranium) * if a nodule up to 8 mm is partly solid or is ground glass further follow-up is required after 24 months to exclude possible slow growing adenocarcinoma (SHAUNNA) The above report was generated using voice recognition software. It may contain grammatical, syntax or spelling errors. Electronically signed by: Dany Nunn M.D. 09/18/2017 5:43 PM Dictated Date/Time: 09/18/2017 5:31 PM
[2017-09-18] MEDS ORDERED: DEXAMETHASONE **PF** INJ 10 MG/ML VIAL ONE (17:58)
[2017-09-18] MEDS ORDERED: MoRPHine SULFATE 4 MG/ML 1 ML CARP\\VIAL IV STA (18:07)
[2017-09-18] MEDS ORDERED: ONDANSETRON INJ 2 MG/ML 2 ML VIAL IV STA (18:07)
--- NOTE | 2017-09-18 19:38 | EMERGENCY ROOM VISIT NOTE ---
History Report prepared by Ja: Isha Rivera Under the Supervision of: Dr. Billy Chaudhary DRejiO. First contact with patient: 16:12 Chief Complaint: NAUSEA Stated Complaint: NAUSEA, VOMIT, DIZZY Nursing Triage Summary: pt arrives with nausea, vomiting and dizziness starting today He receives dialysis MWF He states he fell yesterday History of Present Illness The patient is a 57 year old male who presents to the Emergency Room with complaints of persistent nausea that began 6 hours ago. The patient states that he began vomiting this morning, noting he vomited 3 times today. He states that he has had a headache for about 3 days. He notes his last bowel movement was this morning. The patient states that he urinates about one time a day. His states that the patient has been imbalanced, falling frequently, and suffering from some short term memory loss for the past week. She notes that he fell a few days ago and hit his head. The patient states he has been going to dialysis for 6 months for his kidney disease, noting his last dialysis was 2 days ago. He notes that he is on blood thinners. Pt denies change in vision, fevers, chest pain, shortness of breath, diarrhea, pain with urination, and melena. Source of History: patient Onset: 6 hours ago Position: other (global) Quality: other (nausea) Timing: other (persistent) Associated Symptoms: + headache, + vomiting, No fevers, No chest pain, No SOB, No melena, No diarrhea, No urinary symptoms Review of Systems See HPI for pertinent positives & negatives. A total of 10 systems reviewed and were otherwise negative. Past Medical & Surgical Medical Problems: (1) Acute on chronic renal failure (2) Anemia (3) ANTICOAGULANTS,LT,CURRENT USE (4) ATRIAL FIBRILLATION (5) Talley's cyst of knee (6) Chronic diastolic CHF (congestive heart failure) (7) CKD (chronic kidney disease) (8) Depression (9) DM type 2 (diabetes mellitus, type 2) (10) Edema (11) ESRD needing dialysis (12) Fatty liver (13) GERD (gastroesophageal reflux disease) (14) Hepatitis C, chronic (15) History of alcohol abuse (16) History of DVT (deep vein thrombosis) (17) History of hematuria (18) HYPERLIPIDEMIA NEC/NOS (19) Hypertension (20) HYPERTENSION NOS (21) LVH (left ventricular hypertrophy) (22) Obstructive sleep apnea (23) Polycystic kidney disease (24) Renal mass, left (25) Secondary hyperparathyroidism of renal origin (26) SOB (shortness of breath) (27) Status post amputation of toe of left foot (28) Toe ulcer Surgical Problems: (1) H/O colonoscopy (2) H/O endoscopy (3) H/O partial nephrectomy (4) Hx of appendectomy (5) pelvic fracture repair Family History Hypertension FATHER LUNG DISORDER FATHER Social History Smoking Status: Never Smoker Alcohol Use: none Drug Use: none Marital Status: single Housing Status: lives alone Occupation Status: disabled Current/Historical Medications Scheduled Allopurinol (Zyloprim), 100 MG PO BID Carvedilol (Carvedilol), 25 MG PO DAILY Cholecalciferol (D 2000), 2,000 UNITS PO DAILY Clonidine Hcl (Catapres), 0.1 MG PO BID Felodipine (Felodipine ER), 5 MG PO DAILY Folic Acid (Folvite), 1 MG PO BID Furosemide (Lasix), 40 MG PO BID Lisinopril (Lisinopril), 40 MG PO DAILY Metoprolol Tartrate (Lopressor), 150 MG PO BID Pregabalin (Lyrica), 100 MG PO BID Warfarin Sod (Jantoven), 2.5 MG PO QPM Scheduled PRN Furosemide (Lasix), 80 MG PO DIRECTED PRN for EDEMA WORSENS Oxycodone Hcl (Oxycodone Hcl), 15 MG PO Q4H PRN for Pain Tramadol (Ultram), 50 MG PO Q8H PRN for Pain Allergies Coded Allergies: Piperacillin (Verified Adverse Reaction, Severe, "makes me goofy", 09/18/17 ) Tazobactam (Verified Adverse Reaction, Severe, "makes me goofy", 09/18/17) Physical Exam Vital Signs Date Time Temp Pulse Resp B/P (MAP) Pulse Ox O2 Delivery O2 Flow Rate FiO2 09/18/17 19:40 80 16 161/75 98 Room Air 09/18/17 19:06 70 18 163/85 96 Room Air 09/18/17 18:03 70 20 148/78 98 Nasal Cannula 2.0 09/18/17 17:32 71 20 141/78 93 09/18/17 17:18 71 09/18/17 16:04 36.7 98 16 161/78 98 Room Air Physical Exam GENERAL: Sitting up in bed, alert, chronically ill-appearing, disheveled, well nourished, no distress EYE EXAM: normal conjunctiva. OROPHARYNX: no exudate, no erythema, lips, buccal mucosa, and tongue normal and mucous membranes are moist NECK: supple, no nuchal rigidity, no adenopathy, non-tender LUNGS: Diminished at bilateral bases. Normal chest wall mechanics HEART: no murmurs, S1 normal and S2 normal ABDOMEN: abdomen soft, non-tender, normo-active bowel sounds, no masses, no rebound or guarding. BACK: Back is symmetrical on inspection and there is no deformity, no midline tenderness, no CVA tenderness. SKIN: no rashes and no bruising UPPER EXTREMITIES: Positive right bruit to right forearm. LOWER EXTREMITIES: No pitting edema. NEURO EXAM: Awake, alert, following commands but confused. cranial nerves II- XII grossly intact, normal speech, no gross weakness of arms, no gross weakness of legs. Finger to nose difficult to perform but intact. Medical Decision & Procedures ER Provider Diagnostic Interpretation: Radiology results as stated below per my review and the radiologist's interpretation: CHEST ONE VIEW PORTABLE HISTORY: 57 years-old Male weak confusaed acute confusion COMPARISON: Chest radiograph 04/27/2017 TECHNIQUE: Portable AP view of the chest FINDINGS: Cardiac silhouette is again markedly enlarged. No pneumothorax or large pleural effusion. Pulmonary vascular congestion without overt pulmonary edema. No lobar airspace consolidation to suggest pneumonia. Bones of the chest appear grossly intact. Remote healed fracture of the posterior lateral left fourth rib. IMPRESSION: Cardiomegaly and pulmonary vascular congestion without overt pulmonary edema. The above report was generated using voice recognition software. It may contain grammatical, syntax or spelling errors. Electronically signed by: Dany Nunn M.D. 09/18/2017 4:57 PM Dictated Date/Time: 09/18/2017 4:56 PM HEAD WITHOUT CONTRAST (CT) CLINICAL HISTORY: 57 years-old Male with fall ams on coumadin . Acute fall with altered mental status TECHNIQUE: Multiple axial CT images of the head were obtained without contrast. A dose lowering technique was utilized adhering to the principles of ALARA. CT DOSE: 2295.46 mGy.cm COMPARISON: CT head 04/27/2017. FINDINGS: There is a lobulated ovoid 1.4 x 2.0 x 2.3 cm focus which appears to be centered within the region of the trigone left lateral ventricle. There is extensive associated vasogenic edema within the left frontal parietal lobe and additionally there is dilation of the frontal horns measuring up to 4.0 cm transversely, previously 3.1 cm. Temporal horns, occipital lines and third and fourth fourth ventricles are also mildly dilated. No definite intracranial hemorrhage. There is 3 mm rightward midline shift. No territorial infarction identified. No additional intracranial or intraventricular mass is identified. No calvarial fracture. The mastoid air cells and middle ear cavities are clear. Mild mucosal thickening of the ethmoid air cells. Soft tissues are unremarkable. Orbits appear symmetric. IMPRESSION: 1. Lobulated ovoid hyperattenuating lesion within the trigone left lateral ventricle measuring up to 2.3 cm is noted in addition to extensive associated vasogenic edema within the left frontal and parietal lobes with 3 mm rightward midline shift. Additionally, there is moderate dilation of the lateral, third and fourth ventricles compatible with associated hydrocephalus. Differential considerations would include spontaneous intraventricular hemorrhage, hemorrhagic or cellular neoplasm. Further evaluation with MRI both with and without contrast recommended. 2. No territorial infarction or additional mass lesions identified. Findings were discussed with Dr. Chaudhary on 09/18/2017 at 5:25 PM The above report was generated using voice recognition software. It may contain grammatical, syntax or spelling errors. Electronically signed by: Dany Nunn M.D. 09/18/2017 5:27 PM Dictated Date/Time: 09/18/2017 5:11 PM [address] AND PELVIS CT WITHOUT CONTRAST HISTORY: Acute generalized abdominal pain. Altered mental status with nausea and vomiting. Recent fall. abd pain TECHNIQUE: Multiaxial CT images of the abdomen and pelvis were performed without contrast. A dose lowering technique was utilized adhering to the principles of ALARA. COMPARISON STUDY: CT pelvis 04/11/2017, CT abdomen and pelvis 10/09/2014. FINDINGS: Evaluation of the lung bases is limited secondary to respiratory motion. 11 mm pulmonary nodule is present within the posterior basal segment left lower lobe on image 95 series 5. Linear 1.5 cm nodular opacity suggests area of scarring/atelectasis abutting the pleura. There are patchy groundglass opacities of the bilateral lung bases. Study is limited secondary to lack of contrast in positioning of the patient's arms. There is no pneumatosis or pneumoperitoneum identified. Imaged cardiac chambers are extensively enlarged. Coronary arterial disease. Cirrhotic morphology of the liver redemonstrated. No intrahepatic biliary ductal dilation. Cholelithiasis with mild gallbladder distention. No CT evidence of acute cholecystitis. Indeterminate low attenuating 2.6 x 2.9 cm lesion involves the subcapsular mid spleen. Spleen is enlarged measuring 19 cm in length. Pancreas is unremarkable. Thickening of the bilateral adrenal glands suggests adrenal hyperplasia. Enlarged kidneys with innumerable bilateral renal cysts redemonstrated. Several of the cysts demonstrate partially calcified internal septations and demonstrate varying degrees of internal complexity. Calcifications of the left kidney also may reflect nephrolithiasis. No ureteral calculi or hydronephrosis. Ureters are normal in caliber. Partial collapse of the urinary bladder lumen with wall thickening and mild perivesicular stranding. Mild prostamegaly. Unchanged dilated vasculature of the left hemipelvis appears chronic dating back to multiple studies. There is dilation of the IVC and left common iliac vein. Moderate atherosclerosis of the aorta without aneurysm. There is no bowel obstruction identified. Mild colonic diverticulosis without diverticulitis. There is dilution of the previously noted right gluteal hematoma. Soft tissues are unremarkable. Bones appear moderately demineralized. Plate and screw fusion hardware with chronic fragmentation of the bilateral pubic bones. Multilevel degenerative changes of the spine. Remote bilateral rib fractures. IMPRESSION: 1. No acute intra-abdominal or intrapelvic abnormality identified. No evidence of bowel obstruction or focal bowel wall thickening. 2. Autosomal dominant polycystic kidney disease. Nephrolithiasis without ureteral calculi or obstructive uropathy. 3. Cholelithiasis without CT evidence of acute cholecystitis. 4. Cirrhotic morphology of the liver. 5. Splenomegaly with indeterminate low attenuating 2.9 cm lesion of the mid spleen. 6. Marked cardiomegaly. 7. 1.1 cm nodule of the left lower lobe. 8. Additional findings as above. Please refer to below summary of Fleischner criteria recommendations for follow-up of incidental CT nodules (Aguilar Keenan, Guidelines for management of small pulmonary nodules detected on CT scans: A statement from the Fleischner Society, Radiology 237: [id number].) SOLID NODULES Solitary nodule size: >8 mm * either low or high risk patients - consider follow-up CT at 3 months, and/or CT-PET, and/or biopsy Note: newly detected indeterminate nodule in persons 35 years of age or older. * Low risk patients: minimal or absent history of smoking and/or other known risk factors * high risk patients: history of smoking or of other known risk factors (e.g. first degree relative with lung cancer, or exposure to asbestos, radon, uranium) * if a nodule up to 8 mm is partly solid or is ground glass further follow-up is required after 24 months to exclude possible slow growing adenocarcinoma (SHAUNNA) The above report was generated using voice recognition software. It may contain grammatical, syntax or spelling errors. Electronically signed by: Dany Nunn M.D. 09/18/2017 5:43 PM Dictated Date/Time: 09/18/2017 5:31 PM Laboratory Results 09/18/17 15:18 Red Blood Count 3.41, Mean Corpuscular Volume 99.1, Mean Corpuscular Hemoglobin 31.4, Mean Corpuscular Hemoglobin Concent 31.7, Mean Platelet Volume 11.4, Neutrophils (%) (Auto) 79.3, Lymphocytes (%) (Auto) 12.7, Monocytes (%) (Auto) 5.9, Eosinophils (%) (Auto) 1.6, Basophils (%) (Auto) 0.4, Neutrophils # (Auto) 5.59, Lymphocytes # (Auto) 0.90, Monocytes # (Auto) 0.42, Eosinophils # (Auto) 0.11, Basophils # (Auto) 0.03 09/18/17 15:18 Test 09/18/17 15:18 09/18/17 17:25 White Blood Count 7.06 K/uL (4.8-10.8) Red Blood Count 3.41 M/uL (4.7-6.1) Hemoglobin 10.7 g/dL (14.0-18.0) Hematocrit 33.8 % (42-52) Mean Corpuscular Volume 99.1 fL (80-100) Mean Corpuscular Hemoglobin 31.4 pg (25-34) Mean Corpuscular Hemoglobin Concent 31.7 g/dl (32-36) Platelet Count 94 K/uL (130-400) Mean Platelet Volume 11.4 fL (7.4-10.4) Neutrophils (%) (Auto) 79.3 % Lymphocytes (%) (Auto) 12.7 % Monocytes (%) (Auto) 5.9 % Eosinophils (%) (Auto) 1.6 % Basophils (%) (Auto) 0.4 % Neutrophils # (Auto) 5.59 K/uL (1.4-6.5) Lymphocytes # (Auto) 0.90 K/uL (1.2-3.4) Monocytes # (Auto) 0.42 K/uL (0.11-0.59) Eosinophils # (Auto) 0.11 K/uL (0-0.5) Basophils # (Auto) 0.03 K/uL (0-0.2) RDW Standard Deviation 57.0 fL (36.4-46.3) RDW Coefficient of Variation 15.9 % (11.5-14.5) Immature Granulocyte % (Auto) 0.1 % Immature Granulocyte # (Auto) 0.01 K/uL (0.00-0.02) Platelet Estimate DECREASED Prothrombin Time 12.9 SECONDS (9.0-12.0) Prothromb Time International Ratio 1.2 (0.9-1.1) Anion Gap 9.0 mmol/L (3-11) Est Creatinine Clear Calc Drug Dose 12.2 ml/min Estimated GFR () 6.8 Estimated GFR (Non- 5.8 BUN/Creatinine Ratio 4.5 (10-20) Calcium Level 9.2 mg/dl (8.5-10.1) Total Bilirubin 0.8 mg/dl (0.2-1) Direct Bilirubin 0.3 mg/dl (0-0.2) Aspartate Amino Transf (AST/SGOT) 13 U/L (15-37) Alanine Aminotransferase (ALT/SGPT) 21 U/L (12-78) Alkaline Phosphatase 85 U/L (45-117) Troponin I 0.118 ng/ml (0-0.045) Total Protein 7.9 gm/dl (6.4-8.2) Albumin 3.7 gm/dl (3.4-5.0) Lipase 328 U/L (73-393) Bedside Prothrombin Time INR 1.5 (0.9-1.1) Laboratory results per my review. Medications Administered Medications (Trade) Dose Ordered Sig/Efrain Route Start Time Stop Time Status Last Admin Dose Admin Sodium Chloride 500 ml @ 999 mls/hr Q31M STAT IV 09/18/17 16:26 09/18/17 16:56 DC 09/18/17 16:26 999 MLS/HR Prothrombin Complex Concent (Human) 2500 unit/ Syringe 100 ml @ 10 mls/min TODAY@1745 ONCE IV 09/18/17 17:45 09/18/17 17:54 DC 09/18/17 17:35 10 MLS/MIN Phytonadione 10 mg/Sodium Chloride 51 ml @ 102 mls/hr TODAY@1730 ONCE IV 09/18/17 17:30 09/18/17 17:59 DC 09/18/17 17:54 102 MLS/HR Dexamethasone Sodium Phosphate (Dexamethasone Inj Pf) 10 mg STK-MED ONCE .ROUTE 09/18/17 17:58 09/18/17 17:59 DC 09/18/17 18:00 10 MG Morphine Sulfate (MoRPHine SULFATE INJ) 4 mg NOW STAT IV 09/18/17 18:07 09/18/17 18:08 DC 09/18/17 18:14 4 MG Ondansetron HCl (Zofran Inj) 4 mg NOW STAT IV 09/18/17 18:07 09/18/17 18:08 DC 09/18/17 18:14 4 MG ECG Indication: nausea Rate (beats per minute): 69 Rhythm: atrial fibrillation Findings: RBBB, other (right axis deviation) Change: Patient's Electrocardiogram interpreted by ut ED Course ED COURSE: Vital signs were reviewed and showed hypertension. The patients medical record was reviewed The above diagnostic studies were performed and reviewed. ED treatments and interventions as stated above. 1617: The patient was evaluated in room B4. A complete history and physical examination was performed. 1626: Ordered Sodium Chloride 500 ml @ 999 mls/hr IV. 1711: Ordered Nicardipine HCL 25mg/ Sodium Chloride 250ml @ 0 mls/hr IV. 1720: Attempted to obtain INR stat unsuccessfully. 1730: Ordered Phytonadione 10 mg/ Sodium Chloride 51 ml @ 102mls/hr IV. 1731: I reevaluated the patient, who was resting. I updated him and his on test findings. 1740: Ordered Dexamethasone Sodium Phosphate 10/ Syringe 2.5ml @ 1 mls/min IV. 1745: Ordered Prothrombin Complex Concent 2500 unit/ Syringe 100 ml @ 10 mls/ min IV. 174: I reviewed the patient's case with dr. Milian, FELI and Dr. Canseco [facility]. They suggested reversal and transfer of the patient. Systolic blood pressure is 170. 175: I reevaluated the patient and updated the family. He is a full code. 1757: Ordered Dexamethasone Sodium Phosphate 10mg. 1806: Ordered Zofran Inj 4mg IV and Morphine Sulfate 4mg IV. 1899: I reevaluated the patient, he is doing okay. He states his pain improved with morphine. 1923: Bed was found, the patient is waiting for transportation to transfer him. Medical Decision Differential diagnoses includes but is not limited to toxic, metabolic, infectious, traumatic, cardiac, neurologic, hematologic, psychiatric and inflammatory etiologies. Patient is a 57-year-old male with a steady decline in mentation over the course of the past week. Patient fell last night it is on blood thinners. CBC shows a mild anemia. EMP shows an elevated creatinine as expected. Troponin was elevated at 0.11. INR was therapeutic at 1.5. CT head was obtained and showed a large mass with a possible intraventricular bleed. Discussed with radiology. I discussed with hematology as well. He gives case and treatment. Discussed with [facility]surgery from [facility] after updating family. Patient was given steroids due to the large amount of vasogenic edema. Patient and family were updated. Patient was accepted by neurosurgery at [facility]. Will not treat blood pressure at this time per the request. She was transferred via ALS with a large intracranial mass, ? Bleed on blood thinners with kcentra given to reverse the INR and steroids given for the large vasogenic edema. Patient was reversed as he is on blood thinners for A. fib. Medication Reconcilliation Current Medication List: was personally reviewed by me Impression Primary Impression: Brain mass Additional Impressions: Cerebral edema Elevated troponin Chronic kidney disease Intraventricular hemorrhage Critical Care I have personally spent 75 minutes of critical care time in the direct management of this patient. This includes bedside care, interpretation of diagnostic studies, and testing, discussion with consultants, patient, and family members, and other required patient management activities. This 75 minutes is in excess of all separately billable procedures. Scribe Attestation The scribe's documentation has been prepared under my direction and personally reviewed by me in its entirety. I confirm that the note above accurately reflects all work, treatment, procedures, and medical decision making performed by me. Departure Information Dispostion Discharge/Transfer to [facility] Referrals Justen Everett D.O. (PCP) Forms HOME CARE DOCUMENTATION FORM, IMPORTANT VISIT INFORMATION Patient Instructions My [facility] Problem Qualifiers Additional Impressions: Chronic kidney disease Chronic kidney disease stage: unspecified stage Qualified Codes: N18.9 - Chronic kidney disease, unspecified
[2017-09-18 19:40] VITALS: BP 161/75; PULSE 80; O2SAT 98
[2017-09-18] MEDS ORDERED: ONDANSETRON INJ 2 MG/ML 2 ML VIAL ONE (22:31)
[2017-09-18] MEDS ORDERED: MoRPHine SULFATE 10 MG/ML CARP/VIAL ONE (22:33)
== END 2017-09-18 20:25 | disposition short-term general hospital (02) ==
LOC: EDBD 16:00 → C.EDB 16:02
DX: R22.0 Localized swelling, mass and lump, head (principal); G93.6 Cerebral edema; R79.1 Abnormal coagulation profile; I61.5 Nontraumatic intracerebral hemorrhage, intraventricular; I51.7 Cardiomegaly; R11.2 Nausea with vomiting, unspecified; R42 Dizziness and giddiness; N18.9 Chronic kidney disease, unspecified; R16.1 Splenomegaly, not elsewhere classified

== ENCOUNTER 2017-11-15 15:34 | Inpatient (IN) | payer OTHER ==
[~2017-11-15] VITALS: Ht 185.4 cm; Wt 112.8 kg
[~2017-11-15 15:34] MED LIST changes: -CALC-51 PO; -CALC0.2510 PO; -CHOL100010 PO; +CHOL1TAB76 PO; +CRG25 PO; +FURO80TA63 PO; +LSN40 PO; -MULT-513 PO; +OXY/15 PO; -OXYC20TA32 PO; +PLN/10 PO; -SENN-61 PO; +TRAM-10 PO
[2017-11-15] MEDS ORDERED: HYDROmorphone INJ 0.5 MG/0.5 ML SYR ONE (17:33)
[2017-11-15] MEDS ORDERED: ACETAMINOPHEN IV 650 MG in EMPTY BAG 0 ML IV PRN (17:45)
[2017-11-15] MEDS ORDERED: HYDROmorphone INJ 0.5 MG/0.5 ML SYR IV PRN (17:45)
[2017-11-15] MEDS ORDERED: LORAZEPAM 2 MG/ML 1 ML VIAL IV PRN ×2 (17:45)
[2017-11-15] MEDS ORDERED: PROMETHAZINE HCL INJ 12.5 MG in SODIUM CHLORIDE 0.9% 50ML 50 ML IV PRN (17:45)
[2017-11-15] MEDS ORDERED: ONDANSETRON INJ 2 MG/ML 2 ML VIAL IV PRN (17:45)
[2017-11-15 18:00] VITALS: BP 155/84; PULSE 113; TEMP 38.7; Ht 185.4 cm; Wt 112.8 kg
[2017-11-15] MEDS ORDERED: NURSING VERBAL MED ORDER ONE (18:00)
[2017-11-15] MEDS ORDERED: GLYCOPYRROLATE INJ 0.2 MG/ML VIAL IV PRN (18:00)
[2017-11-15] MEDS ORDERED: PATIENT'S HEIGHT AND/OR WEIGHT NEEDED SCH (18:15)
[2017-11-15] MEDS ORDERED: LORAZEPAM INJ 1 MG in SYRINGE 0.5 ML IV PRN (18:45)
[2017-11-15] MEDS ORDERED: SCOPOLAMINE 1.5 MG TDSY TD SCH (18:45)
[2017-11-15] MEDS ORDERED: LORAZEPAM INJ 0.5 MG in SYRINGE 0.75 ML IV PRN (18:45)
--- NOTE | 2017-11-15 18:49 | History and Physical ---
History & Physical Date & Time of Service: Nov 15, 2017 at 18:29 Chief Complaint: Metastatic Brain Cancer Primary Care Physician: Justen Everett D.O. History of Present Illness 57 M was sent in from home hospice due to a pain crisis, the pt was enrolled into hospice today and immediately sent to hospital for hospice care. the pt was recently diagnosed with a brain tumor in our ER and sent to [facility], according to his mother who I spoke to stated their goals of care are to control his pain and for him to return to home on hospice. She did state that there was a decision today to stop dialysis for ESRD and she did mention that she also thought that he had kidney cancer. the patient is obtunded and moaning in pain he has obvious diabetic foot issues and open sores on his toes and has rash on his legs and romy some some appearing to be petechae, he was found to have his stacey hose taped to his legs Past Medical/Surgical History Medical Problems: (1) Acute on chronic renal failure (2) CORNELIO (acute kidney injury) (3) Ambulatory dysfunction (4) Anemia (5) ANTICOAGULANTS,LT,CURRENT USE (6) ATRIAL FIBRILLATION (7) Talley's cyst of knee (8) Brain mass (9) Brain mass (10) Cerebral edema (11) Cerebral edema (12) Chronic diastolic CHF (congestive heart failure) (13) Chronic kidney disease (14) Chronic kidney disease (15) CKD (chronic kidney disease) (16) Depression (17) DM type 2 (diabetes mellitus, type 2) (18) Edema (19) Elevated troponin (20) Elevated troponin (21) ESRD needing dialysis (22) Fatty liver (23) Foot ulcer (24) GERD (gastroesophageal reflux disease) (25) Heart failure (26) Hepatitis C, chronic (27) History of alcohol abuse (28) History of DVT (deep vein thrombosis) (29) History of hematuria (30) Hospice care (31) HYPERLIPIDEMIA NEC/NOS (32) Hypertension (33) HYPERTENSION NOS (34) Intramuscular hematoma (35) Intraventricular hemorrhage (36) LVH (left ventricular hypertrophy) (37) Metabolic encephalopathy (38) Non-ST elevation [place] (NSTEMI) (39) Obstructive sleep apnea (40) Polycystic kidney disease (41) Renal failure (ARF), acute on chronic (42) Renal mass, left (43) Secondary hyperparathyroidism of renal origin (44) SOB (shortness of breath) (45) Status post amputation of toe of left foot (46) Supratherapeutic INR (47) Toe ulcer (48) Uremia Surgical Problems: (1) H/O colonoscopy (2) H/O endoscopy (3) H/O partial nephrectomy (4) Hx of appendectomy (5) pelvic fracture repair Family History Hypertension FATHER LUNG DISORDER FATHER Social History Smoking Status: Never Smoker Drug Use: none Marital Status: single Housing status: lives alone, lives with family Occupational Status: disabled Immunizations History of Influenza Vaccine: No History of Tetanus Vaccine?: Yes History of Pneumococcal: No History of Hepatitis B Vaccine: Yes Allergies Coded Allergies: Piperacillin (Verified Adverse Reaction, Severe, "makes me goofy", 09/18/17 ) Tazobactam (Verified Adverse Reaction, Severe, "makes me goofy", 09/18/17) Home Medications Scheduled Allopurinol (Zyloprim), 100 MG PO BID Carvedilol (Carvedilol), 25 MG PO DAILY Cholecalciferol (D 2000), 2,000 UNITS PO DAILY Clonidine Hcl (Catapres), 0.1 MG PO BID Felodipine (Felodipine ER), 5 MG PO DAILY Folic Acid (Folvite), 1 MG PO BID Furosemide (Lasix), 40 MG PO BID Lisinopril (Lisinopril), 40 MG PO DAILY Metoprolol Tartrate (Lopressor), 150 MG PO BID Pregabalin (Lyrica), 100 MG PO BID Warfarin Sod (Jantoven), 2.5 MG PO QPM Scheduled PRN Furosemide (Lasix), 80 MG PO DIRECTED PRN for EDEMA WORSENS Oxycodone Hcl (Oxycodone Hcl), 15 MG PO Q4H PRN for Pain Tramadol (Ultram), 50 MG PO Q8H PRN for Pain Review of Systems unable to obtain due to lethargy Physical Exam Vital Signs Date Time Temp Pulse Resp B/P (MAP) Pulse Ox O2 Delivery O2 Flow Rate FiO2 11/15/17 18:00 38.7 113 22 155/84 General Appearance: WD/WN, + severe distress, + obese Head: normocephalic, atraumatic Eyes: normal inspection, sclerae normal Respiratory/Chest: chest non-tender, lungs clear, + pertinent finding ( tachypenic and labored) Cardiovascular: regular rate, rhythm, no murmur Abdomen/GI: normal bowel sounds, non tender, soft Genitourinary - Male: normal male genitalia, normal testicles Extremities/Musculoskelatal: + pertinent finding (pt has open sores on toes 1,2 , of both feet and left 3rd toe) Neurologic/Psych: + pertinent finding (obtunded but moans in pain to movement) Impression Assessment and Plan 57 M with recently found brain mass described as cancerous by his mother, he is on outpt hospice with goals of care to control pain and return to home Hospice care, will have hydromorphone, fentanyl patch, ativan and oxygen, palliative care consult My concern is that given he is stopping Dialysis I am doubtful that the pt will leave the hospital as we are not treating his ESRD IN regard to his diabetes, given his obtunded state and npo status, will not have glucose checks unless he awakens and eats with regard to vasogenic edema initially described, will try decadron to see if he awakens and starts to eat given his cardiac disease we are stopping all cardiac meds initially DVT prevention was considered but given his hospice status will not pursue chemical or mechanical means Advanced Directives Existing Living Will: No Existing Power of Lithograph Press Feeder: No Resuscitation Status VTE Prophylaxis Will order VTE Prophylaxis: Yes
[2017-11-15] MEDS ORDERED: FENTANYL PATCH REMOVE & WASTE SCH (19:00)
[2017-11-15] MEDS ORDERED: FENTANYL 25 MCG/HR TDSY TD SCH (19:00)
[2017-11-15] MEDS: DEXAMETHASONE INJ 4 MG in SYRINGE 0 ML IV SCH (19:27)
[2017-11-15 20:00] VITALS: TEMP 37.4
[2017-11-16] MEDS: HYDROmorphone INJ 1 MG/ML SYR IV PRN ×4 (01:53→19:07)
[2017-11-16] MEDS: DEXAMETHASONE INJ 4 MG in SYRINGE 0 ML IV SCH ×3 (03:29→19:07)
--- NOTE | 2017-11-16 07:10 | Progress Note ---
Subjective Date of Service: Nov 16, 2017. Subjective Patient is obtunded only moving to examination does not respond to verbal response ,moans at times Problem List Medical Problems: (1) CORNELIO (acute kidney injury) Status: Acute (2) Ambulatory dysfunction Status: Acute (3) Brain mass Status: Acute (4) Cerebral edema Status: Acute (5) Chronic kidney disease Status: Acute (6) Elevated troponin Status: Acute (7) Foot ulcer Status: Acute (8) Heart failure Status: Acute (9) Intramuscular hematoma Status: Acute (10) Metabolic encephalopathy Status: Acute (11) Non-ST elevation [place] (NSTEMI) Status: Acute (12) Renal failure (ARF), acute on chronic Status: Acute (13) Renal mass, left Permanent Comment: 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 Status: Chronic (14) Supratherapeutic INR Status: Acute (15) Uremia Status: Acute Review of Systems Constitutional: + problem reported (Review of systems is unobtainable as the patient is nonverbal) Objective Vital Signs Date Time Temp Pulse Resp B/P (MAP) Pulse Ox O2 Delivery O2 Flow Rate FiO2 11/16/17 00:10 Nasal Cannula 2.0 11/15/17 22:00 Nasal Cannula 2.0 11/15/17 20:00 37.4 11/15/17 18:00 38.7 113 22 155/84 Physical Exam General Appearance: WD/WN, + moderate distress Respiratory/Chest: + respiratory distress, + decreased breath sounds Cardiovascular: regular rate, rhythm, no murmur Abdomen: normal bowel sounds, non tender, soft Assessment and Plan 57 M with recently found brain mass described as cancerous by his mother, he is on outpt hospice with goals of care to control pain and return to home Hospice care, patient has good pain control with oral morphine and transdermal fentanyl patch He has decided to stop Dialysis for his end-stage renal disease He will not have any acute diabetic CARE with any Leukos checks or insulin with regard to vasogenic edema initially described, patient had no improvement with Decadron given his cardiac disease we are stopping all cardiac meds initially DVT prevention was considered but given his hospice status will not pursue chemical or mechanical means
[2017-11-16] MEDS: CHECK FENTANYL PATCH PLACEMENT SCH ×3 (08:08→15:48)
[2017-11-16] MEDS: CHECK SCOPOLAMINE PATCH PLACEMENT SCH ×3 (08:08→15:49)
[2017-11-16] MEDS ORDERED: NURSING VERBAL MED ORDER ONE (09:30)
[2017-11-16] MEDS ORDERED: FENTANYL PATCH REMOVE & WASTE SCH (09:45)
[2017-11-16] MEDS ORDERED: FENTANYL 50 MCG/HR TDSY TD SCH (09:45)
[2017-11-16] MEDS ORDERED: HYDROmorphone INJ 1 MG/ML SYR IV PRN (09:45)
[2017-11-16] MEDS ORDERED: ATROPINE SULFATE 1% OP SOLN 2 ML BTL SL PRN (09:45)
--- NOTE | 2017-11-16 10:14 | Palliative Care Consultation ---
Consultation Date of Consultation: Nov 16, 2017. Requesting Physician: Dr. Seth Attending Physician: Dr. Seth Reason for Consultation: Hospice/comfort care History of Present Illness This 57 year old male patient with PMH renal cancer, brain tumor, ESRD on HD, and others listed below, presented to the hospital as a direct admit for general inpatient hospice. Palliative care is asked to see him to help with comfort and supportive care. Chart reviewed, patient seen this morning in room 403. Patient recently was in [facility] for the brain tumor for which he underwent neurosurgery. According to record he also has a history of renal cell carcinoma. Patient was just admitted to hospice as he decided to stop dialysis and all life-prolonging treatment. Our team was called yesterday by the hospice agency with concerns of pain crisis. In the 24 hours prior to their arrival to see patient, he had taken 16 pills of Oxycodone 15mg. EMS was called who gave patient a dose of IV fentanyl and hospice administered 20mg morphine with no relief whatsoever. Patient was brought to [facility] for [facility] hospice and was started on Dilaudid 0.5-1mg IV Q4h PRN as well as lorazepam 1mg IV Q4h PRN anxiety/ agitation. Upon arrival last evening, patient was screaming in pain with even the slightest touch. He received 2.5 total mg of Dilaudid since admission and 1mg lorazepam since admission and is now much more calm and comfortable. Patient is extremely drowsy, but does open eyes to name. He does not currently follow commands or verbally respond. I called and spoke with his mother, Ailyn Ramirez, on the phone. She confirmed that the goal is strictly for pain management and comfort care. The family's wish would be to have his pain controlled and for him to come back home to live out his remaining days. She also understands that this is uncertain. Past Medical/Surgical History Medical History: ESRD Renal cell carcinoma Brain cancer Chronic diastolic CHF IA GERD Hepatitis C History of drug and alcohol abuse HLDHtn RAVI Surgical History: Coloscopy Partial nephrectomy Appendectomy Pelvic fracture repair Social History Smoking Status: Never Smoker History of Alcohol Use: No Drug Use: other (history of drug and alcohol abuse) Housing Status: lives with family Occupation Status: disabled Review of Systems unable to obtain ROS due to patient condition Allergies Coded Allergies: Piperacillin (Verified Adverse Reaction, Severe, "makes me goofy", 09/18/17 ) Tazobactam (Verified Adverse Reaction, Severe, "makes me goofy", 09/18/17) Medications Current Inpatient Medications Medications (Trade) Dose Ordered Sig/Efrain Route Start Time Stop Time Status Last Admin Dose Admin Ondansetron HCl (Zofran Inj) 4 mg Q6H PRN IV 11/15/17 17:45 12/15/17 17:44 Hydromorphone HCl (Dilaudid Inj) 0.5 mg Q4 PRN IV 11/15/17 17:45 11/29/17 17:44 Hydromorphone HCl (Dilaudid Inj) 1 mg Q4 PRN IV 11/15/17 17:45 11/29/17 17:44 11/16/17 05:28 1 MG Lorazepam (Ativan Inj) 0.5 mg Q4H PRN IV 11/15/17 17:45 12/15/17 17:44 Lorazepam (Ativan Inj) 1 mg Q4H PRN IV 11/15/17 17:45 12/15/17 17:44 11/16/17 08:11 1 MG Acetaminophen 650 mg/Empty Bag 65 ml @ 260 mls/hr Q6H PRN IV 11/15/17 17:45 12/15/17 17:44 Promethazine HCl 12.5 mg/Sodium Chloride 50.5 ml @ 204 mls/hr Q6H PRN IV 11/15/17 17:45 12/15/17 17:44 Dexamethasone Sodium Phosphate 4 mg/Syringe 1 ml @ 1 mls/min Q8H IV 11/15/17 19:00 12/15/17 18:59 11/16/17 03:29 1 MLS/MIN Heparin Sodium (Porcine) (Heparin 10 Unit/ ml 5 ml Flush) 5 ml PRN PRN FLUSH 11/15/17 18:30 12/15/17 18:29 11/16/17 08:11 5 ML Glycopyrrolate (Robinul Inj) 0.2 mg Q4WK PRN IV 11/15/17 18:00 12/15/17 17:59 Scopolamine (Transderm-Scop Patch) 1.5 mg Q3D@1800 TD 11/15/17 18:45 12/15/17 18:44 11/15/17 19:38 1.5 MG Miscellaneous (Remove Transderm-Scop Patch) 1 ea Q3D@1759 N/A 11/18/17 17:59 12/18/17 17:58 Miscellaneous Information (Check Scopolamine Patch Placement) 1 ea QS N/A 11/16/17 00:00 12/16/17 00:00 11/16/17 08:08 1 EA Fentanyl (Duragesic Patch) 25 mcg Q3D@2100 TD 11/15/17 19:00 11/29/17 18:59 11/15/17 19:38 25 MCG Miscellaneous (Fentanyl Patch Remove & Waste) 1 ea Q3D@2059 N/A 11/18/17 20:59 12/18/17 20:58 Miscellaneous Information (Check Fentanyl Patch Placement) 1 ea QS N/A 11/16/17 00:00 12/16/17 00:00 11/16/17 08:08 1 EA Miscellaneous (Fentanyl Patch Remove & Waste) 1 ea TODAY@1900 N/A 11/15/17 19:00 12/15/17 18:59 11/15/17 19:43 1 EA Lorazepam 1 mg/ Syringe 1 ml @ 1 mls/min Q4H PRN IV 11/15/17 18:45 12/15/17 18:44 Lorazepam 0.5 mg/ Syringe 1 ml @ 1 mls/min Q4H PRN IV 11/15/17 18:45 12/15/17 18:44 Physical Exam Date Time Temp Pulse Resp B/P (MAP) Pulse Ox O2 Delivery O2 Flow Rate FiO2 11/16/17 00:10 Nasal Cannula 2.0 11/15/17 22:00 Nasal Cannula 2.0 11/15/17 20:00 37.4 11/15/17 18:00 38.7 113 22 155/84 General Appearance: no apparent distress ENT: + pertinent finding (moist secretions noted) Neck: supple, no JVD Respiratory: lungs clear, no respiratory distress, no accessory muscle use Cardiovascular: regular rate, rhythm, no murmur, + normal peripheral pulses, + pertinent finding (+2 edema to BLE) Abdomen: normal bowel sounds, soft Neurologic/Psychiatric: + pertinent finding (drowsy/stuporous) Skin: normal color Assessment & Plan Palliative Performance Scale: 10 % Problem list: Severe pain, generalized Altered mental status/stuporous Brain cancer ESRD- stopped dialysis Comfort measures only Palliative care recs: discussed with patient's mother Dr. Dorinda Robertson and primary RN. -Patient admitted under hospice care. Dialysis has been stopped, no further plans for life-prolonging treatment. -Per patient's mother/POA, goal is to continue comfort measures only. The family would really like to get patient home if possible, but she also understands this is uncertain. She is aware that patient's life expectancy with stopping dialysis is about 10 days, give or take. -Add Roxanol 20mg PO/SL Q3h PRN pain or SOB. Use Dilaudid 1mg IV Q4h PRN if Roxanol is ineffective. -Increase fentanyl patch to 50mcg/hr TD Q72h. -Atropine 1% oph soln 4 drops Q1h PRN secretions. -Patient has not voided, bladder scanned for 400ml. If patient unable to void, would recommend placing Au catheter for comfort. Ailyn is in agreement with this. -Patient continues to require custodial care/assessment and frequent IV pain/anxiety medications for comfort. He continues to qualify for [facility] hospice. Thank you kindly for this consult. I will continue to follow. Total time spent 70 minutes with >50% of time spent with patient and speaking with family counseling/discussing goals of care and end of life issues.
[2017-11-16] MEDS: MoRPHine SULFATE 10 MG/0.5 ML UDP PO PRN (17:10)
[2017-11-17] MEDS: MoRPHine SULFATE 10 MG/0.5 ML UDP PO PRN ×5 (00:40→11:53)
[2017-11-17] MEDS: HYDROmorphone INJ 1 MG/ML SYR IV PRN (02:16)
[2017-11-17] MEDS: DEXAMETHASONE INJ 4 MG in SYRINGE 0 ML IV SCH ×2 (03:06→11:53)
[2017-11-17] MEDS ORDERED: NURSING VERBAL MED ORDER ONE ×4 (03:15→12:45)
[2017-11-17] MEDS ORDERED: LORAZEPAM INJ 0.5 MG in SYRINGE 0.75 ML IV PRN (03:30)
[2017-11-17] MEDS ORDERED: LORAZEPAM 2 MG/ML 1 ML VIAL IV PRN ×2 (03:30)
[2017-11-17] MEDS ORDERED: LORAZEPAM INJ 1 MG in SYRINGE 0.5 ML IV PRN (03:30)
[2017-11-17] MEDS: CHECK SCOPOLAMINE PATCH PLACEMENT SCH ×3 (08:03→16:10)
[2017-11-17] MEDS: CHECK FENTANYL PATCH PLACEMENT SCH ×3 (08:03→16:10)
[2017-11-17] MEDS ORDERED: LORAZEPAM 1 MG TAB ONE (11:10)
--- NOTE | 2017-11-17 11:33 | Palliative Care Progress Note ---
Palliative Care Progress Note Date of Service Nov 17, 2017. Subjective Pt evaluation today including: conversation w/ family (mother, sister, and another male family member), physical exam, chart review, conversation w/ risk and insurance consultant (Dr. Seth) Pain: having periods of agitation, grimacing at times PO Intake: none Voiding: avina catheter in place Patient having periods of agitation and grimacing with pain at times. Family at bedside-- given support and education. Iram from [address] [place] [address] also in to evaluate patient and speak with family. Family adamant about taking patient home, hopefully tomorrow. Discussed IV Decadron. Review of Systems unable to obtain due to obtundation Objective Vital Signs Date Time Temp Pulse Resp B/P (MAP) Pulse Ox O2 Delivery O2 Flow Rate FiO2 11/17/17 08:30 Nasal Cannula 2.0 11/17/17 00:00 Nasal Cannula 2.0 11/16/17 16:00 Nasal Cannula 2.0 Physical Exam General Appearance: no apparent distress, + obese ENT: hearing grossly normal Neck: supple, no JVD Respiratory/Chest: no respiratory distress, no accessory muscle use Cardiovascular: regular rate, rhythm, + normal peripheral pulses (+3 pitting edema to BLE) Abdomen: normal bowel sounds Neurologic/Psychiatric: + pertinent finding (obtunded. opens eyes occasionally but no response) Assessment and Plan Problem list: Severe pain, generalized Altered mental status/stuporous Brain cancer ESRD- stopped dialysis Comfort measures only Palliative care recs: -Patient remains on [facility]. -Family would like to take patient home tomorrow. -Patient still requiring doses of IV Dilaudid 1mg for pain, but we will attempt to move to strictly PO medications in anticipation of possibly going home. -Would increase fentanyl to 100mcg/hr. -Discontinue IV lorazepam and IV Dilaudid. -Increase Roxanol 20mg PO/SL Q1h PRN. -Discontinue Decadron. -Continue Avina catheter on discharge. Total time spent 35 minutes with >50% of time spent with patient and family at bedside counseling and discussing goals of care. Palliative Performance Scale: 10 % Continued [facility] stay due to: multiple IV medications needed Discharge planning: home with Hospice
[2017-11-17] MEDS ORDERED: LORAZEPAM 1 MG TAB PO PRN (11:45)
[2017-11-17] MEDS: MoRPHine SULFATE 10 MG/0.5 ML UDP SL PRN (13:43)
--- NOTE | 2017-11-17 18:43 | Progress Note ---
Subjective Date of Service: Nov 17, 2017. Subjective Patient remains obtunded family is agreed to take the patient home on 11/18 Problem List Medical Problems: (1) CORNELIO (acute kidney injury) Status: Acute (2) Ambulatory dysfunction Status: Acute (3) Brain mass Status: Acute (4) Cerebral edema Status: Acute (5) Chronic kidney disease Status: Acute (6) Elevated troponin Status: Acute (7) Foot ulcer Status: Acute (8) Heart failure Status: Acute (9) Intramuscular hematoma Status: Acute (10) Metabolic encephalopathy Status: Acute (11) Non-ST elevation [place] (NSTEMI) Status: Acute (12) Renal failure (ARF), acute on chronic Status: Acute (13) Renal mass, left Permanent Comment: 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 Status: Chronic (14) Supratherapeutic INR Status: Acute (15) Uremia Status: Acute Review of Systems Constitutional: + problem reported (Cannot obtain a review of systemsdue to obtundation) Objective Vital Signs Date Time Temp Pulse Resp B/P (MAP) Pulse Ox O2 Delivery O2 Flow Rate FiO2 11/17/17 16:42 Nasal Cannula 2.0 11/17/17 08:30 Nasal Cannula 2.0 11/17/17 00:00 Nasal Cannula 2.0 Physical Exam General Appearance: WD/WN, + moderate distress Respiratory/Chest: + respiratory distress, + decreased breath sounds Cardiovascular: regular rate, rhythm, no murmur Assessment and Plan 57 M with recently found brain mass described as cancerous by his mother, he is on outpt hospice with goals of care to control pain and return to home goals return home 11/18 Hospice care, patient has good pain control with oral morphine and transdermal fentanyl patch He has decided to stop Dialysis for his end-stage renal disease He will not have any acute diabetic CARE with any Leukos checks or insulin with regard to vasogenic edema initially described, patient had no improvement with Decadron will stop dexamethasone on 11/17 given his cardiac disease we are stopping all cardiac meds initially DVT prevention was considered but given his hospice status will not pursue chemical or mechanical means his outlook is poor and I believe the patient will likely succumb to the progression of his cancer in the next few weeks Continued [facility] stay due to: multiple IV medications needed Discharge planning: home with Hospice
[2017-11-18] MEDS: CHECK SCOPOLAMINE PATCH PLACEMENT SCH ×2 (00:20→08:39)
[2017-11-18] MEDS: CHECK FENTANYL PATCH PLACEMENT SCH ×2 (00:20→08:39)
[2017-11-18] MEDS: MoRPHine SULFATE 10 MG/0.5 ML UDP SL PRN (04:33)
[2017-11-18] MEDS ORDERED: SCOP1.5D2 TD (08:22)
[2017-11-18] MEDS ORDERED: ATRO1SOL13 SL (08:22)
[2017-11-18] MEDS ORDERED: ONDA-170 PO (08:22)
[2017-11-18] MEDS ORDERED: ATV1 SL (08:22)
[2017-11-18] MEDS ORDERED: DRGTP50 TD (08:22)
[2017-11-18] MEDS ORDERED: RXNS10 SL (08:22)
--- NOTE | 2017-11-18 08:24 | Discharge Instructions ---
Discharge Instructions Date of Service Nov 18, 2017. Admission Reason for Admission: Metastatic Brain Cancer Discharge Discharge Diagnosis / Problem: brain tumor-hospice care Discharge Goals Goal(s): Therapeutic intervention Activity Recommendations Activity Limitations: as noted below Exercise/Sports Limitations: rest today . Current Hospital Diet Patient's current hospital diet: Regular Diet Discharge Diet Recommended Diet: Regular Diet Pending Studies Studies pending at discharge: no Medical Emergencies . Who to Call and When: Medical Emergencies: If at any time you feel your situation is an emergency, please call 911 immediately. . Non-Emergent Contact Non-Emergency issues call your: Primary Care Provider Call Non-Emergent contact if: your pain is not controlled . . "Provider Documentation" section prepared by Stephen Seth. .
[2017-11-18 08:33] VITALS: BP 155/84; PULSE 113; TEMP 37.4
--- NOTE | 2017-11-18 18:01 | Discharge Summary ---
Discharge Summary Date of Service Nov 18, 2017. Discharge Summary Admission Date: Nov 15, 2017 at 17:31 Discharge Date: Nov 18, 2017 Discharge Disposition: Home with services (palliative care) Principal Diagnosis: hospice care for brain cancer and renal cell carcinoma Problems/Secondary Diagnoses: (1) Renal mass, left Status: Chronic Immunizations: Have You Had Influenza Vaccine: No History of Tetanus Vaccine?: Yes History of Pneumococcal: No History of Hepatitis B Vaccine: Yes Medication Reconciliation New Medications: Ondansetron Hcl (Zofran) 8 Mg Tab 8 MG PO Q6 PRN for Nausea, #20 TAB please crush Atropine Sulfate (Atropine Sulfate) 1 % Maegan 4 DROPS SL Q1H PRN for SECRETIONS, #1 BTL this is a hospice medicaiton Fentanyl (Fentanyl) 50 Mcg Tdsy 50 MCG TD Q3D@0900, #10 PATCH Lorazepam (Lorazepam) 1 Mg Tab 1 MG SL Q4H PRN for ANXIETY/AGITATION, #20 TAB please crush this is a hospice medication Morphine Sulfate (Morphine Sulfate) 10 Mg/0.5 Ml Soln 20 MG SL Q1H PRN for PAIN/RESPIRATORY DISTRESS, #200 ML this is a hospice medication Scopolamine (Transderm-Scop) 1 Mg/3 Days Dis 1.5 MG TD Q3D@1800, #10 PATCH Discontinued Medications: Allopurinol (Zyloprim) 100 Mg Tab 100 MG PO BID, TAB Carvedilol (Carvedilol) 25 Mg Tab 25 MG PO DAILY Cholecalciferol (D 2000) 2,000 Unit Tab 2000 UNITS PO DAILY Clonidine Hcl (Catapres) 0.1 Mg Tab 0.1 MG PO BID, TAB Felodipine (Felodipine ER) 10 Mg Tabcr 5 MG PO DAILY Folic Acid (Folvite) 1 Mg Tab 1 MG PO BID, TAB Furosemide (Lasix) 40 Mg Tab 40 MG PO BID, TAB Furosemide (Lasix) 80 Mg Tab 80 MG PO DIRECTED PRN for EDEMA WORSENS, TAB MAY TAKE IN PLACE OF 40MG TAB, IF EDEMA WORSENS. Lisinopril (Lisinopril) 40 Mg Tab 40 MG PO DAILY Metoprolol Tartrate (Lopressor) 100 Mg Tab 150 MG PO BID, TAB TAKES 1 1/2 TABS. Oxycodone Hcl (Oxycodone Hcl) 15 Mg Tab 15 MG PO Q4H PRN for Pain for 30 Days, #120 TAB Pregabalin (Lyrica) 100 Mg Cap 100 MG PO BID, CAP Tramadol (Ultram) 50 Mg Tab 50 MG PO Q8H PRN for Pain, TAB Warfarin Sod (Jantoven) 5 Mg Tab 2.5 MG PO QPM, TAB Discharge Exam ROS is unobatinable, pt does respond by moving to his name and touch otherwise is lethargic Physical Exam: General Appearance: WD/WN, + moderate distress Respiratory/Chest: + respiratory distress, + decreased breath sounds, + accessory muscle use Cardiovascular: + tachycardia Abdomen / GI: soft Neurologic/Psychiatric: + depressed affect Hospital Course 57 M with recently found brain mass described as cancerous by his mother, he is on outpt hospice with goals of care to control pain and return to home goals return home 11/18 Hospice care, patient has good pain control with oral morphine and transdermal fentanyl patch He has decided to stop Dialysis for his end-stage renal disease He will not have any acute diabetic CARE with any Leukos checks or insulin with regard to vasogenic edema initially described, patient had no improvement with Decadron will stop dexamethasone on 11/17 given his cardiac disease we are stopping all cardiac meds initially DVT prevention was considered but given his hospice status will not pursue chemical or mechanical means his outlook is poor and I believe the patient will likely succumb to the progression of his cancer in the next few weeks Total Time Spent: Greater than 30 minutes This includes examination of the patient, discharge planning, medication reconciliation, and communication with other providers. Discharge Instructions Please refer to the electronic Patient Visit Report (Discharge Instructions) for additional information.
[2017-11-18] MEDS ORDERED: FENTANYL PATCH REMOVE & WASTE SCH (20:59)
[2017-11-19] MEDS ORDERED: FENTANYL PATCH REMOVE & WASTE SCH (08:59)
== END 2017-11-18 11:35 | disposition hospice, home (50) | DRG 947 ==
LOC: C.4E 17:31
PROVIDERS: ADMIT Internal Medicine; ATTEND Internal Medicine
DX: G89.3 Neoplasm related pain (acute) (chronic) (principal); N18.6 End stage renal disease; C79.31 Secondary malignant neoplasm of brain; C64.9 Malignant neoplasm of unspecified kidney, except renal pelvis; G93.6 Cerebral edema; I50.32 Chronic diastolic (congestive) heart failure; Z51.5 Encounter for palliative care; Z79.01 Long term (current) use of anticoagulants; E11.9 Type 2 diabetes mellitus without complications; K21.9 Gastro-esophageal reflux disease without esophagitis; B18.2 Chronic viral hepatitis C; Z86.718 Personal history of other venous thrombosis and embolism; Z88.1 Allergy status to other antibiotic agents; I25.2 Old myocardial infarction; F10.10 Alcohol abuse, uncomplicated; R79.1 Abnormal coagulation profile